=== PATIENT | male | born 1935 | race Caucasian/White ===

== ENCOUNTER 2023-06-25 11:55 | Emergency (ER) | payer OTHER, SELFPAY ==
[2023-06-25 12:03] VITALS: BP 103/66
--- NOTE | 2023-06-25 14:10 | ED.GENMED ---
History of Present Illness
<Aby Fernandez PA-C - Last Filed: 06/26/23 09:44>
General
Chief Complaint: Head Injury
Source: patient
Exam Limitations: none
Time Seen by Provider: 06/25/23 13:43
Nursing documentation reviewed up to this point in time: agreed with
Travel History
Have you had any contact with someone who has COVID-19?: No
Do you have any symptoms of coronavirus? Fever > 100 degrees, chills, cough, shortness of breath, sore throat, loss of taste or smell, muscle aches, or headache?: No
History of Present Illness
History of Present Illness:
Patient is an 88-year-old male with history hypertension, hyperlipidemia, CAD on Plavix presenting for evaluation in emergency department following mechanical fall earlier today. Patient states that he was walking in a parking lot at [facility] when he
tripped over a curb falling down striking the front of his head and chest on the pavement. He did not lose consciousness. Patient's was there to witness the fall and assisted him to get up. He currently endorses pain in his left chest. He
denies any shortness of breath or difficulty breathing. He denies any headache, neck pain, back pain, confusion, visual changes, vomiting.
He denies sustaining any other injuries in fall.
Past History
<Aby Fernandez PA-C - Last Filed: 06/26/23 09:44>
Past History
ED Past Medical History: CAD, GERD, HTN, Hypercholesterolemia, IDDM, [place] and Other (GI bleeding, Prostate CA, cardiomyopathy, hiatal hernia, colon cancer, prostate cancer, arthritis, lumbar disc disease)
ED Past Surgical History: Bowel resection, Cardiac (Stents X7) and Other (L arm surgery)
Social History
Tobacco: Former smoker
Alcohol: None
Drug: None
Personal:
Living: with family
Employment: Retired
Family History
Family History: Other (Noncontributory)
Phy Exam
<Aby Fernandez PA-C - Last Filed: 06/26/23 09:44>
Physical Exam
Physical Exam:
General: In no apparent distress, nontoxic appearing
Vitals: Vital signs stable, patient afebrile
HEENT: Hematoma noted to frontal scalp right at left eyebrow with very minor abrasion; pupils equal round and reactive to light bilaterally, extraocular muscles intact, no tenderness surrounding orbit or nasal bridge, protecting airway, uvula midline
Neck: appears supple, normal range of motion without any cervical spine or midline spinal tenderness; trachea midline
CV: Regular rate and rhythm, heart sounds normal, no evidence of cyanosis; mild tenderness to palpation of left anterior chest wall without any obvious bruising, crepitus, deformity
Resp: No evidence of respiratory distress, lungs clear bilaterally
Abd: Soft, nontender, non-distended
Extremities: Full range of motion all upper and lower extremities without any bony tenderness or obvious deformity
Neuro: alert and oriented x 3; speech normal; strength 5 out of 5 in upper and lower extremities, sensation fully intact, normal finger-nose, cranial nerves II through XII intact bilaterally
Psych: Normal affect
Skin: Hematoma and mild abrasion to left frontal scalp as noted above
Course
<Aby Fernandez PA-C - Last Filed: 06/26/23 09:44>
Orders/Labs/Results
Orders:
Orders
06/25/23 12:[address] [CT Head W/o Iv Contrast] Urgent
Comment:
Reason For Exam: fall hit head on plavix
06/25/23 12:06
Chest [CR Chest - 2 Views ] Urgent
Comment:
Reason For Exam: fall hit chest on concrete + plavix
06/25/23 14:02
Acetaminophen [Tylenol] 650 mg PO NOW STA
Vital Signs
Initial and Last Documented VS:
Initial Vital Signs
Temp Pulse Resp BP Pulse Ox
98.5 F 74 18 103/66 98
06/25/23 12:03 06/25/23 12:03 06/25/23 12:03 06/25/23 12:03 06/25/23 12:03
Last Documented Vital Signs
Temp Pulse Resp BP Pulse Ox
98.5 F 74 18 103/66 98
06/25/23 12:03 06/25/23 12:03 06/25/23 12:03 06/25/23 12:03 06/25/23 12:03
<Mekhi López DO - Last Filed: 06/25/23 14:37>
Orders/Labs/Results
Orders:
Orders
06/25/23 12:[address] [CT Head W/o Iv Contrast] Urgent
Comment:
Reason For Exam: fall hit head on plavix
06/25/23 12:06
Chest [CR Chest - 2 Views ] Urgent
Comment:
Reason For Exam: fall hit chest on concrete + plavix
06/25/23 14:02
Acetaminophen [Tylenol] 650 mg PO NOW STA
Vital Signs
Initial and Last Documented VS:
Initial Vital Signs
Temp Pulse Resp BP Pulse Ox
98.5 F 74 18 103/66 98
06/25/23 12:03 06/25/23 12:03 06/25/23 12:03 06/25/23 12:03 06/25/23 12:03
Last Documented Vital Signs
Temp Pulse Resp BP Pulse Ox
98.5 F 74 18 103/66 98
06/25/23 12:03 06/25/23 12:03 06/25/23 12:03 06/25/23 12:03 06/25/23 12:03
<Aby Fernandez PA-C - Last Filed: 06/26/23 09:44>
MDM/Problems Addressed
Differential Diagnosis Includes:
Abrasion, contusion, concussion, hematoma, doubt intraparenchymal hemorrhage or fracture; rib fracture, rib contusion, pulmonary contusion, muscular strain, doubt pneumothorax
MDM/Problems Addressed:
Patient is a 88 year old male presenting for evaluation following fall earlier today with associated head strike. No LOC. On plavix. Complaining of mild left sided chest pain. Vitals are stable. Physical exam as documented above. Patient is well
appearing, in no apparent distress. No neck tenderness or spine tenderness. No focal neurologic findings on exam. Hematoma noted to left frontal scalp at eyebrow. There is mild chest tenderness to palpation on left side without any obvious deformity
or crepitus. Heart regular rate and rhythm. Lungs clear bilaterally. Head CT and chest xray obtained in triage. No acute abnormalities. No evidence of pneumothorax. Ice for hematoma, tylenol for pain.
Discussed findings with patient and possibility and missing small rib fracture. Stable for discharge with very close return precautions, pneumonia precautions, incentive spirometer. Tylenol for pain. Patient comfortable this plan. All questions
answered. He will follow-up with his primary care doctor later this week
Chronic conditions affecting care:
CAD on Plavix
Acute Exacerbation and/or Progression of Chronic Illness:
N/A
<Aby Fernandez PA-C - Last Filed: 06/26/23 09:44>
*Radiology
Radiology exam reviewed: preliminary read by ED provider and radiology read reviewed
*Pulse Oximetry
Patient hypoxic: no
*EKG
Interpreted by ED Provider?: NA
*Office Clerk Routine Interpretation
Rate: Office Clerk Routine- N/A
*Critical Care Note
Total Time (30-74mins, 75-104mins- exclusive of procedures): Not Applicable
ED Attending Note
<Aby Fernandez PA-C - Last Filed: 06/26/23 09:44>
-
Portions of this chart may have been created with voice recognition software.� Occasional wrong word or��sound alike� substitutions may have occurred due to the inherent limitations of voice recognition software.
<Mekhi López, DO - Last Filed: 06/25/23 14:37>
ED Attending Note
Patient seen and examined by attending physician: Yes
I performed the substantive portion of visit, reviewed & personally made and approve the management plan that is documented in note by myself or KIN.: Yes
ED Attending Note:
88-year-old male who presents after he tripped over a parking block at [employer]. Landed on his chest. Did hit his head. States he may have landed on his hands underneath his chest. Reports a little left chest wall pain when he coughs. States head
feels fine. No loss of consciousness. No shortness of breath. No nausea or vomiting. Exam: Left frontal forehead hematoma with small abrasion. Very mild sternal and left parasternal chest wall tenderness. No crepitus. Loop recorder noted
under the skin. Assessment and plan: Pain control, ice, rest and if at the spirometry 10 times an hour while awake. Return warnings were provided and patient agrees
Discharge Plan
Departure
Patient Disposition: Home (Routine Discharge)
Date of Disposition: 06/25/23
Time of Disposition: 14:38
Patient with high blood pressure during this ER visit?: No
Condition: Good
Covid-19: Not Applicable
Discharge Problem:
Contusion of head, Contusion of left chest wall, Fall
Instructions: Rib Fracture or Bruised Rib ED, Minor Head Injury, Adult ED
Prescriptions:
No Action
glipizide 5 MG tablet
5 mg PO BID
clopidogrel 75 MG tablet
75 mg PO DAILY Qty: 30 3RF
amlodipine 5 MG tablet
5 mg PO DAILY Qty: 30 3RF
carvedilol 12.5 MG tablet
25 mg PO BID
pantoprazole [Protonix] 20 MG tablet,delayed release (DR/EC)
20 mg PO DAILY
vitamin B complex 1 TAB tablet
1 tab PO DAILY
aspirin 81 MG tablet,delayed release (DR/EC)
81 mg PO DAILY
insulin aspart U-100 [Novolog U-100 Insulin aspart] 1,000 UNITS/10 ML solution
7 units SC BID
atorvastatin 80 mg Tablet
80 mg PO HS
paroxetine HCl 10 mg Tablet
10 mg PO DAILY
oxybutynin chloride 5 mg Tablet Extended Release 24hr
5 mg PO DAILY
insulin asp prt-insulin aspart 100 unit/mL (70-30) Cartridge
1 sliding scale dose SC DIRECTED
Referrals:
Cesar Arana DO [Family Provider] - Follow up in 5-7 days
Activity Restrictions/Additional Instructions:
- Return to the emergency department with any chest pain, shortness of breath, high fevers, intractable pain, severe headache, altered mental status, intractable nausea/vomiting, worsening current symptoms, or any other concerns
-As discussed�you should use the incentive spirometer 10 times per hour when awake
-You can take Tylenol as needed for discomfort
-You should follow-up with your primary care provider within the next 5 to 7 days to ensure symptoms are improving
Interventions
Interventions:
*Risk Screen - Suicide Last Done: 06/25/23 12:03
*General Assessment Last Done: 06/25/23 12:03
*Neglect/Abuse Screening Last Done: 06/25/23 12:03
*ED COVID-19 Vaccine History Last Done: 06/25/23 12:03
*Nursing Disposition Last Done: 06/25/23 14:56
ED- Neurological Assessment Last Done: 06/25/23 14:16
ED-Skin Assessment Last Done: 06/25/23 14:16
Discharge Date and Time
Discharge Date/Time: 06/25/23 14:56
Print Language: [place]
[2023-06-25] MEDS: TYLENOL 650 MG PO (14:12)
== END 2023-06-25 14:56 | disposition home or self-care (01) ==
LOC: EMR 11:55
PROVIDERS: EMERGENCY PHYSICIAN Emergency Medicine; FAMILY PHYSICIAN Family Medicine
DX: S00.83XA Contusion of other part of head, initial encounter (principal); S20.212A Contusion of left front wall of thorax, initial encounter; W18.09XA Striking against other object with subsequent fall, initial encounter; I25.10 Atherosclerotic heart disease of native coronary artery without angina pectoris; I10 Essential (primary) hypertension; Z87.891 Personal history of nicotine dependence; Z79.02 Long term (current) use of antithrombotics/antiplatelets
CPT/HCPCS: 99284; 70450; 71046

== ENCOUNTER 2023-08-11 19:43 | Inpatient (IN) | payer OTHER, SELFPAY ==
[2023-08-11 17:59] VITALS: BMI 25.4
[2023-08-11 18:00] VITALS: BP 156/71
--- NOTE | 2023-08-11 18:13 | ED.GENMED ---
History of Present Illness
General
Chief Complaint: Male Genito-Urinary Symptoms
Source: patient and spouse
Exam Limitations: none
Time Seen by Provider: 08/11/23 18:05
Travel History
Have you had any contact with someone who has COVID-19?: No
Do you have any symptoms of coronavirus? Fever > 100 degrees, chills, cough, shortness of breath, sore throat, loss of taste or smell, muscle aches, or headache?: No
History of Present Illness
History of Present Illness:
88-year-old male complaining of some low back pain which has been an ongoing issue some urinary frequency overnight. Feels like he had to go multiple times overnight. Some lower abdominal pressure. No fever or chills. No flank pain. No nausea
or vomiting.
Past History
Past History
ED Past Medical History: CAD, GERD, HTN, Hypercholesterolemia, IDDM, [place] and Other (GI bleeding, Prostate CA, cardiomyopathy, hiatal hernia, colon cancer, prostate cancer, arthritis, lumbar disc disease)
ED Past Surgical History: Bowel resection, Cardiac (Stents X7) and Other (L arm surgery)
Social History
Tobacco: Former smoker
Alcohol: None
Drug: None
Personal:
Living: with family
Employment: Retired
Family History
Family History: Other (Noncontributory)
Review of Systems
Review of Systems
All Other Systems: Not applicable
Constitutional: Reports fatigue; Denies fever or chills
Respiratory: Reports no symptoms
Cardiac: Reports no symptoms
Phy Exam
Physical Exam
Physical Exam:
GENERAL: Alert and oriented in no apparent distress
EYE: Orbits normal.
NECK: Supple
CARDIAC: Regular rate and rhythm without any obvious murmurs.
LUNGS: Clear breath sounds,normal
ABDOMEN: Soft, mild suprapubic fullness. No true tenderness. No rebound or guarding no mass or hernia. No CVA tenderness.
NEUROLOGICAL: Alert and oriented , grossly non-focal. Good lower extremity strength. Some subjective bilateral lower extremity paresthesias however this is chronic. Gait normal.
SKIN: Warm and dry, no rash or lesion, no discoloration, skin intact.
MUSCULOSKELETAL: No edema,no deformity.Good color. No spinal tenderness. No erythema of the lower back.
PSYCH: Normal and appropriate interaction.
Course
Orders/Labs/Results
Orders:
Orders
08/11/23 18:12
Adams Placement- Treatment ONCE
Reason for insertion: Acute Retention
IV Insert/Care/Rem.- Treatment PRN
08/11/23 18:31
Basic Metabolic Panel Urgent
Complete Blood Count/With Diff Urgent
Urinalysis Reflex To Culture Urgent
Date Specimen was Collected: 08/11/23
Time Specimen was Collected: 18:28
Urine Microscopic Reflex Cult Urgent
Urine Culture Urgent
NELI Source: U
Specimen Description:
Date Specimen was Collected: 08/11/23
Time Specimen was Collected: 18:28
08/11/23 19:06
Lidocaine 2% [Lidocaine Uro-Jet 2%] 1 syringe .ROUTE .[facility]
08/11/23 19:09
Lidocaine 2% [Lidocaine Uro-Jet 2%] 1 syringe TOPICAL NOW STA
08/11/23 19:15
Cefepime HCl [Maxipime] 2,000 mg IV NOW STA
08/11/23 19:17
CT Abd/pel Without Iv Or Oral Urgent
Comment:
Reason For Exam: Back pain/UTI
08/11/23 19:20
Blood Culture Q30M
NELI Source: Blood/Venous
Specimen Description:
0.9% Sodium Chloride 500 ml [Nss] 500 ml IV BOLUS
Ketorolac [Toradol] 15 mg IV NOW STA
08/11/23 19:33
Admit/Transfer Patient As Directed
Co-Sign Provider:
Level of Care: Inpatient admission
Assign to:: Medical/Surgical
Physician / Group: ok
Diagnosis: uti
Reason for Hospitalization: uti
Expected length of stay greater than two midnights?: Yes
ELOS- Estimated Length of Stay in days: 2
I certify the patient meets the requirements for IP care: Yes
Code Status As Directed
Resuscitation Status: Full Code
08/11/23 19:45
Blood Culture Q30M
NELI Source: Blood/Venous
Specimen Description:
Abnormal Lab Results
08/11/23
18:31
RBC 4.06 L 10^6/uL
(4.70-6.10)
Hgb 10.6 L g/dL
(13.0-18.0)
Hct 31.6 L %
(39.0-52.0)
MCV 77.8 L fL
(80.0-94.0)
MCH 26.1 L pg
(27.0-31.0)
Absolute Monos (auto) 1.0 H 10^3/uL
(0.1-0.6)
Lymphocytes % 15.0 L %
(20.5-51.1)
Monocytes % 11.9 H %
(1.7-9.3)
Sodium 133 L mmol/L
(135-145)
BUN 27 H mg/dl
(9-20)
Glucose 257 H mg/dl
(70-99)
Ur Occult Blood Reflex 2+ A
(Negative)
Leukocyte Esterase Rfl 2+ A
(Negative)
Urine RBC 3-6 A /HPF
(0-2)
Urine WBC (Reflex) >100 A /HPF
(0-5)
Urine Bacteria (Reflex) Many A
(Negative)
Urine Glucose 3+ A
(Negative)
08/11/23 18:31
08/11/23 18:31
Vital Signs
Initial and Last Documented VS:
Initial Vital Signs
Temp Pulse Resp BP Pulse Ox
99.6 F 71 20 156/71 99
08/11/23 18:00 08/11/23 18:00 08/11/23 18:00 08/11/23 18:00 08/11/23 18:00
Last Documented Vital Signs
Temp Pulse Resp BP Pulse Ox
99.6 F 71 20 156/71 99
08/11/23 18:00 08/11/23 18:00 08/11/23 18:00 08/11/23 18:00 08/11/23 18:00
MDM/Problems Addressed
Differential Diagnosis Includes:
Patient describing urinary frequency. Bladder scan greater than the thousand. Likely stress incontinence with urinary retention. To consider infectious component also. Doubt kidney stone. Patient does get injections in his back but has no acute
neurologic lower extremity issues. History of prostatitis and radiation prostatitis
*Radiology
Radiology exam reviewed: radiology read reviewed (Bilateral hydronephrosis without obstruction. Renal mass.)
*Pulse Oximetry
Patient hypoxic: no
*Critical Care Note
Total Time (30-74mins, 75-104mins- exclusive of procedures): Not Applicable
Data Reviewed
Review of Other/Old Records Reveals: Labs and Testing
Update Note
Update Note:
1600 cc urinary retention. Positive UTI. Patient somewhat uncomfortable at the urethral site. Will try local lidocaine and Toradol. Warrants inpatient management. Also will get a CT scan for completeness although doubt obstructing kidney stone
ED Attending Note
-
Portions of this chart may have been created with voice recognition software.� Occasional wrong word or��sound alike� substitutions may have occurred due to the inherent limitations of voice recognition software.
Discharge Plan
Departure
Patient Disposition: Admit
Date of Disposition: 08/11/23
Time of Disposition: 19:21
Presentation/result/management discussed w/ accepting MD/DO: Hospitalist
Discharge Problem:
Urinary retention, UTI
Interventions
Interventions:
*Risk Screen - Suicide Last Done: 08/11/23 18:00
*General Assessment Last Done: 08/11/23 18:00
*Neglect/Abuse Screening Last Done: 08/11/23 18:00
*ED COVID-19 Vaccine History Last Done: 08/11/23 19:53
ED-Male Genitourinary Assessment Last Done: 08/11/23 18:41
[2023-08-11 18:50] LABS: % Basophils 0.5 % (0-2); % Eosinophils 1.5 % (0-6); % Immature Granulocytes 0.3 % (0-0.5); % Monocytes 11.9 % (1.7-9.3); % Neutrophils 70.8 % (42.2-75.2); Absolute Eosinophils 0.1 10^3/uL (0-0.7); Absolute Lymphocytes 1.3 10^3/uL (1.2-3.4); Absolute Neutrophils 6.1 10^3/uL (1.4-6.5); Hematocrit 31.6 % (39.0-52.0); Hemoglobin 10.6 g/dL (13.0-18.0); Mean Corp Hgb Conc. 33.5 g/dL (33.0-37.0); Mean Corpuscular Hgb 26.1 pg (27.0-31.0); Mean Corpuscular Volume 77.8 fL (80.0-94.0); Mean Platelet Volume 9.3 fL (7.4-10.4); Nucleated Red Blood Cells % 0 % (-); Platelet Count 298 10^3/uL (130-400); Red Blood Cell Count 4.06 10^6/uL (4.70-6.10); Red Cell Dist. Width 14.2 % (11.5-14.5); White Blood Cell Count 8.6 10^3/uL (4.8-10.8)
[2023-08-11 18:58] LABS: Urine Albumin Trace (Neg - Trace); Urine Bilirubin Negative (Negative); Urine Character Very Cloudy (Clear); Urine Color Yellow; Urine Glucose 3+ (Negative); Urine Ketone Negative (Negative); Urine Leukocyte 2+ (Negative); Urine Nitrite Negative (Negative); Urine Occult Blood 2+ (Negative); Urine Urobilinogen Negative (Neg - 1+)
[2023-08-11 19:04] LABS: Blood Urea Nitrogen 27 mg/dl (9-20); Calcium 8.9 mg/dl (8.4-10.2); Carbon Dioxide 22 mmol/L (22-30); Chloride 101 mmol/L (98-107); Glucose 257 mg/dl (70-99); Potassium 4.2 mmol/L (3.5-5.1); Sodium 133 mmol/L (135-145); eGFR > 60.00
[2023-08-11] MEDS: LIDOCAINE URO-JET 2% 1 SYRINGE TOPICAL (19:09)
[2023-08-11] MEDS: NSS 500 IV (19:25)
--- NOTE | 2023-08-11 19:25 | PHANOTE ---
Med Rec Note- spouse and patient do not know patient meds, used [facility] and pharmacy. spouse will bring in home meds list and/or bottles tomorrow 08/12/23
[2023-08-11] MEDS: MAXIPIME 2000 MG IV (19:26)
[2023-08-11] MEDS: TORADOL 15 MG IV (19:26)
[2023-08-11 19:37] LABS: Urine Squamous Cell 0-2 /LPF (Few); Urine White Cell >100 /HPF (0-5)
[2023-08-11 19:38] LABS: Urine Bacteria Many (Negative)
--- NOTE | 2023-08-11 19:39 | HPS.HSE ---
Family Physician
-
Family Physician: Cesar Arana DO
Chief Complaint
-
urinary symptoms
History of Present Illness
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
burning since yesterday. [place] like he had to urinate multiple times overnight. He has some lower abdominal pressure. He denies fevers or chills. He denies flank pain. He denies nausea or vomiting.
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
He denies smoking or alcohol use.
Medical History
Past Medical History
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
Past Surgical History: Reports Other (Bowel resection, Cardiac (Stents X7) and Other (L arm surgery))
Social History
Tobacco: Non-smoker
Alcohol: None
Drug: None
Family History
Family History: Not pertinent
Allergies / Home Medications
Allergies reflects when Allergies were last updated in [facility].
Home Medications with original date entered in [facility]
Allergy/Medication List:
Allergies
Allergy/AdvReac Type Severity Reaction Status Date / Time
No Known Allergies Allergy Verified 08/11/23 18:00
Home Medications
amlodipine 5 mg tablet 5 mg PO DAILY ##30 07/17/18
clopidogrel 75 mg tablet 75 mg PO DAILY ##30 07/17/18
aspirin 81 mg tablet,delayed release 81 mg PO DAILY 08/06/18
carvedilol 12.5 mg tablet 6.25 mg PO BID 08/06/18
pantoprazole 20 mg tablet,delayed release (Protonix) 20 mg PO DAILY 08/06/18
vitamin B complex 1 tab PO DAILY 08/06/18
atorvastatin 80 mg tablet 80 mg PO HS 09/06/22
cholestyramine (with sugar) 4 gram oral powder 1 ea PO BID 08/11/23
glipizide 10 mg tablet 10 mg PO BID 08/11/23
insulin aspar prt-insulin aspart 100 unit/mL (70-30) subcutaneous soln (Novolog Mix 70-30 U-100 Insuln) 20 unit SC BID 08/11/23
paroxetine HCl 40 mg tablet (Paxil) 40 mg PO DAILY 08/11/23
tamsulosin 0.4 mg capsule (Flomax) 0.4 mg PO DAILY 08/11/23
Review of Systems
-
History Source: Patient
A 12 point ROS was completed and negative except as noted: Yes
Constitutional: Reports No Symptoms
EENT: Reports No Symptoms
Respiratory: Reports No Symptoms
Cardiac: Reports No Symptoms
Abdomen/GI: Reports No Symptoms
: Reports See HPI
Musculoskeletal: Reports No Symptoms
Skin: Reports No Symptoms
Neurological: Reports No Symptoms
Endocrine: Reports No Symptoms
Hematologic/Lymphatic: Reports No Symptoms
Psych: Reports No Symptoms
Physical Exam
Vital Signs
Vital Signs
Temp Pulse Resp BP Pulse Ox
99.6 F 71 20 156/71 99
08/11/23 18:00 08/11/23 18:00 08/11/23 18:00 08/11/23 18:00 08/11/23 18:00
Physical Exam
General: Well Developed, Well Nourished and No Apparent Distress
HEENT: NormoCephalic, Moist mucous membranes and Atraumatic
Respiratory: Clear
Cardiac: S1/S2 and Regular Rhythm; No Murmur or Rub
GI: Soft, Non Distended, Normal Bowel Sounds and Tender; No Organomegaly
Rectal: Deferred by Provider
Musculoskeletal: No Clubbing, No Cyanosis and No Edema
Skin: No Rash
Neuro: Nonfocal/grossly intact
Laboratory Results
-
08/11/23 18:31
08/11/23 18:31
Data Reviewed
-
Lab Data: Labs Reviewed by me
Old Records: Reviewed
Impression/Plan
-
IMPRESSION:
PLAN:
# Urinary tract infection
# Urinary retention
-Patient found to be retaining 1500 cc, Adams catheter placed, hematuria developed sometime after Adams catheter insertion
-Urinalysis suggestive of infection, full counts pending
-Urine culture, blood cultures
-Ceftriaxone
-CT abdomen pelvis to rule out obstructive uropathy
-Continue aspirin, hold Plavix given hematuria
# History of prostate cancer status post radiation
-Continue tamsulosin
Coronary artery disease with stents
-Continue aspirin
-Hold Plavix given hematuria
History of SVT
-continue Coreg
Essential hypertension
-Continue amlodipine
Hyperlipidemia
-continue statin
Type 2 diabetes
-Hold glipizide
-Continue NovoLog 70�30, 20 units twice daily
-Insulin sliding scale
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
-Continue cholestyramine
GERD
-Continue Protonix
History of TIA
Spinal stenosis
Anxiety/depression
-Continue paroxetine
Full code
DVT prophylaxis�SCDs
Regular diet
--- NOTE | 2023-08-11 19:41 | EDRN ---
Pt states feeling better after lidocaine applied. Pt states stretcher is also causing discomfort. Pt repositioned and states 'I feel better but I hate these beds'. Pt states she will call with confirmation of med list when she gets home.
[2023-08-11 19:48] VITALS: BP 158/75
[2023-08-11 20:00] VITALS: BP 158/69
[2023-08-11 20:28] VITALS: BP 160/73; BMI 24.8
[2023-08-11 20:32] LABS: Glucose - Point of Care 206 mg/dl (70-99)
[2023-08-11] MEDS: LIPITOR PO ×2 (21:09→21:11)
[2023-08-11] MEDS: COREG PO ×2 (21:09→21:11)
[2023-08-11] MEDS: ROCEPHIN 1000 MG IV ×2 (21:13→21:18)
[2023-08-11] MEDS: STERILE WATER FOR INJECTION 10 ML IV (21:13)
[2023-08-11 23:29] VITALS: BP 133/70
[2023-08-12 03:00] VITALS: BP 135/60
[2023-08-12 07:00] VITALS: BP 145/67
[2023-08-12 07:36] LABS: % Basophils 0.5 % (0-2); % Eosinophils 2.2 % (0-6); % Immature Granulocytes 0.5 % (0-0.5); % Lymphocytes 13.6 % (20.5-51.1); % Neutrophils 72.2 % (42.2-75.2); Absolute Eosinophils 0.2 10^3/uL (0-0.7); Absolute Monocytes 0.8 10^3/uL (0.1-0.6); Absolute Neutrophils 5.5 10^3/uL (1.4-6.5); Hematocrit 30.7 % (39.0-52.0); Mean Corp Hgb Conc. 32.6 g/dL (33.0-37.0); Mean Corpuscular Volume 79.7 fL (80.0-94.0); Mean Platelet Volume 9.7 fL (7.4-10.4); Nucleated Red Blood Cells % 0 % (-); Platelet Count 288 10^3/uL (130-400); Red Blood Cell Count 3.85 10^6/uL (4.70-6.10); Red Cell Dist. Width 14.5 % (11.5-14.5); White Blood Cell Count 7.6 10^3/uL (4.8-10.8)
[2023-08-12 07:45] LABS: ALT (SGPT) 16 U/L (0-50); AST (SGOT) 17 U/L (17-59); Albumin 3.1 g/dl (3.5-5.0); Alkaline Phosphatase 88 U/L (38-126); Blood Urea Nitrogen 18 mg/dl (9-20); Calcium 8.5 mg/dl (8.4-10.2); Carbon Dioxide 26 mmol/L (22-30); Chloride 105 mmol/L (98-107); Estimated Creatinine Clearance 67 ml/min; Glucose 214 mg/dl (70-99); Potassium 4.8 mmol/L (3.5-5.1); Sodium 137 mmol/L (135-145); Total Bilirubin 0.7 mg/dl (0.2-1.3); Total Protein 5.7 g/dl (6.3-8.2); eGFR > 60.00
[2023-08-12] MEDS: QUESTRAN 4 GRAM PO ×2 (08:15→21:16)
[2023-08-12 08:17] LABS: Glucose - Point of Care 233 mg/dl (70-99)
[2023-08-12] MEDS: PAXIL 40 MG PO (08:17)
[2023-08-12] MEDS: FLOMAX 0.400000000000000022 MG PO (08:17)
[2023-08-12] MEDS: COREG 6.25 MG PO ×2 (08:17→20:45)
[2023-08-12] MEDS: ASPIR LOW (ENTERIC COATED) 81 MG PO (08:17)
[2023-08-12] MEDS: B COMPLEX w/VITAMIN C 1 CAPLET PO (08:17)
[2023-08-12] MEDS: PROTONIX 20 MG PO (08:17)
[2023-08-12] MEDS: NORVASC 5 MG PO (08:18)
[2023-08-12] MEDS: NOVOLOG MIX 70/30 FLEXPEN 20 UNITS SC ×2 (08:19→20:46)
[2023-08-12] MEDS: NOVOLOG FLEXPEN-LOW RESISTANCE 2 UNITS SC (08:29)
[2023-08-12 09:00] LABS: Glycohemoglobin (HgbA1c) 10.7 % (4.0-5.6)
[2023-08-12 12:26] LABS: Glucose - Point of Care 274 mg/dl (70-99)
[2023-08-12] MEDS: NOVOLOG FLEXPEN-LOW RESISTANCE 3 UNITS SC (12:27)
--- NOTE | 2023-08-12 12:49 | VNURNOTE ---
Patient is current with [facility] since 08/03 w/SN/PT/OT, will monitor progress and plan at discharge.
--- NOTE | 2023-08-12 13:35 | W.PN.HOSP.TC ---
Today's Communication/Plan
-
Urology consult
Assessment / Plan
Assessment / Plan
# Urinary tract infection
# Urinary retention
-Patient found to be retaining 1500 cc, Adams catheter placed, hematuria developed sometime after Adams catheter insertion
-Urinalysis suggestive of infection, full counts pending
-Urine culture, blood cultures
-Ceftriaxone
-CT abdomen pelvis to rule out obstructive uropathy: Adams catheter is seen within a predominantly empty urinary bladder with likely thickened wall and some small volume heterogeneous density within, markedly limited on this study without
intravenous contrast. Findings could represent proteinaceous material such as infection, hemorrhage and/or malignancy. This may be related to mild left and minimal right hydroureteronephrosis, without findings to confirm obstructive calculus
bilaterally.
1.3 cm homogeneous slightly hyperdense left renal lesion either a hyperdense cyst or solid mass cannot be differentiated on the basis of this study.
-Continue aspirin, hold Plavix given hematuria
# History of prostate cancer status post radiation
-Continue tamsulosin. Discussed with Dr. Bello, will consult
Coronary artery disease with stents
-Continue aspirin
-Hold Plavix given hematuria
History of SVT
-continue Coreg
Essential hypertension
-Continue amlodipine
Hyperlipidemia
-continue statin
Type 2 diabetes
-Hold glipizide. Poorly controlled, a1c 10.7%
-Continue NovoLog 70�30, 20 units twice daily
-Insulin sliding scale
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
-Continue cholestyramine
GERD
-Continue Protonix
History of TIA
Spinal stenosis
Anxiety/depression
-Continue paroxetine
Full code
DVT prophylaxis�SCDs
Regular diet
Anticipated Discharge: > 48 hours
Subjective/Interval History
-
Date of Service: August 12, 2023
Generally feels better, asking when can go home
Objective Data
-
Labs:
Laboratory Results
08/12/23
06:31
WBC 7.6
Hgb 10.0 L
Hct 30.7 L
Plt Count 288
Sodium 137
Potassium 4.8
Chloride 105
Carbon Dioxide 26
BUN 18
Creatinine 0.8
Glucose 214 H
Calcium 8.5
Total Bilirubin 0.7
AST 17
ALT 16
Alkaline Phosphatase 88
Vital Signs:
Vital Signs
Temp Pulse Resp BP Pulse Ox
98.4 F 73 16 145/67 96
08/12/23 07:00 08/12/23 08:18 08/12/23 07:00 08/12/23 08:18 08/12/23 08:27
I&O
08/11/23 08/12/23 08/13/23
06:59 06:59 06:59
Intake Total 750 / 750
Output Total 1850 / 1850
Balance -1100 / -1100
Review of Systems
-
History Source: Patient and Family ( at bedside)
Constitutional: Reports No Symptoms; Denies Fever
Respiratory: Reports No Symptoms; Denies Cough, Hemoptysis or Trouble Breathing
Cardiac: Reports No Symptoms; Denies Chest Pain
Abdomen/GI: Reports No Symptoms and Abdominal Pain (better)
Genitourinary: Reports Frequency (on admission); Denies Dysuria (denied)
Musculoskeletal: Reports No Symptoms
Neuro: Reports No Symptoms
Physical Exam
-
General: Well Developed, Well Nourished and No Apparent Distress
HEENT: Normocephalic, Atraumatic and Moist Mucous Membranes
Respiratory: Clear to Auscultation; Negative Wheezes, Rales or Rhonchi
Cardiac: Regular Rhythm and S1/S2
GI: Soft, Nontender and Nondistended
Musculoskeletal: No Clubbing, No Cyanosis and No Edema
Neuro: Awake, Alert and Oriented
--- NOTE | 2023-08-12 13:50 | CM ---
Alert awake oriented patient who lives with his Alexia who lives in a 2 story home with 2 step to enter and lives on first floor.He is independent in driving and in all activities of daily living.He was offered VN he requested to resume [facility].
[facility] liaison TT request.Uses cane .
[facility] hx / No SNF history
Pharmacy [facility]
PCP DR Cesar Arana
PLAN Home resume [facility]
[2023-08-12 15:00] VITALS: BP 135/60
--- NOTE | 2023-08-12 15:22 | VNURNOTE ---
[facility] resumption of care completed in [facility] after review of chart and discussion with patient. Patient confirmed having [facility] contact number.
--- NOTE | 2023-08-12 16:07 | PTCARENOTE ---
Pt AAO x3, [place] [facility]; ROMERO well, OOB with assist x1/cane; cecelia well. VSS. On room air- pulse ox 94%. Abd soft, rounded, cecelia PO well. Adams P/I mod amts sl cloudy/sedimented yellow urine; no hematuria noted. resting in bed at present, no c/o. Will
continue to monitor.
[2023-08-12 17:00] LABS: Glucose - Point of Care 318 mg/dl (70-99)
[2023-08-12] MEDS: NOVOLOG FLEXPEN-LOW RESISTANCE 4 UNITS SC (17:13)
--- NOTE | 2023-08-12 18:21 | CONS.URO ---
Consultation
-
Performing Provider: Peffer
Reason for Consultation: Urinary retention
Medical History
History of Present Illness
88[address] Marx with a hx of prostate cancer treated with radiation in 2012
PSA undetectable for years but most recently has risen slightly to 0.[address] Marx's last note his PSA has started to rise slightly.
He has chronic moderate urinary retention of around 300cc PVR as of last visit 10/2022
Along with this is some chronic incontinence
He does take tamsulosin daily
No prior UTI issues known
Some complex renal cysts s/p MRI showing no concern for malignancy
Starting 2 days ago he had worsening dysuria, frequency, and nocturia
He was admitted for septic UTI and aldridge was placed for 1500cc urine
CT showed mild b/l hydroureter and L hydronephrosis
Urology consulted for urinary retention
Past Medical History
Past Medical History: Other (CAD with stents, SVT, hypertension, hyperlipidemia type 2 diabetes, GI bleeding secondary to radiation, prostate cancer status post radiation, TIA, spinal stenosis, GERD)
Past Surgical History: Other (Bowel resection, Cardiac (Stents X7) and Other (L arm surgery))
Social History
Tobacco: Non-smoker
Alcohol: None
Drug: None
Family History
Family History: Reviewed & Not Pertinent
Allergies/Home Medications
Allergies
Allergy/AdvReac Type Severity Reaction Status Date / Time
No Known Allergies Allergy Verified 08/11/23 18:00
Home Medications
�Medication �Instructions �Recorded �Confirmed �Type
amlodipine 5 mg tablet 5 mg PO DAILY ##30 07/17/18 08/11/23 Rx
clopidogrel 75 mg tablet 75 mg PO DAILY ##30 07/17/18 08/11/23 Rx
aspirin 81 mg tablet,delayed 81 mg PO DAILY 08/06/18 08/11/23 History
release
carvedilol 12.5 mg tablet 6.25 mg PO BID 08/06/18 08/11/23 History
pantoprazole 20 mg tablet,delayed 20 mg PO DAILY 08/06/18 08/11/23 History
release (Protonix)
vitamin B complex 1 tab PO DAILY 08/06/18 08/11/23 History
atorvastatin 80 mg tablet 80 mg PO HS 09/06/22 08/11/23 History
cholestyramine (with sugar) 4 gram 1 ea PO BID 08/11/23 08/11/23 History
oral powder
glipizide 10 mg tablet 10 mg PO BID 08/11/23 08/11/23 History
insulin aspar prt-insulin aspart 20 unit SC BID 08/11/23 08/11/23 History
100 unit/mL (70-30) subcutaneous
soln (Novolog Mix 70-30 U-100
Insuln)
paroxetine HCl 40 mg tablet (Paxil) 40 mg PO DAILY 08/11/23 08/11/23 History
tamsulosin 0.4 mg capsule (Flomax) 0.4 mg PO DAILY 08/11/23 08/11/23 History
Physical Exam
Vital Signs
Vital Signs
Temp Pulse Resp BP Pulse Ox
99 F 73 20 135/60 94
08/12/23 15:00 08/12/23 15:00 08/12/23 15:00 08/12/23 15:00 08/12/23 16:07
Lab / Testing Results
Laboratory Results
08/12/23 06:31
08/12/23 06:31
Physical Exam
General: Well Developed, Well Nourished and No Apparent Distress
Respiratory: Clear
GI: Soft and Non Tender
Genito-urinary: No Costovertebral Tend, Clear Urine and Aldridge Catheter
Neuro: AO x 3 and No Motor Deficits
Psych: Calm and Intact Judgement
Assessment / Plan
-
88M with prostate cancer s/p radiation and ADT in 2012, some early evidence
Chronic urinary retention and incontinence with baseline 300cc PVR
Admitted with large volume retention 1500cc and septic UTI
Mild hydronephrosis likely due to retention
- Given chronic urinary retention at baseline even on tamsulosin, would recommend discharge with aldridge catheter in place to complete antibiotic course
- Outpatient follow up for possible trial of void vs alternate penitentiary drainage options like continued aldridge or CIC
- Outpatient repeat imaging to eval resolution of hydronephrosis
- Continue broad spectrum abx pending cultures, recommend 14 day total PO abx course for complicated UTI
- Can resume Plavix on 08/17 if hematuria remains resolved
Data Reviewed
-
CT Scan: Image personally visualized and interpreted
Lab Data: Labs Reviewed
Old Records: Reviewed
[2023-08-12 20:30] VITALS: BP 128/65
[2023-08-12 20:32] LABS: Glucose - Point of Care 300 mg/dl (70-99)
[2023-08-12] MEDS: STERILE WATER FOR INJECTION 10 ML IV (20:45)
[2023-08-12] MEDS: ROCEPHIN 1000 MG IV (20:45)
[2023-08-12] MEDS: METAMUCIL, KONSYL 1 PACKET PO (20:45)
[2023-08-12] MEDS: LIPITOR 80 MG PO (20:46)
[2023-08-12] MEDS: LIDOCAINE 4% PATCH 1 PATCH TOPICAL (21:15)
[2023-08-12] MEDS: MELATONIN 5 MG PO (21:15)
[2023-08-12] MEDS: TYLENOL 650 MG PO (21:15)
[2023-08-12 23:58] VITALS: BP 129/61
[2023-08-13 07:04] LABS: Glucose - Point of Care 125 mg/dl (70-99)
[2023-08-13] MEDS: B COMPLEX w/VITAMIN C 1 CAPLET PO (07:40)
[2023-08-13] MEDS: PAXIL 40 MG PO (07:40)
[2023-08-13] MEDS: NOVOLOG FLEXPEN-LOW RESISTANCE SC ×2 (07:40→12:37)
[2023-08-13] MEDS: PROTONIX 20 MG PO (07:40)
[2023-08-13] MEDS: METAMUCIL, KONSYL 1 PACKET PO (07:41)
[2023-08-13] MEDS: FLOMAX 0.400000000000000022 MG PO (07:41)
[2023-08-13] MEDS: QUESTRAN 4 GRAM PO (07:41)
[2023-08-13] MEDS: NORVASC 5 MG PO (07:41)
[2023-08-13] MEDS: COREG 6.25 MG PO (07:42)
[2023-08-13] MEDS: ASPIR LOW (ENTERIC COATED) 81 MG PO (07:42)
[2023-08-13] MEDS: FLUSH (NSS) 1 FLUSH IV (07:43)
[2023-08-13] MEDS: NOVOLOG MIX 70/30 FLEXPEN 20 UNITS SC (07:44)
[2023-08-13 07:55] VITALS: BP 139/67
--- NOTE | 2023-08-13 10:32 | W.PN.HOSP.TC ---
Today's Communication/Plan
-
dc now
Assessment / Plan
Assessment / Plan
# Urinary tract infection
# Urinary retention
-Patient found to be retaining 1500 cc, Aldridge catheter placed, hematuria developed sometime after Aldridge catheter insertion
-Urinalysis suggestive of infection, full counts pending
-Urine culture neg, blood cultures NGTD
-Ceftriaxone to transition to Ceftin
-CT abdomen pelvis to rule out obstructive uropathy: Aldridge catheter is seen within a predominantly empty urinary bladder with likely thickened wall and some small volume heterogeneous density within, markedly limited on this study without
intravenous contrast. Findings could represent proteinaceous material such as infection, hemorrhage and/or malignancy. This may be related to mild left and minimal right hydroureteronephrosis, without findings to confirm obstructive calculus
bilaterally.
1.3 cm homogeneous slightly hyperdense left renal lesion either a hyperdense cyst or solid mass cannot be differentiated on the basis of this study.
-Continue aspirin, hold Plavix given hematuria
# History of prostate cancer status post radiation
-Continue tamsulosin. Discussed with Dr. Bello, appreciate consult
Coronary artery disease with stents
-Continue aspirin
-Hold Plavix given hematuria, resume on 08/17
History of SVT
-continue Coreg
Essential hypertension
-Continue amlodipine
Hyperlipidemia
-continue statin
Type 2 diabetes
-resume preadmit diabetic medication. Discussed with , she is aware of poorly controlled DM. Will need f/u with PCP to better optimize diabetic management
-Continue NovoLog 70�30, 20 units twice daily
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
-Continue cholestyramine
GERD
-Continue Protonix
History of TIA
Spinal stenosis
Anxiety/depression
-Continue paroxetine
Full code
DVT prophylaxis�SCDs
Regular diet
Pt feels very strongly that he wishes to go home today, will dc
see dictated note
reviewed with CASSIA Roca, and patient
More than 30 minutes spent in discharge including
Final examination of the patient
Summarizing hospital stay
Instructions for continuing care to all relevant caregivers
Preparation of discharge records, prescriptions, and referral forms
Total time spent (in minutes): 45
Anticipated Discharge: Today
Subjective/Interval History
-
Date of Service: August 13, 2023
Feels better and would like to go home
Objective Data
-
Vital Signs:
Vital Signs
Temp Pulse Resp BP Pulse Ox
97.9 F 64 16 139/67 97
08/13/23 07:55 08/13/23 07:55 08/13/23 07:55 08/13/23 07:55 08/13/23 07:55
I&O
08/12/23 08/13/23 08/14/23
06:59 06:59 06:59
Intake Total 750 / 750 2220 / 2220
Output Total 1850 / 1850 4525 / 4525
Balance -1100 / -1100 -2305 / -2305
Review of Systems
-
History Source: Patient and Family (discussed with )
Constitutional: Denies No Symptoms or Fever
EENT: Reports No Symptoms Reported
Respiratory: Reports No Symptoms; Denies Trouble Breathing
Cardiac: Reports No Symptoms; Denies Chest Pain
Genitourinary: Reports Other (aldridge in place)
Physical Exam
-
General: Well Developed, Well Nourished and No Apparent Distress
HEENT: Normocephalic, Atraumatic and Moist Mucous Membranes
Respiratory: Clear to Auscultation; Negative Wheezes, Rales or Rhonchi
Cardiac: Regular Rhythm and S1/S2
GI: Soft, Nontender and Nondistended
Genito-urinary: Aldridge
Musculoskeletal: No Clubbing, No Cyanosis and No Edema
Neuro: Awake, Alert and Oriented
--- NOTE | 2023-08-13 11:10 | CM ---
MD entered order for discharge.
Spoke with pt he said he was ready for discharge.
Alexia will drive him home.
Madis[facility] liaison aware of dc.
PLAN Home with [facility] resumption
[2023-08-13 11:30] VITALS: BP 126/63
--- NOTE | 2023-08-13 12:39 | W.DS.TRANS ---
DC Summary - Grocery Clerk Selling
-
Discharge Instructions:
Discharge Diagnosis/Procedures Bladder Outlet Obstruction with UTI
Diet Diabetic, Carb Controlled
Activity No strenuous activity
Driving Restrictions Not until seen by your Dr
Bathing Restrictions None
Blood Work CBC, BMP in 1-2 weeks
Instructions:
Stand-Alone Forms:
Changes to Home Medications: Yes
Discharge Medications:
DC Medications w/original date entered in [facility]
amlodipine 5 mg tablet 5 mg PO DAILY ##30 07/17/18
clopidogrel 75 mg tablet 75 mg PO DAILY ##30 07/17/18
aspirin 81 mg tablet,delayed release 81 mg PO DAILY 08/06/18
carvedilol 12.5 mg tablet 6.25 mg PO BID 08/06/18
pantoprazole 20 mg tablet,delayed release (Protonix) 20 mg PO DAILY 08/06/18
vitamin B complex 1 tab PO DAILY 08/06/18
atorvastatin 80 mg tablet 80 mg PO HS 09/06/22
cholestyramine (with sugar) 4 gram oral powder 1 ea PO BID 08/11/23
glipizide 10 mg tablet 10 mg PO BID 08/11/23
insulin aspar prt-insulin aspart 100 unit/mL (70-30) subcutaneous soln (Novolog Mix 70-30 U-100 Insuln) 20 unit SC BID 08/11/23
paroxetine HCl 40 mg tablet (Paxil) 40 mg PO DAILY 08/11/23
tamsulosin 0.4 mg capsule (Flomax) 0.4 mg PO DAILY 08/11/23
cefuroxime axetil 500 mg tablet 500 mg PO Q12H 10 days #20 tabs 08/13/23
Home Medication Changes
Ceftin added for 10 days
Pending Results: Yes
Additional Pending Results:
finalization of blood cultures (NGTD)
== END 2023-08-13 12:53 | disposition home health service (06) | DRG 690 ==
LOC: 4 EAST ACU 19:43
PROVIDERS: ADMITTING PHYSICIAN Hospitalist; ATTENDING PHYSICIAN Internal Medicine; CONSULT PHYSICIAN Urology; EMERGENCY PHYSICIAN Emergency Medicine; FAMILY PHYSICIAN Family Medicine
DX: N39.0 Urinary tract infection, site not specified (principal); I10 Essential (primary) hypertension; K62.7 Radiation proctitis; Y84.2 Radiological procedure and radiotherapy as the cause of abnormal reaction of the patient, or of later complication, without mention of misadventure at the time of the procedure; K52.9 Noninfective gastroenteritis and colitis, unspecified; K21.9 Gastro-esophageal reflux disease without esophagitis; M48.00 Spinal stenosis, site unspecified; F32.A Depression, unspecified; F41.9 Anxiety disorder, unspecified; I25.10 Atherosclerotic heart disease of native coronary artery without angina pectoris; Z95.5 Presence of coronary angioplasty implant and graft; E78.00 Pure hypercholesterolemia, unspecified; E11.65 Type 2 diabetes mellitus with hyperglycemia
CPT/HCPCS: 51702; 51798; 74176; 80048; 80053; 81003; 81015; 82962; 83036; 85025; 87040; 87086; 96374; 96375; 99285

== ENCOUNTER → 2023-12-16 09:57 | Outpatient (REF) | payer OTHER, SELFPAY | LOC: HWRAD 09:57 | PROVIDERS: ATTENDING PHYSICIAN Family Medicine | DX: M54.2 Cervicalgia (principal) | CPT/HCPCS: 72052 ==

== ENCOUNTER → 2024-01-05 08:22 | Outpatient (REF) | payer OTHER, SELFPAY | LOC: RAD 08:22 | PROVIDERS: ATTENDING PHYSICIAN Surgery Vascular Surgery; FAMILY PHYSICIAN Family Medicine | DX: I73.9 Peripheral vascular disease, unspecified (principal) | CPT/HCPCS: 93922; 93925 ==

== ENCOUNTER → 2024-01-20 06:48 | Outpatient (REF) | payer OTHER, SELFPAY | LOC: RAD 06:48 | PROVIDERS: ATTENDING PHYSICIAN Specialist | DX: R33.9 Retention of urine, unspecified (principal) | CPT/HCPCS: 76775 ==

== ENCOUNTER → 2024-03-04 07:40 | Outpatient (REF) | payer OTHER, SELFPAY | LOC: WOUND 07:40 | PROVIDERS: ATTENDING PHYSICIAN Surgery | DX: E11.621 Type 2 diabetes mellitus with foot ulcer (principal); L97.422 Non-pressure chronic ulcer of left heel and midfoot with fat layer exposed; I73.9 Peripheral vascular disease, unspecified; E11.65 Type 2 diabetes mellitus with hyperglycemia; Z79.01 Long term (current) use of anticoagulants; Z79.4 Long term (current) use of insulin; Z95.5 Presence of coronary angioplasty implant and graft | CPT/HCPCS: 11042; 99214 ==

== ENCOUNTER → 2024-03-04 08:56 | Outpatient (REF) | payer OTHER, SELFPAY | LOC: RAD 08:56 | PROVIDERS: ATTENDING PHYSICIAN Surgery; FAMILY PHYSICIAN Family Medicine | DX: E11.621 Type 2 diabetes mellitus with foot ulcer (principal) | CPT/HCPCS: 73630 ==

== ENCOUNTER → 2024-04-02 10:07 | Outpatient (REF) | payer OTHER, SELFPAY | LOC: WOUND 10:07 | PROVIDERS: ATTENDING PHYSICIAN Surgery; FAMILY PHYSICIAN Family Medicine | DX: E11.621 Type 2 diabetes mellitus with foot ulcer (principal); L97.422 Non-pressure chronic ulcer of left heel and midfoot with fat layer exposed; I73.9 Peripheral vascular disease, unspecified; E11.65 Type 2 diabetes mellitus with hyperglycemia; Z79.01 Long term (current) use of anticoagulants; Z79.4 Long term (current) use of insulin; Z95.5 Presence of coronary angioplasty implant and graft | CPT/HCPCS: 11042 ==

== ENCOUNTER → 2024-04-16 10:02 | Outpatient (REF) | payer OTHER, SELFPAY | LOC: WOUND 10:02 | PROVIDERS: ATTENDING PHYSICIAN Surgery; FAMILY PHYSICIAN Family Medicine | DX: E11.621 Type 2 diabetes mellitus with foot ulcer (principal); L97.422 Non-pressure chronic ulcer of left heel and midfoot with fat layer exposed; I73.9 Peripheral vascular disease, unspecified; E11.65 Type 2 diabetes mellitus with hyperglycemia; Z79.01 Long term (current) use of anticoagulants; Z79.4 Long term (current) use of insulin; Z95.5 Presence of coronary angioplasty implant and graft | CPT/HCPCS: 11042 ==

== ENCOUNTER → 2024-04-23 09:11 | Outpatient (REF) | payer OTHER, SELFPAY | LOC: WOUND 09:11 | PROVIDERS: ATTENDING PHYSICIAN Surgery; FAMILY PHYSICIAN Family Medicine | DX: E11.621 Type 2 diabetes mellitus with foot ulcer (principal); L97.422 Non-pressure chronic ulcer of left heel and midfoot with fat layer exposed; I73.9 Peripheral vascular disease, unspecified; E11.65 Type 2 diabetes mellitus with hyperglycemia; Z79.01 Long term (current) use of anticoagulants; Z79.4 Long term (current) use of insulin; Z95.5 Presence of coronary angioplasty implant and graft | CPT/HCPCS: 11042 ==

== ENCOUNTER → 2024-04-30 08:58 | Outpatient (REF) | payer OTHER, SELFPAY | LOC: WOUND 08:58 | PROVIDERS: ATTENDING PHYSICIAN Surgery; FAMILY PHYSICIAN Family Medicine | DX: E11.621 Type 2 diabetes mellitus with foot ulcer (principal); L97.422 Non-pressure chronic ulcer of left heel and midfoot with fat layer exposed; E11.51 Type 2 diabetes mellitus with diabetic peripheral angiopathy without gangrene | CPT/HCPCS: 11042 ==

== ENCOUNTER → 2024-05-21 08:51 | Outpatient (REF) | payer OTHER, SELFPAY | LOC: WOUND 08:51 | PROVIDERS: ATTENDING PHYSICIAN Surgery | DX: E11.621 Type 2 diabetes mellitus with foot ulcer (principal); L97.422 Non-pressure chronic ulcer of left heel and midfoot with fat layer exposed; I73.9 Peripheral vascular disease, unspecified; E11.65 Type 2 diabetes mellitus with hyperglycemia; Z79.01 Long term (current) use of anticoagulants; Z79.4 Long term (current) use of insulin; Z95.9 Presence of cardiac and vascular implant and graft, unspecified | CPT/HCPCS: 99213 ==

== ENCOUNTER 2024-05-31 15:10 | Inpatient (IN) | payer OTHER, SELFPAY ==
[2024-05-31 10:49] VITALS: BP 145/76
--- NOTE | 2024-05-31 11:45 | ED.GENMED ---
History of Present Illness
General
Chief Complaint: Skin Problem
Source: patient
Exam Limitations: none
Time Seen by Provider: 05/31/24 11:10
Nursing documentation reviewed up to this point in time: agreed with
History of Present Illness
History of Present Illness:
89 y/o M with h/o IDDM, cardiomyopathy, CAD, ex smoker, vasculopath, diabetic neuropathy
here with known L toe/foot infection/ulceration
has been worse for the past 3 weeks
seeing wound care
sent to vascular and podiatry; appaerntly vascular is going to do a angiogram and maybe stent vs graft, but the patient is very unclear about this
however wool presser sent him over today concerned for osteo it sounds like. pt is really unclear
he has not had any systemic sypmtoms like fever, chills, nausea, vomiting
he has pain in the foot/wound
the ulceration is mostly dry and not draining
mild worsening surroudnign redness and swellign
denies nubmness/tinglign/weakness
Past History
Past History
ED Past Medical History: CAD, GERD, HTN, Hypercholesterolemia, IDDM, [place] and Other (GI bleeding, Prostate CA, cardiomyopathy, hiatal hernia, colon cancer, prostate cancer, arthritis, lumbar disc disease)
ED Past Surgical History: Bowel resection, Cardiac (Stents X7) and Other (L arm surgery)
Social History
Tobacco: Former smoker
Alcohol: None
Drug: None
Personal:
Living: with family
Employment: Retired
Family History
Family History: Other (Noncontributory)
Review of Systems
Review of Systems
Allergies reviewed?: Yes
All Other Systems: Not applicable
Phy Exam
Physical Exam
Physical Exam:
GENERAL: Alert , in no apparent distress, comfortable at rest
HEAD: NCAT
CV: 2+ DP PULSES B/L
NEUROLOGICAL: Alert and oriented, no focal neuro deficits, , 5/5 strength, sensation intact, ambulation slight limp right leg
SKIN: Warm and dry, ulceration approx 0.5 cm round to dorsum L lateral foot over 5th MTP joint
surrounding mild eyrhtmea and STS of the foot there, with tenderness
MUSCULOSKELETAL:fpoot swelling, redness, wound; mild tenderness
no drainage
PSYCH: Normal and appropriate interaction.
Course
Orders/Labs/Results
Orders:
Orders
05/31/24 11:41
CR Foot - Left Min 3 Views Urgent
Comment:
Reason For Exam: left 5th metatarsal wound
05/31/24 12:05
CRP [C-Reactive Protein] Urgent
Complete Blood Count/With Diff Urgent
Comprehensive Metabolic Panel Urgent
ESR [Erythrocyte Sed Rate] Urgent
Lactic Acid Urgent
Blood Culture Q30M
NELI Source: Blood/Venous
Specimen Description:
Blood Culture Q30M
NELI Source: Blood/Venous
Specimen Description:
Wound Culture [Wound/Abscess/Other Culture] Urgent
NELI Source: Foot
Specimen Description: Left
Date Specimen was Collected: 05/31/24
Time Specimen was Collected: 11:47
05/31/24 14:00
Ampicillin/Sulbactam 3 G [Unasyn] 3 gm 0.9% Sodium Chloride 100 ml [Nss] 100 ml IV NOW
Vancomycin [Vancocin] 1,500 mg 0.9% Sodium Chloride 500 ml [Nss] 500 ml IV NOW
Abnormal Lab Results
05/31/24
12:05
RBC 4.11 L 10^6/uL
(4.70-6.10)
Hgb 10.6 L g/dL
(13.0-18.0)
Hct 32.2 L %
(39.0-52.0)
MCV 78.3 L fL
(80.0-94.0)
MCH 25.8 L pg
(27.0-31.0)
MCHC 32.9 L g/dL
(33.0-37.0)
RDW 15.4 H %
(11.5-14.5)
Abs Immat Gran (auto) 0.1 H 10^3/uL
(0-0.05)
Absolute Monos (auto) 0.7 H 10^3/uL
(0.1-0.6)
Immature Gran % 0.8 H %
(0-0.5)
Lymphocytes % 20.1 L %
(20.5-51.1)
ESR 48 H mm/hour
(0-20)
Sodium 130 L mmol/L
(135-145)
BUN 26 H mg/dl
(9-20)
Glucose 250 H mg/dl
(70-99)
Total Bilirubin 1.6 H mg/dl
(0.2-1.3)
C-Reactive Protein 15.20 H mg/L
(0.0-10.00)
05/31/24 12:05
05/31/24 12:05
Vital Signs
Initial and Last Documented VS:
Initial Vital Signs
Pulse Resp Pulse Ox
77 18 98
05/31/24 10:48 05/31/24 10:48 05/31/24 10:48
Last Documented Vital Signs
Temp Pulse Resp BP Pulse Ox
36.8 C 77 18 145/76 98
05/31/24 10:49 05/31/24 10:48 05/31/24 10:48 05/31/24 10:49 05/31/24 10:48
MDM/Problems Addressed
Differential Diagnosis Includes:
osteo
MDM/Problems Addressed:
drew swann 89 y/o M
IDDM, htn, hld, vasculopath here with ongoign L lateral foot ulceration distal 5th metatarsal; poor compliance sent by podiatry today for concern for osteo on xr; wound is painful ulceration with some mild cellulitis; pt apparently has vascular
disease and has seen clare aldridge recently; he has good dp pulse; but podiatry won't consider surgery until his vascular issues are addressed; esr and crp are up; wound cultured; vanc/unasyn
admit
i did speak with wool presser who confirmed that pt was sent here by her(dr. oconnor) after he has not been following up since other than to go to the wound center ;now with findings of osteo on xray
wanted MRI to confirm and vascular consult
*Critical Care Note
Total Time (30-74mins, 75-104mins- exclusive of procedures): Not Applicable
ED Attending Note
-
Portions of this chart may have been created with voice recognition software.� Occasional wrong word or��sound alike� substitutions may have occurred due to the inherent limitations of voice recognition software.
Discharge Plan
Departure
Patient Disposition: Admit
Date of Disposition: 05/31/24
Time of Disposition: 13:12
Admit to: Med/Surg
Presentation/result/management discussed w/ accepting MD/DO: Hospitalist
Condition: Fair
Covid-19: Negative COVID-19
Discharge Problem:
Acute hyperglycemia, Osteomyelitis of foot
Prescriptions:
No Action
amlodipine 5 MG tablet
5 mg PO DAILY Qty: 30 3RF
pantoprazole [Protonix] 20 MG tablet,delayed release (DR/EC)
20 mg PO DAILY
aspirin 81 MG tablet,delayed release (DR/EC)
81 mg PO DAILY
atorvastatin 80 mg Tablet
80 mg PO HS
glipizide 10 mg Tablet
10 mg PO BID
tamsulosin [Flomax] 0.4 mg Capsule
0.4 mg PO DAILY
paroxetine HCl [Paxil] 40 mg Tablet
40 mg PO DAILY
insulin asp prt-insulin aspart [Novolog Mix 70-30 U-100 Insuln] 100 unit/mL (70-30) Solution
20 unit SC BID
carvedilol [Coreg] 6.25 mg Tablet
6.25 mg PO BID
Theragen Tablet
1 tab PO DAILY
clopidogrel [Plavix] 75 mg Tablet
75 mg PO DAILY
acetaminophen [Tylenol Extra Strength] 500 mg Tablet
500 mg PO BID
ferrous sulfate 325 mg (65 mg iron) Tablet
325 mg PO DAILY
cholestyramine (with sugar) 4 gram Powder In Packet
4 g PO BID
omega 4-gna-ddm-fish oil [Fish Oil] 1,200 (144-216) mg Capsule
1 cap PO DAILY
Referrals:
Cesar Arana DO [Family Provider] -
Interventions
Interventions:
*Risk Screen - Suicide Last Done: 05/31/24 11:59
*General Assessment Last Done: 05/31/24 11:59
*Neglect/Abuse Screening Last Done: 05/31/24 11:59
*ED- Fall Risk Assessment Last Done: 05/31/24 11:59
*ED COVID-19 Vaccine History Last Done: 05/31/24 11:59
ED-Skin Assessment Last Done: 05/31/24 11:59
Discharge Date and Time
Print Language: MALTESE
[2024-05-31 11:59] VITALS: BMI 26.2
[2024-05-31 12:33] LABS: % Basophils 0.6 % (0-2); % Eosinophils 3.1 % (0-6); % Immature Granulocytes 0.8 % (0-0.5); % Lymphocytes 20.1 % (20.5-51.1); % Neutrophils 67.4 % (42.2-75.2); Absolute Basophils 0.1 10^3/uL (0-0.2); Absolute Eosinophils 0.3 10^3/uL (0-0.7); Absolute Immature Granulocytes 0.1 10^3/uL (0-0.05); Absolute Lymphocytes 1.8 10^3/uL (1.2-3.4); Absolute Monocytes 0.7 10^3/uL (0.1-0.6); Absolute Neutrophils 5.9 10^3/uL (1.4-6.5); Hematocrit 32.2 % (39.0-52.0); Hemoglobin 10.6 g/dL (13.0-18.0); Mean Corp Hgb Conc. 32.9 g/dL (33.0-37.0); Mean Corpuscular Hgb 25.8 pg (27.0-31.0); Mean Corpuscular Volume 78.3 fL (80.0-94.0); Mean Platelet Volume 9.9 fL (7.4-10.4); Nucleated Red Blood Cells % 0 % (-); Platelet Count 221 10^3/uL (130-400); Red Blood Cell Count 4.11 10^6/uL (4.70-6.10); Red Cell Dist. Width 15.4 % (11.5-14.5); White Blood Cell Count 8.8 10^3/uL (4.8-10.8)
[2024-05-31 12:48] LABS: ALT (SGPT) 21 U/L (0-50); AST (SGOT) 20 U/L (17-59); Albumin 3.8 g/dl (3.5-5.0); Alkaline Phosphatase 117 U/L (38-126); Blood Urea Nitrogen 26 mg/dl (9-20); Carbon Dioxide 22 mmol/L (22-30); Chloride 99 mmol/L (98-107); Estimated Creatinine Clearance 48 ml/min; Glucose 250 mg/dl (70-99); Potassium 4.5 mmol/L (3.5-5.1); Sodium 130 mmol/L (135-145); Total Bilirubin 1.6 mg/dl (0.2-1.3); Total Protein 6.3 g/dl (6.3-8.2); eGFR > 60.00
[2024-05-31 13:33] LABS: Erythrocyte Sed Rate 48 mm/hour (0-20)
--- NOTE | 2024-05-31 14:00 | HPS.HSE ---
Family Physician
-
Family Physician: Cesar Arana, DO
Chief Complaint
-
left foot wound
History of Present Illness
89 y/o M with h/o IDDM, cardiomyopathy, CAD, ex smoker, vasculopathy, diabetic neuropathy here with known L toe/foot infection/ulceration for past 2.5 months. he last saw podiatry on 2 months ago and then today. he was following up with wound care.
he had an x ray done as outpatient which was concerning for Osteomyelitis. podiatry wants him to follow up with vascular for revascularization. he has not seen vascular for past 3 months. patient is poor historian and non compliance with follow up
as outpatient. denied fever, chills,chest pain,sob. denied MCKEON, dizzy or syncope.denied abdominal pain, n,v,d. patient has chronic Adams due to urinary retention secondary to radiation from prostate cancer. patient complaining worsening left LE and
plantar pain for progressively getting worse for past few weeks.
x ray pending. patient received vanco and Unasyn as inpatient. admitting for further management. wound and blood culture sent from ER.
Medical History
Past Medical History
Past Medical History: Reports Other
Additional Past Medical History:
BPH
Hyperlipidemia
Type 2 diabetes
Lumbar radiculopathy
Type 2 diabetes with hyperglycemia
Spinal stenosis
Prostate cancer
Coronary artery disease
[place]
Proctitis
Iron deficiency anemia
Hypertension
GERD
TIA
Cardiomyopathy
Peripheral artery disease
GI bleed
SVT
TIA
Past Surgical History: Reports Other
Additional Past Surgical History:
Malignant melanoma removed
Colon cancer resection
Circumcision
Lumbar laminectomy
Cardiac angioplasty and stent
Social History
Tobacco: Former Smoker
Alcohol: None
Personal:
Living: With Family
Family History
Family History: Not pertinent
Allergies / Home Medications
Allergies reflects when Allergies were last updated in [facility].
Home Medications with original date entered in [facility]
Allergy/Medication List:
Allergies
Allergy/AdvReac Type Severity Reaction Status Date / Time
No Known Allergies Allergy Verified 05/31/24 10:49
Home Medications
amlodipine 5 mg tablet 5 mg PO DAILY ##30 07/17/18
aspirin 81 mg tablet,delayed release 81 mg PO DAILY 08/06/18
pantoprazole 20 mg tablet,delayed release (Protonix) 20 mg PO DAILY 08/06/18
atorvastatin 80 mg tablet 80 mg PO HS 09/06/22
glipizide 10 mg tablet 10 mg PO BID 08/11/23
insulin aspar prt-insulin aspart 100 unit/mL (70-30) subcutaneous soln (Novolog Mix 70-30 U-100 Insuln) 20 unit SC BID 08/11/23
paroxetine HCl 40 mg tablet (Paxil) 40 mg PO DAILY 08/11/23
tamsulosin 0.4 mg capsule (Flomax) 0.4 mg PO DAILY 08/11/23
acetaminophen 500 mg tablet (Tylenol Extra Strength) 500 mg PO BID 05/31/24
carvedilol 6.25 mg tablet (Coreg) 6.25 mg PO BID 05/31/24
cholestyramine (with sugar) 4 gram powder for susp in a packet 4 g PO BID 05/31/24
clopidogrel 75 mg tablet (Plavix) 75 mg PO DAILY 05/31/24
ferrous sulfate 325 mg (65 mg iron) tablet 325 mg PO DAILY 05/31/24
omega 4-xin-rbv-fish oil 1,200 mg (144 mg-216 mg) capsule (Fish Oil) 1 cap PO DAILY 05/31/24
therapeutic multivitamin 1 tab PO DAILY 05/31/24
Review of Systems
-
Constitutional: Reports No Symptoms
EENT: Reports No Symptoms
Respiratory: Reports No Symptoms
Cardiac: Reports No Symptoms
Abdomen/GI: Reports No Symptoms
: Reports No Symptoms
Musculoskeletal: Reports No Symptoms
Skin: Reports Other (left foot toe/metastrasal wound)
Neurological: Reports No Symptoms
Endocrine: Reports No Symptoms
Hematologic/Lymphatic: Reports No Symptoms
Psych: Reports No Symptoms
Physical Exam
Vital Signs
Vital Signs
Temp Pulse Resp BP Pulse Ox
98.2 F 77 18 145/76 98
05/31/24 10:49 05/31/24 10:48 05/31/24 10:48 05/31/24 10:49 05/31/24 10:48
Physical Exam
General: Well Developed, Well Nourished and No Apparent Distress
HEENT: NormoCephalic, Moist mucous membranes and Atraumatic
Respiratory: Clear
Cardiac: S1/S2 and Regular Rhythm; No Murmur or Rub
GI: Soft, Non Tender, Non Distended and Normal Bowel Sounds; No Organomegaly
Rectal: Deferred by Provider
Musculoskeletal: No Clubbing, No Cyanosis and No Edema
Skin: Rash and Other (ulceration approx 0.5 cm round to dorsum L lateral foot over 5th MTP joint surrounding mild eyrhtmea )
Neuro: AO x 3 and Nonfocal/grossly intact
Psych: Calm
Laboratory Results
-
05/31/24 12:05
05/31/24 12:05
Laboratory Results
Lactic Acid 1.0 mmol/L (0.7-2.0) 05/31/24 12:05
Total Bilirubin 1.6 mg/dl (0.2-1.3) H 05/31/24 12:05
AST 20 U/L (17-59) 05/31/24 12:05
ALT 21 U/L (0-50) 05/31/24 12:05
Alkaline Phosphatase 117 U/L (38-126) 05/31/24 12:05
Data Reviewed
-
Lab Data: Labs Reviewed by me
Impression/Plan
-
# 2 lateral foot ulceration distal fifth metatarsal concern for osteo
#hxt of PAD
-ESR and CRP elevated
-Blood and wound culture sent from ER
-X-ray foot pending
-Ampicillin and Vancomycin in ER
-hold further abx until instructed by ID
Tylenol as needed for fever
-Podiatry and vascular consulted
-ID consulted
# Anemia of chronic disease
-Hemoglobin stable at 10.6
-No active bleeding
-Continue to monitor
-Ferrous sulfate continued
-Aspart 10 units with meal
# Pseudo hyponatremia
-Sodium 130, corrected sodium 134
# GERD
-PPI continued
# Anxiety
-Paxil continued
# History of prostate cancer
#history of BPH
-Flomax continued
# Essential hypertension
-Norvasc continued with hold parameters
#History of coronary artery disease
# Cardiac stent
-Aspirin, Plavix continued
#hxt of TIA
#hyperlipidemia
-Statin continued
# Essential hypertension
-Coreg continued with hold parameters
# Type 2 diabetes with hyperglycemia
-Sliding scale
-Aspart 10 units with meals
-glipzide continued
-CHO diet
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
-Continue cholestyramine
# DVT prophylaxis
- SCDs
# CODE STATUS
Full code-
[2024-05-31 14:36] VITALS: BP 121/60
[2024-05-31] MEDS: UNASYN IV (15:02)
--- NOTE | 2024-05-31 15:47 | W.PN.UPDATE ---
Update Note
Progress Note Update
Patient seen and examined and discussed with [employer] SERV[employer] CONSULTANT Shane, and I agree with her note.
Gen-AAOx3, NAD
HEENT-NC, AT, anicteric, clear oral mm
Neck-supple
CV-reg, no M, +S1/S2
Lungs-clear B/L
Abd-soft, NT, ND
Ext-no edema
Musculoskeletal-no cyanosis, clubbing
Skin-warm and dry, left lateral fifth metatarsal ulcer without drainage, mild surrounding erythema and tenderness
Neuro-grossly non-focal
Psych-calm, cooperative
Acute osteomyelitis -left fifth metatarsal head, x-ray noted osteomyelitis. Admit to MedSurg. Consult ID, podiatry, vascular surgery. Hold further antibiotics.
Hemodynamically stable. No signs or symptoms of sepsis.
CRP 15.2, ESR 48.
Hyponatremia -corrected sodium 132. Glucose 250.
DM 2 with hyperglycemia -glucose 250. Check hemoglobin A1c. Hold glipizide, hold 70/30 insulin mix. Use low-dose Lantus, aspart with meals. Low resistance aspart scale.
Essential hypertension -stable.
Hyperlipidemia -atorvastatin.
PAD -known to Dr. Clay. Patient states he is scheduled for left lower extremity revascularization. Will consult vascular surgery.
BPH
Hx of prostate cancer
Chronic urinary retention -with chronic Adams catheter.
CAD -stable.
Chronic radiation proctitis -with chronic diarrhea. Continue cholestyramine.
Chronic microcytic anemia -suspect hemoglobin at baseline.
Full code
--- NOTE | 2024-05-31 15:51 | W.PN.UPDATE ---
Update Note
Progress Note Update
Vascular consultation below- Office note
Plan:
-Admit to Hospitalist
-IV antibiotics
-Had planned for outpt LLE Arteriogram, we plan to do this on this admission, will follow up with pt with OR timing.
[2024-05-31] MEDS: VANCOCIN 530 MG IV (16:18)
--- NOTE | 2024-05-31 16:21 | CON.SURG ---
Surgical Consultation
-
Chief Complaint
-
left foot wound
History of Present Illness
89 y/o M with h/o IDDM, cardiomyopathy, CAD, ex smoker, vasculopathy, diabetic neuropathy here with known L toe/foot infection/ulceration for past 2.5 months. he last saw podiatry on 2 months ago and then today. he was following up with wound care.
he had an x ray done as outpatient which was concerning for Osteomyelitis. podiatry wants him to follow up with vascular for revascularization. he has not seen vascular for past 3 months. patient is poor historian and non compliance with follow up
as outpatient. denied fever, chills,chest pain,sob. denied MCKEON, dizzy or syncope.denied abdominal pain, n,v,d. patient has chronic Adams due to urinary retention secondary to radiation from prostate cancer. patient complaining worsening left LE and
plantar pain for progressively getting worse for past few weeks. Radiographs in ED concerning for osteomyelitis. Is unsure of his HbA1c.
Medical History
Past Medical History
Past Medical History: Reports Other
Additional Past Medical History:
BPH
Hyperlipidemia
Type 2 diabetes
Lumbar radiculopathy
Type 2 diabetes with hyperglycemia
Spinal stenosis
Prostate cancer
Coronary artery disease
[place]
Proctitis
Iron deficiency anemia
Hypertension
GERD
TIA
Cardiomyopathy
Peripheral artery disease
GI bleed
SVT
TIA
Past Surgical History: Reports Other
Additional Past Surgical History:
Malignant melanoma removed
Colon cancer resection
Circumcision
Lumbar laminectomy
Cardiac angioplasty and stent
Social History
Tobacco: Former Smoker
Alcohol: None
Personal:
Living: With Family
Family History
Family History: Not pertinent
Allergies / Home Medications
Allergies reflects when Allergies were last updated in [facility].
Home Medications with original date entered in [facility]
Allergy/Medication List:
Allergies
Allergy/AdvReac Type Severity Reaction Status Date / Time
No Known Allergies Allergy Verified 05/31/24 10:49
Home Medications
amlodipine 5 mg tablet 5 mg PO DAILY ##30 07/17/18
aspirin 81 mg tablet,delayed release 81 mg PO DAILY 08/06/18
pantoprazole 20 mg tablet,delayed release (Protonix) 20 mg PO DAILY 08/06/18
atorvastatin 80 mg tablet 80 mg PO HS 09/06/22
glipizide 10 mg tablet 10 mg PO BID 08/11/23
insulin aspar prt-insulin aspart 100 unit/mL (70-30) subcutaneous soln (Novolog Mix 70-30 U-100 Insuln) 20 unit SC BID 08/11/23
paroxetine HCl 40 mg tablet (Paxil) 40 mg PO DAILY 08/11/23
tamsulosin 0.4 mg capsule (Flomax) 0.4 mg PO DAILY 08/11/23
acetaminophen 500 mg tablet (Tylenol Extra Strength) 500 mg PO BID 05/31/24
carvedilol 6.25 mg tablet (Coreg) 6.25 mg PO BID 05/31/24
cholestyramine (with sugar) 4 gram powder for susp in a packet 4 g PO BID 05/31/24
clopidogrel 75 mg tablet (Plavix) 75 mg PO DAILY 05/31/24
ferrous sulfate 325 mg (65 mg iron) tablet 325 mg PO DAILY 05/31/24
omega 3-xpz-qyl-fish oil 1,200 mg (144 mg-216 mg) capsule (Fish Oil) 1 cap PO DAILY 05/31/24
therapeutic multivitamin 1 tab PO DAILY 05/31/24
Review of Systems
-
Constitutional: Reports No Symptoms
EENT: Reports No Symptoms
Respiratory: Reports No Symptoms
Cardiac: Reports No Symptoms
Abdomen/GI: Reports No Symptoms
: Reports No Symptoms
Musculoskeletal: Reports No Symptoms
Skin: Reports Other (left foot toe/metastrasal wound)
Neurological: Reports No Symptoms
Endocrine: Reports No Symptoms
Hematologic/Lymphatic: Reports No Symptoms
Psych: Reports No Symptoms
Physical Exam
Vital Signs
Vital Signs
Temp Pulse Resp BP Pulse Ox
98.2 F 77 18 145/76 98
05/31/24 10:49 05/31/24 10:48 05/31/24 10:48 05/31/24 10:49 05/31/24 10:48
Physical Exam
General: Well Developed, Well Nourished and No Apparent Distress
HEENT: NormoCephalic, Moist mucous membranes and Atraumatic
Respiratory: Clear
Cardiac: S1/S2 and Regular Rhythm; No Murmur or Rub
GI: Soft, Non Tender, Non Distended and Normal Bowel Sounds; No Organomegaly
Rectal: Deferred by Provider
Musculoskeletal: No Clubbing, No Cyanosis and No Edema
Skin: Rash and Other (ulceration approx 0.5 cm round to dorsum L lateral foot over 5th MTP joint surrounding mild eyrhtmea )
Neuro: AO x 3 and Nonfocal/grossly intact
Psych: Calm
LLE Physical Exam
-DP/PT pulses nonpalpable. Capillary refill sluggish > 3 seconds
-Left lateral 5th MT head wound with scant purulent drainage with +deep probing
-Surrounding erythema, but no crepitus or fluctuance
-Light touch and distal sensation diminished
Laboratory Results
-
05/31/24 12:05
05/31/24 12:05
Laboratory Results
Lactic Acid 1.0 mmol/L (0.7-2.0) 05/31/24 12:05
Total Bilirubin 1.6 mg/dl (0.2-1.3) H 05/31/24 12:05
AST 20 U/L (17-59) 05/31/24 12:05
ALT 21 U/L (0-50) 05/31/24 12:05
Alkaline Phosphatase 117 U/L (38-126) 05/31/24 12:05
Data Reviewed
-
Lab Data: Labs Reviewed by me
Impression/Plan
89 y/o M with h/o IDDM, cardiomyopathy, CAD, ex smoker, vasculopathy, diabetic neuropathy here with known L toe/foot infection/ulceration. Podiatry has been concerning with concern for osteomyelitis of the 5th metatarsal head
-Recommend daily application of betadine and gauze pad to left lateral foot
-Please obtain L foot MRI
-Recommend non-invasive vascular testing, DINA/PVR. Appreciate vascular surgery recommendations
-Heel WBAT to LLE
-Continue antibiotics per ID recommendations
-Please obtain updated HbA1c
-Will continue to follow
[2024-05-31 16:50] VITALS: BP 139/69; BMI 24.9
[2024-05-31 17:03] LABS: Glucose - Point of Care 137 mg/dl (70-99)
--- NOTE | 2024-05-31 17:15 | PTCARENOTE ---
Pt received from day shift RN at 1715. Pt pleasant, AOX3, VSS, and absent of pain at this time. Pt receptive to room and call fang. Pt bed in lowest position and call fang with reach. Pt educated on importance of call fang usage, pt relays
understanding and cooperation. Will continue with current plan of care.
[2024-05-31] MEDS: NOVOLOG FLEXPEN-LOW RESISTANCE SC (17:49)
[2024-05-31] MEDS: NOVOLOG FLEXPEN 5 UNITS SC (17:50)
[2024-05-31] MEDS: QUESTRAN 4 GRAM PO (19:48)
[2024-05-31] MEDS: COREG 6.25 MG PO (19:49)
[2024-05-31 21:32] LABS: Glucose - Point of Care 205 mg/dl (70-99)
[2024-05-31] MEDS: LANTUS 0.1 UNITS SC (21:55)
[2024-05-31] MEDS: LIPITOR 80 MG PO (21:55)
[2024-05-31 23:00] VITALS: BP 163/83
[2024-06-01] MEDS: TYLENOL 650 MG PO (00:48)
[2024-06-01 07:34] LABS: Hematocrit 34.2 % (39.0-52.0); Hemoglobin 10.9 g/dL (13.0-18.0); Mean Corp Hgb Conc. 31.9 g/dL (33.0-37.0); Mean Corpuscular Hgb 25.1 pg (27.0-31.0); Mean Corpuscular Volume 78.8 fL (80.0-94.0); Mean Platelet Volume 9.8 fL (7.4-10.4); Platelet Count 205 10^3/uL (130-400); Red Blood Cell Count 4.34 10^6/uL (4.70-6.10); Red Cell Dist. Width 15.6 % (11.5-14.5); White Blood Cell Count 6.1 10^3/uL (4.8-10.8)
[2024-06-01 07:52] LABS: Glucose - Point of Care 177 mg/dl (70-99)
[2024-06-01 07:55] VITALS: BP 138/70
[2024-06-01 07:59] LABS: Blood Urea Nitrogen 21 mg/dl (9-20); Calcium 9.2 mg/dl (8.4-10.2); Carbon Dioxide 27 mmol/L (22-30); Chloride 103 mmol/L (98-107); Estimated Creatinine Clearance 44 ml/min; Glucose 166 mg/dl (70-99); Potassium 4.8 mmol/L (3.5-5.1); Sodium 137 mmol/L (135-145); eGFR 58.17
--- NOTE | 2024-06-01 08:31 | W.PN.UPDATE ---
Update Note
Progress Note Update
Will place patient on OR schedule for this , 06/03/2024 for left lower extremity angiogram with Dr. Jorge Clay.
[2024-06-01] MEDS: NORVASC 5 MG PO (09:00)
[2024-06-01] MEDS: FLOMAX 0.4 MG PO (09:00)
[2024-06-01] MEDS: PROTONIX 20 MG PO (09:00)
[2024-06-01] MEDS: PLAVIX 75 MG PO (09:00)
[2024-06-01] MEDS: FEOSOL 325 MG PO (09:00)
[2024-06-01] MEDS: ASPIR LOW (ENTERIC COATED) 81 MG PO (09:00)
[2024-06-01] MEDS: PAXIL 40 MG PO (09:00)
[2024-06-01] MEDS: QUESTRAN 4 GRAM PO ×2 (09:00→21:39)
[2024-06-01] MEDS: COREG 6.25 MG PO ×2 (09:01→20:34)
[2024-06-01 09:03] LABS: Glycohemoglobin (HgbA1c) 10.2 % (4.0-5.6)
[2024-06-01] MEDS: NOVOLOG FLEXPEN-LOW RESISTANCE 1 UNITS SC (09:08)
[2024-06-01] MEDS: NOVOLOG FLEXPEN 5 UNITS SC ×2 (09:09→12:54)
--- NOTE | 2024-06-01 09:27 | VNURNOTE ---
Chart reviewed. Patient is current with [facility] nursing. Will continue to follow hospital course and DC plans.
[2024-06-01 11:10] LABS: Glucose - Point of Care 319 mg/dl (70-99)
--- NOTE | 2024-06-01 11:52 | WOUNDNOTE ---
L LATERAL FOOT/1ST MET HEAD
--- NOTE | 2024-06-01 11:55 | WOUNDNOTE ---
CHRISTINE RN note: Patient admitted with acute hyperglycemia, osteomyelitis of L foot.
See H&P for complete history. Sent to ER from Podiatry office.
PMH:Per Chart 89 y/o M with h/o IDDM, cardiomyopathy, CAD, ex smoker, vasculopathy, diabetic neuropathy here with known L toe/foot infection/ulceration for past 2.5 months. he last saw podiatry on 2 months ago and then today. he was following up
with wound care. he had an x ray done as outpatient which was concerning for Osteomyelitis.
Wound Location and type/assessment: Patient admitted with: L lateral foot diabetic wound with suspected osteomyelitis. Small opening on L lateral foot/1st met head, scant drainage, no odor, depth 0.5cm. Reviewed Dr. Dolan's note, recommended
Betadine and dry dressing. Scheduled for angiogram this per vascular note.
R heel with dry cracked fissure, at bedside states she puts Vaseline on heels every night with socks. L heel is blanchable red. Patient turned self in bed, sacrum is intact.
Appetite: Good.
Pressure redistribution devices in place: On Accumax, pillow placed under calves to offload heels.
Plan:Betadine and dry dressing applied, order placed in computer per [employer]'s recommendation. Heel foams applied to protect. Will follow along peripherally and assist as needed. Updated, nurse and care plan.
Note to case management of equipment requested for discharge: TBD
Recommend follow up with [employer].
[2024-06-01 12:24] VITALS: BP 131/42; PULSE 77; O2SAT 98
[2024-06-01] MEDS: NOVOLOG FLEXPEN-LOW RESISTANCE 4 UNITS SC (12:54)
--- NOTE | 2024-06-01 13:16 | W.PN.HOSP.TC ---
Today's Communication/Plan
-
Adjust insulin
MRI of foot
Assessment / Plan
Assessment / Plan
Gen-AAOx3, NAD
HEENT-NC, AT, anicteric, clear oral mm
Neck-supple
CV-reg, no M, +S1/S2
Lungs-clear B/L
Abd-soft, NT, ND
Ext-no edema
Musculoskeletal-no cyanosis, clubbing,
Skin-warm and dry
Neuro-grossly non-focal
Psych-calm, cooperative
Acute osteomyelitis -left fifth metatarsal head, x-ray noted osteomyelitis. Await MRI of foot. He actually went down for testing yesterday but could not tolerate due to pain. Would premedicate prior to MRI. Hold antibiotics for now, ID consulted.
Hemodynamically stable. No signs or symptoms of sepsis.
CRP 15.2, ESR 48.
Hyponatremia -resolved.
DM 2 with hyperglycemia -glucose 166 this morning. Hemoglobin A1c 10.2%. Hold glipizide, hold 70/30 insulin mix. Use low-dose Lantus, aspart with meals. Low resistance aspart scale. We discussed the importance of better glycemic control moving
forward, close outpatient follow-up with PCP.
Currently on Lantus 10 units at bedtime, NovoLog 5 units AC, NovoLog sliding scale.
Increase Lantus to 12 units at bedtime, increase NovoLog to 7 units AC.
Essential hypertension -stable.
Hyperlipidemia -atorvastatin.
PAD -known to Dr. Clay. Vascular surgery recommends lower extremity arteriogram on .
BPH
Hx of prostate cancer
Chronic urinary retention -with chronic Adams catheter.
CAD -stable.
Chronic radiation proctitis -with chronic diarrhea. Continue cholestyramine.
Chronic microcytic anemia -suspect hemoglobin at baseline.
Full code
Family updated at the bedside.
Anticipated Discharge: > 48 hours
Subjective/Interval History
-
Date of Service: June 01, 2024
Patient seen and examined. Complaining of mild left foot pain.
Objective Data
-
Labs:
Laboratory Results
06/01/24
06:26
WBC 6.1
Hgb 10.9 L
Hct 34.2 L
Plt Count 205
Sodium 137
Potassium 4.8
Chloride 103
Carbon Dioxide 27
BUN 21 H
Creatinine 1.2
Glucose 166 H
Calcium 9.2
Vital Signs:
Vital Signs
Temp Pulse Resp BP Pulse Ox
98 F 69 20 138/70 93
06/01/24 07:55 06/01/24 09:00 06/01/24 07:55 06/01/24 09:00 06/01/24 07:55
I&O
05/31/24 06/01/24 06/02/24
06:59 06:59 06:59
Intake Total 480 / 480
Output Total 2350 / 2350
Balance -1870 / -1870
Review of Systems
-
History Source: Patient
All other systems: Reviewed and negative
--- NOTE | 2024-06-01 15:23 | CM ---
Initial assessment completed. Patient is a 89 y/o M with h/o IDDM, cardiomyopathy, CAD, ex smoker, vasculopathy, diabetic neuropathy here with known L toe/foot infection/ulceration for past 2.5 months. Per chart, Vascular surgery recommends lower
extremity arteriogram on .
Patient resides w/ spouse, daughter and 2 grandchildren in [place]- 2 small steps to enter the home. Patient and spouse have a 1st flr set up.
Patient is independent w/ RW, independent w/ ADLs. Patient has shower chair in the home, per spouse, their grandson will install a grab bar.
Patient has no SNF hx, engaged in OP therapy at in the past, patient is current w/ [facility].
Address, point of contact and insurance verified
PCP: Cesar Arana
Pharmacy: [facility]
Therapy assessed patient is currently recommending HH at d/c. [facility] to resume care once patient is stable for d/c
[facility] resume of care referral placed in [facility]
Plan: Anticipate home; [facility]
[2024-06-01 15:33] VITALS: BP 127/64
--- NOTE | 2024-06-01 15:38 | CON.ID ---
Addendum entered and electronically signed by Stella Andersen MD 06/02/24 16:57:
Correction: note should be timed 06/02/24 15:05
Billing should be for 06/02
Physical Exam
Constitutional: No Acute Distress and Chronically Ill
Cardiovascular: Regular Rate and S1/S2; Negative Murmur or Rub
Pulmonary: Clear and Symmetric; Negative Wheezes, Rales or Rhonchi
Gastrointestinal: Soft, Non Tender, Non Distended and Normal Bowel Sounds
Skin: Warm and Dry; mild erthema of the lateral 5th left MTP joint
Original Note:
Consultation
-
Date/Time Consultation Requested: 05/31/24 15:29
Date/Time Consultation Performed: 06/01/24 15:38
Requesting Provider: Shane HARTMAN
Performing Provider: Dr Andersen
Reason for Consultation: osteomyelitis of the L 5th met head
Chief Complaint / Past History
Chief Complaint
left foot wound
History of Present Illness
Mr Amador is an 89 year old male with history of DM2 with neuropathy/vasculopathy, ex smoker, struggles with medication compliance who presented here yesterday for a left toe wound that has been present about 2.5 months, he has been following
with podiatry and wound care. A xray done outpatient the day before arrival was concerning for possible osteomyelitis. Patient has noted increased left lower extremity pain for several weeks. He has been encouraged to see vascular surgery by
podiatry but has not yet seen them. On arrival here dened fevers, chills, chest pain, shortness of breath, nausea, vomiting, diarrhea.
Since arrival here he has been afebrile, bp overall stable, wbc count initially 6.1, hgb 10.9, plt 205, no L shift, cr 1.2, a1c 10.2, crp 15, esr 48, peripheral venous US: no DVT, an DINA is done but has not yet been read, 05/31 foot xray: Findings
concerning for osteomyelitis of the head of the fifth metatarsal bone
Past History
Additional Past Medical History:
BPH
Hyperlipidemia
Type 2 diabetes
Lumbar radiculopathy
Type 2 diabetes with hyperglycemia
Spinal stenosis
Prostate cancer
Coronary artery disease
[place]
Proctitis
Iron deficiency anemia
Hypertension
GERD
TIA
Cardiomyopathy
Peripheral artery disease
GI bleed
SVT
TIA
Additional Past Surgical History:
Malignant melanoma removed
Colon cancer resection
Circumcision
Lumbar laminectomy
Cardiac angioplasty and stent
Allergy History:
No Known Allergies Allergy (Verified 05/31/24 10:49)
Medications Reviewed: Yes
Social History
Tobacco: Former Smoker
Alcohol: None
Personal:
Family History
Family History: Not Pertinent
Review of Systems
Review of Systems
General: Negative Fever or Chills
All systems: All other systems were reviewed and were negative
Vital Signs
Temp Pulse Resp BP Pulse Ox
98.2 F 75 18 127/64 96
06/01/24 15:33 06/01/24 15:33 06/01/24 15:33 06/01/24 15:33 06/01/24 15:33
Physical Exam
Physical Exam
Constitutional: No Acute Distress and Chronically Ill
Cardiovascular: Regular Rate and S1/S2; Negative Murmur or Rub
Pulmonary: Clear and Symmetric; Negative Wheezes, Rales or Rhonchi
Gastrointestinal: Soft, Non Tender, Non Distended and Normal Bowel Sounds
Skin: Warm and Dry; Negative Rash or Jaundice
Lab / Diagnostic Study Results
06/01/24 06:26
06/01/24 06:26
Abs Immat Gran (auto) 0.1 10^3/uL (0-0.05) H 05/31/24 12:05
Absolute Neuts (auto) 5.9 10^3/uL (1.4-6.5) 05/31/24 12:05
Absolute Lymphs (auto) 1.8 10^3/uL (1.2-3.4) 05/31/24 12:05
Absolute Monos (auto) 0.7 10^3/uL (0.1-0.6) H 05/31/24 12:05
Absolute Basos (auto) 0.1 10^3/uL (0-0.2) 05/31/24 12:05
Immature Gran % 0.8 % (0-0.5) H 05/31/24 12:05
Neutrophils % 67.4 % (42.2-75.2) 05/31/24 12:05
Lymphocytes % 20.1 % (20.5-51.1) L 05/31/24 12:05
Monocytes % 8.0 % (1.7-9.3) 05/31/24 12:05
Eosinophils % 3.1 % (0-6) 05/31/24 12:05
Basophils % 0.6 % (0-2) 05/31/24 12:05
ESR 48 mm/hour (0-20) H 05/31/24 12:05
Lactic Acid 1.0 mmol/L (0.7-2.0) 05/31/24 12:05
C-Reactive Protein 15.20 mg/L (0.0-10.00) H 05/31/24 12:05
Microbiology Results
Micro:
05/31/24 12:05 Blood Culture - Preliminary
Blood/Venous No Growth in 24 hours- Final report to follow
05/31/24 12:05 Blood Culture - Preliminary
Blood/Venous No Growth in 24 hours- Final report to follow
05/31/24 12:05 Wound Culture - Preliminary
Foot - Left Gram Stain - Preliminary
06/01/24 03:36 MRSA Screen - Pending
Nose
Assessment / Plan
Diabetic Foot Infection - L foot
DM2 - uncontrolled
Neuropathy and PAD
Chronic radiation proctitis -with chronic diarrhea
Noncompliance - possible dementia
- wound culture - gram stain rare GPCs
- blood cultures x2 are in progress
- MRSA screen pending
- DINA pending
- MRI pending
- recommend tightening blood glucose control outpatient
- appreciate vascular surgery - for the OR 06/03
- restart vancomycin pending MRSA screen
- start unasyn
[2024-06-01] MEDS: MORPHINE SULFATE 2 MG IV (15:52)
[2024-06-01 15:57] LABS: Glucose - Point of Care 288 mg/dl (70-99)
--- NOTE | 2024-06-01 16:02 | PHA.VAN.IN ---
Assessment
- Assessment
Renal Function: Appears elevated from baseline (SCR 1.2 vs ~0.23 Jul 2023)
Concomitant Antimicrobials: ampicillin/sulbactam
Plan
- Plan
Initial / Loading Dose: Vanc 1500mg - 05/31 16:18
Maintenance Regimen: dosing by level - re-dose with 1000mg x1 now
Monitoring: random 06/02 0600
Pharmacokinetics Vancomycin I
- -
Patient Age: 89
Patient Sex: Male
Vancomycin Day #: 1
Indication: Bone And Joint
Requesting Provider: Dr. Andersen
Pertinent Antimicrobial Allergies:
NKDA
Height / Weight:
Height 5 ft 10 in
Actual Weight 78.789 kg
Pertinent Past Medical History: DM 2, PAD
- Vital Signs / Lab Results
Temp Pulse Resp BP Pulse Ox
98.2 F 75 18 127/64 96
06/01/24 15:33 06/01/24 15:33 06/01/24 15:33 06/01/24 15:33 06/01/24 15:33
Lab Results - Hematology
05/31/24 06/01/24
12:05 06:26
WBC 8.8 6.1
Lab Results - Chemistry
05/31/24 06/01/24
12:05 06:26
BUN 26 H 21 H
Creatinine 1.1 1.2
Estimated Creat Clear 48 44
Albumin 3.8
05/31/24
12:05
Lactic Acid 1.0
Microbiology Results
05/31/24 12:05 Blood Culture - Preliminary
Blood/Venous No Growth in 24 hours- Final report to follow
05/31/24 12:05 Blood Culture - Preliminary
Blood/Venous No Growth in 24 hours- Final report to follow
05/31/24 12:05 Wound Culture - Preliminary
Foot - Left Gram Stain - Preliminary
--- NOTE | 2024-06-01 16:54 | W.PN.UPDATE ---
Update Note
Progress Note Update
Chart reviewed
Went to see patient however he is in MRI during rounds
Plan:
Diabetic Foot Infection - L foot
DM2 - uncontrolled
Neuropathy and PAD
Chronic radiation proctitis -with chronic diarrhea
Noncompliance - possible dementia
- wound culture - gram stain rare GPCs
- blood cultures x2 are in progress
- MRSA screen pending
- DINA pending
- MRI pending
- recommend tightening blood glucose control outpatient
- appreciate vascular surgery - for the OR 06/03
- restart vancomycin pending MRSA screen
- start unasyn
[2024-06-01] MEDS: VANCOCIN 200 IV (17:15)
[2024-06-01] MEDS: UNASYN IV ×2 (18:25→23:19)
[2024-06-01] MEDS: NOVOLOG FLEXPEN-LOW RESISTANCE 3 UNITS SC (18:28)
[2024-06-01] MEDS: NOVOLOG FLEXPEN 7 UNITS SC (18:29)
[2024-06-01 20:17] VITALS: BP 131/70
[2024-06-01] MEDS: LIPITOR 80 MG PO (20:34)
[2024-06-01] MEDS: QUESTRAN PO (20:40)
[2024-06-01 21:33] LABS: Glucose - Point of Care 301 mg/dl (70-99)
[2024-06-01] MEDS: LANTUS 0.12 UNITS SC (21:38)
[2024-06-01 23:13] VITALS: BP 104/57
--- NOTE | 2024-06-02 06:05 | DOWNTIME ---
There was a [employer] Downtime on 06/02/2024 from 0100 to 06/03/2023 at 0420 . Downtime documentation of patient's care, including medication administrations, has been reconciled in the electronic record per guidelines. Refer to the
patient's paper chart under the miscellaneous tab to see printed paper medication records and downtime forms.
[2024-06-02] MEDS: UNASYN IV ×4 (06:34→23:18)
[2024-06-02 07:10] LABS: Glucose - Point of Care 237 mg/dl (70-99)
[2024-06-02 07:33] VITALS: BP 133/63
[2024-06-02 08:03] LABS: Hematocrit 33.7 % (39.0-52.0); Hemoglobin 10.7 g/dL (13.0-18.0); Mean Corp Hgb Conc. 31.8 g/dL (33.0-37.0); Mean Corpuscular Hgb 25.3 pg (27.0-31.0); Mean Corpuscular Volume 79.7 fL (80.0-94.0); Mean Platelet Volume 10.2 fL (7.4-10.4); Platelet Count 208 10^3/uL (130-400); Red Blood Cell Count 4.23 10^6/uL (4.70-6.10); Red Cell Dist. Width 15.6 % (11.5-14.5); White Blood Cell Count 7.6 10^3/uL (4.8-10.8)
[2024-06-02] MEDS: FLOMAX 0.4 MG PO (08:11)
[2024-06-02] MEDS: PLAVIX 75 MG PO (08:11)
[2024-06-02] MEDS: PAXIL 40 MG PO (08:11)
[2024-06-02] MEDS: FEOSOL 325 MG PO (08:11)
[2024-06-02] MEDS: ASPIR LOW (ENTERIC COATED) 81 MG PO (08:11)
[2024-06-02] MEDS: PROTONIX 20 MG PO (08:11)
[2024-06-02] MEDS: NORVASC 5 MG PO (08:11)
[2024-06-02] MEDS: COREG 6.25 MG PO ×2 (08:12→20:12)
[2024-06-02 08:19] LABS: Vancomycin Random 11.1 ug/ml
[2024-06-02] MEDS: NOVOLOG FLEXPEN 7 UNITS SC (08:22)
[2024-06-02] MEDS: NOVOLOG FLEXPEN-LOW RESISTANCE 2 UNITS SC (08:22)
[2024-06-02 08:39] LABS: Blood Urea Nitrogen 23 mg/dl (9-20); Calcium 8.9 mg/dl (8.4-10.2); Carbon Dioxide 28 mmol/L (22-30); Chloride 101 mmol/L (98-107); Estimated Creatinine Clearance 41 ml/min; Glucose 237 mg/dl (70-99); Potassium 5.1 mmol/L (3.5-5.1); Sodium 134 mmol/L (135-145); eGFR 52.84
--- NOTE | 2024-06-02 09:21 | PHA.VAN.FU ---
Vancomycin Assessment / Plan
- Assessment
Renal Function: SCR Increasing (slight increasing trend in SCR)
WBC's are: WNL
In the past 24 hrs, patient has been: Afebrile
Concomitant Antimicrobials: ampicillin/sulbactam
- Assessment - Therapeutic Drug Monitoring
Random Level: 11.1 - drawn ~13H after previous dose of 1000mg
- Dosing Plan
Dosing by Level: Re-dose today (Vanc 1000mg)
- Monitoring Plan
Random Level: 06/03 06
- Follow Up
Pharmacy will continue to follow.
Vancomycin Follow UP
- -
Patient Age: 89
Patient Sex: Male
Vancomycin Day #: 2
Indication: Bone And Joint
Requesting Provider: Dr. Andersen
Pertinent Antimicrobial Allergies:
NKDA
Height / Weight:
Height 5 ft 10 in
Actual Weight 78.789 kg
Pertinent Past Medical History: DM 2, PAD
- Vital Signs / Lab Results
Temp Pulse Resp BP Pulse Ox
98 F 75 20 133/63 95
06/02/24 07:33 06/02/24 08:11 06/02/24 07:33 06/02/24 08:11 06/02/24 07:33
Lab Results - Hematology
05/31/24 06/01/24 06/02/24
12:05 06:26 06:20
WBC 8.8 6.1 7.6
Lab Results - Chemistry
05/31/24 06/01/24 06/02/24
12:05 06:26 06:20
BUN 26 H 21 H 23 H
Creatinine 1.1 1.2 1.3
Estimated Creat Clear 48 44 41
Albumin 3.8
05/31/24
12:05
Lactic Acid 1.0
Microbiology Results
06/01/24 03:36 MRSA Screen - Final
Nose No Methicillin Resistant Staphylococcus aureus isolated.
05/31/24 12:05 Blood Culture - Preliminary
Blood/Venous No Growth in 24 hours- Final report to follow
05/31/24 12:05 Blood Culture - Preliminary
Blood/Venous No Growth in 24 hours- Final report to follow
05/31/24 12:05 Wound Culture - Preliminary
Foot - Left Gram Stain - Preliminary
Therapeutic Drug Monitoring
Random Vancomycin 11.1 ug/ml 06/02/24 06:20
--- NOTE | 2024-06-02 10:00 | W.PN.SURGUPD ---
Surgical Update
Surgical Update
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
-MRI confirms osteomyelitis of 5th metatarsal head/neck and base of 5th proximal phalanx
-Vascular surgery with plans for intervention 06/03
-Patient will require at least partial 5th ray amputation, but level of amputation will be based on vascular findings
-Surgical intervention to follow, possible 06/07 (?)
-Continue local wound care and antibiotics
[2024-06-02 11:06] LABS: Glucose - Point of Care 313 mg/dl (70-99)
[2024-06-02] MEDS: VANCOCIN 200 IV (11:48)
[2024-06-02] MEDS: QUESTRAN 4 GRAM PO ×2 (11:49→21:18)
[2024-06-02] MEDS: NOVOLOG FLEXPEN-LOW RESISTANCE 4 UNITS SC (12:12)
[2024-06-02] MEDS: NOVOLOG FLEXPEN 10 UNITS SC ×2 (12:13→18:14)
--- NOTE | 2024-06-02 12:32 | W.PN.HOSP.TC ---
Today's Communication/Plan
-
Adjust insulin
N.p.o. after midnight
Assessment / Plan
Assessment / Plan
Gen-AAOx3, NAD
HEENT-NC, AT, anicteric, clear oral mm
Neck-supple
CV-reg, no M, +S1/S2
Lungs-clear B/L
Abd-soft, NT, ND
Ext-no edema
Musculoskeletal-no cyanosis, clubbing, left foot dressing
Skin-warm and dry
Neuro-grossly non-focal
Psych-calm, cooperative
Acute osteomyelitis -left fifth metatarsal head, x-ray noted osteomyelitis. Foot MRI confirms osteomyelitis involving the head and neck of the fifth metatarsal as well as early/mild osteomyelitis involving the base of the fifth proximal phalanx.
Trace effusion with mild medial capsular thickening of the fifth metatarsal phalangeal joint, suggesting infection/septic joint. No soft tissue abscess.
Now on vancomycin, Unasyn as per ID.
Hemodynamically stable. No signs or symptoms of sepsis.
CRP 15.2, ESR 48.
Hyponatremia -134. Component of pseudohyponatremia from hyperglycemia.
DM 2 with hyperglycemia -glucose 237 this morning. Hemoglobin A1c 10.2%. Hold glipizide, hold 70/30 insulin mix. We discussed the importance of better glycemic control moving forward, close outpatient follow-up with PCP.
Increase Lantus to 15 units at bedtime, increase NovoLog to 10 units AC.
Essential hypertension -stable.
Hyperlipidemia -atorvastatin.
PAD -known to Dr. Clay. Vascular surgery recommends lower extremity arteriogram on .
DINA completed, 0.91 right lower extremity, 0.71 left lower extremity.
BPH
Hx of prostate cancer
Chronic urinary retention -with chronic Adams catheter.
CAD -stable.
Chronic radiation proctitis -with chronic diarrhea. Continue cholestyramine.
Chronic microcytic anemia -suspect hemoglobin at baseline.
Full code
Family updated at the bedside.
Anticipated Discharge: > 48 hours
Subjective/Interval History
-
Date of Service: June 02, 2024
Patient seen and examined. Complaining of mild left foot pain.
Objective Data
-
Labs:
Laboratory Results
06/02/24
06:20
WBC 7.6
Hgb 10.7 L
Hct 33.7 L
Plt Count 208
Sodium 134 L
Potassium 5.1
Chloride 101
Carbon Dioxide 28
BUN 23 H
Creatinine 1.3
Glucose 237 H
Calcium 8.9
Vital Signs:
Vital Signs
Temp Pulse Resp BP Pulse Ox
98 F 75 20 133/63 95
06/02/24 07:33 06/02/24 08:11 06/02/24 07:33 06/02/24 08:11 06/02/24 07:33
I&O
06/01/24 06/02/24 06/03/24
06:59 06:59 06:59
Intake Total 480 / 480 1080 / 1080
Output Total 2350 / 2350 3650 / 3650
Balance -1870 / -1870 -2570 / -2570
Review of Systems
-
History Source: Patient
All other systems: Reviewed and negative
[2024-06-02] MEDS: TYLENOL 650 MG PO ×2 (13:50→20:15)
[2024-06-02 14:56] VITALS: BP 118/64
[2024-06-02 15:10] LABS: Glucose - Point of Care 286 mg/dl (70-99)
[2024-06-02] MEDS: NOVOLOG FLEXPEN-LOW RESISTANCE 3 UNITS SC (18:13)
[2024-06-02] MEDS: LIPITOR 80 MG PO (20:12)
[2024-06-02 21:05] LABS: Glucose - Point of Care 259 mg/dl (70-99)
[2024-06-02] MEDS: LANTUS 0.15 UNITS SC (21:18)
[2024-06-02 23:00] VITALS: BP 119/57
[2024-06-03] VITALS (26 sets, daily range): BP systolic 118–151; BP diastolic 60–85
[2024-06-03] MEDS: UNASYN IV ×3 (05:42→18:30)
[2024-06-03 07:35] LABS: Glucose - Point of Care 235 mg/dl (70-99)
[2024-06-03] MEDS: NOVOLOG FLEXPEN SC ×2 (07:39→14:42)
[2024-06-03] MEDS: NOVOLOG FLEXPEN-LOW RESISTANCE 2 UNITS SC ×2 (07:41→13:00)
[2024-06-03 07:43] LABS: Hematocrit 31.9 % (39.0-52.0); Hemoglobin 10.3 g/dL (13.0-18.0); Mean Corp Hgb Conc. 32.3 g/dL (33.0-37.0); Mean Corpuscular Hgb 25.5 pg (27.0-31.0); Platelet Count 201 10^3/uL (130-400); Red Blood Cell Count 4.04 10^6/uL (4.70-6.10); Red Cell Dist. Width 15.3 % (11.5-14.5); White Blood Cell Count 6.7 10^3/uL (4.8-10.8)
[2024-06-03] MEDS: COREG PO (08:00)
[2024-06-03] MEDS: FEOSOL PO (08:00)
--- NOTE | 2024-06-03 08:02 | W.SUR.PREOP ---
Pre-Operative Surgical Note
-
I have examined this patient prior to the performance of the scheduled procedure.
The patient's condition is unchanged from the time of the current History and
Physical and the patient is able to undergo the scheduled procedure.
I have discussed with the patient the procedure of left lower extremity arteriogram, possible angioplasty/stent. Discussed indications for the procedure. Discussed procedural anticipated outcomes/scenarios (including the scenarios of successful
endovascular revascularization, the scenario of needing staged surgical revascularization, the scenario of not unreconstructable small vessel disease). I have reviewed all pertinent imaging including his noninvasive test of the lower extremity
arteries. Discussed risks including but not limited to bleeding, arterial injury/worsened or acute limb ischemia, renal failure. He understands all wishes to proceed.
[2024-06-03 08:16] LABS: Blood Urea Nitrogen 27 mg/dl (9-20); Calcium 8.7 mg/dl (8.4-10.2); Carbon Dioxide 23 mmol/L (22-30); Chloride 102 mmol/L (98-107); Estimated Creatinine Clearance 44 ml/min; Glucose 241 mg/dl (70-99); Potassium 4.3 mmol/L (3.5-5.1); Sodium 135 mmol/L (135-145); Vancomycin Random 10.5 ug/ml; eGFR 58.17
--- NOTE | 2024-06-03 09:16 | W.SUR.POST ---
Surgical Immediate Post Op
Note
Pre Op Diagnosis: PAD, nonhealing wound
Post Op Diagnosis: PAD, nonhealing wound
Procedure Performed: Aortogram, left lower extremity angiogram with MILITARY TECHNICIAN and stent x2 to SFA, ultrasound guidance for right femoral artery puncture
Primary Surgeon: Jorge Clay MD
Secondary Surgeons: N/A
Anesthesia: MAC
Estimated Blood Loss: 2 mL
Fluids: See anesthesia flowsheet
Drains/Shunts: N/A
Specimens/Cultures: N/A
Doppler/Duplex/Angio (Y/N): Yes
Complications: None
Operative Findings: Successful endovascular invention to SFA stenosis
--- NOTE | 2024-06-03 09:27 | OR.RPT ---
Operative Report
Operative Report
PROCEDURE DATE: 06/03/2024
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
Postoperative diagnosis: Same
Procedure:
1. Duplex assisted right common femoral artery cannulation.
2. Aortogram and pelvic angiogram.
3. Left lower extremity arteriogram with third order vessel catheterization of left popliteal artery via right common femoral artery puncture.
4. Balloon angioplasty and stent placement left superficial femoral artery with overlapping Cook Zilver PTX drug eluting stents 6 mm x 14 cm stents (x 2).
5. Right femoral angiogram.
6. Supervision and interpretation.
Surgeon: Obed
Senior Interior Designer: None
Complications: None
Anesthesia: Local, sedation
Fluoroscopy:
12.9 min
71 mGy
17.45 Gy.cm2
Indications for procedure:
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 Risk/benefits/alternatives of angiography were fully discussed. Patient understood all wished to proceed.
Description of procedure:
Patient was identified, brought to the operating room. Placed on the table in the supine position. After the adequate administration of anesthesia, the patient was prepped and draped in the standard surgical fashion. A standard preoperative
timeout was undertaken and everybody was in agreement with the plan.
The right common femoral artery was accessed with a micropuncture kit under direct duplex ultrasound guidance. A 5 Mongolian sheath was then advanced over a 0.035 inch wire, and a stacy's hook catheter was advanced into the abdominal aorta.
Aortogram and pelvic angiogram was obtained. Findings as follows:
Infrarenal aorta: Patent with no significant stenosis, significant calcified eccentric plaque.
Right common iliac artery: Patent with no significant stenosis, significant calcified eccentric plaque.
Right external iliac artery:Patent with moderate to severe distal external iliac artery stenosis.
Left common iliac artery:Patent with no significant stenosis, significant calcified eccentric plaque.
Left external iliac artery:Patent with no significant stenosis, significant calcified eccentric plaque.
Using a floppy angled hydrophilic wire, the left common femoral artery was cannulated and the catheter was advanced. Left lower extremity arteriogram was obtained. Findings as follows:
Common femoral artery: Patent with no significant stenosis
Profunda femoris artery: Patent with no significant stenosis
Superficial femoral artery: Patent with luminal irregularities proximally. Then severe stenoses followed by complete occlusion. Reconstituted distal superficial femoral artery via profunda collaterals.
Popliteal artery: Patent with luminal irregularities, but no significant stenosis.
Anterior tibial artery: Patent with diffuse focal occlusions and diffuse severe stenosis. Anterior tibial distally gave rise to the dorsalis pedis artery which crossed the ankle to the foot. Somewhat small and diseased artery.
Tibial peroneal trunk: Patent with no significant stenosis.
Peroneal artery: Patent with no significant stenosis, some luminal irregularities distally. Dominant runoff vessel to the foot. Collateralization at the ankle with typical Y-collaterals. Reconstitutes the dorsalis pedis and posterior tibial
artery on the foot.
Posterior tibial artery: Reconstituted distally at the ankle into the foot. Occluded proximally.
At this point I selectively cannulated the left superficial femoral artery, and exchanged for a Storq wire and then an up and over 6 Mongolian sheath. Patient was given 6 as needed's of intravenous heparin. Next under roadmap assisted guidance I used
a flopping of hydrophilic wire and a CXI catheter to traverse the occluded SFA via subintimal technique. The CXI was advanced beyond the area of occlusion over the wire. Angiogram confirmed I was in the true lumen. I then exchanged back for a
Storq wire. Angioplasty of the occluded SFA and stenotic SFA was performed with 4 mm angioplasty balloon to predilate. Next I used overlapping Cook Zilver PTX drug-eluting bare-metal SFA stents (6 mm x 14 cm stents x 2). These were post
angioplastied with a 5 mm balloon. Completion angiogram now demonstrated excellent result with no residual stenosis in the SFA and brisk flow into the runoff. At this point I considered trying to revascularize the anterior tibial artery, but I
felt that this may not add that much given distal disease in the dorsalis pedis and distal anterior tibial artery that would be rate limiting anyway. Therefore at this point I withdrew my sheath to the right external iliac artery. Right femoral
angiogram demonstrated good puncture in the right common femoral artery. Therefore the sheath was exchanged for a short 6 Mongolian sheath. Wires and catheters were all removed. The patient was given protamine reverse the heparin. The sheath will
be withdrawn in the recovery room. The patient tolerated procedure well. Upon completion he had a palpable left popliteal pulse.
[2024-06-03 09:41] LABS: Glucose - Point of Care 214 mg/dl (70-99)
[2024-06-03] MEDS: NOVOLOG vial 2 UNITS SC (09:59)
--- NOTE | 2024-06-03 12:05 | W.PN.UPDATE ---
Addendum entered and electronically signed by ALYSIA Harrington 06/03/24 12:15:
Additionally will restart clock as new time of hemostasis starting at 12, thus patient will be flat for the next 2 hours and then max of 30 degrees for 4, earliest patient is eligible for out of bed at 6 PM this evening; this is also pending results
of ultrasound. Site checks have now been renewed as well, orders changed and this was relayed to nursing.
Original Note:
Update Note
Progress Note Update
Notified by prior to [place] text from bedside nurse that patient had evidence of bleeding at right groin puncture site, immediately responded to the bedside. Patient is awake alert and oriented x 3, denies dizziness, headache, and lightheadedness.
Right groin puncture site with evidence of mild hematoma lateral to puncture site towards hip, additional pressure held to puncture and area of hematoma for roughly 10 minutes. Hemostasis achieved and hematoma soft. Abdomen soft, nontender,
nondistended. He denies back or abdomen pain. Reviewed physical exam and findings with Dr. Jorge Clay who agrees with plan of continued monitoring and stat right groin ultrasound to evaluate for pseudoaneurysm and H&H.
[2024-06-03 12:11] LABS: Glucose - Point of Care 209 mg/dl (70-99)
--- NOTE | 2024-06-03 12:30 | PTCARENOTE ---
11:45 Pt post angiogram, when checked right groin noted heavy oozing of blood at right groin site. Applied pressure, notified Silvana SOTELO. Silvana here at bedside and continue to apply pressure. Dressing change, no further bleeding noted. 12:15
Bedside right groin Ultrasound done as ordered, continue to monitor pt closely.
--- NOTE | 2024-06-03 12:52 | W.PN.ID1 ---
Date of Service
Date of Service: June 03, 2024
Today's Communication
- stopped vancomycin
- c/w unasyn
Assessment / Plan
Diabetic Foot Infection - L foot
osteomyelitis of 5th metatarsal head/neck and base of 5th proximal phalanx
DM2 - uncontrolled
Neuropathy and PAD
Chronic radiation proctitis -with chronic diarrhea
Noncompliance - possible dementia
- underwent balloon angioplasty and stent placement L SFA today
- wound culture - MSSA and VGS
- blood cultures x2 are in progress NGTD
- recommend tightening blood glucose control outpatient
- appreciate vascular surgery
- appreciate podiatry
- stopped vancomycin
- c/w unasyn
Chief Complaint
-: Other (diabetic foot infection)
Subjective / Review of Systems
remains afebrile
bp stable
underwent balloon angioplasty and stent placement L SFA today
has developed a hematoma at the right groin puncture site, vascular sx PA held pressure
getting stat right groin US
Vital Signs / Physical Exam
Vital Signs
Vital Signs
Temp Pulse Resp BP Pulse Ox
97.8 F 65 20 137/70 95
06/03/24 12:15 06/03/24 12:15 06/03/24 12:15 06/03/24 12:15 06/03/24 12:15
Physical Exam
Constitutional: No Acute Distress and Chronically Ill
Cardiovascular: Regular Rate and S1/S2; Negative Murmur or Rub
Pulmonary: Clear and Symmetric; Negative Wheezes, Rales or Rhonchi
Gastrointestinal: Soft, Non Tender, Non Distended and Normal Bowel Sounds
Skin: Warm and Dry; Negative Rash or Jaundice
Wound: Other (groin soft, dressing clean)
Objective Data
Lab Data
Lab Results
06/03/24 06:24
ESR 48 mm/hour (0-20) H 05/31/24 12:05
Estimated Creat Clear 44 ml/min 06/03/24 06:24
Lactic Acid 1.0 mmol/L (0.7-2.0) 05/31/24 12:05
Total Bilirubin 1.6 mg/dl (0.2-1.3) H 05/31/24 12:05
AST 20 U/L (17-59) 05/31/24 12:05
ALT 21 U/L (0-50) 05/31/24 12:05
Alkaline Phosphatase 117 U/L (38-126) 05/31/24 12:05
C-Reactive Protein 15.20 mg/L (0.0-10.00) H 05/31/24 12:05
Most recent labs reviewed.
Micro Results:
05/31/24 12:05 Blood Culture - Preliminary
Blood/Venous No Growth in 72 hours- Final report to follow
05/31/24 12:05 Blood Culture - Preliminary
Blood/Venous No Growth in 72 hours- Final report to follow
05/31/24 12:05 Wound Culture - Final
Foot - Left S aureus-Methicillin Sensitive
Viridans Streptococcus Group
Gram Stain - Final
06/01/24 03:36 MRSA Screen - Final
Nose No Methicillin Resistant Staphylococcus aureus isolated.
[2024-06-03] MEDS: NOVOLOG FLEXPEN 15 UNITS SC ×2 (13:00→18:29)
[2024-06-03 13:06] LABS: Hemoglobin 10.7 g/dL (13.0-18.0)
--- NOTE | 2024-06-03 13:08 | W.PN.HOSP.TC ---
Today's Communication/Plan
-
Adjust insulin
Assessment / Plan
Assessment / Plan
Gen-AAOx3, NAD
HEENT-NC, AT, anicteric, clear oral mm
Neck-supple
CV-reg, no M, +S1/S2
Lungs-clear B/L
Abd-soft, NT, ND
Ext-no edema
Musculoskeletal-no cyanosis, clubbing, left foot dressing
Skin-warm and dry
Neuro-grossly non-focal
Psych-calm, cooperative
Acute osteomyelitis -left fifth metatarsal head, x-ray noted osteomyelitis. Foot MRI confirms osteomyelitis involving the head and neck of the fifth metatarsal as well as early/mild osteomyelitis involving the base of the fifth proximal phalanx.
Trace effusion with mild medial capsular thickening of the fifth metatarsal phalangeal joint, suggesting infection/septic joint. No soft tissue abscess.
Unasyn IV as per ID.
Hemodynamically stable. No signs or symptoms of sepsis. Blood cultures negative. Wound culture shows MSSA, Viridans strep group.
CRP 15.2, ESR 48.
Podiatry planning on fifth ray amputation, timing to be determined.
PAD -known to Dr. Clay. DINA completed, 0.91 right lower extremity, 0.71 left lower extremity.
Underwent aortogram and pelvic angiogram 06/03 with balloon angioplasty and stent placement to left superficial femoral artery with overlapping drug-eluting stents.
Mild right groin hematoma after procedure noted by vascular team, ultrasound completed, report pending.
Hyponatremia - improved.
DM 2 with hyperglycemia -glucose 241 this morning. Hemoglobin A1c 10.2%. Hold glipizide, hold 70/30 insulin mix. We discussed the importance of better glycemic control moving forward, close outpatient follow-up with PCP.
Increase Lantus to 18 units at bedtime, increase NovoLog to 15 units AC.
Essential hypertension -stable.
Hyperlipidemia -atorvastatin.
BPH
Hx of prostate cancer
Chronic urinary retention -with chronic Adams catheter.
CAD -stable.
Chronic radiation proctitis -with chronic diarrhea. Continue cholestyramine.
Chronic microcytic anemia -suspect hemoglobin at baseline.
Full code
Family updated at the bedside.
Anticipated Discharge: > 48 hours
Subjective/Interval History
-
Date of Service: June 03, 2024
Patient seen and examined. No complaints.
Objective Data
-
Labs:
Laboratory Results
06/03/24 06/03/24
06:24 12:27
WBC 6.7
Hgb 10.3 L 10.7 L
Hct 31.9 L 34.0 L
Plt Count 201
Sodium 135
Potassium 4.3
Chloride 102
Carbon Dioxide 23
BUN 27 H
Creatinine 1.2
Glucose 241 H
Calcium 8.7
Vital Signs:
Vital Signs
Temp Pulse Resp BP Pulse Ox
97.8 F 65 20 137/70 95
06/03/24 12:15 06/03/24 12:15 06/03/24 12:15 06/03/24 12:15 06/03/24 12:15
I&O
06/02/24 06/03/24 06/04/24
06:59 06:59 06:59
Intake Total 1080 / 1080 960 / 960 100 / 100
Output Total 3650 / 3650 4225 / 4225 200 / 200
Balance -2570 / -2570 -3265 / -3265 -100 / -100
Review of Systems
-
History Source: Patient
All other systems: Reviewed and negative
[2024-06-03] MEDS: NSS 1000 IV (13:50)
[2024-06-03] MEDS: PROTONIX 20 MG PO (14:11)
[2024-06-03] MEDS: PLAVIX 75 MG PO (14:11)
[2024-06-03] MEDS: FLOMAX 0.4 MG PO (14:12)
[2024-06-03] MEDS: ASPIR LOW (ENTERIC COATED) 81 MG PO (14:12)
[2024-06-03] MEDS: PAXIL 40 MG PO (14:12)
[2024-06-03] MEDS: NORVASC 5 MG PO (14:13)
--- NOTE | 2024-06-03 14:26 | CM ---
Chart reviewed. Care ongoing at this time.
Patient is current w/ [facility]
Plan: Home; [facility] w/ [facility] when stable
[2024-06-03] MEDS: QUESTRAN 4 GRAM PO ×2 (15:51→22:26)
--- NOTE | 2024-06-03 16:51 | W.PN.UPDATE ---
Update Note
Progress Note Update
Reevaluated patient and noted continued hemostasis at right groin, no evidence of hematoma, all surrounding compartments soft. Patient states he feels well with no dizziness, lightheadedness, or pain at right groin puncture site. Reviewed right
groin ultrasound negative for pseudoaneurysm or hematoma. Patient was seen at bedside with Dr. Jorge Clay.
[2024-06-03 17:35] LABS: Glucose - Point of Care 298 mg/dl (70-99)
[2024-06-03] MEDS: NOVOLOG FLEXPEN-LOW RESISTANCE 3 UNITS SC (18:27)
[2024-06-03] MEDS: LIPITOR 80 MG PO (19:55)
[2024-06-03] MEDS: COREG 6.25 MG PO (19:55)
[2024-06-03 21:35] LABS: Glucose - Point of Care 403 mg/dl (70-99)
[2024-06-03 21:58] LABS: Glucose 327 mg/dl (70-99)
[2024-06-03] MEDS: LANTUS 0.18 UNITS SC (22:25)
[2024-06-03] MEDS: NOVOLOG FLEXPEN 4 UNITS SC (22:26)
[2024-06-03] MEDS: TYLENOL 650 MG PO (22:32)
[2024-06-04] MEDS: UNASYN IV ×5 (00:30→23:44)
[2024-06-04 00:34] LABS: Glucose - Point of Care 248 mg/dl (70-99)
[2024-06-04 03:44] VITALS: BP 140/57
[2024-06-04] MEDS: TYLENOL 650 MG PO (05:43)
[2024-06-04 07:00] VITALS: BP 147/65
[2024-06-04 07:20] LABS: Glucose - Point of Care 298 mg/dl (70-99)
[2024-06-04 07:38] LABS: Hematocrit 29.5 % (39.0-52.0); Hemoglobin 9.7 g/dL (13.0-18.0); Mean Corp Hgb Conc. 32.9 g/dL (33.0-37.0); Mean Corpuscular Hgb 25.5 pg (27.0-31.0); Mean Corpuscular Volume 77.6 fL (80.0-94.0); Mean Platelet Volume 10.2 fL (7.4-10.4); Platelet Count 229 10^3/uL (130-400); Red Cell Dist. Width 15.1 % (11.5-14.5); White Blood Cell Count 11.4 10^3/uL (4.8-10.8)
[2024-06-04] MEDS: NOVOLOG FLEXPEN-LOW RESISTANCE 3 UNITS SC (07:50)
[2024-06-04] MEDS: NOVOLOG FLEXPEN 15 UNITS SC (07:52)
[2024-06-04] MEDS: FLOMAX 0.4 MG PO (07:59)
[2024-06-04] MEDS: PLAVIX 75 MG PO (07:59)
[2024-06-04] MEDS: PAXIL 40 MG PO (07:59)
[2024-06-04] MEDS: ASPIR LOW (ENTERIC COATED) 81 MG PO (07:59)
[2024-06-04] MEDS: NORVASC 5 MG PO (08:00)
[2024-06-04] MEDS: FEOSOL 325 MG PO (08:00)
[2024-06-04] MEDS: COREG 6.25 MG PO ×2 (08:00→21:28)
[2024-06-04 08:29] LABS: Blood Urea Nitrogen 30 mg/dl (9-20); Calcium 8.8 mg/dl (8.4-10.2); Carbon Dioxide 23 mmol/L (22-30); Chloride 99 mmol/L (98-107); Estimated Creatinine Clearance 44 ml/min; Glucose 278 mg/dl (70-99); Potassium 4.8 mmol/L (3.5-5.1); Sodium 133 mmol/L (135-145); eGFR 58.17
[2024-06-04] MEDS: PROTONIX 20 MG PO (08:52)
--- NOTE | 2024-06-04 09:23 | W.PN.HOSP.TC ---
Addendum entered and electronically signed by Torin Martins DO 06/04/24 13:22:
Podiatry plans on partial fifth ray amputation of left foot on Friday.
Continue antibiotics per ID.
Original Note:
Today's Communication/Plan
-
Increase insulin dose
Assessment / Plan
Assessment / Plan
Gen-AAOx3, NAD
HEENT-NC, AT, anicteric, clear oral mm
Neck-supple
CV-reg, no M, +S1/S2
Lungs-clear B/L
Abd-soft, NT, ND
Ext-no edema
Musculoskeletal-no cyanosis, clubbing, left foot dressing
Skin-warm and dry
Neuro-grossly non-focal
Psych-calm, cooperative
Acute osteomyelitis -left fifth metatarsal head, x-ray noted osteomyelitis. Foot MRI confirms osteomyelitis involving the head and neck of the fifth metatarsal as well as early/mild osteomyelitis involving the base of the fifth proximal phalanx.
Trace effusion with mild medial capsular thickening of the fifth metatarsal phalangeal joint, suggesting infection/septic joint. No soft tissue abscess.
Unasyn IV as per ID.
Hemodynamically stable. No signs or symptoms of sepsis. Blood cultures negative. Wound culture shows MSSA, Viridans strep group.
CRP 15.2, ESR 48.
Podiatry planning on fifth ray amputation, timing to be determined.
PAD -known to Dr. Clay. DINA completed, 0.91 right lower extremity, 0.71 left lower extremity.
Underwent aortogram and pelvic angiogram 06/03 with balloon angioplasty and stent placement to left superficial femoral artery with overlapping drug-eluting stents.
Mild right groin hematoma after procedure noted by vascular team, ultrasound unremarkable.
Hyponatremia - improved.
DM 2 with hyperglycemia -glucose 278 this morning. Hemoglobin A1c 10.2%. Hold glipizide, hold 70/30 insulin mix. We discussed the importance of better glycemic control moving forward, close outpatient follow-up with PCP.
Increase Lantus to 24 units at bedtime, increase NovoLog to 20 units AC. One-time dose of NPH insulin 10 units now. Discussed with nursing.
Diabetic education prior to discharge.
Essential hypertension -stable.
Hyperlipidemia -atorvastatin.
BPH
Hx of prostate cancer
Chronic urinary retention -with chronic Adams catheter.
CAD -stable.
Chronic radiation proctitis -with chronic diarrhea. Continue cholestyramine.
Chronic microcytic anemia -suspect hemoglobin at baseline.
Full code
Anticipated Discharge: > 48 hours
Subjective/Interval History
-
Date of Service: June 04, 2024
Patient seen and examined. No new complaints.
Objective Data
-
Labs:
Laboratory Results
06/03/24 06/04/24
21:40 06:56
WBC 11.4 H
Hgb 9.7 L
Hct 29.5 L
Plt Count 229
Sodium 133 L
Potassium 4.8
Chloride 99
Carbon Dioxide 23
BUN 30 H
Creatinine 1.2
Glucose 327 H 278 H
Calcium 8.8
Vital Signs:
Vital Signs
Temp Pulse Resp BP Pulse Ox
97.7 F 68 18 147/65 94
06/04/24 07:00 06/04/24 07:00 06/04/24 07:00 06/04/24 07:00 06/04/24 07:00
I&O
06/03/24 06/04/24 06/05/24
06:59 06:59 06:59
Intake Total 960 / 960 2360 / 2360
Output Total 4225 / 4225 2511 / 2511
Balance -3265 / -3265 -151 / -151
Review of Systems
-
History Source: Patient
All other systems: Reviewed and negative
[2024-06-04] MEDS: NOVOLIN N vial 0.1 UNITS SC (09:35)
--- NOTE | 2024-06-04 09:36 | W.PN.VS ---
Today's Communication / Plan
-
See below.
Assessment/Plan
-
Assessment: 89-year-old male POD #1 left lower extremity angiogram with METAL CUTTER and stent x2 to SFA, ultrasound guidance for right femoral artery puncture
Plan:
Continue DAPT therapy of aspirin 81 mg p.o. daily and Plavix 75 mg p.o. daily
Continue statin
Follow-up arterial ultrasound and office appointment placed in discharge instructions
We will sign off please call with questions or concerns
Subjective Data
-
Date of Service: June 04, 2024
Patient seen examined bedside, offers no complaints. Reports no pain at right groin. Tolerating p.o. diet. Denies nausea, vomiting, fever, and chills.
Objective Data
-
Vital Signs
Temp Pulse Resp BP Pulse Ox
97.7 F 68 18 147/65 94
06/04/24 07:00 06/04/24 07:00 06/04/24 07:00 06/04/24 07:00 06/04/24 07:00
Intake and Output
06/03/24 06/04/24 06/05/24
06:59 06:59 06:59
Intake Total 960 / 960 2360 / 2360
Output Total 4225 / 4225 2511 / 2511
Balance -3265 / -3265 -151 / -151
Intake:
Oral fluids 960 / 960 1560 / 1560
IV fluids (Total) 600 / 600
normosol 100 / 100
IV piggybacks 200 / 200
Output:
Urine, Adams 4225 / 4225 2500 / 2500
Suprapubic output
Lab Results
06/04/24 06:56
06/04/24 06:56
Calcium 8.8 mg/dl (8.4-10.2) 06/04/24 06:56
Total Bilirubin 1.6 mg/dl (0.2-1.3) H 05/31/24 12:05
AST 20 U/L (17-59) 05/31/24 12:05
ALT 21 U/L (0-50) 05/31/24 12:05
Alkaline Phosphatase 117 U/L (38-126) 05/31/24 12:05
Total Protein 6.3 g/dl (6.3-8.2) 05/31/24 12:05
Albumin 3.8 g/dl (3.5-5.0) 05/31/24 12:05
Physical Exam
-
No apparent distress, resting bed comfortably
No tachycardia
No dyspnea on room air
ABD flat, nontender, nondistended
Right groin dressing CDI, flat, no evidence of hematoma, all surrounding compartments soft
[2024-06-04 11:31] LABS: Glucose - Point of Care 322 mg/dl (70-99)
[2024-06-04] MEDS: NOVOLOG FLEXPEN-LOW RESISTANCE 4 UNITS SC (12:20)
[2024-06-04] MEDS: NOVOLOG FLEXPEN 20 UNITS SC ×2 (12:21→17:15)
[2024-06-04] MEDS: QUESTRAN 4 GRAM PO ×3 (12:37→21:35)
--- NOTE | 2024-06-04 14:35 | W.PN.ID1 ---
Date of Service
Date of Service: June 04, 2024
Today's Communication
- appreciate Podiatry - note plans for partial fifth ray amputation of left foot on Friday
- c/w unasyn
Assessment / Plan
Diabetic Foot Infection - L foot
osteomyelitis of 5th metatarsal head/neck and base of 5th proximal phalanx
DM2 - uncontrolled
Neuropathy and PAD
Chronic radiation proctitis -with chronic diarrhea
Noncompliance - possible dementia
- underwent balloon angioplasty and stent placement L SFA 06/03; post operative leukocytosis is expected
- wound culture - MSSA and VGS
- blood cultures x2 are in progress NGTD
- recommend tightening blood glucose control outpatient
- appreciate vascular surgery
- appreciate Podiatry - note plans for partial fifth ray amputation of left foot on Friday
- c/w unasyn
Chief Complaint
-: Other (diabetic foot infection)
Subjective / Review of Systems
afebrile
bp stable
had bleeding/oozing from the R groin site yesterday
Vital Signs / Physical Exam
Vital Signs
Vital Signs
Temp Pulse Resp BP Pulse Ox
97.7 F 68 18 147/65 94
06/04/24 07:00 06/04/24 07:00 06/04/24 07:00 06/04/24 07:00 06/04/24 07:00
Physical Exam
Constitutional: No Acute Distress
Cardiovascular: Regular Rate and S1/S2; Negative Murmur or Rub
Pulmonary: Clear and Symmetric; Negative Wheezes or Rales
Gastrointestinal: Soft, Non Tender, Non Distended and Normal Bowel Sounds
Skin: Warm and Dry; Negative Rash or Jaundice
Wound: Other (minimal blood lateral to the right groin dressing, no firmness)
Objective Data
Lab Data
Lab Results
06/04/24 06:56
06/04/24 06:56
ESR 48 mm/hour (0-20) H 05/31/24 12:05
Estimated Creat Clear 44 ml/min 06/04/24 06:56
Lactic Acid 1.0 mmol/L (0.7-2.0) 05/31/24 12:05
Total Bilirubin 1.6 mg/dl (0.2-1.3) H 05/31/24 12:05
AST 20 U/L (17-59) 05/31/24 12:05
ALT 21 U/L (0-50) 05/31/24 12:05
Alkaline Phosphatase 117 U/L (38-126) 05/31/24 12:05
C-Reactive Protein 15.20 mg/L (0.0-10.00) H 05/31/24 12:05
Most recent labs reviewed.
Micro Results:
05/31/24 12:05 Blood Culture - Preliminary
Blood/Venous No Growth in 4 days- Final report to follow
05/31/24 12:05 Blood Culture - Preliminary
Blood/Venous No Growth in 4 days- Final report to follow
05/31/24 12:05 Wound Culture - Final
Foot - Left S aureus-Methicillin Sensitive
Viridans Streptococcus Group
Gram Stain - Final
06/01/24 03:36 MRSA Screen - Final
Nose No Methicillin Resistant Staphylococcus aureus isolated.
[2024-06-04 15:00] VITALS: BP 130/64
[2024-06-04 16:26] LABS: Glucose - Point of Care 249 mg/dl (70-99)
[2024-06-04] MEDS: NOVOLOG FLEXPEN-LOW RESISTANCE 2 UNITS SC (17:15)
--- NOTE | 2024-06-04 17:31 | W.PN.SURGUPD ---
Surgical Update
Surgical Update
89-year-old male right left 5th MT and toe osteomyelitis, now POD #1 left lower extremity angiogram with TECHNICAL ENGINEER and stent x2 to SFA
-Patient seen and evaluated at bedside. Continue daily local wound care
-MRI showing osteomyelitis of 5th metatarsal head and base of 5th toe
-Continue abx per ID recs
-Plan for left partial 5th ray amputation 06/07
-Please keep patient NPO after midnight and order DOS labs: CBC, BMP, coags
[2024-06-04] MEDS: LIPITOR 80 MG PO (21:28)
[2024-06-04 21:30] VITALS: BP 158/76
[2024-06-04] MEDS: LANTUS 0.24 UNITS SC (21:38)
[2024-06-04 21:47] LABS: Glucose - Point of Care 264 mg/dl (70-99)
[2024-06-04] MEDS: FLUSH (NSS) 2 FLUSH IV (23:45)
[2024-06-04 23:51] VITALS: BP 162/83
[2024-06-05] MEDS: UNASYN IV ×4 (05:35→23:44)
[2024-06-05] MEDS: FLUSH (NSS) 2 FLUSH IV ×2 (05:36→23:42)
[2024-06-05 07:00] VITALS: BP 141/76
[2024-06-05 07:36] LABS: Glucose - Point of Care 189 mg/dl (70-99)
[2024-06-05] MEDS: NOVOLOG FLEXPEN 20 UNITS SC ×2 (08:58→12:09)
[2024-06-05] MEDS: NOVOLOG FLEXPEN-LOW RESISTANCE 1 UNITS SC ×2 (08:58→12:08)
[2024-06-05] MEDS: ASPIR LOW (ENTERIC COATED) 81 MG PO (09:07)
[2024-06-05] MEDS: FLOMAX 0.4 MG PO (09:07)
[2024-06-05] MEDS: PAXIL 40 MG PO (09:07)
[2024-06-05] MEDS: FEOSOL 325 MG PO (09:08)
[2024-06-05] MEDS: COREG 6.25 MG PO (09:08)
[2024-06-05] MEDS: NORVASC 5 MG PO (09:08)
[2024-06-05] MEDS: PLAVIX 75 MG PO (09:09)
[2024-06-05] MEDS: PROTONIX 20 MG PO (09:17)
[2024-06-05] MEDS: QUESTRAN 4 GRAM PO ×3 (11:17→22:43)
[2024-06-05 12:03] LABS: Glucose - Point of Care 190 mg/dl (70-99)
[2024-06-05] MEDS: FLUSH (NSS) 1 FLUSH IV (12:13)
--- NOTE | 2024-06-05 12:26 | W.PN.HOSP.TC ---
Today's Communication/Plan
-
Adjust insulin
Assessment / Plan
Assessment / Plan
Gen-AAOx3, NAD
HEENT-NC, AT, anicteric, clear oral mm
Neck-supple
CV-reg, no M, +S1/S2
Lungs-clear B/L
Abd-soft, NT, ND
Ext-no edema
Musculoskeletal-no cyanosis, clubbing, left foot dressing
Skin-warm and dry
Neuro-grossly non-focal
Psych-calm, cooperative
Acute osteomyelitis -left fifth metatarsal head, x-ray noted osteomyelitis. Foot MRI confirms osteomyelitis involving the head and neck of the fifth metatarsal as well as early/mild osteomyelitis involving the base of the fifth proximal phalanx.
Trace effusion with mild medial capsular thickening of the fifth metatarsal phalangeal joint, suggesting infection/septic joint. No soft tissue abscess.
Unasyn IV as per ID.
Hemodynamically stable. No signs or symptoms of sepsis. Blood cultures negative. Wound culture shows MSSA, Viridans strep group.
CRP 15.2, ESR 48.
Podiatry planning on fifth ray amputation on Wednesday 06/07.
PAD -known to Dr. Clay. DINA completed, 0.91 right lower extremity, 0.71 left lower extremity.
Underwent aortogram and pelvic angiogram 06/03 with balloon angioplasty and stent placement to left superficial femoral artery with overlapping drug-eluting stents.
Mild right groin hematoma after procedure noted by vascular team, ultrasound unremarkable.
Hyponatremia -monitor for now.
DM 2 with hyperglycemia -glucose 189 this morning. Hemoglobin A1c 10.2%. Hold glipizide, hold 70/30 insulin mix. We discussed the importance of better glycemic control moving forward, close outpatient follow-up with PCP.
Continue Lantus to 24 units at bedtime, increase NovoLog to 22 units AC.
Diabetic education prior to discharge.
Essential hypertension -stable.
Hyperlipidemia -atorvastatin.
BPH
Hx of prostate cancer
Chronic urinary retention -with chronic Adams catheter.
CAD -stable.
Chronic radiation proctitis -with chronic diarrhea. Continue cholestyramine.
Chronic microcytic anemia -suspect hemoglobin at baseline.
Full code
Anticipated Discharge: > 48 hours
Subjective/Interval History
-
Date of Service: June 05, 2024
Patient seen and examined. No complaints.
Objective Data
-
Vital Signs:
Vital Signs
Temp Pulse Resp BP Pulse Ox
97.5 F 66 20 141/76 96
06/05/24 07:00 06/05/24 07:00 06/05/24 07:00 06/05/24 07:00 06/05/24 07:00
I&O
06/04/24 06/05/24 06/06/24
06:59 06:59 06:59
Intake Total 2360 / 2360 1460 / 1460 120 / 120
Output Total 2511 / 2511 4750 / 4750
Balance -151 / -151 -3290 / -3290 120 / 120
Review of Systems
-
History Source: Patient
All other systems: Reviewed and negative
[2024-06-05 15:00] VITALS: BP 128/69
[2024-06-05 16:46] LABS: Glucose - Point of Care 93 mg/dl (70-99)
[2024-06-05] MEDS: NOVOLOG FLEXPEN-LOW RESISTANCE SC (16:47)
[2024-06-05] MEDS: NOVOLOG FLEXPEN 22 UNITS SC (16:48)
[2024-06-05 20:15] VITALS: BP 107/68
[2024-06-05] MEDS: COREG PO (20:33)
[2024-06-05] MEDS: LIPITOR 80 MG PO (20:34)
[2024-06-05 21:26] LABS: Glucose - Point of Care 75 mg/dl (70-99)
[2024-06-05 23:06] VITALS: BP 129/57
[2024-06-05 23:32] LABS: Glucose - Point of Care 180 mg/dl (70-99)
[2024-06-05] MEDS: LANTUS 0.24 UNITS SC (23:41)
[2024-06-06] MEDS: UNASYN IV ×3 (05:25→18:28)
[2024-06-06] MEDS: FLUSH (NSS) 2 FLUSH IV (05:25)
[2024-06-06 07:15] VITALS: BP 139/68
[2024-06-06 08:01] LABS: Glucose - Point of Care 160 mg/dl (70-99)
[2024-06-06] MEDS: NOVOLOG FLEXPEN 22 UNITS SC (08:26)
[2024-06-06] MEDS: NOVOLOG FLEXPEN-LOW RESISTANCE 1 UNITS SC (08:26)
[2024-06-06 08:36] VITALS: BP 139/68
[2024-06-06] MEDS: TYLENOL 650 MG PO ×2 (08:37→18:40)
[2024-06-06] MEDS: PROTONIX 20 MG PO (08:37)
[2024-06-06] MEDS: PAXIL 40 MG PO (08:38)
[2024-06-06] MEDS: ASPIR LOW (ENTERIC COATED) 81 MG PO (08:38)
[2024-06-06] MEDS: FLOMAX 0.4 MG PO (08:38)
[2024-06-06] MEDS: FEOSOL 325 MG PO (08:39)
[2024-06-06] MEDS: NORVASC 5 MG PO (08:39)
[2024-06-06] MEDS: COREG 6.25 MG PO ×2 (08:39→20:29)
[2024-06-06] MEDS: PLAVIX 75 MG PO (08:39)
--- NOTE | 2024-06-06 09:54 | W.PN.HOSP.TC ---
Today's Communication/Plan
-
N.p.o. after midnight
Decrease NovoLog dose
Assessment / Plan
Assessment / Plan
Gen-AAOx3, NAD
HEENT-NC, AT, anicteric, clear oral mm
Neck-supple
CV-reg, no M, +S1/S2
Lungs-clear B/L
Abd-soft, NT, ND
Ext-no edema
Musculoskeletal-no cyanosis, clubbing, left foot dressing
Skin-warm and dry
Neuro-grossly non-focal
Psych-calm, cooperative
Acute osteomyelitis -left fifth metatarsal head, x-ray noted osteomyelitis. Foot MRI confirms osteomyelitis involving the head and neck of the fifth metatarsal as well as early/mild osteomyelitis involving the base of the fifth proximal phalanx.
Trace effusion with mild medial capsular thickening of the fifth metatarsal phalangeal joint, suggesting infection/septic joint. No soft tissue abscess.
Unasyn IV as per ID.
Hemodynamically stable. No signs or symptoms of sepsis. Blood cultures negative. Wound culture shows MSSA, Viridans strep group.
CRP 15.2, ESR 48.
Podiatry planning on fifth ray amputation on Wednesday 06/07.
PAD -known to Dr. Clay. DINA completed, 0.91 right lower extremity, 0.71 left lower extremity.
Underwent aortogram and pelvic angiogram 06/03 with balloon angioplasty and stent placement to left superficial femoral artery with overlapping drug-eluting stents.
Mild right groin hematoma after procedure noted by vascular team, ultrasound unremarkable.
Hyponatremia -monitor for now.
DM 2 with hyperglycemia -glucose 160 this morning. Hemoglobin A1c 10.2%. Hold glipizide, hold 70/30 insulin mix. We discussed the importance of better glycemic control moving forward, close outpatient follow-up with PCP.
Glucose down to 75 last night. Patient states he is trying to eat less sugar.
Continue Lantus to 24 units at bedtime, decrease NovoLog to 20 units AC.
Diabetic education prior to discharge.
Essential hypertension -stable.
Hyperlipidemia -atorvastatin.
BPH
Hx of prostate cancer
Chronic urinary retention -with chronic Adams catheter.
CAD -stable.
Chronic radiation proctitis -with chronic diarrhea. Continue cholestyramine.
Chronic microcytic anemia -suspect hemoglobin at baseline.
Full code
Anticipated Discharge: > 48 hours
Subjective/Interval History
-
Date of Service: June 06, 2024
Patient seen and examined. Complaining of burning pain in left fourth toe.
Objective Data
-
Vital Signs:
Vital Signs
Temp Pulse Resp BP Pulse Ox
98.0 F 77 16 139/68 92
06/06/24 07:15 06/06/24 07:15 06/06/24 07:15 06/06/24 07:15 06/06/24 07:15
I&O
06/05/24 06/06/24 06/07/24
06:59 06:59 06:59
Intake Total 1460 / 1460 2220 / 2220
Output Total 4750 / 4750 4225 / 4225
Balance -3290 / -3290 -2004 /
Review of Systems
-
History Source: Patient
All other systems: Reviewed and negative
[2024-06-06] MEDS: QUESTRAN 4 GRAM PO ×3 (10:32→22:42)
[2024-06-06 11:25] LABS: Glucose - Point of Care 147 mg/dl (70-99)
--- NOTE | 2024-06-06 11:53 | W.PN.ID1 ---
Date of Service
Date of Service: June 06, 2024
Today's Communication
Continue antibiotics.
Assessment / Plan
Diabetic Foot Infection - L foot
osteomyelitis of 5th metatarsal head/neck and base of 5th proximal phalanx
DM2 - uncontrolled
Neuropathy and PAD
Chronic radiation proctitis -with chronic diarrhea
Noncompliance - possible dementia
- underwent balloon angioplasty and stent placement L SFA 06/03; post operative leukocytosis is expected
- wound culture - MSSA and VGS
- blood cultures x2 are in progress NGTD
- appreciate vascular surgery
- appreciate Podiatry - note plans for partial fifth ray amputation of left foot on Friday
- c/w unasyn
Chief Complaint
-: Other (diabetic foot infection)
Subjective / Review of Systems
Review of Systems: No Fever and No Chills
Vital Signs / Physical Exam
Vital Signs
Vital Signs
Temp Pulse Resp BP Pulse Ox
98.0 F 77 16 139/68 92
06/06/24 07:15 06/06/24 07:15 06/06/24 07:15 06/06/24 07:15 06/06/24 07:15
Physical Exam
Constitutional: No Acute Distress
Pulmonary: Clear, Symmetric and Non Labored; Negative Wheezes or Rales
Gastrointestinal: Soft, Non Tender, Non Distended and Normal Bowel Sounds
Skin: Warm and Dry; Negative Rash or Jaundice
Wound: Other (Right lateral foot dressed. Mild serous strikethrough)
Neurological: Awake and Alert
Psychological: Calm
Objective Data
Lab Data
Lab Results
06/04/24 06:56
06/04/24 06:56
ESR 48 mm/hour (0-20) H 05/31/24 12:05
Estimated Creat Clear 44 ml/min 06/04/24 06:56
Lactic Acid 1.0 mmol/L (0.7-2.0) 05/31/24 12:05
Total Bilirubin 1.6 mg/dl (0.2-1.3) H 05/31/24 12:05
AST 20 U/L (17-59) 05/31/24 12:05
ALT 21 U/L (0-50) 05/31/24 12:05
Alkaline Phosphatase 117 U/L (38-126) 05/31/24 12:05
C-Reactive Protein 15.20 mg/L (0.0-10.00) H 05/31/24 12:05
Most recent labs reviewed.
Micro Results:
05/31/24 12:05 Blood Culture - Final
Blood/Venous No Growth - Final Report
05/31/24 12:05 Blood Culture - Final
Blood/Venous No Growth - Final Report
05/31/24 12:05 Wound Culture - Final
Foot - Left S aureus-Methicillin Sensitive
Viridans Streptococcus Group
Gram Stain - Final
06/01/24 03:36 MRSA Screen - Final
Nose No Methicillin Resistant Staphylococcus aureus isolated.
[2024-06-06] MEDS: NOVOLOG FLEXPEN-LOW RESISTANCE SC ×2 (13:21→18:03)
[2024-06-06] MEDS: NOVOLOG FLEXPEN 20 UNITS SC ×2 (13:22→18:26)
[2024-06-06 15:15] VITALS: BP 116/56
[2024-06-06 17:15] LABS: Glucose - Point of Care 92 mg/dl (70-99)
--- NOTE | 2024-06-06 19:54 | W.PN.SURGUPD ---
Surgical Update
Surgical Update
89-year-old male right left 5th MT and toe osteomyelitis, now POD #1 left lower extremity angiogram with DISPATCHER CHIEF COAL SLURRY and stent x2 to SFA
-Plan for left partial 5th ray amputation 06/07
-Please keep patient NPO after midnight and order DOS labs: CBC, BMP, coags
[2024-06-06 20:26] VITALS: BP 128/65
[2024-06-06] MEDS: LIPITOR 80 MG PO (20:28)
[2024-06-06 20:46] LABS: Glucose - Point of Care 60 mg/dl (70-99)
[2024-06-06 21:23] LABS: Glucose - Point of Care 83 mg/dl (70-99)
[2024-06-06] MEDS: LANTUS SC (21:59)
--- NOTE | 2024-06-06 21:59 | PTCARENOTE ---
Pt's blood sugar result was 60, asymptomatic. 4 oz orange juice provided, sugar rechecked 15 minutes later was 83. IRON MELTER Rosendo notified of blood sugar results, will hold evening dose of Lantus 24 units. Will continue with current plan of care.
[2024-06-06 23:16] VITALS: BP 127/64
[2024-06-07 00:09] LABS: Glucose - Point of Care 86 mg/dl (70-99)
[2024-06-07] MEDS: UNASYN IV ×4 (00:32→20:26)
[2024-06-07 02:38] LABS: Glucose - Point of Care 131 mg/dl (70-99)
[2024-06-07 06:17] LABS: Glucose - Point of Care 144 mg/dl (70-99)
[2024-06-07] MEDS: NOVOLOG FLEXPEN-LOW RESISTANCE SC (06:19)
[2024-06-07] MEDS: NOVOLOG FLEXPEN SC ×2 (06:20→11:56)
[2024-06-07 07:49] VITALS: BP 150/81
[2024-06-07] MEDS: ASPIR LOW (ENTERIC COATED) 81 MG PO (07:55)
[2024-06-07] MEDS: PLAVIX 75 MG PO (07:55)
[2024-06-07] MEDS: FEOSOL 325 MG PO (07:55)
[2024-06-07] MEDS: PROTONIX 20 MG PO (07:55)
[2024-06-07] MEDS: PAXIL 40 MG PO (07:55)
[2024-06-07] MEDS: FLOMAX 0.4 MG PO (07:55)
[2024-06-07] MEDS: COREG 6.25 MG PO ×2 (07:55→20:27)
[2024-06-07] MEDS: NORVASC 5 MG PO (07:55)
[2024-06-07] MEDS: QUESTRAN PO (10:22)
[2024-06-07 11:37] LABS: Glucose - Point of Care 188 mg/dl (70-99)
[2024-06-07] MEDS: NOVOLOG FLEXPEN-LOW RESISTANCE 1 UNITS SC ×2 (11:57→16:21)
[2024-06-07 14:00] VITALS: BP 117/62; BP 150/81
--- NOTE | 2024-06-07 14:01 | CM ---
Chart reviewed. For partial fifth ray amputation of left foot today
Patient is current w/ [facility]
Plan: Home; [facility] w/ [facility]
--- NOTE | 2024-06-07 14:02 | W.PN.HOSP.TC ---
Today's Communication/Plan
-
amputation as per podiatry
abx
Assessment / Plan
Assessment / Plan
Gen-AAOx3, NAD
HEENT-NC, AT, anicteric, clear oral mm
Neck-supple
CV-reg, no M, +S1/S2
Lungs-clear B/L
Abd-soft, NT, ND
Ext-no edema
Musculoskeletal-no cyanosis, clubbing, left foot dressing
Skin-warm and dry
Neuro-grossly non-focal
Psych-calm, cooperative
Acute osteomyelitis
-left fifth metatarsal head, x-ray noted osteomyelitis.
-Foot MRI confirms osteomyelitis involving the head and neck of the fifth metatarsal as well as early/mild osteomyelitis involving the base of the fifth proximal phalanx. Trace effusion with mild medial capsular thickening of the fifth metatarsal
phalangeal joint, suggesting infection/septic joint. No soft tissue abscess.
- wound culture - MSSA and VGS
- blood cultures x2 are in progress NGTD
-Unasyn IV as per ID.
-Hemodynamically stable. No signs or symptoms of sepsis. Blood cultures negative. Wound culture shows MSSA, Viridans strep group.
-Podiatry planning on fifth ray amputation on Wednesday 06/07.
#PAD -known to Dr. Clay. DINA completed, 0.91 right lower extremity, 0.71 left lower extremity.
-Underwent aortogram and pelvic angiogram 06/03 with balloon angioplasty and stent placement to left superficial femoral artery with overlapping drug-eluting stents.
-Mild right groin hematoma after procedure noted by vascular team, ultrasound unremarkable.
Hyponatremia -monitor for now.
DM 2 with hyperglycemia -glucose 160 this morning. Hemoglobin A1c 10.2%. Hold glipizide, hold 70/30 insulin mix. We discussed the importance of better glycemic control moving forward, close outpatient follow-up with PCP.
Glucose down to 75 last night. Patient states he is trying to eat less sugar.
Continue Lantus to 24 units at bedtime, decrease NovoLog to 20 units AC.
Diabetic education prior to discharge.
Essential hypertension -stable.
Hyperlipidemia -atorvastatin.
BPH
Hx of prostate cancer
Chronic urinary retention -with chronic Adams catheter.
CAD -stable.
Chronic radiation proctitis -with chronic diarrhea. Continue cholestyramine.
Chronic microcytic anemia -suspect hemoglobin at baseline.
Full code
Anticipated Discharge: 24 - 48 hours
Subjective/Interval History
-
Date of Service: June 07, 2024
no acute events
Objective Data
-
Vital Signs:
Vital Signs
Temp Pulse Resp BP Pulse Ox
98.5 F 73 20 150/81 97
06/07/24 07:49 06/07/24 07:49 06/07/24 07:49 06/07/24 07:49 06/07/24 08:00
I&O
06/06/24 06/07/24 06/08/24
06:59 06:59 06:59
Intake Total 2220 / 2220 1200 / 1200
Output Total 4225 / 4225 4400 / 4400
Balance -2004 / -2005 -3200 / -3200
Review of Systems
-
History Source: Patient
All other systems: Not reviewed unless documented
Physical Exam
-
General: Well Developed, Well Nourished and No Apparent Distress
HEENT: Normocephalic, Atraumatic and Moist Mucous Membranes
Respiratory: Clear to Auscultation; Negative Wheezes, Rales or Rhonchi
Cardiac: Regular Rhythm and S1/S2
GI: Soft, Nontender and Nondistended
Genito-urinary: Adams
Musculoskeletal: No Clubbing, No Cyanosis and No Edema
Neuro: Awake, Alert and Oriented
Data Reviewed
-
Diagnostic Radiology: Report Reviewed by me
Ultrasound: Report Reviewed by me
MRI: Report Reviewed by me
Labs: Labs Reviewed by me
[2024-06-07 14:07] LABS: Glucose - Point of Care 143 mg/dl (70-99)
[2024-06-07 14:15] VITALS: BP 125/71
[2024-06-07 14:30] VITALS: BP 134/64
--- NOTE | 2024-06-07 14:39 | W.PN.SURGUPD ---
Surgical Update
Surgical Update
89 yo M s/p L partial 5th ray amputation
-F/u 1x culture 1x pathology
-Continue antibiotics for 7 days per ID recs
-WBAT to left heel in surgical shoe
-Dressings can remain intact, follow up at [facility] in 1-2 weeks after discharge
[2024-06-07] MEDS: MIRALAX 17 GRAMS PO (15:25)
[2024-06-07] MEDS: QUESTRAN 4 GRAM PO ×2 (15:25→22:55)
[2024-06-07 15:42] LABS: Glucose - Point of Care 157 mg/dl (70-99)
[2024-06-07] MEDS: NOVOLOG FLEXPEN 20 UNITS SC (16:21)
--- NOTE | 2024-06-07 16:41 | W.PN.ID1 ---
Date of Service
Date of Service: June 07, 2024
Today's Communication
c/w unasyn. If surgical cure, can transition to Augmentin 875mg po bid x 7 days.
Assessment / Plan
Diabetic Foot Infection - L foot
osteomyelitis of 5th metatarsal head/neck and base of 5th proximal phalanx
DM2 - uncontrolled
Neuropathy and PAD
Chronic radiation proctitis -with chronic diarrhea
Noncompliance - possible dementia
- underwent balloon angioplasty and stent placement L SFA 06/03; post operative leukocytosis is expected
- wound culture - MSSA and VGS
- blood cultures x2 are in progress NGTD
- appreciate Podiatry. 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
- OR cx pending
- Bone path pending
- c/w unasyn. If surgical cure, can transition to Augmentin 875mg po bid x 7 days.
Chief Complaint
-: Other (diabetic foot infection)
Subjective / Review of Systems
No pain.
Vital Signs / Physical Exam
Vital Signs
Vital Signs
Temp Pulse Resp BP Pulse Ox
98.5 F 58 13 134/64 98
06/07/24 14:45 06/07/24 14:45 06/07/24 14:45 06/07/24 14:30 06/07/24 14:45
Physical Exam
Constitutional: No Acute Distress and Comfortable
Pulmonary: Clear
Gastrointestinal: Soft, Non Tender and Non Distended
Wound: Other (left foot post-op dressing dry)
Neurological: AO x 3
Objective Data
Lab Data
Lab Results
06/04/24 06:56
06/04/24 06:56
ESR 48 mm/hour (0-20) H 05/31/24 12:05
Estimated Creat Clear 44 ml/min 06/04/24 06:56
Lactic Acid 1.0 mmol/L (0.7-2.0) 05/31/24 12:05
Total Bilirubin 1.6 mg/dl (0.2-1.3) H 05/31/24 12:05
AST 20 U/L (17-59) 05/31/24 12:05
ALT 21 U/L (0-50) 05/31/24 12:05
Alkaline Phosphatase 117 U/L (38-126) 05/31/24 12:05
C-Reactive Protein 15.20 mg/L (0.0-10.00) H 05/31/24 12:05
Most recent labs reviewed.
Micro Results:
06/07/24 13:30 Wound Culture - Pending
Foot - Left Gram Stain - Preliminary
06/07/24 13:30 Anaerobic Culture - Pending
Foot - Left
05/31/24 12:05 Blood Culture - Final
Blood/Venous No Growth - Final Report
05/31/24 12:05 Blood Culture - Final
Blood/Venous No Growth - Final Report
05/31/24 12:05 Wound Culture - Final
Foot - Left S aureus-Methicillin Sensitive
Viridans Streptococcus Group
Gram Stain - Final
06/01/24 03:36 MRSA Screen - Final
Nose No Methicillin Resistant Staphylococcus aureus isolated.
[2024-06-07] MEDS: LIPITOR 80 MG PO (20:27)
[2024-06-07] MEDS: TYLENOL 650 MG PO (20:28)
[2024-06-07 20:46] VITALS: BP 120/64
[2024-06-07] MEDS: ULTRAM 25 MG PO (21:10)
[2024-06-07 21:41] LABS: Glucose - Point of Care 197 mg/dl (70-99)
[2024-06-07] MEDS: LANTUS 0.24 UNITS SC (22:55)
[2024-06-07 23:47] VITALS: BP 123/64
[2024-06-08] VITALS (7 sets, daily range): BP systolic 99–138; BP diastolic 62–95; PULSE 73–79; O2SAT 96
[2024-06-08] MEDS: UNASYN IV ×4 (03:21→20:34)
[2024-06-08] MEDS: TYLENOL 650 MG PO (03:24)
[2024-06-08 07:16] LABS: Hematocrit 31.3 % (39.0-52.0); Hemoglobin 9.9 g/dL (13.0-18.0); Mean Corp Hgb Conc. 31.6 g/dL (33.0-37.0); Mean Corpuscular Hgb 25.3 pg (27.0-31.0); Mean Corpuscular Volume 79.8 fL (80.0-94.0); Mean Platelet Volume 10.2 fL (7.4-10.4); Platelet Count 199 10^3/uL (130-400); Red Blood Cell Count 3.92 10^6/uL (4.70-6.10); Red Cell Dist. Width 15.6 % (11.5-14.5); White Blood Cell Count 9.4 10^3/uL (4.8-10.8)
[2024-06-08 07:34] LABS: Glucose - Point of Care 170 mg/dl (70-99)
[2024-06-08 07:51] LABS: ALT (SGPT) 19 U/L (0-50); AST (SGOT) 20 U/L (17-59); Albumin 3.4 g/dl (3.5-5.0); Alkaline Phosphatase 97 U/L (38-126); Blood Urea Nitrogen 23 mg/dl (9-20); Calcium 8.6 mg/dl (8.4-10.2); Carbon Dioxide 29 mmol/L (22-30); Chloride 103 mmol/L (98-107); Estimated Creatinine Clearance 41 ml/min; Glucose 111 mg/dl (70-99); Potassium 4.4 mmol/L (3.5-5.1); Sodium 138 mmol/L (135-145); Total Bilirubin 1.4 mg/dl (0.2-1.3); Total Protein 5.9 g/dl (6.3-8.2); eGFR 52.84
[2024-06-08] MEDS: NOVOLOG FLEXPEN 20 UNITS SC ×3 (08:04→16:57)
[2024-06-08] MEDS: NOVOLOG FLEXPEN-LOW RESISTANCE 1 UNITS SC (08:05)
[2024-06-08] MEDS: FEOSOL 325 MG PO (08:06)
[2024-06-08] MEDS: PAXIL 40 MG PO (08:06)
[2024-06-08] MEDS: COREG 6.25 MG PO ×2 (08:06→20:34)
[2024-06-08] MEDS: FLOMAX 0.4 MG PO (08:06)
[2024-06-08] MEDS: NORVASC 5 MG PO (08:07)
[2024-06-08] MEDS: PLAVIX 75 MG PO (08:08)
[2024-06-08] MEDS: MIRALAX 17 GRAMS PO (08:08)
[2024-06-08] MEDS: PROTONIX 20 MG PO (08:08)
[2024-06-08] MEDS: ASPIR LOW (ENTERIC COATED) 81 MG PO (08:08)
[2024-06-08] MEDS: DILAUDID 0.25 MG IV (08:14)
[2024-06-08] MEDS: QUESTRAN 4 GRAM PO ×2 (09:57→16:56)
[2024-06-08 11:12] LABS: Glucose - Point of Care 248 mg/dl (70-99)
[2024-06-08] MEDS: NOVOLOG FLEXPEN-LOW RESISTANCE 2 UNITS SC ×2 (11:19→16:57)
--- NOTE | 2024-06-08 13:00 | W.PN.HOSP.TC ---
Today's Communication/Plan
-
abx
f/u path
pt
Assessment / Plan
Assessment / Plan
Gen-AAOx3, NAD
HEENT-NC, AT, anicteric, clear oral mm
Neck-supple
CV-reg, no M, +S1/S2
Lungs-clear B/L
Abd-soft, NT, ND
Ext-no edema
Musculoskeletal-no cyanosis, clubbing, left foot dressing - (left foot post-op dressing dry)
Skin-warm and dry
Neuro-grossly non-focal
Psych-calm, cooperative
Acute osteomyelitis
-left fifth metatarsal head, x-ray noted osteomyelitis.
-Foot MRI confirms osteomyelitis involving the head and neck of the fifth metatarsal as well as early/mild osteomyelitis involving the base of the fifth proximal phalanx. Trace effusion with mild medial capsular thickening of the fifth metatarsal
phalangeal joint, suggesting infection/septic joint. No soft tissue abscess.
- wound culture - MSSA and VGS
- blood cultures x2 are in progress NGTD
-Hemodynamically stable. No signs or symptoms of sepsis. Blood cultures negative. Wound culture shows MSSA, Viridans strep group.
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
- OR cx pending
- Bone path pending
- c/w unasyn. If surgical cure, can transition to Augmentin 875mg po bid x 7 days.
#PAD -known to Dr. Clay. DINA completed, 0.91 right lower extremity, 0.71 left lower extremity.
-Underwent aortogram and pelvic angiogram 06/03 with balloon angioplasty and stent placement to left superficial femoral artery with overlapping drug-eluting stents.
-Mild right groin hematoma after procedure noted by vascular team, ultrasound unremarkable.
Hyponatremia -monitor for now.
DM 2 with hyperglycemia -Hemoglobin A1c 10.2%. Hold glipizide, hold 70/30 insulin mix. We discussed the importance of better glycemic control moving forward, close outpatient follow-up with PCP.
Glucose down to 75 last night. Patient states he is trying to eat less sugar.
Continue Lantus to 24 units at bedtime, decrease NovoLog to 20 units AC.
Diabetic education prior to discharge.
Essential hypertension -stable.
Hyperlipidemia -atorvastatin.
BPH
Hx of prostate cancer
Chronic urinary retention -with chronic Adams catheter.
CAD -stable.
Chronic radiation proctitis -with chronic diarrhea. Continue cholestyramine.
Chronic microcytic anemia -suspect hemoglobin at baseline.
Full code
Anticipated Discharge: > 48 hours
Subjective/Interval History
-
Date of Service: June 08, 2024
no acute events
Objective Data
-
Labs:
Laboratory Results
06/08/24
06:31
WBC 9.4
Hgb 9.9 L
Hct 31.3 L
Plt Count 199
Sodium 138
Potassium 4.4
Chloride 103
Carbon Dioxide 29
BUN 23 H
Creatinine 1.3
Glucose 111 H
Calcium 8.6
Total Bilirubin 1.4 H
AST 20
ALT 19
Alkaline Phosphatase 97
Vital Signs:
Vital Signs
Temp Pulse Resp BP Pulse Ox
98.2 F 71 18 135/95 97
06/08/24 11:29 06/08/24 11:29 06/08/24 11:29 06/08/24 11:29 06/08/24 11:29
I&O
06/07/24 06/08/24 06/09/24
06:59 06:59 06:59
Intake Total 1200 / 1200 630 / 630 720 / 720
Output Total 4400 / 4400 1400 / 1400 650 / 650
Balance -3200 / -3200 -770 / -770 70 / 70
Review of Systems
-
History Source: Patient
All other systems: Not reviewed unless documented
Data Reviewed
-
Diagnostic Radiology: Report Reviewed by me
Ultrasound: Report Reviewed by me
MRI: Report Reviewed by me
Labs: Labs Reviewed by me
[2024-06-08] MEDS: ULTRAM 25 MG PO ×2 (14:33→20:33)
[2024-06-08 16:16] LABS: Glucose - Point of Care 250 mg/dl (70-99)
--- NOTE | 2024-06-08 16:27 | W.PN.ID1 ---
Date of Service
Date of Service: June 08, 2024
Today's Communication
- c/w unasyn for now
- If surgical cure, can transition to po abx x 7 days from post-op
Assessment / Plan
Diabetic Foot Infection - L foot
osteomyelitis of 5th metatarsal head/neck and base of 5th proximal phalanx
DM2 - uncontrolled
Neuropathy and PAD
Chronic radiation proctitis -with chronic diarrhea
Noncompliance - possible dementia
- underwent balloon angioplasty and stent placement L SFA 06/03; post operative leukocytosis is expected
- wound culture - MSSA and VGS
- blood cultures x2 are in progress NGTD
- appreciate Podiatry. 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
- OR cx in progress
- Bone path pending
- c/w unasyn for now
If surgical cure, can transition to po abx x 7 days from post-op
Chief Complaint
-: Other (diabetic foot infection)
Subjective / Review of Systems
No complaints.
Vital Signs / Physical Exam
Vital Signs
Vital Signs
Temp Pulse Resp BP Pulse Ox
98 F 76 18 122/63 97
06/08/24 15:11 06/08/24 15:11 06/08/24 15:11 06/08/24 15:11 06/08/24 15:11
Physical Exam
Constitutional: No Acute Distress and Comfortable
Pulmonary: Clear
Gastrointestinal: Soft, Non Tender and Non Distended
Genito-Urinary: Negative CVA Tenderness
Wound: Other (left foot dressing dry)
Neurological: AO x 3
Objective Data
Lab Data
Lab Results
06/08/24 06:31
06/08/24 06:31
ESR 48 mm/hour (0-20) H 05/31/24 12:05
Estimated Creat Clear 41 ml/min 06/08/24 06:31
Lactic Acid 1.0 mmol/L (0.7-2.0) 05/31/24 12:05
Total Bilirubin 1.4 mg/dl (0.2-1.3) H 06/08/24 06:31
AST 20 U/L (17-59) 06/08/24 06:31
ALT 19 U/L (0-50) 06/08/24 06:31
Alkaline Phosphatase 97 U/L (38-126) 06/08/24 06:31
C-Reactive Protein 15.20 mg/L (0.0-10.00) H 05/31/24 12:05
Most recent labs reviewed.
Micro Results:
06/07/24 13:30 Anaerobic Culture - Preliminary
Foot - Left Culture pending. Anaerobic cultures are examined after 3
days incubation. Additional information to follow.
06/07/24 13:30 Wound Culture - Preliminary
Foot - Left Gram Stain - Preliminary
05/31/24 12:05 Blood Culture - Final
Blood/Venous No Growth - Final Report
05/31/24 12:05 Blood Culture - Final
Blood/Venous No Growth - Final Report
05/31/24 12:05 Wound Culture - Final
Foot - Left S aureus-Methicillin Sensitive
Viridans Streptococcus Group
Gram Stain - Final
06/01/24 03:36 MRSA Screen - Final
Nose No Methicillin Resistant Staphylococcus aureus isolated.
[2024-06-08 16:56] LABS: Glucose - Point of Care 221 mg/dl (70-99)
[2024-06-08] MEDS: LIPITOR 80 MG PO (20:34)
[2024-06-08 21:29] LABS: Glucose - Point of Care 145 mg/dl (70-99)
[2024-06-08] MEDS: LANTUS 0.24 UNITS SC (22:17)
[2024-06-08] MEDS: QUESTRAN PO (23:53)
[2024-06-09] MEDS: UNASYN IV ×4 (03:18→20:22)
[2024-06-09 07:06] LABS: Glucose - Point of Care 89 mg/dl (70-99)
[2024-06-09 07:40] VITALS: BP 133/62
[2024-06-09 08:42] LABS: Hemoglobin 9.7 g/dL (13.0-18.0); Mean Corp Hgb Conc. 32.3 g/dL (33.0-37.0); Mean Corpuscular Hgb 25.7 pg (27.0-31.0); Mean Corpuscular Volume 79.4 fL (80.0-94.0); Mean Platelet Volume 10.8 fL (7.4-10.4); Platelet Count 204 10^3/uL (130-400); Red Blood Cell Count 3.78 10^6/uL (4.70-6.10); Red Cell Dist. Width 15.6 % (11.5-14.5)
[2024-06-09] MEDS: NOVOLOG FLEXPEN-LOW RESISTANCE SC (09:03)
[2024-06-09] MEDS: MIRALAX 17 GRAMS PO (09:04)
[2024-06-09] MEDS: PAXIL 40 MG PO (09:05)
[2024-06-09] MEDS: COREG 6.25 MG PO ×2 (09:06→20:22)
[2024-06-09] MEDS: NORVASC 5 MG PO (09:06)
[2024-06-09] MEDS: PLAVIX 75 MG PO (09:06)
[2024-06-09] MEDS: PROTONIX 20 MG PO (09:06)
[2024-06-09] MEDS: ASPIR LOW (ENTERIC COATED) 81 MG PO (09:07)
[2024-06-09] MEDS: FEOSOL 325 MG PO (09:07)
[2024-06-09] MEDS: FLOMAX 0.4 MG PO (09:07)
[2024-06-09 09:13] LABS: ALT (SGPT) 18 U/L (0-50); AST (SGOT) 20 U/L (17-59); Albumin 3.5 g/dl (3.5-5.0); Alkaline Phosphatase 99 U/L (38-126); Blood Urea Nitrogen 25 mg/dl (9-20); Calcium 8.4 mg/dl (8.4-10.2); Carbon Dioxide 25 mmol/L (22-30); Chloride 105 mmol/L (98-107); Estimated Creatinine Clearance 41 ml/min; Glucose 80 mg/dl (70-99); Potassium 4.2 mmol/L (3.5-5.1); Sodium 138 mmol/L (135-145); Total Bilirubin 1.1 mg/dl (0.2-1.3); eGFR 52.84
[2024-06-09] MEDS: NOVOLOG FLEXPEN 20 UNITS SC ×3 (09:25→16:39)
[2024-06-09 11:04] LABS: Glucose - Point of Care 239 mg/dl (70-99)
[2024-06-09 11:51] VITALS: BP 113/53; PULSE 68; O2SAT 97
[2024-06-09] MEDS: QUESTRAN 4 GRAM PO ×3 (11:51→20:58)
[2024-06-09] MEDS: NOVOLOG FLEXPEN-LOW RESISTANCE 2 UNITS SC ×2 (11:53→16:40)
--- NOTE | 2024-06-09 13:24 | W.PN.HOSP.TC ---
Today's Communication/Plan
-
abx
f/u path
pt
Assessment / Plan
Assessment / Plan
Gen-AAOx3, NAD
HEENT-NC, AT, anicteric, clear oral mm
Neck-supple
CV-reg, no M, +S1/S2
Lungs-clear B/L
Abd-soft, NT, ND
Ext-no edema
Musculoskeletal-no cyanosis, clubbing, left foot dressing - (left foot post-op dressing dry)
Skin-warm and dry
Neuro-grossly non-focal
Psych-calm, cooperative
Acute osteomyelitis
-left fifth metatarsal head, x-ray noted osteomyelitis.
-Foot MRI confirms osteomyelitis involving the head and neck of the fifth metatarsal as well as early/mild osteomyelitis involving the base of the fifth proximal phalanx. Trace effusion with mild medial capsular thickening of the fifth metatarsal
phalangeal joint, suggesting infection/septic joint. No soft tissue abscess.
- wound culture - MSSA and VGS
- blood cultures x2 are in progress NGTD
-Hemodynamically stable. No signs or symptoms of sepsis. Blood cultures negative. Wound culture shows MSSA, Viridans strep group.
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
- OR cx pending
- Bone path pending
- c/w unasyn. If surgical cure, can transition to Augmentin 875mg po bid x 7 days.
#PAD -known to Dr. Clay. DINA completed, 0.91 right lower extremity, 0.71 left lower extremity.
-Underwent aortogram and pelvic angiogram 06/03 with balloon angioplasty and stent placement to left superficial femoral artery with overlapping drug-eluting stents.
-Mild right groin hematoma after procedure noted by vascular team, ultrasound unremarkable.
Hyponatremia -monitor for now.
DM 2 with hyperglycemia -Hemoglobin A1c 10.2%. Hold glipizide, hold 70/30 insulin mix. We discussed the importance of better glycemic control moving forward, close outpatient follow-up with PCP.
Glucose down to 75 last night. Patient states he is trying to eat less sugar.
Continue Lantus to 24 units at bedtime, decrease NovoLog to 20 units AC.
Diabetic education prior to discharge.
Essential hypertension -stable.
Hyperlipidemia -atorvastatin.
BPH
Hx of prostate cancer
Chronic urinary retention -with chronic Adams catheter.
CAD -stable.
Chronic radiation proctitis -with chronic diarrhea. Continue cholestyramine.
Chronic microcytic anemia -suspect hemoglobin at baseline.
Full code
Anticipated Discharge: 24 - 48 hours
Subjective/Interval History
-
Date of Service: June 09, 2024
no acute events
Objective Data
-
Labs:
Laboratory Results
06/09/24
07:01
WBC 9.0
Hgb 9.7 L
Hct 30.0 L
Plt Count 204
Sodium 138
Potassium 4.2
Chloride 105
Carbon Dioxide 25
BUN 25 H
Creatinine 1.3
Glucose 80
Calcium 8.4
Total Bilirubin 1.1
AST 20
ALT 18
Alkaline Phosphatase 99
Vital Signs:
Vital Signs
Temp Pulse Resp BP Pulse Ox
97.7 F 71 20 133/62 96
06/09/24 07:40 06/09/24 09:06 06/09/24 07:40 06/09/24 09:06 06/09/24 07:40
I&O
06/08/24 06/09/24 06/10/24
06:59 06:59 06:59
Intake Total 630 / 630 2400 / 2400
Output Total 1400 / 1400 3350 / 3350
Balance -770 / -770 -950 / -950
Review of Systems
-
History Source: Patient
All other systems: Not reviewed unless documented
Data Reviewed
-
Diagnostic Radiology: Report Reviewed by me
Ultrasound: Report Reviewed by me
MRI: Report Reviewed by me
Labs: Labs Reviewed by me
--- NOTE | 2024-06-09 14:53 | W.PN.ID1 ---
Date of Service
Date of Service: June 09, 2024
Today's Communication
- OR cx - S aureus - tiger text sent to podiatry to clarify if culture taken from the margin
- Bone path pending
- c/w unasyn for now
Assessment / Plan
Diabetic Foot Infection - L foot
osteomyelitis of 5th metatarsal head/neck and base of 5th proximal phalanx
DM2 - uncontrolled
Neuropathy and PAD
Chronic radiation proctitis -with chronic diarrhea
Noncompliance - possible dementia
- 05/31 wound culture - MSSA and VGS, 06/07 wound culture mssa
- appreciate Podiatry. 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
- OR cx - S aureus - tiger text sent to podiatry to clarify if culture taken from the margin
- Bone path pending
- c/w unasyn for now
If surgical cure, can transition to po abx x 7 days from post-op
Chief Complaint
-: Other (diabetic foot infection)
Subjective / Review of Systems
afebrile
bp stable
anxious for discharge
Vital Signs / Physical Exam
Vital Signs
Vital Signs
Temp Pulse Resp BP Pulse Ox
97.7 F 71 20 133/62 96
06/09/24 07:40 06/09/24 09:06 06/09/24 07:40 06/09/24 09:06 06/09/24 07:40
Physical Exam
Constitutional: No Acute Distress
Cardiovascular: Regular Rate and S1/S2; Negative Murmur or Rub
Pulmonary: Clear and Symmetric; Negative Wheezes or Rales
Gastrointestinal: Soft, Non Tender, Non Distended and Normal Bowel Sounds
Skin: Warm and Dry; Negative Rash or Jaundice
Objective Data
Lab Data
Lab Results
06/09/24 07:01
06/09/24 07:01
ESR 48 mm/hour (0-20) H 05/31/24 12:05
Estimated Creat Clear 41 ml/min 06/09/24 07:01
Lactic Acid 1.0 mmol/L (0.7-2.0) 05/31/24 12:05
Total Bilirubin 1.1 mg/dl (0.2-1.3) 06/09/24 07:01
AST 20 U/L (17-59) 06/09/24 07:01
ALT 18 U/L (0-50) 06/09/24 07:01
Alkaline Phosphatase 99 U/L (38-126) 06/09/24 07:01
C-Reactive Protein 15.20 mg/L (0.0-10.00) H 05/31/24 12:05
Most recent labs reviewed.
Micro Results:
06/07/24 13:30 Wound Culture - Preliminary
Foot - Left Staphylococcus aureus
Gram Stain - Preliminary
06/07/24 13:30 Anaerobic Culture - Preliminary
Foot - Left Culture pending. Anaerobic cultures are examined after 3
days incubation. Additional information to follow.
05/31/24 12:05 Blood Culture - Final
Blood/Venous No Growth - Final Report
05/31/24 12:05 Blood Culture - Final
Blood/Venous No Growth - Final Report
05/31/24 12:05 Wound Culture - Final
Foot - Left S aureus-Methicillin Sensitive
Viridans Streptococcus Group
Gram Stain - Final
06/01/24 03:36 MRSA Screen - Final
Nose No Methicillin Resistant Staphylococcus aureus isolated.
--- NOTE | 2024-06-09 14:58 | CM ---
Chart reviewed. Care ongoing at this time.
Cont w/ unasyn
Plan: Home, [facility] w/ [facility]
[2024-06-09 15:08] VITALS: BP 132/62
[2024-06-09 16:03] LABS: Glucose - Point of Care 236 mg/dl (70-99)
[2024-06-09] MEDS: LIPITOR 80 MG PO (20:22)
--- NOTE | 2024-06-09 20:45 | W.PN.SURGUPD ---
Surgical Update
Surgical Update
89 yo M s/p L partial 5th ray amputation
-Patient seen and evaluated at bedside. Dressings changed and wound inspected. No signs of ongoing infection, incision well coapted
-Heel WBAT to LLE in surgical shoe
-Continue abx per ID recs
-OK for DC from surgical perspective
-Follow up at [facility] with myself in 2 weeks
[2024-06-09 21:27] LABS: Glucose - Point of Care 289 mg/dl (70-99)
[2024-06-09] MEDS: LANTUS 0.24 UNITS SC (21:31)
[2024-06-09 23:54] VITALS: BP 135/62
[2024-06-10] MEDS: UNASYN IV ×3 (02:18→14:28)
[2024-06-10 07:00] VITALS: BP 126/56
[2024-06-10 07:18] LABS: Glucose - Point of Care 138 mg/dl (70-99)
[2024-06-10] MEDS: COREG 6.25 MG PO (07:50)
[2024-06-10] MEDS: PAXIL 40 MG PO (07:50)
[2024-06-10] MEDS: NOVOLOG FLEXPEN 20 UNITS SC ×2 (07:52→11:41)
[2024-06-10] MEDS: NOVOLOG FLEXPEN-LOW RESISTANCE SC ×2 (07:52→11:39)
[2024-06-10] MEDS: PROTONIX 20 MG PO (07:52)
[2024-06-10] MEDS: MIRALAX 17 GRAMS PO (07:53)
[2024-06-10] MEDS: ASPIR LOW (ENTERIC COATED) 81 MG PO (07:53)
[2024-06-10] MEDS: NORVASC 5 MG PO (07:53)
[2024-06-10] MEDS: FLOMAX 0.4 MG PO (07:53)
[2024-06-10] MEDS: FEOSOL 325 MG PO (07:54)
[2024-06-10] MEDS: PLAVIX 75 MG PO (07:54)
[2024-06-10 07:58] LABS: Hematocrit 30.2 % (39.0-52.0); Hemoglobin 9.6 g/dL (13.0-18.0); Mean Corp Hgb Conc. 31.8 g/dL (33.0-37.0); Mean Corpuscular Hgb 25.5 pg (27.0-31.0); Mean Corpuscular Volume 80.1 fL (80.0-94.0); Mean Platelet Volume 10.4 fL (7.4-10.4); Platelet Count 204 10^3/uL (130-400); Red Blood Cell Count 3.77 10^6/uL (4.70-6.10); Red Cell Dist. Width 15.7 % (11.5-14.5)
[2024-06-10 08:37] LABS: ALT (SGPT) 16 U/L (0-50); AST (SGOT) 18 U/L (17-59); Albumin 3.2 g/dl (3.5-5.0); Alkaline Phosphatase 93 U/L (38-126); Blood Urea Nitrogen 21 mg/dl (9-20); Calcium 8.5 mg/dl (8.4-10.2); Carbon Dioxide 27 mmol/L (22-30); Chloride 104 mmol/L (98-107); Estimated Creatinine Clearance 44 ml/min; Glucose 142 mg/dl (70-99); Potassium 4.3 mmol/L (3.5-5.1); Sodium 138 mmol/L (135-145); Total Bilirubin 1.2 mg/dl (0.2-1.3); Total Protein 5.8 g/dl (6.3-8.2); eGFR 58.17
[2024-06-10] MEDS: QUESTRAN 4 GRAM PO (10:40)
[2024-06-10 11:36] LABS: Glucose - Point of Care 128 mg/dl (70-99)
[2024-06-10] MEDS: TYLENOL 650 MG PO (11:40)
--- NOTE | 2024-06-10 13:13 | W.PN.HOSP.TC ---
Addendum entered and electronically signed by Simone Martinez MD 06/13/24 14:47:
etiology of the left foot osteomyelitis/left foot diabetic infection:
Multifactorial, PAD and uncontrolled diabetes
Addendum entered and electronically signed by Simone Martinez MD 06/10/24 17:10:
[id number]
dc on lantus 20, not 24
Original Note:
Today's Communication/Plan
-
augmentin x 7 days post op
f/u vascular, podiatry outpt, PCP outpt
Assessment / Plan
Assessment / Plan
Gen-AAOx3, NAD
HEENT-NC, AT, anicteric, clear oral mm
Neck-supple
CV-reg, no M, +S1/S2
Lungs-clear B/L
Abd-soft, NT, ND
Ext-no edema
Musculoskeletal-no cyanosis, clubbing, left foot dressing - (left foot post-op dressing dry)
Skin-warm and dry
Neuro-grossly non-focal
Psych-calm, cooperative
Acute osteomyelitis
-left fifth metatarsal head, x-ray noted osteomyelitis.
-Foot MRI confirms osteomyelitis involving the head and neck of the fifth metatarsal as well as early/mild osteomyelitis involving the base of the fifth proximal phalanx. Trace effusion with mild medial capsular thickening of the fifth metatarsal
phalangeal joint, suggesting infection/septic joint. No soft tissue abscess.
- wound culture - MSSA and VGS
- blood cultures x2 are in progress NGTD
-Hemodynamically stable. No signs or symptoms of sepsis. Blood cultures negative. Wound culture shows MSSA, Viridans strep group.
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
-MSSA on wound culture - sens to augmentin
- Bone path clean
- c/w unasyn. Has surgical cutre - can transition to Augmentin 875mg po bid x 7 days.
#PAD -known to Dr. Clay. DINA completed, 0.91 right lower extremity, 0.71 left lower extremity.
-Underwent aortogram and pelvic angiogram 06/03 with balloon angioplasty and stent placement to left superficial femoral artery with overlapping drug-eluting stents.
-Mild right groin hematoma after procedure noted by vascular team, ultrasound unremarkable.
-f/u outpt
Hyponatremia -resolved
DM 2 with hyperglycemia -Hemoglobin A1c 10.2%. Hold glipizide, hold 70/30 insulin mix. We discussed the importance of better glycemic control moving forward, close outpatient follow-up with PCP.
Glucose down to 75 last night. Patient states he is trying to eat less sugar.
Continue Lantus to 24 units at bedtime, decrease NovoLog to 20 units AC.
Diabetic education prior to discharge.
Essential hypertension -stable.
Hyperlipidemia -atorvastatin.
BPH
Hx of prostate cancer
Chronic urinary retention -with chronic Adams catheter.
CAD -stable.
Chronic radiation proctitis -with chronic diarrhea. Continue cholestyramine.
Chronic microcytic anemia -suspect hemoglobin at baseline.
Full code
More than 30 minutes spent in discharge including
Final examination of the patient
Summarizing hospital stay
Instructions for continuing care to all relevant caregivers
Preparation of discharge records, prescriptions, and referral forms
Total time spent (37 in minutes):
Anticipated Discharge: Today
Subjective/Interval History
-
Date of Service: June 10, 2024
No acute events
Objective Data
-
Labs:
Laboratory Results
06/10/24
06:31
WBC 9.0
Hgb 9.6 L
Hct 30.2 L
Plt Count 204
Sodium 138
Potassium 4.3
Chloride 104
Carbon Dioxide 27
BUN 21 H
Creatinine 1.2
Glucose 142 H
Calcium 8.5
Total Bilirubin 1.2
AST 18
ALT 16
Alkaline Phosphatase 93
Vital Signs:
Vital Signs
Temp Pulse Resp BP Pulse Ox
98.9 F 75 18 126/56 98
06/10/24 07:00 06/10/24 07:00 06/10/24 07:00 06/10/24 07:00 06/10/24 07:50
I&O
06/09/24 06/10/24 06/11/24
06:59 06:59 06:59
Intake Total 2400 / 2400 1180 / 1180
Output Total 3350 / 3350 4450 / 4450
Balance -950 / -950 -3270 / -3270
Review of Systems
-
History Source: Patient
All other systems: Not reviewed unless documented
Data Reviewed
-
Diagnostic Radiology: Report Reviewed by me
Ultrasound: Report Reviewed by me
MRI: Report Reviewed by me
Labs: Labs Reviewed by me
--- NOTE | 2024-06-10 13:27 | W.DS.TRANS ---
DC Summary - Manager Private
-
Discharge Instructions:
Discharge Diagnosis/Procedures Diabetic Foot Infection - L foot
osteomyelitis of 5th metatarsal head/neck and
base of 5th proximal phalanx
DM2 - uncontrolled
Diet As tolerated,Low Cholesterol,Low Fat,Diabetic,
Carb Controlled
Activity No strenuous activity
Driving Restrictions No driving for 48 hours
Bathing Restrictions OK to Shower
Blood Work cbc and bmp in 3-5 days with PCP
Hgba1c in 3 months- close glucose control
Others Tests Your follow-up arterial ultrasound is scheduled
on 07/05/24 at 9 AM here at [facility]
Instructions:
Stand-Alone Forms: DC Instr - Vascular OR
Changes to Home Medications: Yes
Discharge Medications:
DC Medications w/original date entered in [facility]
amlodipine 5 mg tablet 5 mg PO DAILY ##30 07/17/18
aspirin 81 mg tablet,delayed release 81 mg PO DAILY Blood Clot Prevention/Tx 08/06/18
pantoprazole 20 mg tablet,delayed release (Protonix) 20 mg PO DAILY Gastrointestinal Issue 08/06/18
atorvastatin 80 mg tablet 80 mg PO HS High Cholesterol 09/06/22
paroxetine HCl 40 mg tablet (Paxil) 40 mg PO DAILY Depression 08/11/23
tamsulosin 0.4 mg capsule (Flomax) 0.4 mg PO DAILY Urinary Issue 08/11/23
acetaminophen 500 mg tablet (Tylenol Extra Strength) 500 mg PO BID Pain 05/31/24
carvedilol 6.25 mg tablet (Coreg) 6.25 mg PO BID Heart Failure 05/31/24
cholestyramine (with sugar) 4 gram powder for susp in a packet 4 g PO TID High Cholesterol 05/31/24
clopidogrel 75 mg tablet (Plavix) 75 mg PO DAILY Blood Clot Prevention/Tx 05/31/24
ferrous sulfate 325 mg (65 mg iron) tablet 325 mg PO DAILY Supplement 05/31/24
omega 3-wuw-qne-fish oil 1,200 mg (144 mg-216 mg) capsule (Fish Oil) 1 cap PO DAILY Supplement 05/31/24
therapeutic multivitamin 1 tab PO DAILY Supplement 05/31/24
amoxicillin 875 mg-potassium clavulanate 125 mg tablet 1 tab PO Q12H 5 days #10 tabs 06/10/24
insulin aspart U-100 100 unit/mL (3 mL) subcutaneous pen 20 unit (0.2 mL) SC AC #15 mL 06/10/24
insulin glargine 100 unit/mL (3 mL) subcutaneous pen (Lantus Solostar U-100 Insulin) 20 unit (0.2 mL) SC QPM #15 mL 06/10/24
Home Medication Changes
amoxicillin 875 mg-potassium clavulanate 125 mg tablet 1 tab PO Q12H 5 days #10 tabs 06/10/24
insulin aspart U-100 100 unit/mL (3 mL) subcutaneous pen 20 unit (0.2 mL) SC AC #15 mL 06/10/24
insulin glargine 100 unit/mL (3 mL) subcutaneous pen (Lantus Solostar U-100 Insulin) 20 unit (0.2 mL) SC QPM #15 mL 06/10/24
Pending Results: No
--- NOTE | 2024-06-10 14:17 | CM ---
Addendum entered by Radha Spencer 06/10/24 14:52:
Patient declined RW per PT. Patient will d/c w/ script
Original Note:
Patient stable for d/c today. Current w/ [facility]. Patient being recommended for skilled rehab, patient not agreeable and prefers to go home.
Therapy rec RW if d/c home, PT to provide. TT hospitalist for script
Per patient, son will transport home
IMM verbally reviewed, patient given copy, copy placed on chart
Plan: Home w/ [facility] and RW
[2024-06-10] MEDS: FLUAD (65 yr+) 2024-2025 FORMULA 0.5 ML IM (14:28)
--- NOTE | 2024-06-10 14:34 | PN.CDI ---
CDI
- -
CDI:
Physician Documentation Request
Admit Date: 05/31/24 15:10
Dear Doctor Michelle,
Please review the following and provide your response in the progress notes.
Clinical Indicators:
PN, 06/10
#Acute osteomyelitis
#...-left fifth metatarsal head, x-ray noted osteomyelitis.
#...-Foot MRI confirms osteomyelitis involving the head and
#...neck of the fifth metatarsal as well as early/mild osteomyelitis
#...involving the base of the fifth proximal phalanx.
#...Wound culture shows MSSA, Viridans strep group.
#...-fifth ray amputation on Wednesday 06/07.
#...-MSSA on wound culture - sens to augmentin
#...- Bone path clean
#...- c/w unasyn. Has surgical cutre -
#...can transition to Augmentin 875mg po bid x 7 days.
#PAD -known to Dr. Clay. DINA completed, 0.91 right lower extremity, 0.71 left lower extremity.
#...-Underwent aortogram and pelvic angiogram 06/03 with balloon angioplasty and
#...stent placement to left superficial femoral artery with overlapping drug-eluting stents.
Discharge Summary, 06/10
#Diabetic Foot Infection - L foot osteomyelitis of 5th metatarsal head/neck
#...and base of 5th proximal phalanx
#...DM2 - uncontrolled
Based on the above and your clinical assessment, please clarify the etiology of the left foot osteomyelitis/left foot diabetic infection:
Multifactorial, PAD and uncontrolled diabetes
Diabetic foot infection only
Other(please specify)
Use of terms such as suspected, likely, concern for, or probable (associated with a specific diagnosis that is being evaluated, monitored, or treated as if it exists) are acceptable and can be coded in the inpatient setting, when documented at the
time of discharge.
Thank you,
Eliane Chang RN BSN CCDS
CDI Specialist
Please contact via tiger text
Please use your independent medical judgment in providing your response.
[2024-06-10 15:00] VITALS: BP 140/58
== END 2024-06-10 15:21 | disposition home health service (06) | DRG 240 ==
LOC: 4 WEST ACU 15:10
PROVIDERS: Hospitalist; Nurse Practitioner; Physician Assistant; Registered Nurse; Student in an Organized Health Care Education/Training Program; Surgery Vascular Surgery; ADMITTING PHYSICIAN Internal Medicine; ATTENDING PHYSICIAN Internal Medicine; CONSULT PHYSICIAN Student in an Organized Health Care Education/Training Program; EMERGENCY PHYSICIAN Student in an Organized Health Care Education/Training Program; FAMILY PHYSICIAN Family Medicine; OTHER PHYSICIAN Student in an Organized Health Care Education/Training Program
PROC: 047L35Z Dilation of Left Femoral Artery with Two Drug-eluting Intraluminal Devices, Percutaneous Approach (ICD-10-PCS; 2024-06-03)
PROC: B41D1ZZ Fluoroscopy of Aorta and Bilateral Lower Extremity Arteries using Low Osmolar Contrast (ICD-10-PCS; 2024-06-03)
PROC: B41C1ZZ Fluoroscopy of Pelvic Arteries using Low Osmolar Contrast (ICD-10-PCS; 2024-06-03)
PROC: 0Y6N0ZF Detachment at Left Foot, Partial 5th Ray, Open Approach (ICD-10-PCS; 2024-06-07)
DX: E11.51 Type 2 diabetes mellitus with diabetic peripheral angiopathy without gangrene (principal); E87.1 Hypo-osmolality and hyponatremia; M86.172 Other acute osteomyelitis, left ankle and foot; L76.32 Postprocedural hematoma of skin and subcutaneous tissue following other procedure; I70.222 Atherosclerosis of native arteries of extremities with rest pain, left leg; Z79.4 Long term (current) use of insulin; L08.9 Local infection of the skin and subcutaneous tissue, unspecified; E11.40 Type 2 diabetes mellitus with diabetic neuropathy, unspecified; E11.621 Type 2 diabetes mellitus with foot ulcer; E11.69 Type 2 diabetes mellitus with other specified complication; Y83.8 Other surgical procedures as the cause of abnormal reaction of the patient, or of later complication, without mention of misadventure at the time of the procedure; L97.529 Non-pressure chronic ulcer of other part of left foot with unspecified severity; Z11.52 Encounter for screening for COVID-19; L97.509 Non-pressure chronic ulcer of other part of unspecified foot with unspecified severity; D63.8 Anemia in other chronic diseases classified elsewhere; K21.9 Gastro-esophageal reflux disease without esophagitis; F41.9 Anxiety disorder, unspecified; I10 Essential (primary) hypertension; E11.65 Type 2 diabetes mellitus with hyperglycemia; K62.7 Radiation proctitis; K52.9 Noninfective gastroenteritis and colitis, unspecified; E11.628 Type 2 diabetes mellitus with other skin complications; I70.8 Atherosclerosis of other arteries; E78.00 Pure hypercholesterolemia, unspecified; I25.10 Atherosclerotic heart disease of native coronary artery without angina pectoris; Z87.891 Personal history of nicotine dependence; Z91.199 Patient's noncompliance with other medical treatment and regimen due to unspecified reason; Z85.46 Personal history of malignant neoplasm of prostate; Z85.820 Personal history of malignant melanoma of skin
CPT/HCPCS: 88304; 88311; 37226; 73630; 73720; 75625; 75716; 80048; 80053; 80202; 82947; 82962; 83036; 83605; 85014; 85018; 85025; 85027; 85652; 86140; 87040; 87070; 87075; 87077; 87147; 87186; 87205; 93922; 93926; 93971; 97163; 97167; 97530; 97535; 99285; A9575; C1725; C1769; C1874; C1876; C1894

== ENCOUNTER 2024-06-19 01:41 | Emergency (ER) | payer OTHER, SELFPAY ==
[2024-06-19 01:46] VITALS: BP 100/60
--- NOTE | 2024-06-19 02:16 | ED.GENMED ---
History of Present Illness
General
Chief Complaint: Catheter/Tube Problem
Source: patient
Exam Limitations: none
Time Seen by Provider: 06/19/24 02:05
History of Present Illness
History of Present Illness:
See MDM
Past History
Past History
ED Past Medical History: CAD, GERD, HTN, Hypercholesterolemia, IDDM, PR and Other (GI bleeding, Prostate CA, cardiomyopathy, hiatal hernia, colon cancer, prostate cancer, arthritis, lumbar disc disease)
ED Past Surgical History: Bowel resection, Cardiac (Stents X7) and Other (L arm surgery)
Social History
Tobacco: Former smoker
Alcohol: None
Drug: None
Personal:
Living: with family
Employment: Retired
Family History
Family History: Other (Noncontributory)
Phy Exam
Physical Exam
Physical Exam:
See MDM
Course
Vital Signs
Initial and Last Documented VS:
Initial Vital Signs
Temp Pulse Resp BP Pulse Ox
98.0 F 84 20 100/60 98
06/19/24 01:46 06/19/24 01:46 06/19/24 01:46 06/19/24 01:46 06/19/24 01:46
Last Documented Vital Signs
Temp Pulse Resp BP Pulse Ox
98.0 F 84 20 100/60 98
06/19/24 01:46 06/19/24 01:46 06/19/24 01:46 06/19/24 01:46 06/19/24 01:46
MDM/Problems Addressed
Differential Diagnosis Includes:
HPI and MDM Narrative:
89-year-old male presenting with clogged Adams catheter. He has an indwelling catheter. It was recently changed within a week or so. He has been having trouble urinating since 7 PM and complaining of bladder pain and abdominal pain. As soon as
patient back to the treatment room, the nurse flushed his Adams and all symptoms resolved. Patient and family were taught how to flush his Adams. Urine that was returned is clear and without foul smell
Physical exam
General: Well appearing and non-toxic
HEENT: protecting airway
Neck: appears supple
CV: No evidence of cyanosis
Resp: No accessory muscle use
Abd: Mildly distended
Extremities: No deformities
Neuro: alert
Psych: Normal affect
Skin: Intact
Problems Addressed including Acute and Chronic Conditions affecting care:
1. Clogged Adams catheter
Acuity: acute
Prognosis: stable
Details: After flush, his abdominal distention resolved and all symptoms have improved. Patient educated on flushing the Adams
Differential Diagnosis (but not limited to): Clogged Adams catheter, hematuria, clot
Testing considered: Urinalysis
Drug therapy (if applicable): OTC meds, please see d/c instruction regarding Rx drugs
Amount and/or Complexity of Data Reviewed
Clinical info obtained from: Patient
External data reviewed: N/A
Labs I independently reviewed (but not limited to): N/A
Radiology: N/A
Pulse Ox: not hypoxic
EKG independently reviewed: N/A
Gift Manager: N/A
Critical Care: N/A
Risk of Complication:
Social Determinants of health: Good social support
Discussed with other providers: N/A
Escalation of Care includes Admit/Obs: After being observed in the Emergency Department, pt stable for discharge.
Occasional wrong word or 'sound a like' substitutions may have occurred due to the inherent limitations of voice recognition software. Read the chart carefully and recognize, using context, where substitutions have occurred.
*Critical Care Note
Total Time (30-74mins, 75-104mins- exclusive of procedures): Not Applicable
ED Attending Note
-
Portions of this chart may have been created with voice recognition software.� Occasional wrong word or��sound alike� substitutions may have occurred due to the inherent limitations of voice recognition software.
Discharge Plan
Departure
Patient Disposition: Home (Routine Discharge)
Date of Disposition: 06/19/24
Time of Disposition: 02:16
Patient with high blood pressure during this ER visit?: No
Discharge Problem:
Obstructed Adams catheter
Instructions: How to Care for Your Adams Catheter, Male
Prescriptions:
No Action
amlodipine 5 MG tablet
5 mg PO DAILY Qty: 30 3RF
pantoprazole [Protonix] 20 MG tablet,delayed release (DR/EC)
20 mg PO DAILY
aspirin 81 MG tablet,delayed release (DR/EC)
81 mg PO DAILY
atorvastatin 80 mg Tablet
80 mg PO HS
tamsulosin [Flomax] 0.4 mg Capsule
0.4 mg PO DAILY
paroxetine HCl [Paxil] 40 mg Tablet
40 mg PO DAILY
carvedilol [Coreg] 6.25 mg Tablet
6.25 mg PO BID
therapeutic multivitamin Tablet
1 tab PO DAILY
clopidogrel [Plavix] 75 mg Tablet
75 mg PO DAILY
acetaminophen [Tylenol Extra Strength] 500 mg Tablet
500 mg PO BID
ferrous sulfate 325 mg (65 mg iron) Tablet
325 mg PO DAILY
cholestyramine (with sugar) 4 gram Powder In Packet
4 g PO TID
Patient Comments:
pt mention this med was increase to TID
omega 4-zep-guh-fish oil [Fish Oil] 1,200 (144-216) mg Capsule
1 cap PO DAILY
insulin aspart U-100 100 unit/mL (3 mL) Insulin Pen
20 unit SC AC Qty: 15 0RF
insulin glargine [Lantus Solostar U-100 Insulin] 100 unit/mL (3 mL) insulin pen
20 unit SC QPM Qty: 15 0RF
amoxicillin-pot clavulanate 875-125 mg tablet
1 tab PO Q12H 5 Days Qty: 10 0RF
Activity Restrictions/Additional Instructions:
Please return for any worsening symptoms.
You may return at any time if you have further concerns.
Please follow up with your doctor at the first available appointment, preferably this week.
Thank you for choosing [facility].
Interventions
Interventions:
*Risk Screen - Suicide Last Done: 06/19/24 01:46
*General Assessment Last Done: 06/19/24 01:46
*Neglect/Abuse Screening Last Done: 06/19/24 01:46
*ED- Fall Risk Assessment Last Done: 06/19/24 01:46
*ED COVID-19 Vaccine History Last Done: 06/19/24 01:46
Discharge Date and Time
Print Language: HUNGARIAN
[2024-06-19 02:22] VITALS: BMI 27.0
== END 2024-06-19 02:32 | disposition home or self-care (01) ==
LOC: EMR 01:41
PROVIDERS: EMERGENCY PHYSICIAN Student in an Organized Health Care Education/Training Program
DX: T83.091A Other mechanical complication of indwelling urethral catheter, initial encounter (principal); Y92.9 Unspecified place or not applicable; I25.10 Atherosclerotic heart disease of native coronary artery without angina pectoris; K21.9 Gastro-esophageal reflux disease without esophagitis; I10 Essential (primary) hypertension; E78.00 Pure hypercholesterolemia, unspecified; E11.9 Type 2 diabetes mellitus without complications; I25.2 Old myocardial infarction; I42.9 Cardiomyopathy, unspecified; Z85.038 Personal history of other malignant neoplasm of large intestine; Z85.46 Personal history of malignant neoplasm of prostate; Z87.891 Personal history of nicotine dependence; Z95.5 Presence of coronary angioplasty implant and graft
CPT/HCPCS: 99282

== ENCOUNTER 2024-07-15 12:43 | Inpatient (IN) | payer OTHER, SELFPAY ==
[2024-07-14] VITALS (9 sets, daily range): BP systolic 103–154; BP diastolic 50–99; BMI 27.5; BMI 26.5
--- NOTE | 2024-07-14 13:33 | PHANOTE ---
med rec note- patient note answer medication related question, spouse and daughter do not know, daughter has an older list with her but as per ecw Eliquis on her list was stopped. at this time family shouting at each other for answer just told them
I can call patient primary
--- NOTE | 2024-07-14 13:33 | ED.GENMED ---
History of Present Illness
General
Chief Complaint: Musculo-Skeletal Complaint
Source: patient, records and physician
Time Seen by Provider: 07/14/24 12:44
History of Present Illness
History of Present Illness:
89-year-old male past medical history of CAD status postacute MD, cardiomyopathy, hypertension, hyperlipidemia, insulin-dependent diabetes, GERD, chronic kidney disease, previous colon cancer and prostate cancer presenting to the ER from home for
further evaluation at the request of visiting nurse and Ortho/podiatry due to continued and worsening left foot infection. Patient was seen by orthopedic surgery last week and had cultures done which reportedly grew a large quantity of
gram-negative bacilli, concern for Pseudomonas infection patient had been started on Augmentin which she has taken for the last few days, orthopedics wanted to switch this to Cipro however patient's pharmacy did not have the medication available
until later today so patient has been unable to take this. He did have a fever with Tmax of 100.1 at home, did take Tylenol and is afebrile here. He notes that at rest he is not having much pain but he is unable to apply any pressure to his foot
due to severe pain while attempting to ambulate.
Past History
Past History
ED Past Medical History: CAD, Cancer, GERD, HTN, Hypercholesterolemia, IDDM, MD, Renal failure and Other (GI bleeding, Prostate CA, cardiomyopathy, hiatal hernia, colon cancer, prostate cancer, arthritis, lumbar disc disease)
ED Past Surgical History: Bowel resection, Cardiac (Stents X7), Orthopedic and Other (L arm surgery)
Social History
Tobacco: Former smoker
Alcohol: None
Drug: None
Personal:
Living: with family
Employment: Retired
Family History
Family History: Other (Noncontributory)
Review of Systems
Review of Systems
All Other Systems: ROS reviewed and negative except as documented in HPI and ROS
Phy Exam
Physical Exam
Physical Exam:
GENERAL: Alert , in no apparent distress
EYE: clear conjunctiva
NECK: Supple
ENT: o/p clr, mmm.
CARDIAC: Regular rate and rhythm .
LUNGS: Clear breath sounds bilaterally, no acute respiratory distress, no wheezes/rales/rhonchi
NEUROLOGICAL: Alert and oriented
SKIN: Warm and dry, skin intact.
MUSCULOSKELETAL: LLE: there is moderate erythema and edema to plantar surface of left foot, previous surgical site of 5th metatarsal amputation is dry and without any purulence however there is some erythema surrounding. Erythema also extends into
the anterior portion of the ankle.
PSYCH: Normal and appropriate interaction.
Scores
Heart Failure Risk
Heart Failure Risk Score: Not Applicable
Heart Score for Chest Pain Patients
STEMI patient?: Not applicable
Withdrawal Assessment of Alcohol
Withdrawal Assessment Completed?: Not applicable
Course
Orders/Labs/Results
Orders:
Orders
07/14/24 13:06
Piperacillin/Tazo 4.5 Gram [Zosyn] 4.5 gram in 100 ml IV NOW
07/14/24 13:15
CR Foot - Left Min 3 Views Urgent
Comment:
Reason For Exam: erythema/edema, infection
07/14/24 13:26
Basic Metabolic Panel Urgent
CRP [C-Reactive Protein] Urgent
Complete Blood Count/With Diff Urgent
ESR [Erythrocyte Sed Rate] Urgent
Lactic Acid Q4H
Comment: CANCEL 2nd LACTIC ACID IF 1st LACTIC ACID IS LESS THAN 2
Blood Culture Q30M
NELI Source: Blood/Venous
Specimen Description:
07/14/24 13:28
Blood Culture Q30M
NELI Source: Blood/Venous
Specimen Description:
07/14/24 17:00
Lactic Acid Q4H
Comment: CANCEL 2nd LACTIC ACID IF 1st LACTIC ACID IS LESS THAN 2
Abnormal Lab Results
07/14/24
13:26
WBC 14.3 H 10^3/uL
(4.8-10.8)
RBC 4.10 L 10^6/uL
(4.70-6.10)
Hgb 10.2 L g/dL
(13.0-18.0)
Hct 31.4 L %
(39.0-52.0)
MCV 76.6 L fL
(80.0-94.0)
MCH 24.9 L pg
(27.0-31.0)
MCHC 32.5 L g/dL
(33.0-37.0)
RDW 15.6 H %
(11.5-14.5)
Abs Immat Gran (auto) 0.1 H 10^3/uL
(0-0.05)
Absolute Neuts (auto) 11.5 H 10^3/uL
(1.4-6.5)
Absolute Monos (auto) 1.3 H 10^3/uL
(0.1-0.6)
Immature Gran % 0.7 H %
(0-0.5)
Neutrophils % 80.0 H %
(42.2-75.2)
Lymphocytes % 9.4 L %
(20.5-51.1)
Sodium 131 L mmol/L
(135-145)
Carbon Dioxide 21 L mmol/L
(22-30)
BUN 23 H mg/dl
(9-20)
Glucose 322 H mg/dl
(70-99)
C-Reactive Protein > 270.00 H mg/L
(0.0-10.00)
07/14/24 13:26
07/14/24 13:26
Vital Signs
Initial and Last Documented VS:
Initial Vital Signs
Temp Pulse Resp BP Pulse Ox
98.5 F 88 16 126/50 98
07/14/24 12:27 07/14/24 12:27 07/14/24 12:27 07/14/24 12:27 07/14/24 12:27
Last Documented Vital Signs
Temp Pulse Resp BP Pulse Ox
98.5 F 81 22 107/68 95
07/14/24 12:27 07/14/24 14:15 07/14/24 14:15 07/14/24 14:00 07/14/24 13:30
MDM/Problems Addressed
Differential Diagnosis Includes:
Cellulitis, osteomyelitis, necrotizing fasciitis
MDM/Problems Addressed:
89-year-old male presenting to the ER for evaluation at the request of orthopedist and podiatry for further evaluation and IV antibiotics for left foot infection. Patient had 1/5 metatarsal amputation done in May, had been doing well with
antibiotics, today woke up with fever and inability to ambulate which is abnormal for. Exam here does reveal significant erythema, edema and tenderness. Per report prior to patient's arrival there was significant gram negative bacilli on patient's
culture with concern for Pseudomonas infection. Will cover with Zosyn. Plan to admit to hospitalist team for continued treatment.
Chronic conditions affecting care: DM and Other (Vascular disease)
*Radiology
Radiology exam reviewed: radiology read reviewed
*Pulse Oximetry
Patient hypoxic: no
*Critical Care Note
Total Time (30-74mins, 75-104mins- exclusive of procedures): Not Applicable
Data Reviewed
Review of Other/Old Records Reveals: Labs, Records and Radiology Studies
Patient Management
Discussion with other providers: Hospitalist
Escalation/DeEscalation of care consider admission/obs:
Hospitalist team accepts for continued evaluation and treatment. Podiatry to see in consult
ED Attending Note
-
Portions of this chart may have been created with voice recognition software.� Occasional wrong word or��sound alike� substitutions may have occurred due to the inherent limitations of voice recognition software.
Discharge Plan
Departure
Patient Disposition: Admit
Date of Disposition: 07/14/24
Time of Disposition: 13:42
Presentation/result/management discussed w/ accepting MD/DO: Hospitalist
Discharge Problem:
Cellulitis of foot, left
Prescriptions:
No Action
amlodipine 5 MG tablet
5 mg PO DAILY Qty: 30 3RF
pantoprazole [Protonix] 20 MG tablet,delayed release (DR/EC)
20 mg PO DAILY
aspirin 81 MG tablet,delayed release (DR/EC)
81 mg PO DAILY
atorvastatin 80 mg Tablet
80 mg PO HS
tamsulosin [Flomax] 0.4 mg Capsule
0.4 mg PO DAILY
paroxetine HCl [Paxil] 40 mg Tablet
40 mg PO DAILY
carvedilol [Coreg] 6.25 mg Tablet
6.25 mg PO BID
therapeutic multivitamin Tablet
1 tab PO DAILY
clopidogrel [Plavix] 75 mg Tablet
75 mg PO DAILY
acetaminophen [Tylenol Extra Strength] 500 mg Tablet
500 mg PO TIDPRN PRN (Reason: mild pain)
ferrous sulfate 325 mg (65 mg iron) Tablet
325 mg PO DAILY
cholestyramine (with sugar) 4 gram Powder In Packet
4 g PO TID
Patient Comments:
pt mention this med was increase to TID
omega 6-rza-jpf-fish oil [Fish Oil] 1,200 (144-216) mg Capsule
1 cap PO DAILY
insulin aspart U-100 100 unit/mL (3 mL) Insulin Pen
20 unit SC AC Qty: 15 0RF
insulin glargine [Lantus Solostar U-100 Insulin] 100 unit/mL (3 mL) insulin pen
20 unit SC QPM Qty: 15 0RF
glipizide 10 mg Tablet
10 mg PO BID
Patient Comments:
re started due to higher blood sugar levels
Interventions
Interventions:
*Risk Screen - Suicide Last Done: 07/14/24 12:54
*General Assessment Last Done: 07/14/24 12:54
*Neglect/Abuse Screening Last Done: 07/14/24 12:54
*ED- Fall Risk Assessment Last Done: 07/14/24 12:54
*ED COVID-19 Vaccine History Last Done: 07/14/24 12:54
ED-Musculoskeletal Assessment Last Done: 07/14/24 12:54
Discharge Date and Time
Print Language: ICELANDIC
[2024-07-14] MEDS: ZOSYN 100 IV (13:34)
[2024-07-14 13:40] LABS: % Basophils 0.3 % (0-2); % Eosinophils 0.4 % (0-6); % Immature Granulocytes 0.7 % (0-0.5); % Lymphocytes 9.4 % (20.5-51.1); % Monocytes 9.2 % (1.7-9.3); Absolute Basophils 0.1 10^3/uL (0-0.2); Absolute Eosinophils 0.1 10^3/uL (0-0.7); Absolute Immature Granulocytes 0.1 10^3/uL (0-0.05); Absolute Lymphocytes 1.3 10^3/uL (1.2-3.4); Absolute Monocytes 1.3 10^3/uL (0.1-0.6); Absolute Neutrophils 11.5 10^3/uL (1.4-6.5); Hematocrit 31.4 % (39.0-52.0); Hemoglobin 10.2 g/dL (13.0-18.0); Mean Corp Hgb Conc. 32.5 g/dL (33.0-37.0); Mean Corpuscular Hgb 24.9 pg (27.0-31.0); Mean Corpuscular Volume 76.6 fL (80.0-94.0); Mean Platelet Volume 9.5 fL (7.4-10.4); Nucleated Red Blood Cells % 0 % (-); Platelet Count 272 10^3/uL (130-400); Red Cell Dist. Width 15.6 % (11.5-14.5); White Blood Cell Count 14.3 10^3/uL (4.8-10.8)
--- NOTE | 2024-07-14 13:45 | HPS.HSE ---
Family Physician
-
Family Physician: Cesar Arana, DO
Chief Complaint
-
left foot infection
History of Present Illness
Patient is a 89-year-old male with past medical history significant for BPH, hyperlipidemia, type 2 diabetes, prostate cancer, coronary artery disease, AK, iron deficiency anemia, hypertension, GERD, TIA, cardiomyopathy and peripheral artery disease
who presented to [facility] ED for evaluation of worsening left foot infection. Visiting nurse today saw patient who recommended he come to ED for evaluation as he was found to be febrile at 100.1 and was unable to bear any weight on left foot for 3 days
related to pain. Patient was seen by orthopedic surgery last week and had cultures done which reportedly grew a large quantity of gram-negative bacilli, concern for Pseudomonas infection patient had been started on Augmentin which she has taken for
the last few days, orthopedics wanted to switch this to Cipro however patient's pharmacy did not have the medication available until later today so patient has been unable to take this. Patient did take Tylenol at home prior to ED arrival and is
afebrile here. He notes that at rest pain is a 6/7 out of 10 and he is unable to apply any pressure to his foot due to severe pain while attempting to ambulate. He does report 1 episode of emesis this morning.
Medical History
Past Medical History
Past Medical History: Reports Other
Additional Past Medical History:
BPH
Hyperlipidemia
Type 2 diabetes
Lumbar radiculopathy
Spinal stenosis
Prostate cancer
Coronary artery disease
AK
Proctitis
Iron deficiency anemia
Hypertension
GERD
TIA
Cardiomyopathy
Peripheral artery disease
GI bleed
SVT
Past Surgical History: Reports Other
Additional Past Surgical History:
Malignant melanoma removed
Colon cancer resection
Circumcision
Lumbar laminectomy
Cardiac angioplasty and stent
Social History
Tobacco: Former Smoker
Alcohol: None
Personal:
Living: With Family
Family History
Family History: Not pertinent
Allergies / Home Medications
Allergies reflects when Allergies were last updated in [employer].
Home Medications with original date entered in [employer]
Allergy/Medication List:
Allergies
Allergy/AdvReac Type Severity Reaction Status Date / Time
No Known Allergies Allergy Verified 05/31/24 10:49
Home Medications
amlodipine 5 mg tablet 5 mg PO DAILY ##30 07/17/18
aspirin 81 mg tablet,delayed release 81 mg PO DAILY 08/06/18
pantoprazole 20 mg tablet,delayed release (Protonix) 20 mg PO DAILY 08/06/18
atorvastatin 80 mg tablet 80 mg PO HS 09/06/22
glipizide 10 mg tablet 10 mg PO BID 08/11/23
insulin aspar prt-insulin aspart 100 unit/mL (70-30) subcutaneous soln (Novolog Mix 70-30 U-100 Insuln) 20 unit SC BID 08/11/23
paroxetine HCl 40 mg tablet (Paxil) 40 mg PO DAILY 08/11/23
tamsulosin 0.4 mg capsule (Flomax) 0.4 mg PO DAILY 08/11/23
acetaminophen 500 mg tablet (Tylenol Extra Strength) 500 mg PO BID 05/31/24
carvedilol 6.25 mg tablet (Coreg) 6.25 mg PO BID 05/31/24
cholestyramine (with sugar) 4 gram powder for susp in a packet 4 g PO BID 05/31/24
clopidogrel 75 mg tablet (Plavix) 75 mg PO DAILY 05/31/24
ferrous sulfate 325 mg (65 mg iron) tablet 325 mg PO DAILY 05/31/24
omega 9-wru-idy-fish oil 1,200 mg (144 mg-216 mg) capsule (Fish Oil) 1 cap PO DAILY 05/31/24
therapeutic multivitamin 1 tab PO DAILY 05/31/24
Review of Systems
-
History Source: Patient
Constitutional: Reports Fever
EENT: Reports No Symptoms
Respiratory: Reports No Symptoms
Cardiac: Reports No Symptoms
Abdomen/GI: Reports Vomiting
: Reports No Symptoms
Musculoskeletal: Reports Other (Left lateral foot infection, pain )
Skin: Reports No Symptoms
Neurological: Reports No Symptoms
Endocrine: Reports No Symptoms
Hematologic/Lymphatic: Reports No Symptoms
Psych: Reports No Symptoms
Physical Exam
Vital Signs
Vital Signs
Temp Pulse Resp BP Pulse Ox
98.5 F 82 24 103/71 95
07/14/24 12:27 07/14/24 13:30 07/14/24 13:30 07/14/24 13:00 07/14/24 13:30
Physical Exam
General: Well Developed, Well Nourished, No Apparent Distress and Conversant
HEENT: NormoCephalic, Moist mucous membranes, Atraumatic, [place] Conjunctivae, Nose Appears Normal and Ears Appear Normal
Respiratory: Clear
Cardiac: S1/S2 and Regular Rhythm
Breast: Deferred by me
GI: Soft, Non Tender, Non Distended and Normal Bowel Sounds
Rectal: Deferred by Provider
Genito-urinary: Deferred by me
Musculoskeletal: No Clubbing, No Cyanosis and No Edema
Skin: Warm, IV/Catheter Site and Other (left lateral foot wound (previous surgical site, 5th metatarsal amputation), well approximated, moderate amount of edema, no drainage )
Neuro: Nonfocal/grossly intact
Psych: Calm and Intact Judgment/Insight
Laboratory Results
-
07/14/24 13:26
Data Reviewed
-
Diagnostic Radiology: Report Reviewed by me (Left foot: Postoperative changes of partial fifth ray amputation. There is no definite findings of osteomyelitis. There is small foci of subcutaneous gas within the distal lateral aspect of the foot
which is likely secondary to soft tissue infection.)
Lab Data: Labs Reviewed by me (WBC 14.3, hgb 10.2, hct 31.4, Na+ 131, corrected Na+ 135)
Impression/Plan
-
IMPRESSION/PLAN:
#left foot cellulitis
#recent Hx osteo
#Hx PAD
WBC 14.3
Blood Cx: pending
significant gram negative bacilli on patient's culture from out patient culture of wound done last Friday
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 There is no definite findings of osteomyelitis.
There is small foci of subcutaneous gas within the distal lateral aspect of the foot which is likely secondary to soft tissue infection.
- Admit to med/surg
- Consult Podiatry
- IV Cefepime
- supportive care
#hyponatremia
likely secondary to Hyperglycemia
Corrected Na+ 135
- monitor BMP
#Hyperlipidemia
- continue aspirin and atorvastatin
#Type 2 diabetes
- AccuCheck AC & HS
- SSI
- continue Lantus
- continue Insulin Aspart
#Iron deficiency anemia
hgb 10.2, hct 31.4 (stable)
- continue ferrous sulfate
#Hypertension
- continue amlodipine, Coreg
#Hx TIA
- continue clopidogrel
#GERD
- continue pantoprazole
#depression/anxiety
- continue paroxetine
#BPH
#Hx Prostate cancer
#Proctitis
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
- continue tamsulosin
#Coronary artery disease
#AK
s/p stent placement
Code status: Full code
DVT prophylaxis: Lovenox sq
[2024-07-14 13:52] LABS: Blood Urea Nitrogen 23 mg/dl (9-20); Calcium 8.5 mg/dl (8.4-10.2); Carbon Dioxide 21 mmol/L (22-30); Chloride 98 mmol/L (98-107); Estimated Creatinine Clearance 41 ml/min; Glucose 322 mg/dl (70-99); Potassium 4.4 mmol/L (3.5-5.1); Sodium 131 mmol/L (135-145); eGFR 58.17
[2024-07-14 14:05] LABS: C-Reactive Protein > 270.00 mg/L (0.0-10.00)
[2024-07-14 14:26] LABS: Lactic Acid 1.6 mmol/L (0.7-2.0)
[2024-07-14 14:34] LABS: Erythrocyte Sed Rate 72 mm/hour (0-20)
--- NOTE | 2024-07-14 14:47 | W.PN.UPDATE ---
Update Note
Progress Note Update
This is an addendum to H&P written by SAWMILL MOULDER OPERATOR Ivis Greco
I saw and examined the patient.
The SAWMILL MOULDER OPERATOR's note was reviewed and I agree with the note.
Comment:
Mr. Ruddy Amador is a 89 yo man with hx CAD, chronic urinary retention with aldridge catheter, BPH, hx prostate CA, HLD, DM 2, PAD, recent admission for acute osteomyelitis s/p 5th ray amputation 06/07/24 presents to the ER at request of VN and
Podiatry given concern for worsening left foot infection. Patient was seen by Podiatry last week for surrounding incision cellulitis s/p culture and prescribed Augmentin. After culture returned with Pseudomonas, he was prescribed Ciprofloxacin.
There was a delay in picking up this medication (pharmacy didn't have it until later today). He had a temp of 100.1 when seen by VN earlier today and therefore sent to the ER.
Triage VS: T 98.5, P 88, RR 16, BP 126/50, SpO2 98%
On exam patient is awake, alert, oriented, lungs clear; left foot with incision with packing and surrounding swelling and erythema
LABS: WBC 14.3, Hg 10.2, PLT 272, Na 131, K+ 4.4, CO2 21, BUN 23, Cr 1.2, Glucose 322, CRP > 270, Lactate 1.6
X-Ray:
IMPRESSION:
Postoperative changes of partial fifth ray amputation. There is no definite findings of osteomyelitis.
There is small foci of subcutaneous gas within the distal lateral aspect of the foot which is likely secondary to soft tissue infection.
Left foot cellulitis surrounding recent surgical site with cultures showing Pseudomonas
Recent admission for acute osteomyelitis s/p 5th ray amputation 06/07/24
-admit to observation
-will order IV Cefepime (confirming sensitivities with Dr. Vaca)
-transition to Cipro on discharge
-requesting outside records for microbiology report
-Podiatry consult
PAD - SPORT PSYCHOLOGIST asa/Plavix
CAD - SPORT PSYCHOLOGIST asa/plavix
Chronc urinary retention with aldridge catheter
BPH - SPORT PSYCHOLOGIST Flomax
Essential HTN - SPORT PSYCHOLOGIST Amlodipine, Coreg
IDDM - continue home regimen
-ISS
HLD - SPORT PSYCHOLOGIST Statin
Remainder of plan per SAWMILL MOULDER OPERATOR note
[2024-07-14] MEDS: NSS 250 IV (15:47)
[2024-07-14 16:01] LABS: Glucose - Point of Care 427 mg/dl (70-99)
[2024-07-14 16:26] LABS: Glucose 386 mg/dl (70-99)
[2024-07-14] MEDS: NOVOLOG vial 6 UNITS SC (16:35)
[2024-07-14 18:31] LABS: Glucose - Point of Care 347 mg/dl (70-99)
--- NOTE | 2024-07-14 18:34 | EDRN ---
Patient taken to room 427-1 on stretcher by entry level installation technician.
[2024-07-14] MEDS: LOVENOX 40 MG SC (18:40)
[2024-07-14] MEDS: QUESTRAN 4 GRAM PO (18:40)
[2024-07-14] MEDS: NOVOLOG FLEXPEN-LOW RESISTANCE 4 UNITS SC (18:42)
[2024-07-14] MEDS: NOVOLOG FLEXPEN 20 UNITS SC (18:47)
[2024-07-14] MEDS: ULTRAM 50 MG PO (20:05)
[2024-07-14] MEDS: MAXIPIME 2000 MG IV (20:07)
[2024-07-14] MEDS: STERILE WATER FOR INJECTION 10 ML IV (20:07)
[2024-07-14] MEDS: COREG 6.25 MG PO (20:07)
[2024-07-14 22:02] LABS: Glucose - Point of Care 251 mg/dl (70-99)
[2024-07-14] MEDS: LANTUS 0.2 UNITS SC (22:39)
[2024-07-14] MEDS: GLUCOTROL 10 MG PO (22:39)
[2024-07-14] MEDS: LIPITOR 80 MG PO (22:39)
[2024-07-14] MEDS: TYLENOL 650 MG PO (22:44)
[2024-07-15] MEDS: QUESTRAN 4 GRAM PO ×4 (00:39→22:11)
[2024-07-15 06:00] VITALS: BMI 26.5
[2024-07-15 07:25] VITALS: BP 129/61
[2024-07-15 07:53] LABS: Glucose - Point of Care 164 mg/dl (70-99)
[2024-07-15 08:05] LABS: Hematocrit 30.6 % (39.0-52.0); Hemoglobin 9.7 g/dL (13.0-18.0); Mean Corp Hgb Conc. 31.7 g/dL (33.0-37.0); Mean Corpuscular Hgb 24.7 pg (27.0-31.0); Mean Corpuscular Volume 77.9 fL (80.0-94.0); Mean Platelet Volume 9.5 fL (7.4-10.4); Platelet Count 250 10^3/uL (130-400); Red Blood Cell Count 3.93 10^6/uL (4.70-6.10); Red Cell Dist. Width 15.8 % (11.5-14.5); White Blood Cell Count 14.9 10^3/uL (4.8-10.8)
--- NOTE | 2024-07-15 08:28 | VNURNOTE ---
Chart reviewed. Patient is current with [facility] nursing, PT, OT. Will continue to follow hospital course and DC plans.
[2024-07-15] MEDS: THERAGRAN 1 TABLET PO (08:35)
[2024-07-15] MEDS: NORVASC 5 MG PO (08:35)
[2024-07-15] MEDS: PROTONIX 20 MG PO (08:35)
[2024-07-15] MEDS: FEOSOL 325 MG PO (08:35)
[2024-07-15] MEDS: PLAVIX 75 MG PO (08:36)
[2024-07-15] MEDS: PAXIL 40 MG PO (08:36)
[2024-07-15] MEDS: GLUCOTROL 10 MG PO ×2 (08:36→20:02)
[2024-07-15] MEDS: ASPIR LOW (ENTERIC COATED) 81 MG PO (08:36)
[2024-07-15] MEDS: COREG 6.25 MG PO ×2 (08:36→20:02)
[2024-07-15] MEDS: FLOMAX 0.4 MG PO (08:36)
[2024-07-15] MEDS: NOVOLOG FLEXPEN 20 UNITS SC ×2 (08:37→17:24)
[2024-07-15] MEDS: NOVOLOG FLEXPEN-LOW RESISTANCE 1 UNITS SC ×2 (08:37→12:00)
[2024-07-15] MEDS: MAXIPIME 2000 MG IV (08:39)
[2024-07-15] MEDS: STERILE WATER FOR INJECTION 10 ML IV (08:39)
[2024-07-15] MEDS: ULTRAM 50 MG PO ×2 (08:44→15:37)
[2024-07-15 08:50] LABS: Blood Urea Nitrogen 21 mg/dl (9-20); Calcium 8.7 mg/dl (8.4-10.2); Carbon Dioxide 23 mmol/L (22-30); Chloride 102 mmol/L (98-107); Estimated Creatinine Clearance 43 ml/min; Glucose 161 mg/dl (70-99); Potassium 4.5 mmol/L (3.5-5.1); Sodium 133 mmol/L (135-145); eGFR 58.17
[2024-07-15 08:54] LABS: Glycohemoglobin (HgbA1c) 9.7 % (4.0-5.6)
--- NOTE | 2024-07-15 11:04 | CM ---
CM reviewed chart, patient seen bedside with , initial assessment completed by as patient is [facility]. Patient and reside in a two story home, first floor set up, one step to enter. Patients daughter and two grandchildren live in the home.
Patient is current with [facility] for nursing, PT, and OT. Patient denies SNF, has a walker and wheelchair at home, reports patient has been using WC. Patient confirms PCP Cesar Arana, pharmacy [facility], confirms prescription
coverage. Podiatry consulted, patient on IV antibiotics. ROBLES verbally reviewed with patient/, provided with copy, placed in chart. CM will continue to follow for all discharge planning needs.
Plan; home with , DANDY, when stable.
[2024-07-15 11:30] LABS: Glucose - Point of Care 161 mg/dl (70-99)
--- NOTE | 2024-07-15 11:35 | CON.SURG ---
Surgical Consultation
-
Chief Complaint
-
left foot infection
Date of consultation:07/15/2024
History of Present Illness
Patient is a 89-year-old male with past medical history significant for BPH, hyperlipidemia, type 2 diabetes, prostate cancer, coronary artery disease, [place], iron deficiency anemia, hypertension, GERD, TIA, cardiomyopathy and peripheral artery disease
who presented to [facility] ED for evaluation of worsening left foot infection. Visiting nurse today saw patient who recommended he come to ED for evaluation as he was found to be febrile at 100.1 and was unable to bear any weight on left foot for 3 days
related to pain. Patient was seen by orthopedic surgery last week and had cultures done which reportedly grew a large quantity of gram-negative bacilli, concern for Pseudomonas infection patient had been started on Augmentin which she has taken for
the last few days, orthopedics wanted to switch this to Cipro however patient's pharmacy did not have the medication available until later today so patient has been unable to take this. Patient did take Tylenol at home prior to ED arrival and is
afebrile here. He notes that at rest pain is a 6/7 out of 10 and he is unable to apply any pressure to his foot due to severe pain while attempting to ambulate. He does report 1 episode of emesis this morning.
Medical History
Past Medical History
Past Medical History: Reports Other
Additional Past Medical History:
BPH
Hyperlipidemia
Type 2 diabetes
Lumbar radiculopathy
Spinal stenosis
Prostate cancer
Coronary artery disease
[place]
Proctitis
Iron deficiency anemia
Hypertension
GERD
TIA
Cardiomyopathy
Peripheral artery disease
GI bleed
SVT
Past Surgical History: Reports Other
Additional Past Surgical History:
Malignant melanoma removed
Colon cancer resection
Circumcision
Lumbar laminectomy
Cardiac angioplasty and stent
Social History
Tobacco: Former Smoker
Alcohol: None
Personal:
Living: With Family
Family History
Family History: Not pertinent
Allergies / Home Medications
Allergies reflects when Allergies were last updated in [facility].
Home Medications with original date entered in [facility]
Allergy/Medication List:
Allergies
Allergy/AdvReac Type Severity Reaction Status Date / Time
No Known Allergies Allergy Verified 05/31/24 10:49
Home Medications
amlodipine 5 mg tablet 5 mg PO DAILY ##30 07/17/18
aspirin 81 mg tablet,delayed release 81 mg PO DAILY 08/06/18
pantoprazole 20 mg tablet,delayed release (Protonix) 20 mg PO DAILY 08/06/18
atorvastatin 80 mg tablet 80 mg PO HS 09/06/22
glipizide 10 mg tablet 10 mg PO BID 08/11/23
insulin aspar prt-insulin aspart 100 unit/mL (70-30) subcutaneous soln (Novolog Mix 70-30 U-100 Insuln) 20 unit SC BID 08/11/23
paroxetine HCl 40 mg tablet (Paxil) 40 mg PO DAILY 08/11/23
tamsulosin 0.4 mg capsule (Flomax) 0.4 mg PO DAILY 08/11/23
acetaminophen 500 mg tablet (Tylenol Extra Strength) 500 mg PO BID 05/31/24
carvedilol 6.25 mg tablet (Coreg) 6.25 mg PO BID 05/31/24
cholestyramine (with sugar) 4 gram powder for susp in a packet 4 g PO BID 05/31/24
clopidogrel 75 mg tablet (Plavix) 75 mg PO DAILY 05/31/24
ferrous sulfate 325 mg (65 mg iron) tablet 325 mg PO DAILY 05/31/24
omega 2-utm-xlb-fish oil 1,200 mg (144 mg-216 mg) capsule (Fish Oil) 1 cap PO DAILY 05/31/24
therapeutic multivitamin 1 tab PO DAILY 05/31/24
Review of Systems
-
History Source: Patient
Constitutional: Reports Fever
EENT: Reports No Symptoms
Respiratory: Reports No Symptoms
Cardiac: Reports No Symptoms
Abdomen/GI: Reports Vomiting
: Reports No Symptoms
Musculoskeletal: Reports Other (Left lateral foot infection, pain )
Skin: Reports No Symptoms
Neurological: Reports No Symptoms
Endocrine: Reports No Symptoms
Hematologic/Lymphatic: Reports No Symptoms
Psych: Reports No Symptoms
Physical Exam
Vital Signs
Vital Signs
Temp Pulse Resp BP Pulse Ox
98.5 F 82 24 103/71 95
07/14/24 12:27 07/14/24 13:30 07/14/24 13:30 07/14/24 13:00 07/14/24 13:30
Physical Exam
General: Well Developed, Well Nourished, No Apparent Distress and Conversant
HEENT: NormoCephalic, Moist mucous membranes, Atraumatic, [place] Conjunctivae, Nose Appears Normal and Ears Appear Normal
Respiratory: Clear
Cardiac: S1/S2 and Regular Rhythm
Breast: Deferred by me
GI: Soft, Non Tender, Non Distended and Normal Bowel Sounds
Rectal: Deferred by Provider
Genito-urinary: Deferred by me
Musculoskeletal: No Clubbing, No Cyanosis and No Edema
Skin: Warm, IV/Catheter Site and Other (left lateral foot wound (previous surgical site, 5th metatarsal amputation), well approximated, moderate amount of edema, no drainage )
Neuro: Nonfocal/grossly intact
Psych: Calm and Intact Judgment/Insight
Left lower extremity exam
-DP/PT pulses nonpalpable
-Left partial 5th ray amputation site with distal wound dehiscence
-Proximal extending erythema to plantar midfoot with no purulence, crepitus, or fluctuance
Laboratory Results
-
07/14/24 13:26
Data Reviewed
-
Diagnostic Radiology: Report Reviewed by me (Left foot: Postoperative changes of partial fifth ray amputation. There is no definite findings of osteomyelitis. There is small foci of subcutaneous gas within the distal lateral aspect of the foot
which is likely secondary to soft tissue infection.)
Lab Data: Labs Reviewed by me (WBC 14.3, hgb 10.2, hct 31.4, Na+ 131, corrected Na+ 135)
Impression/Plan
-
89 yo M who is s/p LLE revascularization and subsequent revascularization
-Patient seen and evaluated at bedside
-Given physical exam and plantar pain, concern for worsening infection
-Will obtain STAT CT scan of LLE
-Will keep patient NPO in case I&D or debridement is warranted
-Cultures from office growing: Entercoccus and Group B strep, recommend and appreciate ID input
-Recommend vascular surgery input
[2024-07-15] MEDS: NOVOLOG FLEXPEN SC (11:59)
--- NOTE | 2024-07-15 12:34 | W.PN.HOSP.TC ---
Today's Communication/Plan
-
continue Cefepime
consult Podiatry, ID and Vasc Surg
CT scan of left foot/leg
follow glu on reduced insulin dosing in pt currently NPO
Assessment / Plan
Assessment / Plan
#left foot cellulitis
#recent Hx osteo
#Hx PAD
WBC 14.3-->14.9
Blood Cx: pending
significant gram negative bacilli on patient's culture from out patient culture of wound done last Friday
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 There is no definite findings of osteomyelitis.
There is small foci of subcutaneous gas within the distal lateral aspect of the foot which is likely secondary to soft tissue infection.
- Admit to med/surg
- Consult Podiatry, inf disease and vasc surg
- IV Cefepime
- supportive care
Podiatry contacted me with request to order CT scan, without contrast
#hyponatremia
131-->133
likely secondary to Hyperglycemia
Corrected Na+ 135
- monitor BMP
#Hyperlipidemia
- continue aspirin and atorvastatin
#Type 2 diabetes
- AccuCheck AC & HS
- SSI
- continue Lantus, dose adjusted
- continue Insulin Aspart
#Iron deficiency anemia
hgb 10.2, hct 31.4 (stable)
- continue ferrous sulfate
#Hypertension
- continue amlodipine, Coreg
#Hx TIA
- continue clopidogrel
#GERD
- continue pantoprazole
#depression/anxiety
- continue paroxetine
#BPH
#Hx Prostate cancer
#Proctitis
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
- continue tamsulosin
#Coronary artery disease
#UT
s/p stent placement
Physician advisor recommends upgrade to full admit, order placed
Code status: Full code
DVT prophylaxis: Lovenox sq
Anticipated Discharge: > 48 hours
Subjective/Interval History
-
Date of Service: July 15, 2024
Awake, alert
Objective Data
-
Labs:
Laboratory Results
07/15/24
07:25
WBC 14.9 H
Hgb 9.7 L
Hct 30.6 L
Plt Count 250
Sodium 133 L
Potassium 4.5
Chloride 102
Carbon Dioxide 23
BUN 21 H
Creatinine 1.2
Glucose 161 H
Calcium 8.7
Vital Signs:
Vital Signs
Temp Pulse Resp BP Pulse Ox
99.3 F 85 16 129/61 96
07/15/24 07:25 07/15/24 07:25 07/15/24 07:25 07/15/24 07:25 07/15/24 07:25
I&O
07/14/24 07/15/24 07/16/24
06:59 06:59 06:59
Intake Total 120 / 120
Output Total 1800 / 1800
Balance -1680 / -1680
Review of Systems
-
History Source: Patient and Family ( at bedside)
Constitutional: Denies Fever
Respiratory: Reports No Symptoms
Cardiac: Reports No Symptoms
Abdomen/GI: Reports No Symptoms
Musculoskeletal: Reports Other (left foot surgically wrapped)
Physical Exam
-
General: Well Developed, Well Nourished and No Apparent Distress
HEENT: Normocephalic, Atraumatic and Moist Mucous Membranes
Respiratory: Clear to Auscultation; Negative Wheezes, Rales or Rhonchi
Cardiac: Regular Rhythm and S1/S2
GI: Soft, Nontender and Nondistended
Musculoskeletal: No Clubbing, No Cyanosis, No Edema and Other (left foot surgically wrapped)
Neuro: Awake, Alert and Oriented
--- NOTE | 2024-07-15 14:35 | CON.ID ---
Consultation
-
Date/Time Consultation Requested: 07/15/24 11:15
Date/Time Consultation Performed: 07/15/24 14:38
Requesting Provider: Dr Potts
Performing Provider: Dr Andersen
Reason for Consultation: DM foot
Chief Complaint / Past History
Chief Complaint
left foot infection
History of Present Illness
Mr Amador is an 89 year old male with history of DM2 with neuropathy/vasculopathy, CAD/PAD, ex smoker, struggles with medication compliance who first presented here 05/31 for a left toe wound that has been present about 2.5 months, he has been
following with podiatry and wound care. A xray done outpatient the day before arrival was concerning for possible osteomyelitis. Patient has noted increased left lower extremity pain for several weeks. He was admitted and course was notable for
probable osteomyelitis of 5th metatarsal head/neck and base of 5th proximal phalanx. Distal wound culture with MSSA and VGS. Blood cultures were finalized negative. 06/03 he underwent balloon angioplasty and stent placement L SFA. 06/07 underwent
left partial 5th ray amputation and felt to have clean margins after the procedure, the proximal bone margin did not show osteomyelitis, tissue culture of the infected tissue grew MSSA. He was prescribed 7 days of augmentin post operatively,
compliance with medication has been a concern. He was following up with podiatry there was concern for possible surgical site infection with erythema, tenderness and inability to bear weight. I was not notified. Of note an outpatient culture grew
GNR; he was initially on augmentin, orthopedics planned to switch to ciprofloxacin which was not in stock and delayed. Patient progressed to a single episode of emesis and presented here.
Since arrival here he has been afebrile, bp stable, wbc count 14.3, hgb 10.2, plt 272, L shift is noted, a1c 9.7, na 133, cr 1.2, lactic acid 1.6, crp >270, CT lower extremity - Postoperative changes with probable cellulitis in the lateral forefoot
soft tissues... No discrete abscess. No convincing CT evidence for residual/recurrent or new sites of osteomyelitis in the foot. Blood cultures x2 no growth to date, orthopedics has commented that outpatient culture grew Enterococcus and GBS,
patient is NPO, vascular surgery will also give input.
Past History
Additional Past Medical History:
BPH
Hyperlipidemia
Type 2 diabetes
Lumbar radiculopathy
Spinal stenosis
Prostate cancer
Coronary artery disease
[place]
Chronic radiation proctitis -with chronic diarrhea
Iron deficiency anemia
Hypertension
GERD
TIA
Cardiomyopathy
Peripheral artery disease
GI bleed
SVT
Additional Past Surgical History:
Malignant melanoma removed
Colon cancer resection
Circumcision
Lumbar laminectomy
Cardiac angioplasty and stent
Allergy History:
nitroglycerin Allergy (Verified 07/14/24 12:27)
Unknown
Medications Reviewed: Yes
Social History
Tobacco: Former Smoker
Alcohol: None
Personal:
Family History
Family History: Not Pertinent
Review of Systems
Review of Systems
General: Fever and Chills
All systems: All other systems were reviewed and were negative
Vital Signs
Temp Pulse Resp BP Pulse Ox
99.3 F 85 16 129/61 96
07/15/24 07:25 07/15/24 07:25 07/15/24 07:25 07/15/24 07:25 07/15/24 07:25
Physical Exam
Physical Exam
Constitutional: No Acute Distress
Cardiovascular: Regular Rate and S1/S2; Negative Murmur or Rub
Pulmonary: Clear and Symmetric; Negative Wheezes, Rales or Rhonchi
Gastrointestinal: Soft, Non Tender, Non Distended and Normal Bowel Sounds
Skin: Warm and Dry; Negative Rash or Jaundice
Wound: Other (surgical site swollen, tender, mildly erythematous)
Lab / Diagnostic Study Results
07/15/24 07:25
07/15/24 07:25
Abs Immat Gran (auto) 0.1 10^3/uL (0-0.05) H 07/14/24 13:26
Absolute Neuts (auto) 11.5 10^3/uL (1.4-6.5) H 07/14/24 13:26
Absolute Lymphs (auto) 1.3 10^3/uL (1.2-3.4) 07/14/24 13:26
Absolute Monos (auto) 1.3 10^3/uL (0.1-0.6) H 07/14/24 13:26
Absolute Basos (auto) 0.1 10^3/uL (0-0.2) 07/14/24 13:26
Immature Gran % 0.7 % (0-0.5) H 07/14/24 13:26
Neutrophils % 80.0 % (42.2-75.2) H 07/14/24 13:26
Lymphocytes % 9.4 % (20.5-51.1) L 07/14/24 13:26
Monocytes % 9.2 % (1.7-9.3) 07/14/24 13:26
Eosinophils % 0.4 % (0-6) 07/14/24 13:26
Basophils % 0.3 % (0-2) 07/14/24 13:26
ESR 72 mm/hour (0-20) H 07/14/24 13:26
Lactic Acid Cancelled 07/14/24 17:00
C-Reactive Protein > 270.00 mg/L (0.0-10.00) H 07/14/24 13:26
Microbiology Results
Micro:
07/14/24 13:26 Blood Culture - Preliminary
Blood/Venous No Growth in 24 hours- Final report to follow
07/14/24 13:28 Blood Culture - Preliminary
Blood/Venous No Growth in 24 hours- Final report to follow
Assessment / Plan
Surgical Site Infection
Diabetic Foot Infection
DM2 - with poor control
H/o smoking
Medication compliance has been a concern in the past, does have good social support
- outpatient wound culture with enterococcus and GBS by report - my office is checking for formal reports with lab [facility] and [facility]
- blood cultures x2 in progress
- 'No convincing CT evidence for residual/recurrent or new sites of osteomyelitis in the foot'
- start unasyn for now based on reported cultures
- will add vancomycin pending acquiring the sensitivities
- records request
- recommend tight outpatient glucose control
--- NOTE | 2024-07-15 15:14 | CON.VAS ---
Addendum entered and electronically signed by Jorge Clay MD 07/16/24 07:57:
Seen and examined with SENIOR IT SECURITY ANALYST. Agree with findings as noted below. 89-year-old male well-known to me. Status post left lower extremity arteriogram/angioplasty and stenting of SFA occlusion 06/03/2024. Has single-vessel peroneal artery runoff.
Relatively poor inframalleolar flow. Admission as noted below secondary to dehiscence left fifth toe amputation site. Remainder of findings as noted below. He is nontoxic-appearing. His right groin prior puncture site is flat. Left lower
extremity I think he has a palpable popliteal pulse but slightly difficult to assess. I difficulty palpating distal pulses (as would be expected with the peroneal single-vessel runoff). Foot is warm. Currently the fifth metatarsal amputation site
is dry. Plan/as discussed and noted below. Would recommend noninvasive arterial imaging studies. Confirm patent stents. If indeed patent and persistent nonhealing then I would consider attempt at retrograde pedal access (vs attempted distal
bypass) and if not feasible then potentially TADV/Limflow as an adjunct of alternative to maximize wound healing potential vs primary debridement to waste cotton cleaner/healthier edges. If stents are stenosed or occluded, then would consider repeat angiography
for quaker of patency.
Original Note:
Consultation
Consultation Request
Date/Time Consultation Performed: 07/15/24 1500
Requesting Provider: Hospitalist
Performing Provider: Silvana Porras, DEVAN-C for Jorge Clay MD
Reason for Consultation: Left foot dehisced fifth digit amputation site
Medical History
-
Chief Complaint: Left foot dehisced fifth digit amputation site
History of Present Illness:
This is a 89-year-old male significant past medical history for BPH, hyperlipidemia, diabetes, prostate cancer, colon cancer, CAD, [place], hypertension, GERD, TIA, cardiomyopathy, peripheral arterial disease, GI bleed, and SVT who presents to us on
hospital on 07/15/2024 with reports of worsening pain and new dehiscence from left foot fifth digit amputation site. Currently patient offers no complaints other than pain with palpation to wound site. Denies nausea, vomiting, fever, and chills.
Patient is known to our surgical service as he is status post left lower extremity angio with intervention with Dr. Jorge Clay on 06/03/2024. See picture below for wound.
Past Medical History
Past Medical History: CAD, GERD, HTN, NIDDM, [place] and Other (Melanoma, BPH, renal insufficiency, hypercholesterolemia, TIA, ischemic cardiomyopathy, colon cancer)
Past Surgical History: Other (Colon cancer resection, lumbar laminectomy, cardiac catheterization with PCI)
Social History
Tobacco: Former Smoker
Personal:
Living: With Family
Allergies / Home Medications
Allergy/AdvReac Type Severity Reaction Status Date / Time
nitroglycerin Allergy Unknown Verified 07/14/24 12:27
�Medication �Instructions �Recorded �Confirmed �Type
amlodipine 5 mg tablet 5 mg PO DAILY ##30 07/17/18 07/14/24 Rx
aspirin 81 mg tablet,delayed 81 mg PO DAILY Blood Clot 08/06/18 07/14/24 History
release Prevention/Tx
pantoprazole 20 mg tablet,delayed 20 mg PO DAILY Gastrointestinal 08/06/18 07/14/24 History
release (Protonix) Issue
atorvastatin 80 mg tablet 80 mg PO HS High Cholesterol 09/06/22 07/14/24 History
paroxetine HCl 40 mg tablet (Paxil) 40 mg PO DAILY Depression 08/11/23 07/14/24 History
tamsulosin 0.4 mg capsule (Flomax) 0.4 mg PO DAILY Urinary Issue 08/11/23 07/14/24 History
acetaminophen 500 mg tablet 500 mg PO TIDPRN PRN mild pain 05/31/24 07/14/24 History
(Tylenol Extra Strength)
carvedilol 6.25 mg tablet (Coreg) 6.25 mg PO BID Heart Failure 05/31/24 07/14/24 History
cholestyramine (with sugar) 4 gram 4 g PO TID High Cholesterol 05/31/24 07/14/24 History
powder for susp in a packet
clopidogrel 75 mg tablet (Plavix) 75 mg PO DAILY Blood Clot 05/31/24 07/14/24 History
Prevention/Tx
ferrous sulfate 325 mg (65 mg 325 mg PO DAILY Supplement 05/31/24 07/14/24 History
iron) tablet
omega 7-qim-uzg-fish oil 1,200 mg 1 cap PO DAILY Supplement 05/31/24 07/14/24 History
(144 mg-216 mg) capsule (Fish Oil)
therapeutic multivitamin 1 tab PO DAILY Supplement 05/31/24 07/14/24 History
insulin aspart U-100 100 unit/mL 20 unit (0.2 mL) SC AC #15 mL 06/10/24 07/14/24 Rx
(3 mL) subcutaneous pen
insulin glargine 100 unit/mL (3 20 unit (0.2 mL) SC QPM #15 mL 06/10/24 07/14/24 Rx
mL) subcutaneous pen (Lantus
Solostar U-100 Insulin)
glipizide 10 mg tablet 10 mg PO BID Diabetes 07/14/24 07/14/24 History
Review of Systems
-
History Source: Patient
Constitutional: Reports No Symptoms
EENT: Reports No Symptoms
Respiratory: Reports No Symptoms
Cardiac: Reports No Symptoms
Vascular: Denies Leg Pain / Claudication
Abdomen/GI: Reports No Symptoms
: Reports No Symptoms
Musculoskeletal: Reports No Symptoms
Skin: Reports Other (Increased pain and dehiscence of left foot fifth digit amputation wound)
Neurological: Reports No Symptoms
Endocrine: Reports No Symptoms
Physical Exam
Vital Signs
Temp Pulse Resp BP Pulse Ox
99.3 F 85 16 129/61 96
07/15/24 07:25 07/15/24 07:25 07/15/24 07:25 07/15/24 07:25 07/15/24 07:25
Lab Results
07/15/24 07:25
07/15/24 07:25
Physical Exam
General: No Apparent Distress and Comfortable
HEENT: Normocephalic, Anicteric and Atraumatic
Respiratory: Non Labored Respirations
Cardiac: Negative JVD
GI: Soft, Non Tender and Non Distended
Musculoskeletal: Edema
Skin: Warm and Other (Left foot fifth digit amputation site dehisced, surrounding area with erythema, tender to touch, see photo in HPI)
Neuro: AO x 3
Pulses: Left Dorsalis Pedis: +2 and Left Posterior Tibial: +2
Assessment / Plan
-
Assessment: 89-year-old male with nonhealing and dehisced left foot fifth digit amputation site and history of peripheral arterial disease status post Left lower extremity arteriogram with third order vessel catheterization of left popliteal artery
via right common femoral artery puncture, and balloon angioplasty and stent placement left superficial femoral artery with overlapping [employer] PTX drug eluting stents 6 mm x 14 cm stents (x 2).
Plan:
Patient has palpable DP and PT pulse at left foot suggestive that endovascular intervention of stent to SFA is likely patent, for reassurance we will obtain arterial ultrasound with DINA/TBI.
Plan reviewed with on-call surgeon Dr. Jorge Clay.
[2024-07-15 15:31] VITALS: BP 133/60
[2024-07-15] MEDS: TYLENOL 650 MG PO (15:34)
[2024-07-15] MEDS: UNASYN IV ×2 (15:58→22:10)
--- NOTE | 2024-07-15 17:20 | PHA.VAN.IN ---
Assessment
- Assessment
Renal Function: Appears similar to baseline (06/10/24 BASELINE SCR: 1.2)
Concomitant Antimicrobials: UNASYN
- Previous Dosing Experience
Previous Regimen: DOSING BY RANDOM LEVEL
Date of Regimen: 06/01/24
Provided Trough of: UNKNOWN
Provided AUC of: UNKNOWN
Patient's SCR is: Similar to previous dosing experience (06/08/24 SCR: 1.2)
Patient's weight is: Elevated compared to previous dosing experience (06/08/24 WT = 78.8 KG)
AUC Dosing Plan
- Dosing Variables
Dosing Weight (kg): 81.4
Dosing CrCl (ml/min): 43
Vd coefficient (L/kg): 0.7
- Empiric Dosing
Initial / Loading Dose: 2GM
Maintenance Regimen: 1250MG IV Q24H
Estimated AUC (mcg*h/mL): 564
Estimated Peak (mcg*h/mL): 35.5
Estimated Trough (mcg/ml): 14.4
Estimated Half Life (H): 17.3
Pharmacokinetics Vancomycin I
- -
Patient Age: 89
Patient Sex: Male
Vancomycin Day #: 1
Indication: Skin And Soft Tissue (DIABETIC FOOT INFECTION)
Requesting Provider: CASA
Height / Weight:
Height 5 ft 9 in
Actual Weight 81.42 kg
Pertinent Past Medical History: DM-2;PAD
- Vital Signs / Lab Results
Temp Pulse Resp BP Pulse Ox
100.4 F H 88 14 133/60 98
07/15/24 15:31 07/15/24 15:31 07/15/24 15:31 07/15/24 15:31 07/15/24 15:31
Lab Results - Hematology
07/14/24 07/15/24
13:26 07:25
WBC 14.3 H 14.9 H
Lab Results - Chemistry
07/14/24 07/15/24
07:25
BUN 23 H 21 H
Creatinine 1.2 1.2
Estimated Creat Clear 41 43
07/14/24 07/14/24
13 17:00
Lactic Acid 1.6 Cancelled
Microbiology Results
07/14/24 13:26 Blood Culture - Preliminary
Blood/Venous No Growth in 24 hours- Final report to follow
07/14/24 13:28 Blood Culture - Preliminary
Blood/Venous No Growth in 24 hours- Final report to follow
[2024-07-15] MEDS: LOVENOX 40 MG SC (17:23)
[2024-07-15] MEDS: VANCOCIN 540 MG IV (17:23)
[2024-07-15 17:24] LABS: Glucose - Point of Care 127 mg/dl (70-99)
[2024-07-15] MEDS: NOVOLOG FLEXPEN-LOW RESISTANCE SC (17:24)
[2024-07-15] MEDS: LANTUS 0.2 UNITS SC (18:04)
[2024-07-15 20:00] LABS: Glucose - Point of Care 234 mg/dl (70-99)
[2024-07-15 20:02] VITALS: BP 118/58
[2024-07-15 21:38] LABS: Glucose - Point of Care 160 mg/dl (70-99)
[2024-07-15] MEDS: LIPITOR 80 MG PO (22:11)
[2024-07-15 23:23] VITALS: BP 138/66
[2024-07-16] MEDS: ULTRAM 50 MG PO ×3 (01:39→20:22)
[2024-07-16] MEDS: UNASYN IV (03:57)
[2024-07-16] MEDS: VANCOCIN 275 MG IV (05:01)
[2024-07-16 05:12] LABS: Glucose - Point of Care 71 mg/dl (70-99)
[2024-07-16 07:24] LABS: Glucose - Point of Care 183 mg/dl (70-99)
[2024-07-16 07:30] VITALS: BP 140/68
[2024-07-16 07:52] LABS: % Basophils 0.4 % (0-2); % Immature Granulocytes 0.5 % (0-0.5); % Lymphocytes 7.2 % (20.5-51.1); % Monocytes 7.5 % (1.7-9.3); % Neutrophils 83.4 % (42.2-75.2); Absolute Basophils 0.1 10^3/uL (0-0.2); Absolute Eosinophils 0.1 10^3/uL (0-0.7); Absolute Immature Granulocytes 0.1 10^3/uL (0-0.05); Absolute Neutrophils 11.2 10^3/uL (1.4-6.5); Hematocrit 26.9 % (39.0-52.0); Hemoglobin 8.8 g/dL (13.0-18.0); Mean Corp Hgb Conc. 32.7 g/dL (33.0-37.0); Mean Corpuscular Hgb 25.4 pg (27.0-31.0); Mean Corpuscular Volume 77.7 fL (80.0-94.0); Mean Platelet Volume 9.4 fL (7.4-10.4); Nucleated Red Blood Cells % 0 % (-); Platelet Count 243 10^3/uL (130-400); Red Blood Cell Count 3.46 10^6/uL (4.70-6.10); Red Cell Dist. Width 15.9 % (11.5-14.5); White Blood Cell Count 13.4 10^3/uL (4.8-10.8)
[2024-07-16] MEDS: GLUCOTROL 10 MG PO ×2 (08:37→20:10)
[2024-07-16] MEDS: FLOMAX 0.4 MG PO (08:37)
[2024-07-16] MEDS: NORVASC 5 MG PO (08:37)
[2024-07-16] MEDS: PROTONIX 20 MG PO (08:37)
[2024-07-16] MEDS: COREG 6.25 MG PO ×2 (08:37→20:10)
[2024-07-16] MEDS: PAXIL 40 MG PO (08:37)
[2024-07-16] MEDS: ASPIR LOW (ENTERIC COATED) 81 MG PO (08:37)
[2024-07-16] MEDS: FEOSOL 325 MG PO (08:37)
[2024-07-16] MEDS: PLAVIX 75 MG PO (08:37)
[2024-07-16] MEDS: THERAGRAN 1 TABLET PO (08:37)
[2024-07-16] MEDS: NOVOLOG FLEXPEN 20 UNITS SC ×2 (08:38→12:32)
[2024-07-16] MEDS: NOVOLOG FLEXPEN-LOW RESISTANCE 1 UNITS SC ×2 (08:38→12:33)
[2024-07-16 08:43] LABS: Blood Urea Nitrogen 18 mg/dl (9-20); Calcium 8.1 mg/dl (8.4-10.2); Carbon Dioxide 21 mmol/L (22-30); Chloride 103 mmol/L (98-107); Estimated Creatinine Clearance 46 ml/min; Glucose 163 mg/dl (70-99); Potassium 3.8 mmol/L (3.5-5.1); Sodium 133 mmol/L (135-145); eGFR > 60.00
--- NOTE | 2024-07-16 08:53 | W.PN.UPDATE ---
Update Note
Progress Note Update
Outpatient culture obtained from [facility]
--- NOTE | 2024-07-16 08:54 | W.PN.ID1 ---
Date of Service
Date of Service: July 16, 2024
Today's Communication
- start cefepime and oral metrondiazole
- stop vancomycin and unasyn
Assessment / Plan
Surgical Site Infection
Diabetic Foot Infection
DM2 - with poor control
H/o smoking
Medication compliance has been a concern in the past, does have good social support
- note vascular plans to assess stent patency and consider further procedures pending those data
- outpatient wound culture with Enterobacter cloacae and GBS
- blood cultures x2 in progress
- 'No convincing CT evidence for residual/recurrent or new sites of osteomyelitis in the foot'
- QTc 425
- start cefepime and oral metrondiazole
- stop vancomycin and unasyn
- recommend tight outpatient glucose control
Chief Complaint
-: Other (surgical site infection, diabetic foot infection)
Subjective / Review of Systems
tmax 100.4
bp stable
no complaints
Vital Signs / Physical Exam
Vital Signs
Vital Signs
Temp Pulse Resp BP Pulse Ox
97.6 F 79 22 140/68 98
07/16/24 07:30 07/16/24 07:30 07/16/24 07:30 07/16/24 07:30 07/16/24 07:30
Physical Exam
Constitutional: No Acute Distress
Cardiovascular: Regular Rate and S1/S2; Negative Murmur or Rub
Pulmonary: Clear and Symmetric; Negative Wheezes or Rales
Gastrointestinal: Soft, Non Tender, Non Distended and Normal Bowel Sounds
Skin: Warm and Dry; Negative Rash or Jaundice
Wound: Other (nearly resolved erythema over the surgical site, no swelling, no drainage)
Objective Data
Lab Data
Lab Results
07/16/24 07:33
07/16/24 07:33
ESR 72 mm/hour (0-20) H 07/14/24 13:26
Estimated Creat Clear 46 ml/min 07/16/24 07:33
Lactic Acid Cancelled 07/14/24 17:00
C-Reactive Protein > 270.00 mg/L (0.0-10.00) H 07/14/24 13:26
Most recent labs reviewed.
Micro Results:
07/14/24 13:26 Blood Culture - Preliminary
Blood/Venous No Growth in 24 hours- Final report to follow
07/14/24 13:28 Blood Culture - Preliminary
Blood/Venous No Growth in 24 hours- Final report to follow
[2024-07-16 09:35] LABS: Erythrocyte Sed Rate 94 mm/hour (0-20)
[2024-07-16] MEDS: QUESTRAN 4 GRAM PO ×3 (09:58→22:15)
[2024-07-16] MEDS: MAXIPIME 2000 MG IV ×2 (10:06→20:11)
[2024-07-16] MEDS: STERILE WATER FOR INJECTION 10 ML IV ×2 (10:07→20:10)
[2024-07-16 12:02] LABS: Glucose - Point of Care 199 mg/dl (70-99)
--- NOTE | 2024-07-16 13:30 | CM ---
CM reviewed chart, patient seen bedside with . Patient denies needs from CM at this time. Patient remains on IV antibiotics. Patient is followed by [facility]. CM will continue to follow for all discharge planning needs.
Plan; home with , [facility], watch or IV antibiotic needs
[2024-07-16 15:00] VITALS: BP 120/81
--- NOTE | 2024-07-16 16:24 | W.PN.HOSP.TC ---
Today's Communication/Plan
-
continue Unasyn
Assessment / Plan
Assessment / Plan
#left foot cellulitis
#recent Hx osteo
#Hx PAD
WBC 14.3-->14.9-->13.4
Blood Cx: NGTD
significant gram negative bacilli on patient's culture from out patient culture of wound done last Friday
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 There is no definite findings of osteomyelitis.
There is small foci of subcutaneous gas within the distal lateral aspect of the foot which is likely secondary to soft tissue infection.
- Admit to med/surg
- Consult Podiatry, inf disease and vasc surg
- IV Cefepime
- supportive care
CT scan: Postoperative changes with probable cellulitis in the lateral forefoot soft tissues as described. No discrete abscess. No convincing CT evidence for residual/recurrent or new sites of osteomyelitis in the foot.
#hyponatremia
131-->133-->133
likely secondary to Hyperglycemia
Corrected Na+ 135
- monitor BMP
#Hyperlipidemia
- continue aspirin and atorvastatin
#Type 2 diabetes
- AccuCheck AC & HS
- SSI
- continue Lantus, dose adjusted
- continue Insulin Aspart
glu 71-199
will adjust insulin
#Iron deficiency anemia
hgb 10.2, hct 31.4 (stable)
- continue ferrous sulfate
#Hypertension
- continue amlodipine, Coreg
#Hx TIA
- continue clopidogrel
#GERD
- continue pantoprazole
#depression/anxiety
- continue paroxetine
#BPH
#Hx Prostate cancer
#Proctitis
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
- continue tamsulosin
#Coronary artery disease
#[place]
s/p stent placement
Code status: Full code
DVT prophylaxis: Lovenox sq
Anticipated Discharge: > 48 hours
Subjective/Interval History
-
Date of Service: July 16, 2024
Awake, alert, appears better than yesterday
Objective Data
-
Labs:
Laboratory Results
07/16/24
07:33
WBC 13.4 H
Hgb 8.8 L
Hct 26.9 L
Plt Count 243
Sodium 133 L
Potassium 3.8
Chloride 103
Carbon Dioxide 21 L
BUN 18
Creatinine 1.1
Glucose 163 H
Calcium 8.1 L
Vital Signs:
Vital Signs
Temp Pulse Resp BP Pulse Ox
97.6 F 79 22 140/68 98
07/16/24 07:30 07/16/24 07:30 07/16/24 07:30 07/16/24 07:30 07/16/24 07:30
I&O
07/15/24 07/16/24 07/17/24
06:59 06:59 06:59
Intake Total 120 / 120 2230 / 2230
Output Total 1800 / 1800 1550 / 1550
Balance -1680 / -1680 680 / 680
Review of Systems
-
History Source: Patient and Family ( at bedside)
Constitutional: Denies Fever
Respiratory: Reports No Symptoms
Cardiac: Reports No Symptoms
Abdomen/GI: Reports No Symptoms
Musculoskeletal: Reports Other (left foot surgically wrapped)
Physical Exam
-
General: Well Developed, Well Nourished and No Apparent Distress
HEENT: Normocephalic, Atraumatic and Moist Mucous Membranes
Respiratory: Clear to Auscultation; Negative Wheezes, Rales or Rhonchi
Cardiac: Regular Rhythm and S1/S2
GI: Soft, Nontender and Nondistended
Musculoskeletal: No Clubbing, No Cyanosis, No Edema and Other (left foot surgically wrapped)
Neuro: Awake, Alert and Oriented
[2024-07-16 16:44] LABS: Glucose - Point of Care 77 mg/dl (70-99)
--- NOTE | 2024-07-16 16:48 | PTCARENOTE ---
Dr Potts aware of blood sugar of 77. Has order for 20units Asparte. ordered to only give 10units and give it after he eats.
[2024-07-16] MEDS: NOVOLOG FLEXPEN-LOW RESISTANCE SC (16:54)
[2024-07-16] MEDS: NOVOLOG FLEXPEN 10 UNITS SC (18:00)
[2024-07-16] MEDS: LOVENOX 40 MG SC (18:03)
[2024-07-16 18:04] LABS: Glucose - Point of Care 175 mg/dl (70-99)
[2024-07-16] MEDS: LANTUS 0.2 UNITS SC (18:06)
[2024-07-16 20:04] VITALS: BP 139/79
[2024-07-16] MEDS: FLAGYL 500 MG PO (20:10)
[2024-07-16 20:17] LABS: Glucose - Point of Care 155 mg/dl (70-99)
[2024-07-16 21:03] LABS: Glucose - Point of Care 162 mg/dl (70-99)
[2024-07-16] MEDS: LIPITOR 80 MG PO (22:15)
[2024-07-16 23:40] VITALS: BP 131/64
[2024-07-17] MEDS: ANESTHETIC LOZENGE 1 LOZENGE PO ×3 (01:52→13:51)
[2024-07-17] MEDS: TYLENOL 650 MG PO (01:52)
[2024-07-17 07:00] VITALS: BP 113/61
[2024-07-17 07:00] LABS: % Basophils 0.4 % (0-2); % Eosinophils 1.5 % (0-6); % Immature Granulocytes 0.7 % (0-0.5); % Lymphocytes 8.4 % (20.5-51.1); Absolute Basophils 0.1 10^3/uL (0-0.2); Absolute Eosinophils 0.2 10^3/uL (0-0.7); Absolute Immature Granulocytes 0.1 10^3/uL (0-0.05); Absolute Lymphocytes 1.3 10^3/uL (1.2-3.4); Absolute Monocytes 1.2 10^3/uL (0.1-0.6); Absolute Neutrophils 12.1 10^3/uL (1.4-6.5); Hematocrit 25.7 % (39.0-52.0); Hemoglobin 8.3 g/dL (13.0-18.0); Mean Corp Hgb Conc. 32.3 g/dL (33.0-37.0); Mean Corpuscular Volume 77.4 fL (80.0-94.0); Mean Platelet Volume 9.1 fL (7.4-10.4); Nucleated Red Blood Cells % 0 % (-); Platelet Count 252 10^3/uL (130-400); Red Blood Cell Count 3.32 10^6/uL (4.70-6.10); Red Cell Dist. Width 15.9 % (11.5-14.5)
[2024-07-17 07:25] LABS: Blood Urea Nitrogen 23 mg/dl (9-20); Calcium 8.2 mg/dl (8.4-10.2); Carbon Dioxide 22 mmol/L (22-30); Chloride 101 mmol/L (98-107); Estimated Creatinine Clearance 46 ml/min; Glucose 235 mg/dl (70-99); Potassium 4.1 mmol/L (3.5-5.1); Sodium 133 mmol/L (135-145); eGFR > 60.00
[2024-07-17 08:40] LABS: Erythrocyte Sed Rate 106 mm/hour (0-20)
[2024-07-17] MEDS: FEOSOL 325 MG PO (09:10)
[2024-07-17] MEDS: PLAVIX 75 MG PO (09:10)
[2024-07-17] MEDS: MAXIPIME 2000 MG IV ×2 (09:10→20:09)
[2024-07-17] MEDS: THERAGRAN 1 TABLET PO (09:10)
[2024-07-17] MEDS: NORVASC 5 MG PO (09:10)
[2024-07-17] MEDS: GLUCOTROL 10 MG PO ×2 (09:10→20:08)
[2024-07-17] MEDS: PROTONIX 20 MG PO (09:10)
[2024-07-17] MEDS: PAXIL 40 MG PO (09:10)
[2024-07-17] MEDS: FLOMAX 0.4 MG PO (09:10)
[2024-07-17] MEDS: FLAGYL 500 MG PO ×2 (09:10→20:18)
[2024-07-17] MEDS: STERILE WATER FOR INJECTION 10 ML IV ×2 (09:10→20:09)
[2024-07-17] MEDS: COREG 6.25 MG PO ×2 (09:10→20:08)
[2024-07-17] MEDS: ASPIR LOW (ENTERIC COATED) 81 MG PO (09:10)
[2024-07-17] MEDS: QUESTRAN 4 GRAM PO ×3 (09:10→21:59)
[2024-07-17 10:04] LABS: Glucose - Point of Care 227 mg/dl (70-99)
[2024-07-17 11:22] LABS: Glucose - Point of Care 236 mg/dl (70-99)
[2024-07-17] MEDS: NOVOLOG FLEXPEN 20 UNITS SC ×3 (11:22→18:10)
[2024-07-17] MEDS: NOVOLOG FLEXPEN-LOW RESISTANCE 2 UNITS SC (11:23)
[2024-07-17 14:09] LABS: Glucose - Point of Care 322 mg/dl (70-99)
[2024-07-17] MEDS: NOVOLOG FLEXPEN-LOW RESISTANCE 4 UNITS SC (14:11)
[2024-07-17 15:00] VITALS: BP 146/67
[2024-07-17 17:28] LABS: Glucose - Point of Care 162 mg/dl (70-99)
[2024-07-17] MEDS: NOVOLOG FLEXPEN-LOW RESISTANCE 1 UNITS SC (17:29)
--- NOTE | 2024-07-17 18:25 | W.PN.HOSP.TC ---
Today's Communication/Plan
-
adjust insulin
continue IV abx
Assessment / Plan
Assessment / Plan
#left foot cellulitis
#recent Hx osteo
#Hx PAD
WBC 14.3-->14.9-->13.4-->15.0
Blood Cx: NGTD
significant gram negative bacilli on patient's culture from out patient culture of wound done last Friday
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 There is no definite findings of osteomyelitis.
There is small foci of subcutaneous gas within the distal lateral aspect of the foot which is likely secondary to soft tissue infection.
- Admit to med/surg
- Consult Podiatry, inf disease and vasc surg
- IV Cefepime
- supportive care
CT scan: Postoperative changes with probable cellulitis in the lateral forefoot soft tissues as described. No discrete abscess. No convincing CT evidence for residual/recurrent or new sites of osteomyelitis in the foot.
#hyponatremia
131-->133-->133
likely secondary to Hyperglycemia
Corrected Na+ 135
- monitor BMP
#Hyperlipidemia
- continue aspirin and atorvastatin
#Type 2 diabetes
- AccuCheck AC & HS
- SSI
- continue Lantus, dose adjusted
- continue Insulin Aspart
glu 71-199
will adjust insulin
a1c 9.7%
#Iron deficiency anemia
hgb 10.2, hct 31.4 (stable)
- continue ferrous sulfate
#Hypertension
- continue amlodipine, Coreg
#Hx TIA
- continue clopidogrel
#GERD
- continue pantoprazole
#depression/anxiety
- continue paroxetine
#BPH
#Hx Prostate cancer
#Proctitis
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
- continue tamsulosin
#Coronary artery disease
#AK
s/p stent placement
Code status: Full code
DVT prophylaxis: Lovenox sq
Anticipated Discharge: > 48 hours
Subjective/Interval History
-
Date of Service: July 17, 2024
Pt appears brighter today
Objective Data
-
Labs:
Laboratory Results
07/17/24
06:42
WBC 15.0 H
Hgb 8.3 L
Hct 25.7 L
Plt Count 252
Sodium 133 L
Potassium 4.1
Chloride 101
Carbon Dioxide 22
BUN 23 H
Creatinine 1.1
Glucose 235 H
Calcium 8.2 L
Vital Signs:
Vital Signs
Temp Pulse Resp BP Pulse Ox
97.8 F 89 24 146/67 98
07/17/24 15:00 07/17/24 15:00 07/17/24 15:00 07/17/24 15:00 07/17/24 15:00
I&O
07/16/24 07/17/24 07/18/24
06:59 06:59 06:59
Intake Total 2230 / 2230 1921 / 192
Output Total 1550 / 1550 2450 / 2450
Balance 680 / 680 -529 / -529
Review of Systems
-
History Source: Patient and Family ( at bedside, dgt present with many questions)
Constitutional: Denies Fever
Respiratory: Reports No Symptoms
Cardiac: Reports No Symptoms
Abdomen/GI: Reports No Symptoms
Musculoskeletal: Reports Other (left foot surgically wrapped)
Physical Exam
-
General: Well Developed, Well Nourished and No Apparent Distress
HEENT: Normocephalic, Atraumatic and Moist Mucous Membranes
Respiratory: Clear to Auscultation; Negative Wheezes, Rales or Rhonchi
Cardiac: Regular Rhythm and S1/S2
GI: Soft, Nontender and Nondistended
Musculoskeletal: No Clubbing, No Cyanosis, No Edema and Other (left foot surgically wrapped)
Neuro: Awake, Alert and Oriented
[2024-07-17 18:58] LABS: Glucose - Point of Care 151 mg/dl (70-99)
[2024-07-17] MEDS: LOVENOX 40 MG SC (19:28)
[2024-07-17 21:49] LABS: Glucose - Point of Care 62 mg/dl (70-99)
[2024-07-17] MEDS: LIPITOR 80 MG PO (21:59)
[2024-07-17 22:26] LABS: Glucose - Point of Care 101 mg/dl (70-99)
[2024-07-17 23:02] LABS: Glucose - Point of Care 91 mg/dl (70-99)
[2024-07-17 23:15] VITALS: BP 151/68
[2024-07-17] MEDS: LANTUS SC (23:28)
--- NOTE | 2024-07-17 23:29 | PTCARENOTE ---
Pt blood sugar at HS was 62. Hypoglycemic protocol followed. Pt drank 4 oz of orange juice and blood sugar rechecked in 15 minuted to be 101. PT not eating of drinking anything throughout the night. Blood sugar rechecked at 2300 and came down to 91.
Lantus 20 units help for HS.
[2024-07-18 05:07] LABS: Glucose - Point of Care 73 mg/dl (70-99)
[2024-07-18 07:00] VITALS: BP 126/65
[2024-07-18 07:47] LABS: % Basophils 0.3 % (0-2); % Eosinophils 0.4 % (0-6); % Immature Granulocytes 0.9 % (0-0.5); % Lymphocytes 7.5 % (20.5-51.1); % Monocytes 7.1 % (1.7-9.3); % Neutrophils 83.8 % (42.2-75.2); Absolute Basophils 0.1 10^3/uL (0-0.2); Absolute Eosinophils 0.1 10^3/uL (0-0.7); Absolute Immature Granulocytes 0.2 10^3/uL (0-0.05); Absolute Lymphocytes 1.3 10^3/uL (1.2-3.4); Absolute Monocytes 1.2 10^3/uL (0.1-0.6); Absolute Neutrophils 14.6 10^3/uL (1.4-6.5); Hematocrit 28.2 % (39.0-52.0); Hemoglobin 9.1 g/dL (13.0-18.0); Mean Corp Hgb Conc. 32.3 g/dL (33.0-37.0); Mean Corpuscular Hgb 24.9 pg (27.0-31.0); Mean Corpuscular Volume 77.3 fL (80.0-94.0); Mean Platelet Volume 9.3 fL (7.4-10.4); Nucleated Red Blood Cells % 0 % (-); Platelet Count 290 10^3/uL (130-400); Red Blood Cell Count 3.65 10^6/uL (4.70-6.10); White Blood Cell Count 17.4 10^3/uL (4.8-10.8)
[2024-07-18 08:01] LABS: Blood Urea Nitrogen 22 mg/dl (9-20); Calcium 8.5 mg/dl (8.4-10.2); Carbon Dioxide 23 mmol/L (22-30); Chloride 102 mmol/L (98-107); Estimated Creatinine Clearance 46 ml/min; Glucose 57 mg/dl (70-99); Sodium 135 mmol/L (135-145); eGFR > 60.00
[2024-07-18 08:21] LABS: Glucose - Point of Care 64 mg/dl (70-99)
[2024-07-18] MEDS: NOVOLOG FLEXPEN-LOW RESISTANCE SC ×2 (08:33→18:20)
[2024-07-18] MEDS: ASPIR LOW (ENTERIC COATED) 81 MG PO (08:34)
[2024-07-18] MEDS: FLOMAX 0.4 MG PO (08:34)
[2024-07-18] MEDS: NORVASC 5 MG PO (08:34)
[2024-07-18] MEDS: COREG 6.25 MG PO ×2 (08:34→19:59)
[2024-07-18] MEDS: PROTONIX 20 MG PO (08:34)
[2024-07-18] MEDS: THERAGRAN 1 TABLET PO (08:34)
[2024-07-18] MEDS: PLAVIX 75 MG PO (08:34)
[2024-07-18] MEDS: FLAGYL 500 MG PO ×2 (08:34→20:03)
[2024-07-18] MEDS: FEOSOL 325 MG PO (08:34)
[2024-07-18] MEDS: PAXIL 40 MG PO (08:34)
[2024-07-18] MEDS: GLUCOTROL PO (08:35)
[2024-07-18 08:44] LABS: Glucose - Point of Care 98 mg/dl (70-99)
[2024-07-18] MEDS: MAXIPIME 2000 MG IV ×2 (09:26→20:04)
[2024-07-18] MEDS: ULTRAM 50 MG PO ×2 (09:26→20:09)
[2024-07-18] MEDS: NOVOLOG FLEXPEN SC ×2 (09:27→18:38)
[2024-07-18] MEDS: STERILE WATER FOR INJECTION 10 ML IV ×2 (09:27→20:04)
[2024-07-18] MEDS: QUESTRAN 4 GRAM PO ×2 (09:49→15:55)
[2024-07-18 11:07] LABS: Glucose - Point of Care 272 mg/dl (70-99)
--- NOTE | 2024-07-18 11:31 | PTCARENOTE ---
DR Potts aware of am blood sugar of 64. repeat ws 98 at 15 minutes. Glucotrol and 20 units of Asparte were held until he comes to see pt. Pt and updated on changes.
[2024-07-18] MEDS: NOVOLOG FLEXPEN-LOW RESISTANCE 3 UNITS SC (12:13)
[2024-07-18] MEDS: NOVOLOG FLEXPEN 20 UNITS SC (12:14)
[2024-07-18 13:43] LABS: Glucose - Point of Care 261 mg/dl (70-99)
[2024-07-18 15:00] VITALS: BP 106/62
--- NOTE | 2024-07-18 16:20 | W.PN.HOSP.TC ---
Today's Communication/Plan
-
adjust insulin
CBC in AM
Assessment / Plan
Assessment / Plan
#left foot cellulitis
#recent Hx osteo
#Hx PAD
WBC 14.3-->14.9-->13.4-->15.0-->17.[address] Woodruff
Blood Cx: NGTD
significant gram negative bacilli on patient's culture from out patient culture of wound done last Friday
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 There is no definite findings of osteomyelitis.
There is small foci of subcutaneous gas within the distal lateral aspect of the foot which is likely secondary to soft tissue infection.
- Admit to med/surg
- Consulted Podiatry, inf disease and vasc surg
- IV Cefepime and oral Flagyl
- supportive care Unclear why WBC has been rising, Will defer to ID whether further imaging of foot should be considered (?MRI) to look further for cryptic abscess
CT scan: Postoperative changes with probable cellulitis in the lateral forefoot soft tissues as described. No discrete abscess. No convincing CT evidence for residual/recurrent or new sites of osteomyelitis in the foot.
#hyponatremia
131-->133-->133
likely secondary to Hyperglycemia
Corrected Na+ 135
- monitor BMP
ASPVD
for vascular intervention scheduled for Friday 07/21
#Hyperlipidemia
- continue aspirin and atorvastatin
#Type 2 diabetes
- AccuCheck AC & HS
- SSI
- continue Lantus, dose adjusted
- continue Insulin Aspart
glu 73-272
will adjust insulin
a1c 9.7%
glu has been labile
#Iron deficiency anemia
hgb 10.2, hct 31.4 (stable)
- continue ferrous sulfate
#Hypertension
- continue amlodipine, Coreg
#Hx TIA
- continue clopidogrel
#GERD
- continue pantoprazole
#depression/anxiety
- continue paroxetine
#BPH
#Hx Prostate cancer
#Proctitis
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
- continue tamsulosin
#Coronary artery disease
#SD
s/p stent placement
Code status: Full code
DVT prophylaxis: Lovenox sq
Anticipated Discharge: > 48 hours
Subjective/Interval History
-
Date of Service: July 18, 2024
Overall looks better, voice is stronger
Objective Data
-
Labs:
Laboratory Results
07/18/24
06:48
WBC 17.4 H
Hgb 9.1 L
Hct 28.2 L
Plt Count 290
Sodium 135
Potassium 5.0
Chloride 102
Carbon Dioxide 23
BUN 22 H
Creatinine 1.1
Glucose 57 L
Calcium 8.5
Vital Signs:
Vital Signs
Temp Pulse Resp BP Pulse Ox
97.8 F 74 24 126/65 98
07/18/24 07:00 07/18/24 08:34 07/18/24 07:00 07/18/24 08:34 07/18/24 07:00
I&O
07/17/24 07/18/24 07/19/24
06:59 06:59 06:59
Intake Total 1920 / 1920 960 / 960
Output Total 2450 / 2450 2800 / 2800
Balance -529 / -529 -1840 / -1840
Review of Systems
-
History Source: Patient and Family ( at bedside, dgt present with many questions)
Constitutional: Denies Fever
Respiratory: Reports No Symptoms
Cardiac: Reports No Symptoms
Abdomen/GI: Reports No Symptoms
Musculoskeletal: Reports Other (left foot surgically wrapped)
Physical Exam
-
General: Well Developed, Well Nourished and No Apparent Distress
HEENT: Normocephalic, Atraumatic and Moist Mucous Membranes
Respiratory: Clear to Auscultation; Negative Wheezes, Rales or Rhonchi
Cardiac: Regular Rhythm and S1/S2
GI: Soft, Nontender and Nondistended
Musculoskeletal: No Clubbing, No Cyanosis, No Edema and Other (left foot surgically wrapped)
Neuro: Awake, Alert and Oriented
[2024-07-18 17:36] LABS: Glucose - Point of Care 165 mg/dl (70-99)
[2024-07-18 18:08] LABS: Glucose - Point of Care 146 mg/dl (70-99)
[2024-07-18] MEDS: NOVOLOG FLEXPEN 16 UNITS SC (18:20)
[2024-07-18] MEDS: LOVENOX 40 MG SC (18:21)
[2024-07-18] MEDS: GLUCOTROL 10 MG PO (19:59)
[2024-07-18 20:00] VITALS: BP 130/62
[2024-07-18 21:14] LABS: Glucose - Point of Care 124 mg/dl (70-99)
[2024-07-18] MEDS: LANTUS 0.2 UNITS SC (21:52)
[2024-07-18] MEDS: LIPITOR 80 MG PO (21:53)
[2024-07-18] MEDS: QUESTRAN PO ×2 (21:53→21:56)
[2024-07-19] VITALS (10 sets, daily range): BP systolic 18–135; BP diastolic 56–70
[2024-07-19] MEDS: ANESTHETIC LOZENGE 1 LOZENGE PO (05:49)
[2024-07-19 07:56] LABS: % Basophils 0.4 % (0-2); % Lymphocytes 8.9 % (20.5-51.1); % Monocytes 7.8 % (1.7-9.3); % Neutrophils 79.9 % (42.2-75.2); Absolute Basophils 0.1 10^3/uL (0-0.2); Absolute Eosinophils 0.3 10^3/uL (0-0.7); Absolute Immature Granulocytes 0.1 10^3/uL (0-0.05); Absolute Lymphocytes 1.3 10^3/uL (1.2-3.4); Absolute Monocytes 1.1 10^3/uL (0.1-0.6); Absolute Neutrophils 11.3 10^3/uL (1.4-6.5); Hematocrit 28.2 % (39.0-52.0); Hemoglobin 9.1 g/dL (13.0-18.0); Mean Corp Hgb Conc. 32.3 g/dL (33.0-37.0); Mean Corpuscular Hgb 24.8 pg (27.0-31.0); Mean Corpuscular Volume 76.8 fL (80.0-94.0); Mean Platelet Volume 9.2 fL (7.4-10.4); Nucleated Red Blood Cells % 0 % (-); Platelet Count 337 10^3/uL (130-400); Red Blood Cell Count 3.67 10^6/uL (4.70-6.10); White Blood Cell Count 14.2 10^3/uL (4.8-10.8)
[2024-07-19 07:59] LABS: Glucose - Point of Care 90 mg/dl (70-99)
[2024-07-19 08:19] LABS: Blood Urea Nitrogen 25 mg/dl (9-20); Calcium 8.3 mg/dl (8.4-10.2); Carbon Dioxide 24 mmol/L (22-30); Chloride 102 mmol/L (98-107); Estimated Creatinine Clearance 46 ml/min; Glucose 86 mg/dl (70-99); Potassium 4.6 mmol/L (3.5-5.1); Sodium 135 mmol/L (135-145); eGFR > 60.00
--- NOTE | 2024-07-19 08:34 | W.PN.SURGUPD ---
Surgical Update
Surgical Update
89 yo M who is s/p LLE revascularization and subsequent revascularization
-Patient seen and evaluated at bedside, dressings removed and wound inspected
-Some purulent drainage noted from surgical site with erythema extending to plantar foot and 4th toe
-Plan for OR for left foot debridement today
-Plans for repeat revascularization with Dr. Clay on 07/21
-Please keep NPO
-Continue antibiotics per ID recs
[2024-07-19] MEDS: NOVOLOG FLEXPEN SC ×3 (09:18→17:30)
[2024-07-19] MEDS: NOVOLOG FLEXPEN-LOW RESISTANCE SC ×3 (09:22→18:25)
[2024-07-19] MEDS: GLUCOTROL PO (09:23)
[2024-07-19] MEDS: FLOMAX PO (09:23)
[2024-07-19] MEDS: QUESTRAN PO ×2 (09:23→16:00)
[2024-07-19] MEDS: FEOSOL PO (09:23)
[2024-07-19] MEDS: THERAGRAN PO (09:24)
[2024-07-19] MEDS: PLAVIX 75 MG PO (09:28)
[2024-07-19] MEDS: FLAGYL 500 MG PO ×2 (09:28→21:45)
[2024-07-19] MEDS: ASPIR LOW (ENTERIC COATED) 81 MG PO (09:28)
[2024-07-19] MEDS: COREG 6.25 MG PO ×2 (09:29→21:45)
[2024-07-19] MEDS: NORVASC 5 MG PO (09:29)
[2024-07-19] MEDS: PROTONIX 20 MG PO (09:30)
[2024-07-19] MEDS: MAXIPIME 2000 MG IV ×2 (09:34→21:46)
[2024-07-19] MEDS: PAXIL PO (09:34)
[2024-07-19] MEDS: ULTRAM 50 MG PO ×2 (09:34→18:35)
[2024-07-19] MEDS: STERILE WATER FOR INJECTION 10 ML IV ×2 (09:35→21:46)
--- NOTE | 2024-07-19 10:35 | CM ---
CM reviewed chart, patient seen bedside with . Patient for OR today for left foot debridement, plan for repeat revascularization on 07/21. Patient current with [facility], will watch for further recommendations. CM will continue to follow for all
discharge planning needs.
Plan; home with and [facility] when stable
[2024-07-19 12:04] LABS: Glucose - Point of Care 107 mg/dl (70-99)
--- NOTE | 2024-07-19 16:02 | W.PN.HOSP.TC ---
Today's Communication/Plan
-
Assessment / Plan
Assessment / Plan
General: No Apparent Distress, Comfortable and Conversant
HEENT: NormoCephalic, Moist mucous membranes, Atraumatic
Respiratory: Clear and Non Labored Respirations
Cardiac: S1/S2 and Regular Rhythm; No Rub or Gallop
GI: Soft, Non Tender, Non Distended and Normal Bowel Sounds
Musculoskeletal: No Edema, left foot wound dressing clean dry intact
: NO Adams
Neuro: Awake, Alert, Nonfocal/grossly intact
Psych: Calm and Intact Judgment/Insight
#left foot cellulitis
#recent Hx osteo
#Hx PAD
- WBC 14.3-->14.9-->13.4-->15.0-->17.4 --> 14.2
- Blood Cx: NGTD, wound culture from left foot from 06/07/2024 growing MSSA
- IV Cefepime and oral Flagyl
- CT scan: Postoperative changes with probable cellulitis in the lateral forefoot soft tissues as described. No discrete abscess. No convincing CT evidence for residual/recurrent or new sites of osteomyelitis in the foot.
- Planning OR today for debridement
- Planned angiography on Friday 07/21
- Continue tight blood glucose control, currently with long and short acting insulin in addition to glipizide
#hyponatremia
131-->133-->133
- likely pseudohyponatremia secondary to Hyperglycemia
-Resolved
ASPVD
- for vascular intervention scheduled for Friday 07/21
#Hyperlipidemia
- continue aspirin and atorvastatin
#Type 2 diabetes
- AccuCheck AC & HS
- SSI
- continue Lantus, dose adjusted
- continue Insulin Aspart
-Continue glipizide
glu 73-272
will adjust insulin
a1c 9.7%
glu has been labile
#Iron deficiency anemia
- Hemoglobin stable, no evidence of active bleeding
- continue ferrous sulfate
#Hypertension
- continue amlodipine, Coreg
#Hx TIA
- continue clopidogrel
#GERD
- continue pantoprazole
#depression/anxiety
- continue paroxetine
#BPH
#Hx Prostate cancer
#Proctitis
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
- continue tamsulosin
#Coronary artery disease
#NM
s/p stent placement
- Continue low-dose aspirin and high intensity statin therapy
Code status: Full code
DVT prophylaxis: Lovenox sq
Anticipated Discharge: > 48 hours
Subjective/Interval History
-
Date of Service: July 19, 2024
Patient was seen and examined at bedside this morning. Has ongoing left foot pain. Awaiting OR today for washout.
Objective Data
-
Labs:
Laboratory Results
07/19/24
07:18
WBC 14.2 H
Hgb 9.1 L
Hct 28.2 L
Plt Count 337
Sodium 135
Potassium 4.6
Chloride 102
Carbon Dioxide 24
BUN 25 H
Creatinine 1.1
Glucose 86
Calcium 8.3 L
Vital Signs:
Vital Signs
Temp Pulse Resp BP Pulse Ox
98.8 F 76 20 118/63 96
07/19/24 07:00 07/19/24 07:00 07/19/24 07:00 07/19/24 07:00 07/19/24 07:00
I&O
07/18/24 07/19/24 07/20/24
06:59 06:59 06:59
Intake Total 960 / 960 480 / 480
Output Total 2800 / 2800 1500 / 1500 1550 / 1550
Balance -1840 / -1840 -1500 / -1500 -1070 / -1070
Review of Systems
-
History Source: Patient
All other systems: Reviewed and negative
Musculoskeletal: Reports Joint Pain (Left foot pain)
Physical Exam
-
General: No Apparent Distress
--- NOTE | 2024-07-19 16:42 | W.PN.SURGUPD ---
Surgical Update
Surgical Update
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
-Large abscess decompressed, 2x cultures obtained
-Appreciate ID recs
-Dressings to remain C/D/I
-Planning for vascular procedure 07/21
-Will likely need further surgical debridement vs amputation pending vascular findings
[2024-07-19 16:52] LABS: Glucose - Point of Care 98 mg/dl (70-99)
--- NOTE | 2024-07-19 17:15 | PTCARENOTE ---
1715 Pt return from PACU via bed. Pt drowsy, when verbalize to pt, pt did opened eyes and c/o some left foot discomfort. Noted MD orders.
VS stable, continue to monitor pt closely.
[2024-07-19 17:24] LABS: Glucose - Point of Care 91 mg/dl (70-99)
[2024-07-19] MEDS: LANTUS 0.2 UNITS SC (18:34)
[2024-07-19] MEDS: LOVENOX 40 MG SC (18:34)
[2024-07-19] MEDS: DILAUDID 0.25 MG IV (20:15)
[2024-07-19] MEDS: GLUCOTROL 10 MG PO (21:45)
[2024-07-19] MEDS: QUESTRAN 4 GRAM PO (21:45)
[2024-07-19] MEDS: LIPITOR 80 MG PO (21:45)
[2024-07-19] MEDS: TYLENOL 650 MG PO (23:51)
[2024-07-20 03:00] VITALS: BP 122/64
[2024-07-20 07:00] VITALS: BP 102/53
[2024-07-20 07:11] LABS: Glucose - Point of Care 216 mg/dl (70-99)
[2024-07-20] MEDS: NOVOLOG FLEXPEN-LOW RESISTANCE 2 UNITS SC ×2 (08:55→17:29)
[2024-07-20] MEDS: QUESTRAN 4 GRAM PO ×3 (08:55→21:34)
[2024-07-20] MEDS: NOVOLOG FLEXPEN 16 UNITS SC ×3 (08:56→17:29)
[2024-07-20] MEDS: MAXIPIME 2000 MG IV ×2 (08:56→21:33)
[2024-07-20] MEDS: STERILE WATER FOR INJECTION 10 ML IV ×2 (08:57→21:33)
[2024-07-20] MEDS: PAXIL 40 MG PO (08:57)
[2024-07-20] MEDS: NORVASC 5 MG PO (08:57)
[2024-07-20] MEDS: FLAGYL 500 MG PO ×2 (08:58→21:33)
[2024-07-20] MEDS: GLUCOTROL 10 MG PO ×2 (08:58→21:33)
[2024-07-20] MEDS: FLOMAX 0.4 MG PO (08:58)
[2024-07-20] MEDS: PLAVIX 75 MG PO (08:58)
[2024-07-20] MEDS: COREG 6.25 MG PO ×2 (08:58→21:32)
[2024-07-20] MEDS: PROTONIX 20 MG PO (08:58)
[2024-07-20] MEDS: FEOSOL 325 MG PO (08:58)
[2024-07-20] MEDS: ASPIR LOW (ENTERIC COATED) 81 MG PO (08:58)
[2024-07-20] MEDS: THERAGRAN 1 TABLET PO (08:58)
[2024-07-20 09:02] LABS: % Basophils 0.4 % (0-2); % Eosinophils 1.3 % (0-6); % Immature Granulocytes 1.2 % (0-0.5); % Lymphocytes 7.2 % (20.5-51.1); % Monocytes 8.5 % (1.7-9.3); % Neutrophils 81.4 % (42.2-75.2); Absolute Basophils 0.1 10^3/uL (0-0.2); Absolute Eosinophils 0.2 10^3/uL (0-0.7); Absolute Immature Granulocytes 0.2 10^3/uL (0-0.05); Absolute Lymphocytes 1.2 10^3/uL (1.2-3.4); Absolute Monocytes 1.4 10^3/uL (0.1-0.6); Absolute Neutrophils 13.1 10^3/uL (1.4-6.5); Hematocrit 27.8 % (39.0-52.0); Hemoglobin 8.9 g/dL (13.0-18.0); Mean Corpuscular Hgb 24.9 pg (27.0-31.0); Mean Corpuscular Volume 77.7 fL (80.0-94.0); Nucleated Red Blood Cells % 0 % (-); Platelet Count 359 10^3/uL (130-400); Red Blood Cell Count 3.58 10^6/uL (4.70-6.10); Red Cell Dist. Width 15.9 % (11.5-14.5); White Blood Cell Count 16.1 10^3/uL (4.8-10.8)
[2024-07-20 09:23] LABS: Blood Urea Nitrogen 25 mg/dl (9-20); Calcium 7.9 mg/dl (8.4-10.2); Carbon Dioxide 26 mmol/L (22-30); Chloride 99 mmol/L (98-107); Estimated Creatinine Clearance 46 ml/min; Glucose 193 mg/dl (70-99); Potassium 4.6 mmol/L (3.5-5.1); Sodium 132 mmol/L (135-145); eGFR > 60.00
[2024-07-20 11:31] LABS: Glucose - Point of Care 406 mg/dl (70-99)
[2024-07-20 11:33] LABS: Glucose - Point of Care 371 mg/dl (70-99)
[2024-07-20] MEDS: NOVOLOG FLEXPEN-LOW RESISTANCE 5 UNITS SC (12:05)
--- NOTE | 2024-07-20 13:08 | PN.CDI ---
CDI
- -
CDI:
Physician Documentation Request
Admit Date: 07/15/24 12:43
Dear Doctor Nola,
Patient admitted for foot infection.
07/14 Foot XRay: 'There is small foci of subcutaneous gas within the distal lateral aspect of the foot which is likely secondary to soft tissue infection.'
07/19 Operative Note: ' All nonviable tissue was removed, and significant abscess was cultured and flushed'
Based on the above, could you clarify in the progress notes, the appropriate diagnosis, if significant, that supports the above abnormalities and additional evaluation, monitoring and/or treatment rendered:
Gas gangrene
Gangrene
Subcutaneous gas only
Other
Use of terms such as suspected, likely, concern for, or probable (associated with a specific diagnosis that is being evaluated, monitored, or treated as if it exists) are acceptable and can be coded in the inpatient setting, when documented at the
time of discharge.
Thank you,
Ade Antunez RN, BSN
CDI Specialist
Available via [place] text
Please use your independent medical judgment in providing your response.
[2024-07-20 15:00] VITALS: BP 121/56
--- NOTE | 2024-07-20 15:08 | W.PN.HOSP.TC ---
Today's Communication/Plan
-
Assessment / Plan
Assessment / Plan
General: No Apparent Distress, Comfortable and Conversant
HEENT: NormoCephalic, Moist mucous membranes, Atraumatic
Respiratory: Clear and Non Labored Respirations
Cardiac: S1/S2 and Regular Rhythm; No Rub or Gallop
GI: Soft, Non Tender, Non Distended and Normal Bowel Sounds
Musculoskeletal: No Edema, left foot wound dressing clean dry intact
: NO Adams
Neuro: Awake, Alert, Nonfocal/grossly intact
Psych: Calm and Intact Judgment/Insight
#left foot cellulitis
#recent Hx osteo
#Hx PAD
-Status post OR yesterday 07/19 with podiatry for left foot I&D and left fourth toe amputation left open
- Persistent leukocytosis of 16,000 today
- Blood culture with no growth to date, wound culture from left foot growing strep agalactiae
- IV Cefepime and oral Flagyl, culture sensitivities pending
- Planned angiography tomorrow Friday 07/21
- Continue tight blood glucose control, currently with long and short acting insulin in addition to glipizide
- Further recommendations per podiatry and vascular surgery
#hyponatremia
131-->133-->133
- likely pseudohyponatremia secondary to recurrent hyperglycemia
ASPVD
- for vascular intervention scheduled for Friday 07/21
#Hyperlipidemia
- continue aspirin and atorvastatin
#Type 2 diabetes
- AccuCheck AC & HS
- SSI
- continue Lantus, dose adjusted
- continue Insulin Aspart
-Continue glipizide
glu 73-272
will adjust insulin
a1c 9.7%
glu has been labile diabetes nurse practitioner assistance
#Iron deficiency anemia
- Hemoglobin stable, no evidence of active bleeding
- continue ferrous sulfate
#Hypertension
- continue amlodipine, Coreg
#Hx TIA
- continue clopidogrel
#GERD
- continue pantoprazole
#depression/anxiety
- continue paroxetine
#BPH
#Hx Prostate cancer
#Proctitis
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
- continue tamsulosin
#Coronary artery disease
#ME
s/p stent placement
- Continue low-dose aspirin and high intensity statin therapy
Code status: Full code
DVT prophylaxis: Lovenox sq
Total time spent 55 minutes
Anticipated Discharge: > 48 hours
Subjective/Interval History
-
Date of Service: July 20, 2024
Patient was seen and examined at bedside this morning. Continues to have left foot pain which she states is improved this morning compared to last evening following surgery.
Objective Data
-
Labs:
Laboratory Results
07/20/24
08:15
WBC 16.1 H
Hgb 8.9 L
Hct 27.8 L
Plt Count 359
Sodium 132 L
Potassium 4.6
Chloride 99
Carbon Dioxide 26
BUN 25 H
Creatinine 1.1
Glucose 193 H
Calcium 7.9 L
Vital Signs:
Vital Signs
Temp Pulse Resp BP Pulse Ox
97.9 F 71 20 102/53 95
07/20/24 07:00 07/20/24 07:00 07/20/24 07:00 07/20/24 08:57 07/20/24 08:00
I&O
07/19/24 07/20/24 07/21/24
06:59 06:59 06:59
Intake Total 480 / 480
Output Total 1500 / 1500 3050 / 3050
Balance -1500 / -1500 -2570 / -2570
Review of Systems
-
History Source: Patient
All other systems: Reviewed and negative
Musculoskeletal: Reports Joint Pain (Left foot pain)
Physical Exam
-
General: No Apparent Distress
--- NOTE | 2024-07-20 16:09 | W.PN.SURGUPD ---
Surgical Update
Surgical Update
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
-Patient seen and evaluated at bedside
-Appreciate ongoing ID recs
-Dressings to remain C/D/I
-Planning for vascular procedure 07/21
-Had lengthy discussion about limb salvage attempt in setting of severe left foot infection. Patient will likely require TMA vs proximal amputation for infection control. Patient would like definitive surgical management which is reasonable.
-Will await vascular findings and further re-evaluate
[2024-07-20] MEDS: ULTRAM 50 MG PO (16:33)
[2024-07-20 16:52] LABS: Glucose - Point of Care 205 mg/dl (70-99)
--- NOTE | 2024-07-20 17:04 | W.PN.ID1 ---
Date of Service
Date of Service: July 20, 2024
Today's Communication
- continue cefepime and oral metrondiazole
- add levofloxacin pending sensi of the 07/19 GNR - however not certain that we are getting adequate levels in the tissue
- agree with further limb salvage efforts
Assessment / Plan
Surgical Site Infection
Diabetic Foot Infection
DM2 - with poor control
H/o smoking
Medication compliance has been a concern in the past, does have good social support
- 07/19 OR cultures also with GNR and GBS - despite what should be effective antibiotics, implies that adequate levels may not be reaching the tissues due to microvascular compromise will
- outpatient wound culture with Enterobacter cloacae and GBS
- blood cultures x2 in progress
- 'No convincing CT evidence for residual/recurrent or new sites of osteomyelitis in the foot'
- QTc 425
- continue cefepime and oral metrondiazole
- add levofloxacin pending sensi of the 07/19 GNR - however not certain that we are getting adequate levels in the tissue
- agree with further limb salvage efforts
- recommend tight outpatient glucose control
Chief Complaint
-: Other (surgical site infection, diabetic foot infection)
Subjective / Review of Systems
afebrile
bp stable
s/p Left partial 4th ray amputation yesterday
tolerating current therapies
Vital Signs / Physical Exam
Vital Signs
Vital Signs
Temp Pulse Resp BP Pulse Ox
99.4 F 80 18 121/56 98
07/20/24 15:00 07/20/24 15:00 07/20/24 15:07/20/24 15:00 07/20/24 15:00
Physical Exam
Constitutional: No Acute Distress
Cardiovascular: Regular Rate and S1/S2; Negative Murmur or Rub
Pulmonary: Clear and Symmetric; Negative Wheezes or Rales
Gastrointestinal: Soft, Non Tender, Non Distended and Normal Bowel Sounds
Skin: Warm and Dry; Negative Rash or Jaundice
Wound: Other (surgical dressing clean, dry and intact)
Objective Data
Lab Data
Lab Results
07/20/24 08:15
07/20/24 08:15
ESR 106 mm/hour (0-20) H 07/17/24 06:42
Estimated Creat Clear 46 ml/min 07/20/24 08:15
Lactic Acid Cancelled 07/14/24 17:00
C-Reactive Protein > 270.00 mg/L (0.0-10.00) H 07/14/24 13:26
Most recent labs reviewed.
Micro Results:
07/19/24 16:02 Wound Culture - Preliminary
Foot - Left Gram negative bacilli
Streptococcus agalactiae
Gram Stain - Preliminary
07/19/24 16:02 Anaerobic Culture - Preliminary
Foot - Left Culture pending. Anaerobic cultures are examined after 3
days incubation. Additional information to follow.
07/19/24 16:02 Wound Culture - Preliminary
Foot - Left Gram negative bacilli
Streptococcus agalactiae
Gram Stain - Preliminary
07/19/24 16:02 Anaerobic Culture - Preliminary
Foot - Left Culture pending. Anaerobic cultures are examined after 3
days incubation. Additional information to follow.
07/14/24 13:26 Blood Culture - Final
Blood/Venous No Growth - Final Report
07/14/24 13:28 Blood Culture - Final
Blood/Venous No Growth - Final Report
[2024-07-20] MEDS: LOVENOX 40 MG SC (17:30)
[2024-07-20] MEDS: LANTUS 0.2 UNITS SC (17:31)
[2024-07-20] MEDS: LEVAQUIN 750 MG PO (21:33)
[2024-07-20] MEDS: LIPITOR 80 MG PO (21:33)
[2024-07-20 22:22] LABS: Glucose - Point of Care 133 mg/dl (70-99)
[2024-07-20 23:13] VITALS: BP 115/60
[2024-07-21] VITALS (14 sets, daily range): BP systolic 106–151; BP diastolic 53–65
[2024-07-21] MEDS: ULTRAM 50 MG PO ×3 (01:27→23:16)
[2024-07-21 05:16] LABS: Glucose - Point of Care 60 mg/dl (70-99)
[2024-07-21] MEDS: DEXTROSE 50% SYRINGE 12.5 GRAMS IV (05:18)
--- NOTE | 2024-07-21 05:24 | PTCARENOTE ---
Addendum entered by Nallely Scott RN 07/21/24 06:08:
Blood sugar WNL. Last reading 109. Provider notified. No new orders placed.
Original Note:
patient with a blood sugar 60. Patient is NPO for a procedure today. Hypoglycemia protocol initiated. First dose IV dextrose administered. Recheck blood sugar in 15 minutes
[2024-07-21 05:40] LABS: Glucose - Point of Care 123 mg/dl (70-99)
[2024-07-21 05:58] LABS: Glucose - Point of Care 109 mg/dl (70-99)
--- NOTE | 2024-07-21 07:16 | PN.DE.MGMTRT ---
Insulin Management
- -
07/21/2024 Diabetes Management Consult
Patient admitted 07/14 with worsening L foot infection and pain. PMH HTN, HLD, diabetes, prostate CA, CAD, cardiomyopathy, PAD, [place] GERD, TIA, iron deficiency anemia. Prior to admission was taking glipizide 10 mg BID, novolog 20 units AC and lantus
20 units @ hs. A1C on admission 9.7%.
POD 2 s/p L 4th toe partial amputation and debridement. For procedure today. Currently NPO. Patient off the floor at the time of my visit.
Patient has had multiple episodes of hypoglycemia alternating with hyperglycemia. Will Stop glipizide and continue to adjust insulin regimen. Will reduce HS lantus to 18 units and continue 16 units novolog AC with low corrective insulin.
Discussed with nurse.
Will follow
Diabetes History
- -
Type of Diabetes: 2 requiring insulin
Pre-Admission Diabetes Regimen
07/20/24
08:15
Creatinine 1.1
Lab Results
Hemoglobin A1c 9.7 % (4.0-5.6) H 07/15/24 07:25
Insulin Pump Settings
IP Diabetes Regimen
07/20/24 07/20/24 07/20/24
08:15 11:30 11:31
Glucose 193 H
POC Glucose 406 H 371 H
07/20/24 07/20/24 07/21/24
16:50 22:20 05:14
Glucose
POC Glucose 205 H 133 H 60 L
07/21/24 07/21/24
05:39 05:56
Glucose
POC Glucose 123 H 109 H
Meal type: Lunch
Meal type: Breakfast
Amount consumed: 100%
Amount consumed: 100%
Patient Education
[2024-07-21] MEDS: NOVOLOG FLEXPEN SC ×3 (07:34→16:47)
[2024-07-21] MEDS: NORVASC 5 MG PO (07:43)
[2024-07-21] MEDS: PAXIL 40 MG PO (07:44)
[2024-07-21] MEDS: QUESTRAN 4 GRAM PO ×3 (07:44→20:33)
[2024-07-21] MEDS: PLAVIX 75 MG PO (07:44)
[2024-07-21] MEDS: FEOSOL 325 MG PO (07:44)
[2024-07-21] MEDS: PROTONIX 20 MG PO (07:44)
[2024-07-21] MEDS: FLOMAX 0.4 MG PO (07:44)
[2024-07-21] MEDS: THERAGRAN 1 TABLET PO (07:44)
[2024-07-21] MEDS: FLAGYL 500 MG PO (07:44)
[2024-07-21] MEDS: ASPIR LOW (ENTERIC COATED) 81 MG PO (07:44)
[2024-07-21] MEDS: COREG 6.25 MG PO ×2 (07:44→20:33)
[2024-07-21] MEDS: STERILE WATER FOR INJECTION 10 ML IV ×2 (07:45→17:59)
[2024-07-21] MEDS: MAXIPIME 2000 MG IV (07:46)
[2024-07-21 08:01] LABS: % Basophils 0.5 % (0-2); % Eosinophils 1.6 % (0-6); % Immature Granulocytes 1.7 % (0-0.5); % Lymphocytes 8.5 % (20.5-51.1); % Monocytes 6.9 % (1.7-9.3); % Neutrophils 80.8 % (42.2-75.2); Absolute Basophils 0.1 10^3/uL (0-0.2); Absolute Eosinophils 0.2 10^3/uL (0-0.7); Absolute Immature Granulocytes 0.2 10^3/uL (0-0.05); Absolute Lymphocytes 1.1 10^3/uL (1.2-3.4); Absolute Monocytes 0.9 10^3/uL (0.1-0.6); Absolute Neutrophils 10.7 10^3/uL (1.4-6.5); Hemoglobin 9.1 g/dL (13.0-18.0); Mean Corp Hgb Conc. 31.4 g/dL (33.0-37.0); Mean Corpuscular Hgb 24.7 pg (27.0-31.0); Mean Corpuscular Volume 78.6 fL (80.0-94.0); Mean Platelet Volume 8.8 fL (7.4-10.4); Nucleated Red Blood Cells % 0 % (-); Platelet Count 370 10^3/uL (130-400); Red Blood Cell Count 3.69 10^6/uL (4.70-6.10); Red Cell Dist. Width 16.1 % (11.5-14.5); White Blood Cell Count 13.2 10^3/uL (4.8-10.8)
[2024-07-21 08:11] LABS: INR 1.44
[2024-07-21 08:12] LABS: APTT 37.3 Sec (23.4-35.0)
[2024-07-21 08:40] LABS: Blood Urea Nitrogen 24 mg/dl (9-20); Calcium 8.1 mg/dl (8.4-10.2); Carbon Dioxide 30 mmol/L (22-30); Chloride 100 mmol/L (98-107); Estimated Creatinine Clearance 46 ml/min; Glucose 95 mg/dl (70-99); Potassium 4.7 mmol/L (3.5-5.1); Sodium 134 mmol/L (135-145); eGFR > 60.00
--- NOTE | 2024-07-21 10:42 | CM ---
Chart reviewed and patient is for possible OR today, spouse is at bedside.
Plan; Will follow with patient progress and plan is for patient to return to home with spouse when stable and [facility]
--- NOTE | 2024-07-21 10:43 | W.SUR.POST ---
Surgical Immediate Post Op
Note
Pre Op Diagnosis: PAD, nonhealing wound
Post Op Diagnosis: PAD, nonhealing wound
Procedure Performed: LLE angiogram with shockwave javelin IVL to Left AT, extensive angioplasty left AT long segment
Primary Surgeon: Jorge Clay MD
Secondary Surgeons: N/A
Anesthesia: MAC
Estimated Blood Loss: 2ml
Fluids: See anesthesia flow sheet
Drains/Shunts: N/A
Specimens/Cultures: N/A
Doppler/Duplex/Angio (Y/N): Y
Complications: None
Operative Findings: upon completion of endovascular intervention patient had palpable DP Pulse
--- NOTE | 2024-07-21 11:13 | OR.RPT ---
Operative Report
Operative Report
PROCEDURE DATE: 07/21/2024
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
Postoperative diagnosis: Same
Procedure:
1. Duplex assisted right common femoral artery cannulation.
2. Aortogram and pelvic angiogram.
3. Left lower extremity arteriogram with third order vessel catheterization of left anterior tibial artery via right common femoral artery puncture.
4. Shockwave Javelin intravascular lithotripsy left anterior tibial artery.
5. Extensive balloon angioplasty left anterior tibial artery with 2.5 mm angioplasty balloon and 2.0 mm angioplasty balloon.
6. Right femoral angiogram.
7. Supervision and interpretation.
Surgeon: Obed
Livestock Nutrition Territory Manager: None
Complications: None
Anesthesia: General, LMA
Fluoroscopy:
25.4 min
55 mGy
14.64 gy.cm2
Indications for procedure:
Chronic limb threatening ischemia. Prior I had stented open his occluded left SFA. Had a single-vessel peroneal runoff with good collateralization of the ankle. Had felt that this should be sufficient for wound healing. However he had
progression of wounds, poor healing after toe amputation as well. Therefore brought for attempted further tibial revascularization. Risk/benefits/alternatives were all fully discussed. I also discussed the potential of retrograde pedal access.
Patient understood all wished to proceed.
Description of procedure:
Patient was identified, brought to the operating room. Placed on the table in the supine position. After the adequate administration of anesthesia, the patient was prepped and draped in the standard surgical fashion. A standard preoperative
timeout was undertaken and everybody was in agreement with the plan.
The right common femoral artery was accessed with a micropuncture kit under direct duplex ultrasound guidance. A 5 Uzbek sheath was then advanced over a 0.035 inch wire, and a stacy's hook catheter was advanced into the abdominal aorta.
Aortogram and pelvic angiogram was obtained. Findings as follows:
Infrarenal aorta and bilateral common and external iliac arteries with extensive eccentric calcified plaque, but no significant stenosis.
Using a floppy angled hydrophilic wire, the left common femoral artery was cannulated and the catheter was advanced. Left lower extremity arteriogram was obtained. Findings as follows:
Common femoral artery: Patent with no significant stenosis.
Profunda femoris artery: Patent with no significant stenosis
Superficial femoral artery: Patent with mild luminal irregularity, possible mild stenosis in the proximal segment. Beyond here the stents were all patent widely with no evidence of in-stent restenosis.
Popliteal artery: Patent with no significant stenosis.
Anterior tibial artery: Patent proximally with heavy disease, then occluded. Reconstituted at the ankle via peroneal collaterals.
Tibial peroneal trunk: Patent with no significant stenosis.
Peroneal artery: Patent with no significant stenosis. Good collateralization at the ankle via a Y collateral reconstituting the dorsalis pedis through smaller collaterals, but reconstituting the very distal posterior tibial/plantar arteries via one
of the large Y collaterals.
Posterior tibial artery: Patent proximally and then occluded. As noted reconstituted distally at the level of the plantar/distal PT via peroneal collaterals.
At this point I selectively cannulated the distal SFA, and then exchanged over Storq wire for an up and over 5 Uzbek 70 cm sheath. Patient was given 7000 units of intravenous heparin. Under roadmap assisted guidance using a flopping of
hydrophilic wire and a CXI catheter I was able to selectively cannulate the anterior tibial artery. I could not advance my wire beyond the proximal third into the mid third. Therefore I then exchanged for a 0.014 inch steerable wire and a 2.6
Uzbek CXI catheter. I was able to steer my wire down to the distal third, but was unable to pass the catheter. I therefore then used a quick cross catheter which I was able to pass down to that level but was still unable to pass the wire. I
therefore exchanged for a weighted MORTGAGE ACCOUNTING CLERK wire. This I was able to push through and went down into the dorsalis pedis. There was great resistance to the wire and the catheter manipulations however. Suggesting significant stenosis throughout the
vessel. At this point I try to advance a 2.5 mm balloon but it would not advance past the proximal third. Therefore I then used a Shockwave Javelin intravascular lithotripsy catheter. This was used in the standard fashion starting in the proximal
third of the anterior tibial artery at low atmospheric pressure maintaining steady for pressure while activating the lithotripsy. I was able to pass through into the distal third but could not get it past there. Multiple attempts were made but
could not get it through. However since I gained headway with this, I now elected to try the balloon. I therefore exchanged for a [id number] balloon. In this I was able to advance to the level of the distal calf. I now was able to angioplasty
the anterior tibial artery distally with this. However I still was not able to advance all the way to the very distal anterior tibial artery. Once I deflated I was able to advance the catheter slightly and then reinflated it. I now withdrew the
catheter with overlapping inflations ballooning the remainder of the anterior tibial artery back to the origin. Now I exchanged this balloon catheter out for a fresh 2 mm angioplasty balloon catheter which I was able to advance now down to the
ankle. I then performed balloon angioplasty of the very distal anterior tibial artery with this. Again the prolonged inflations were undertaken for all tibial angioplasties. (2-minute inflations). Once I completed this I then withdrew this out
and then used a 2.5 mm x 200 balloon that I had initially opened for a long angioplasty with prolonged inflation of the anterior tibial again to iron everything out. A second overlapping inflation was done to complete the angioplasty of the vessel.
Completion angiogram now demonstrated an excellent result with pace of flow through the anterior tibial artery rifling the peroneal artery. Good flow continuously down to the dorsalis pedis. At this point I was very satisfied. I initially
debated trying to revascularize the posterior tibial artery. However due to the occlusive pattern in it, I could see filling through a collateral and I was fairly convinced that my wire would just pass through that collateral, and in addition
distally there was reconstitution of the plantars and I did not wish to injure that, and finally the Y collateral from the peroneal was rather robust (as opposed to the DP). And therefore I felt that it would not add much if I was able to establish
antegrade flow through the posterior tibial main artery. Therefore at this point the sheath was withdrawn over a 0.035 inch wire to the right external iliac artery. Right femoral angiogram demonstrated good puncture in the right common femoral
artery. At this point wires and catheters were withdrawn. Protamine was given reverse the heparin. The sheath was withdrawn and manual pressure was applied. The patient tolerated procedure well. Hemostasis was achieved. Palpable DP pulse upon
completion.
The patient tolerated procedure well.
[2024-07-21 11:40] LABS: Glucose - Point of Care 94 mg/dl (70-99)
[2024-07-21] MEDS: DILAUDID 0.5 MG IV (11:54)
[2024-07-21] MEDS: NSS 1000 IV (13:28)
[2024-07-21] MEDS: LOVENOX SC (15:48)
--- NOTE | 2024-07-21 16:24 | W.PN.HOSP.TC ---
Today's Communication/Plan
-
Assessment / Plan
Assessment / Plan
General: In pain, no acute distress
HEENT: NormoCephalic, Moist mucous membranes, Atraumatic
Respiratory: Clear and Non Labored Respirations
Cardiac: S1/S2 and Regular Rhythm; No Rub or Gallop
GI: Soft, Non Tender, Non Distended and Normal Bowel Sounds
Musculoskeletal: No Edema, left foot wound dressing clean dry intact, right groin vascular access site clean dry intact
: NO Adams
Neuro: Awake, Alert, Nonfocal/grossly intact
Psych: Anxious due to pain, cooperative
#left foot cellulitis
#recent Hx osteo
#Hx PAD
-Status post OR 07/19 with podiatry for left foot I&D and left fourth toe amputation left open
- Improving leukocytosis of 13,000 today
- Blood culture with no growth to date, wound culture from left foot growing strep agalactiae
- IV Cefepime and oral Flagyl, culture sensitivities pending
- Angiography today 07/21 for left lower extremity revascularization, tolerated procedure well
- Continue pain control as needed, patient has significant pain post procedure today
- Continue tight blood glucose control, currently with long and short acting insulin in addition to glipizide
- Further recommendations per podiatry and vascular surgery
#hyponatremia
- Mild, clinically insignificant, will monitor
ASPVD
- Status post left lower extremity revascularization today 07/21
#Hyperlipidemia
- continue aspirin and atorvastatin
#Type 2 diabetes
- AccuCheck AC & HS
- SSI
- continue Lantus, dose adjusted
- continue Insulin Aspart
-Continue glipizide
-a1c 9.7%
-Glucose has been labile, appreciate diabetes nurse practitioner assistance
#Iron deficiency anemia
- Hemoglobin stable, no evidence of active bleeding
- continue ferrous sulfate
#Hypertension
- continue amlodipine, Coreg
#Hx TIA
- continue clopidogrel
#GERD
- continue pantoprazole
#depression/anxiety
- continue paroxetine
#BPH
#Hx Prostate cancer
#Proctitis
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
- continue tamsulosin
#Coronary artery disease
#PA
s/p stent placement
- Continue low-dose aspirin and high intensity statin therapy
Code status: Full code
DVT prophylaxis: Lovenox sq
Total time spent 35 minutes
Anticipated Discharge: > 48 hours
Subjective/Interval History
-
Date of Service: July 21, 2024
Patient was seen and examined at bedside. He underwent angiography with revascularization this morning. Complaining of significant left lower extremity pain.
Objective Data
-
Labs:
Laboratory Results
07/21/24
07:21
WBC 13.2 H
Hgb 9.1 L
Hct 29.0 L
Plt Count 370
PT 18.0 H
INR 1.44
APTT 37.3 H
Sodium 134 L
Potassium 4.7
Chloride 100
Carbon Dioxide 30
BUN 24 H
Creatinine 1.1
Glucose 95
Calcium 8.1 L
Vital Signs:
Vital Signs
Temp Pulse Resp BP Pulse Ox
97.3 F 73 20 132/65 100
07/21/24 15:30 07/21/24 15:30 07/21/24 15:30 07/21/24 15:30 07/21/24 15:30
I&O
07/20/24 07/21/24 07/22/24
06:59 06:59 06:59
Intake Total 480 / 480 540 / 540 75 / 75
Output Total 3050 / 3050 2900 / 2900 475 / 475
Balance -2570 / -2570 -2360 / -2360 -400 / -400
Review of Systems
-
History Source: Patient
All other systems: Reviewed and negative
Musculoskeletal: Reports Muscle Pain (Left lower extremity pain and burning)
Physical Exam
-
General: Pain
--- NOTE | 2024-07-21 16:33 | W.PN.ID1 ---
Date of Service
Date of Service: July 21, 2024
Today's Communication
- 07/19 OR cultures also with E cloacae and GBS - despite what should have been effective antibiotics, implies that adequate levels may not be reaching the tissues due to microvascular compromise - now s/p lithotripsy and stenting
- metallic tast is limiting his food consumption - likely related to metronidazole
- start meropenem stop cefepime/metronidazole/levaquin - likely for a course of outpatient IV antibiotics
Assessment / Plan
Surgical Site Infection
Diabetic Foot Infection
DM2 - with poor control
H/o smoking
Medication compliance has been a concern in the past, does have good social support
- 07/19 OR cultures also with E cloacae and GBS - despite what should have been effective antibiotics, implies that adequate levels may not be reaching the tissues due to microvascular compromise - now s/p lithotripsy and stenting
- today underwent angiogram, lithotripsy and stenting
- outpatient wound culture also with Enterobacter cloacae and GBS
- blood cultures x2 in progress
- metallic tast is limiting his food consumption - likely related to metronidazole
- start meropenem stop cefepime/metronidazole/levaquin - likely for a course of outpatient IV antibiotics
- recommend tight outpatient glucose control
Chief Complaint
-: Other (surgical site infection, diabetic foot infection)
Subjective / Review of Systems
afebrile
bp stable
no events overnight
complains of metallic taste which is preventing him from eating
Vital Signs / Physical Exam
Vital Signs
Vital Signs
Temp Pulse Resp BP Pulse Ox
97.7 F 68 20 151/56 100
07/21/24 16:30 07/21/24 16:30 07/21/24 16:30 07/21/24 16:30 07/21/24 16:30
Physical Exam
Constitutional: No Acute Distress
Cardiovascular: Regular Rate and S1/S2; Negative Murmur or Rub
Pulmonary: Clear and Symmetric; Negative Wheezes or Rales
Gastrointestinal: Soft, Non Tender, Non Distended and Normal Bowel Sounds
Skin: Warm and Dry; Negative Rash or Jaundice
Wound: Other (surgical sites with clean, dry, intact dressings)
Objective Data
Lab Data
Lab Results
07/21/24 07:21
07/21/24 07:21
ESR 106 mm/hour (0-20) H 07/17/24 06:42
PT 18.0 Sec (11.4-14.6) H 07/21/24 07:21
INR 1.44 07/21/24 07:21
APTT 37.3 Sec (23.4-35.0) H 07/21/24 07:21
Estimated Creat Clear 46 ml/min 07/21/24 07:21
Lactic Acid Cancelled 07/14/24 17:00
C-Reactive Protein > 270.00 mg/L (0.0-10.00) H 07/14/24 13:26
Most recent labs reviewed.
Wound/abscess/other Cult Preliminary 07/21/24-830
Moderate Enterobacter cloacae
Moderate Group B Streptococcus agalactiae
Group B Streptococcus is susceptible to ampicillin,
penicillin, cefazolin, and vancomycin, but may be resistant
to clindamycin and/or erythromycin. If clindamycin or
erythromycin is being considered for treatment (i.e. patient
with penicillin allergy) please notify the Microbiology
Laboratory within 72 hours if antibiotic sensitivity testing
is needed.
Organism 1 Enterobacter cloacae
1. Enterobacter cloacae
M.I.C. RX
--------- ---
Amoxicillin/Potas. Clavulanate >16/8 R
Ampicillin >16 R
Ampicillin/Sulbactam >16/8 R
Aztreonam <=4 S
Cefazolin >16 R
Cefepime <=2 S
Ceftazidime <=1 S
Ceftriaxone 2 I
Ertapenem <=0.5 S
Ciprofloxacin <=0.25 S
Gentamicin <=2 S
Meropenem <=1 S
Piperacillin/Tazobactam <=8 S
Tetracycline <=4 S
Tobramycin <=2 S
Trimethoprim/Sulfamethoxazole <=2/38 S
Micro Results:
07/19/24 16:02 Wound Culture - Preliminary
Foot - Left Enterobacter cloacae
Streptococcus agalactiae
Gram Stain - Preliminary
07/19/24 16:02 Anaerobic Culture - Preliminary
Foot - Left Culture pending. Anaerobic cultures are examined after 3
days incubation. Additional information to follow.
07/19/24 16:02 Wound Culture - Preliminary
Foot - Left Enterobacter cloacae
Streptococcus agalactiae
Gram Stain - Preliminary
07/19/24 16:02 Anaerobic Culture - Preliminary
Foot - Left Culture pending. Anaerobic cultures are examined after 3
days incubation. Additional information to follow.
07/14/24 13:26 Blood Culture - Final
Blood/Venous No Growth - Final Report
07/14/24 13:28 Blood Culture - Final
Blood/Venous No Growth - Final Report
[2024-07-21 16:46] LABS: Glucose - Point of Care 72 mg/dl (70-99)
[2024-07-21] MEDS: DILAUDID 1 MG IV ×2 (16:46→22:06)
[2024-07-21] MEDS: NEURONTIN 200 MG PO ×2 (16:47→20:33)
[2024-07-21] MEDS: MERREM 500 MG IV (17:59)
[2024-07-21] MEDS: LIPITOR 80 MG PO (20:33)
[2024-07-21] MEDS: MELATONIN 3 MG PO (20:33)
[2024-07-21] MEDS: LANTUS 0.18 UNITS SC (20:39)
[2024-07-21 20:40] LABS: Glucose - Point of Care 168 mg/dl (70-99)
[2024-07-22] VITALS (8 sets, daily range): BP systolic 13–118; BP diastolic 46–62
[2024-07-22] MEDS: MERREM 500 MG IV ×3 (02:05→18:16)
[2024-07-22] MEDS: STERILE WATER FOR INJECTION 10 ML IV ×3 (02:05→18:16)
--- NOTE | 2024-07-22 05:31 | PTCARENOTE ---
Patient NPO for open TMA, per managed services sales consultant podiatry physician. Accuchecks q 6 hours.
[2024-07-22 05:51] LABS: Glucose - Point of Care 90 mg/dl (70-99)
[2024-07-22 07:29] LABS: Glucose - Point of Care 84 mg/dl (70-99)
[2024-07-22] MEDS: NOVOLOG FLEXPEN SC ×3 (07:34→17:17)
[2024-07-22] MEDS: DILAUDID 1 MG IV (07:34)
[2024-07-22 08:05] LABS: % Basophils 0.6 % (0-2); % Eosinophils 2.4 % (0-6); % Immature Granulocytes 1.8 % (0-0.5); % Lymphocytes 8.2 % (20.5-51.1); % Monocytes 8.3 % (1.7-9.3); % Neutrophils 78.7 % (42.2-75.2); Absolute Basophils 0.1 10^3/uL (0-0.2); Absolute Eosinophils 0.3 10^3/uL (0-0.7); Absolute Immature Granulocytes 0.2 10^3/uL (0-0.05); Absolute Neutrophils 9.8 10^3/uL (1.4-6.5); Hematocrit 27.1 % (39.0-52.0); Hemoglobin 8.5 g/dL (13.0-18.0); Mean Corp Hgb Conc. 31.4 g/dL (33.0-37.0); Mean Corpuscular Hgb 24.6 pg (27.0-31.0); Mean Corpuscular Volume 78.3 fL (80.0-94.0); Mean Platelet Volume 8.7 fL (7.4-10.4); Nucleated Red Blood Cells % 0 % (-); Platelet Count 369 10^3/uL (130-400); Red Blood Cell Count 3.46 10^6/uL (4.70-6.10); Red Cell Dist. Width 16.1 % (11.5-14.5); White Blood Cell Count 12.5 10^3/uL (4.8-10.8)
--- NOTE | 2024-07-22 08:09 | PN.DE.MGMTRT ---
Insulin Management
- -
07/22/2024 Diabetes Management Consult Follow up
Patient admitted 07/14 with worsening L foot infection and pain. PMH HTN, HLD, diabetes, prostate CA, CAD, cardiomyopathy, PAD, [place] GERD, TIA, iron deficiency anemia. Prior to admission was taking glipizide 10 mg BID, novolog 20 units AC and lantus
20 units @ hs. A1C on admission 9.7%.
POD 3 s/p L 4th toe partial amputation and debridement. POD 1 angio with revascularization. Currently NPO for OR today. Patient is very [place], at bedside very supportive.
Patient has had multiple episodes of hypoglycemia alternating with hyperglycemia. Glipizide STOPPED 07/21 (contraindicated in elderly).
Fasting glucose this AM 84, will further reduce HS lantus to 16 units, continue novolog 16 units AC when diet resumed, with low corrective insulin.
Discussed with nurse.
Will follow
Diabetes History
- -
Type of Diabetes: 2 requiring insulin
Pre-Admission Diabetes Regimen
07/21/24
07:21
Creatinine 1.1
Lab Results
Hemoglobin A1c 9.7 % (4.0-5.6) H 07/15/24 07:25
Insulin Pump Settings
IP Diabetes Regimen
07/21/24 07/21/24 07/21/24
07:21 11:38 16:45
Glucose 95
POC Glucose 94 72
07/21/24 07/22/24 07/22/24
20:39 05:49 07:27
Glucose
POC Glucose 168 H 90 84
Meal type: Breakfast
Patient Education
[2024-07-22 08:47] LABS: Blood Urea Nitrogen 19 mg/dl (9-20); Calcium 7.9 mg/dl (8.4-10.2); Carbon Dioxide 26 mmol/L (22-30); Chloride 102 mmol/L (98-107); Estimated Creatinine Clearance 46 ml/min; Glucose 77 mg/dl (70-99); Potassium 4.6 mmol/L (3.5-5.1); Sodium 134 mmol/L (135-145); eGFR > 60.00
[2024-07-22] MEDS: NOVOLOG FLEXPEN-LOW RESISTANCE SC ×3 (09:41→17:19)
[2024-07-22] MEDS: QUESTRAN PO ×2 (09:46→10:10)
[2024-07-22] MEDS: ASPIR LOW (ENTERIC COATED) 81 MG PO (09:50)
[2024-07-22] MEDS: COREG 6.25 MG PO ×2 (09:50→21:25)
[2024-07-22] MEDS: NEURONTIN 200 MG PO ×3 (09:51→21:24)
[2024-07-22] MEDS: THERAGRAN 1 TABLET PO (09:51)
[2024-07-22] MEDS: FEOSOL 325 MG PO (09:52)
[2024-07-22] MEDS: PROTONIX 20 MG PO (09:52)
[2024-07-22] MEDS: FLOMAX 0.4 MG PO (09:53)
[2024-07-22] MEDS: PAXIL 40 MG PO (09:59)
[2024-07-22] MEDS: PLAVIX 75 MG PO (09:59)
[2024-07-22] MEDS: NORVASC 5 MG PO (10:00)
--- NOTE | 2024-07-22 10:34 | W.PN.VS ---
Today's Communication / Plan
-
See below.
Assessment/Plan
-
POD 1
Duplex assisted right common femoral artery cannulation.
Aortogram and pelvic angiogram.
Left lower extremity arteriogram with third order vessel catheterization of left anterior tibial artery via right common femoral artery puncture.
Shockwave Javelin intravascular lithotripsy left anterior tibial artery.
Extensive balloon angioplasty left anterior tibial artery with 2.5 mm angioplasty balloon and 2.0 mm angioplasty balloon.
Right femoral angiogram.
Plan:
- Stable from vascular standpoint
- Follow-up added to discharge instructions
- We will sign off please call with questions or concerns
Subjective Data
-
Date of Service: July 22, 2024
Patient seen and examined at bedside, offers no complaints.
Objective Data
-
Vital Signs
Temp Pulse Resp BP Pulse Ox
97.3 F 77 18 118/62 93
07/22/24 07:30 07/22/24 07:30 07/22/24 07:30 07/22/24 07:30 07/22/24 07:30
Intake and Output
07/21/24 07/22/24 07/23/24
06:59 06:59 06:59
Intake Total 540 / 540 315 / 315
Output Total 2900 / 2900 1974
Balance -2360 / -2360 -1660 / -1660
Intake:
Oral fluids 540 / 540 240 / 240
IV fluids (Total) 75 / 75
normal saline 75 / 75
Output:
Urine, Adams 2600 / 2600 925 / 925
Urine, Voided 300 / 300 1050 / 1050
Lab Results
07/22/24 07:54
07/22/24 07:54
Calcium 7.9 mg/dl (8.4-10.2) L 07/22/24 07:54
Physical Exam
-
No apparent distress, resting bed comfortably
No tachycardia
No dyspnea on room air
ABD flat, nontender, nondistended
Right groin dressing CDI, flat, no evidence of hematoma, all surrounding compartments soft
[2024-07-22 11:37] LABS: Glucose - Point of Care 89 mg/dl (70-99)
--- NOTE | 2024-07-22 13:34 | W.PN.HOSP.TC ---
Today's Communication/Plan
-
Assessment / Plan
Assessment / Plan
General: No acute distress, left groin, appears upset and is wrestling with tentative plan for TMA
HEENT: NormoCephalic, Moist mucous membranes, Atraumatic
Respiratory: Clear and Non Labored Respirations
Cardiac: S1/S2 and Regular Rhythm; No Rub or Gallop
GI: Soft, Non Tender, Non Distended and Normal Bowel Sounds
Musculoskeletal: No Edema, left foot wound dressing clean dry intact, right groin vascular access site clean dry intact
: NO Adams
Neuro: Awake, Alert, Nonfocal/grossly intact
Psych: Anxious due to pain, cooperative
#left foot cellulitis
#recent Hx osteo
#Hx PAD
-Status post OR 07/19 with podiatry for left foot I&D and left fourth toe amputation left open
-Return to the OR 07/21 with vascular surgery for left AT intravascular lithotripsy and balloon angioplasty with perfusion
-Tentatively planning return to the OR with podiatry for possible TMA
- Improving leukocytosis
- Blood culture with no growth to date, wound culture from left foot growing strep agalactiae
- Antibiotics switched to meropenem per ID recommendations which will likely be continued as outpatient
- Continue pain control as needed
- Continue tight blood glucose control, currently with long and short acting insulin in addition to glipizide
- Further recommendations per podiatry and ID
#hyponatremia
- Mild, clinically insignificant, will monitor
ASPVD
- Status post left lower extremity revascularization today 07/21
#Hyperlipidemia
- continue aspirin and atorvastatin
#Type 2 diabetes
- AccuCheck AC & HS
- continue Lantus 16 units at night
- continue Insulin Aspart 16 units with meals, additional short acting sliding scale as needed
- a1c 9.7%
-Glucose has been labile, appreciate diabetes nurse practitioner assistance
#Iron deficiency anemia
- Hemoglobin stable, no evidence of active bleeding
- continue ferrous sulfate
#Hypertension
- continue amlodipine, Coreg
#Hx TIA
- continue clopidogrel
#GERD
- continue pantoprazole
#depression/anxiety
- continue paroxetine
#BPH
#Hx Prostate cancer
#Proctitis
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
- continue tamsulosin
#Coronary artery disease
#[place]
s/p stent placement
- Continue low-dose aspirin and high intensity statin therapy
Code status: Full code
DVT prophylaxis: Lovenox sq
Total time spent 45 minutes
Anticipated Discharge: > 48 hours
Subjective/Interval History
-
Date of Service: July 22, 2024
Patient was seen and examined at bedside this morning. Status post revascularization yesterday which he tolerated well. Tentatively planning OR today with podiatry for TMA.
Objective Data
-
Labs:
Laboratory Results
07/22/24 07/22/24 07/22/24
07:54 07:54 07:54
WBC 12.5 H Cancelled
Hgb 8.5 L Cancelled
Hct 27.1 L
Plt Count
Sodium
Potassium
Chloride
Carbon Dioxide
BUN
Creatinine
Glucose
Calcium
07/22/24 07/22/24
07:54 07:54
WBC
Hgb
Hct Cancelled
Plt Count 369 Cancelled
Sodium 134 L
Potassium 4.6
Chloride 102
Carbon Dioxide 26
BUN 19
Creatinine 1.1
Glucose 77
Calcium 7.9 L
Vital Signs:
Vital Signs
Temp Pulse Resp BP Pulse Ox
97.3 F 77 18 118/62 93
07/22/24 07:30 07/22/24 07:30 07/22/24 07:30 07/22/24 07:30 07/22/24 07:30
I&O
07/21/24 07/22/24 07/23/24
06:59 06:59 06:59
Intake Total 540 / 540 315 / 315
Output Total 2900 / 2900 1974 / 1974
Balance -2360 / -2360 -1660 / -1660
Review of Systems
-
History Source: Patient
All other systems: Reviewed and negative
Musculoskeletal: Reports Joint Pain (Left groin and foot pain)
Physical Exam
-
General: No Apparent Distress
--- NOTE | 2024-07-22 14:20 | W.PN.ID1 ---
Date of Service
Date of Service: July 22, 2024
Today's Communication
- TMA is tentatively scheduled for today; would be in support of the procedure if that is the final decision
- c/w meropenem - duration pending course
Assessment / Plan
Surgical Site Infection
Diabetic Foot Infection
DM2 - with poor control
H/o smoking
Medication compliance has been a concern in the past, does have good social support
- 07/19 OR cultures also with E cloacae and GBS - despite what should have been effective antibiotics, implies that adequate levels may not be reaching the tissues due to microvascular compromise - now s/p lithotripsy and stenting
- 07/21 underwent angiogram, lithotripsy and stenting
- outpatient wound culture also with Enterobacter cloacae and GBS
- blood cultures x2 in progress no growth to date
- TMA is tentatively scheduled for today; would be in support of the procedure if that is the final decision
- c/w meropenem - duration pending course
Chief Complaint
-: Other (surgical site infection, diabetic foot infection)
Subjective / Review of Systems
afebrile
bp stable
NPO for TMA - patient will discuss further with Dr Dolan
Vital Signs / Physical Exam
Vital Signs
Vital Signs
Temp Pulse Resp BP Pulse Ox
97.3 F 77 18 118/62 93
07/22/24 07:30 07/22/24 07:30 07/22/24 07:30 07/22/24 07:30 07/22/24 07:30
Physical Exam
Constitutional: No Acute Distress
Cardiovascular: Regular Rate and S1/S2; Negative Murmur or Rub
Pulmonary: Clear and Symmetric; Negative Wheezes or Rales
Gastrointestinal: Soft, Non Tender, Non Distended and Normal Bowel Sounds
Skin: Warm and Dry; Negative Rash or Jaundice
Objective Data
Lab Data
Lab Results
07/22/24 07:54
07/22/24 07:54
ESR 106 mm/hour (0-20) H 07/17/24 06:42
PT 18.0 Sec (11.4-14.6) H 07/21/24 07:21
INR 1.44 07/21/24 07:21
APTT 37.3 Sec (23.4-35.0) H 07/21/24 07:21
Estimated Creat Clear 46 ml/min 07/22/24 07:54
Lactic Acid Cancelled 07/14/24 17:00
C-Reactive Protein > 270.00 mg/L (0.0-10.00) H 07/14/24 13:26
Most recent labs reviewed.
Micro Results:
07/19/24 16:02 Anaerobic Culture - Preliminary
Foot - Left NO ANAEROBES ISOLATED
07/19/24 16:02 Anaerobic Culture - Preliminary
Foot - Left Culture pending. Anaerobic cultures are examined after 3
days incubation. Additional information to follow.
07/19/24 16:02 Wound Culture - Preliminary
Foot - Left Enterobacter cloacae
Streptococcus agalactiae
Gram Stain - Preliminary
07/19/24 16:02 Wound Culture - Preliminary
Foot - Left Enterobacter cloacae
Streptococcus agalactiae
Gram Stain - Preliminary
07/14/24 13:26 Blood Culture - Final
Blood/Venous No Growth - Final Report
07/14/24 13:28 Blood Culture - Final
Blood/Venous No Growth - Final Report
Care Review
Plan reviewed with: Physician (Dr Wolff and Dr Dolan - [facility])
--- NOTE | 2024-07-22 15:04 | CM ---
CM reviewed chart, reviewed with nurse. Patient seen bedside with , plan for OR for TMA. Patient will require new PT/OT orders post-op. Watch for home IV antibiotic needs. CM will continue to follow for all discharge planning needs.
Plan; OR for TMA, watch for VN/SNF needs when stable, watch for IV antibiotic needs.
[2024-07-22 16:42] LABS: Glucose - Point of Care 64 mg/dl (70-99)
[2024-07-22] MEDS: DEXTROSE 50% SYRINGE 12.5 GRAMS IV (16:44)
[2024-07-22 17:05] LABS: Glucose - Point of Care 115 mg/dl (70-99)
[2024-07-22 17:26] LABS: Glucose - Point of Care 109 mg/dl (70-99)
[2024-07-22] MEDS: LOVENOX 40 MG SC (18:16)
[2024-07-22] MEDS: QUESTRAN 4 GRAM PO ×2 (18:17→21:24)
--- NOTE | 2024-07-22 20:52 | W.PN.SURGUPD ---
Surgical Update
Surgical Update
89 yo M now s/p left open transmetatarsal amputation with extensive purulence throughout the plantar aspect of the foot, extending to the heel/ankle, with significant surrounding myonecrosis. Limb prognosis at this point is guarded, and salvage
would require several additional debridements, extended course of antibiotics, extended period of NWB, and local wound care. At this point, proximal amputation should be considered given the severity of the infection. Will continue discussing this
with patient/family as he is continued to be monitored clinically.
[2024-07-22 21:24] LABS: Glucose - Point of Care 86 mg/dl (70-99)
[2024-07-22] MEDS: LIPITOR 80 MG PO (21:24)
[2024-07-22] MEDS: LANTUS 0.16 UNITS SC (21:24)
[2024-07-23] MEDS: MERREM 500 MG IV ×3 (01:16→17:55)
[2024-07-23] MEDS: STERILE WATER FOR INJECTION 10 ML IV ×3 (01:16→17:55)
[2024-07-23 07:36] VITALS: BP 97/50
--- NOTE | 2024-07-23 08:28 | PN.DE.MGMTRT ---
Insulin Management
- -
07/23/2024: Diabetes Management Follow up
Patient admitted 07/14 with worsening L foot infection and pain. PMH HTN, HLD, diabetes, prostate CA, CAD, cardiomyopathy, PAD, [place] GERD, TIA, iron deficiency anemia. Prior to admission was taking glipizide 10 mg BID, NovoLog 20 units AC and Lantus
20 units @ hs. A1C on admission 9.7%.
Pt awake, alert, oriented, very [place], at bedside very supportive.
POD #4 s/p Left 4th toe partial amputation and debridement. POD # 2 s/p Angio with revascularization.
Patient has had multiple episodes of hypoglycemia alternating with hyperglycemia. Glipizide STOPPED 07/21 (contraindicated in elderly).
Fasting glucose this AM 179 V, 186 POC, both obtained after breakfast
Will make no changes to current regimen: Lantus 16 units @ HS and AC NovoLog 16 units with low corrective insulin.
Discussed with nurse. Will cont to follow
Diabetes History
- -
Type of Diabetes: 2 requiring insulin
Pre-Admission Diabetes Regimen
07/22/24
07:54
Creatinine 1.1
Lab Results
Hemoglobin A1c 9.7 % (4.0-5.6) H 07/15/24 07:25
Insulin Pump Settings
IP Diabetes Regimen
07/22/24 07/22/24 07/22/24
07:54 11:34 16:41
Glucose 77
POC Glucose 89 64 L
07/22/24 07/22/24 07/22/24
17:03 17:24 21:23
Glucose
POC Glucose 115 H 109 H 86
Meal type: Lunch
Patient Education
[2024-07-23 08:49] LABS: % Basophils 0.5 % (0-2); % Eosinophils 1.2 % (0-6); % Lymphocytes 9.5 % (20.5-51.1); % Monocytes 7.9 % (1.7-9.3); % Neutrophils 78.9 % (42.2-75.2); Absolute Basophils 0.1 10^3/uL (0-0.2); Absolute Eosinophils 0.1 10^3/uL (0-0.7); Absolute Immature Granulocytes 0.2 10^3/uL (0-0.05); Absolute Monocytes 0.9 10^3/uL (0.1-0.6); Absolute Neutrophils 8.7 10^3/uL (1.4-6.5); Hematocrit 24.5 % (39.0-52.0); Hemoglobin 7.8 g/dL (13.0-18.0); Mean Corp Hgb Conc. 31.8 g/dL (33.0-37.0); Mean Corpuscular Volume 78.5 fL (80.0-94.0); Mean Platelet Volume 8.9 fL (7.4-10.4); Nucleated Red Blood Cells % 0 % (-); Platelet Count 372 10^3/uL (130-400); Red Blood Cell Count 3.12 10^6/uL (4.70-6.10); Red Cell Dist. Width 16.3 % (11.5-14.5)
[2024-07-23 09:08] LABS: Glucose - Point of Care 186 mg/dl (70-99)
[2024-07-23 09:09] LABS: Blood Urea Nitrogen 16 mg/dl (9-20); Calcium 7.6 mg/dl (8.4-10.2); Carbon Dioxide 27 mmol/L (22-30); Chloride 99 mmol/L (98-107); Estimated Creatinine Clearance 46 ml/min; Glucose 179 mg/dl (70-99); Sodium 132 mmol/L (135-145); eGFR > 60.00
[2024-07-23] MEDS: PAXIL 40 MG PO (09:40)
[2024-07-23] MEDS: PROTONIX 20 MG PO (09:40)
[2024-07-23] MEDS: NEURONTIN 200 MG PO ×3 (09:40→21:43)
[2024-07-23] MEDS: FEOSOL 325 MG PO (09:41)
[2024-07-23] MEDS: PLAVIX 75 MG PO (09:41)
[2024-07-23] MEDS: THERAGRAN 1 TABLET PO (09:41)
[2024-07-23] MEDS: NORVASC 5 MG PO (09:42)
[2024-07-23] MEDS: FLOMAX 0.4 MG PO (09:42)
[2024-07-23] MEDS: ASPIR LOW (ENTERIC COATED) 81 MG PO (09:42)
[2024-07-23] MEDS: COREG 6.25 MG PO ×2 (09:43→21:43)
[2024-07-23] MEDS: QUESTRAN 4 GRAM PO ×3 (09:43→21:43)
[2024-07-23] MEDS: NOVOLOG FLEXPEN 16 UNITS SC ×3 (09:44→17:15)
[2024-07-23] MEDS: NOVOLOG FLEXPEN-LOW RESISTANCE 1 UNITS SC ×2 (09:44→13:06)
[2024-07-23 11:49] LABS: Glucose - Point of Care 192 mg/dl (70-99)
--- NOTE | 2024-07-23 12:30 | CM ---
CM reviewed chart, reviewed with Nurse. Patient seen bedside with daughter. Patient will require new PT/OT orders when able. Will follow for IV antibiotic needs upon discharge. CM will continue to follow for all discharge planning needs.
Plan; [facility] versus SNF likely, watch for IV antibiotic needs.
--- NOTE | 2024-07-23 14:49 | W.PN.ID1 ---
Date of Service
Date of Service: July 23, 2024
Today's Communication
- s/p TMA however with significant OR findings of purulence involving the calcaneus and significant myonecrosis
- recommend amputation of the foot; I am willing to prescribe a course of meropenem however I feel concerned that it would likely fail; discussed with patient.
Assessment / Plan
Surgical Site Infection
Diabetic Foot Infection
DM2 - with poor control
H/o smoking
Medication compliance has been a concern in the past, does have good social support
- s/p TMA however with significant OR findings of purulence involving the calcaneus and significant myonecrosis
- recommend amputation of the foot; I am willing to prescribe a course of meropenem however I feel concerned that it would likely fail; discussed with patient.
Chief Complaint
-: Other (surgical site infection, diabetic foot infection)
Subjective / Review of Systems
afebrile
bp stable
s/p TMA no further cultures, path is pending. Not that OR showed myonecorsis, purulence through the heel/ankle
Vital Signs / Physical Exam
Vital Signs
Vital Signs
Temp Pulse Resp BP Pulse Ox
98.6 F 78 17 97/50 95
07/23/24 07:36 07/23/24 07:36 07/23/24 07:36 07/23/24 07:36 07/23/24 07:36
Physical Exam
Constitutional: No Acute Distress
Cardiovascular: Regular Rate and S1/S2; Negative Murmur or Rub
Pulmonary: Clear and Symmetric; Negative Wheezes or Rales
Gastrointestinal: Soft, Non Tender, Non Distended and Normal Bowel Sounds
Skin: Warm and Dry; Negative Rash or Jaundice
Wound: Other (dressing clean, dry, intact)
Objective Data
Lab Data
Lab Results
07/23/24 08:33
07/23/24 08:33
ESR 106 mm/hour (0-20) H 07/17/24 06:42
PT 18.0 Sec (11.4-14.6) H 07/21/24 07:21
INR 1.44 07/21/24 07:21
APTT 37.3 Sec (23.4-35.0) H 07/21/24 07:21
Estimated Creat Clear 46 ml/min 07/23/24 08:33
Lactic Acid Cancelled 07/14/24 17:00
C-Reactive Protein > 270.00 mg/L (0.0-10.00) H 07/14/24 13:26
Most recent labs reviewed.
Micro Results:
07/19/24 16:02 Anaerobic Culture - Preliminary
Foot - Left Culture pending. Anaerobic cultures are examined after 3
days incubation. Additional information to follow.
07/19/24 16:02 Anaerobic Culture - Preliminary
Foot - Left NO ANAEROBES ISOLATED
07/19/24 16:02 Wound Culture - Preliminary
Foot - Left Enterobacter cloacae
Streptococcus agalactiae
Gram Stain - Preliminary
07/19/24 16:02 Wound Culture - Preliminary
Foot - Left Enterobacter cloacae
Streptococcus agalactiae
Gram Stain - Preliminary
07/14/24 13:26 Blood Culture - Final
Blood/Venous No Growth - Final Report
07/14/24 13:28 Blood Culture - Final
Blood/Venous No Growth - Final Report
Care Review
Plan reviewed with: Physician (Dr Clay, Dr Wolff, Dr Dolan - amputation)
--- NOTE | 2024-07-23 15:45 | W.PN.HOSP.TC ---
Today's Communication/Plan
-
Assessment / Plan
Assessment / Plan
General: No acute distress, relatively comfortable status post left TMA
HEENT: NormoCephalic, Moist mucous membranes, Atraumatic
Respiratory: Clear and Non Labored Respirations
Cardiac: S1/S2 and Regular Rhythm; No Rub or Gallop
GI: Soft, Non Tender, Non Distended and Normal Bowel Sounds
Musculoskeletal: No Edema, left TMA, left foot wound dressing with mild strikethrough
: NO Adams
Neuro: Awake, Alert, Nonfocal/grossly intact
Psych: Anxious due to pain, cooperative
#left foot cellulitis
#recent Hx osteo
#Hx PAD
-Status post OR 07/19 with podiatry for left foot I&D and left fourth toe amputation left open
-Return to the OR 07/21 with vascular surgery for left AT intravascular lithotripsy and balloon angioplasty with perfusion
- Now status post left TMA 07/22, wound left open with dressing in place
- Resolving leukocytosis
- Blood culture with no growth to date, wound culture from left foot growing strep agalactiae
- Antibiotics switched to meropenem per ID recommendations which will likely be continued as outpatient
- Continue pain control as needed
- Continue tight blood glucose control, currently with long and short acting insulin in addition to glipizide
- Further recommendations per podiatry and ID
#hyponatremia
- Mild, clinically insignificant, will monitor
ASPVD
- Status post left lower extremity revascularization 07/21
#Hyperlipidemia
- continue aspirin and atorvastatin
#Type 2 diabetes
- AccuCheck AC & HS
- continue Lantus 16 units at night
- continue Insulin Aspart 16 units with meals, additional short acting sliding scale as needed
- a1c 9.7%
- Glucose has been labile, appreciate diabetes nurse practitioner assistance
#Iron deficiency anemia
- Hemoglobin stable, no evidence of active bleeding
- continue ferrous sulfate
#Hypertension
- continue amlodipine, Coreg
#Hx TIA
- continue clopidogrel
#GERD
- continue pantoprazole
#depression/anxiety
- continue paroxetine
#BPH
#Hx Prostate cancer
#Proctitis
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
- continue tamsulosin
#Coronary artery disease
#[place]
s/p stent placement
- Continue DAPT and high intensity statin therapy
Code status: Full code
DVT prophylaxis: Lovenox sq
Total time spent 45 minutes
Anticipated Discharge: > 48 hours
Subjective/Interval History
-
Date of Service: July 23, 2024
Patient was seen and examined at bedside this morning. Status post left TMA yesterday left open. Pain is reasonably well-controlled at this point.
Objective Data
-
Labs:
Laboratory Results
07/23/24
08:33
WBC 11.0 H
Hgb 7.8 L
Hct 24.5 L
Plt Count 372
Sodium 132 L
Potassium 5.0
Chloride 99
Carbon Dioxide 27
BUN 16
Creatinine 1.1
Glucose 179 H
Calcium 7.6 L
Vital Signs:
Vital Signs
Temp Pulse Resp BP Pulse Ox
98.6 F 78 17 97/50 95
07/23/24 07:36 07/23/24 07:36 07/23/24 07:36 07/23/24 07:36 07/23/24 07:36
I&O
07/22/24 07/23/24 07/24/24
06:59 06:59 06:59
Intake Total 315 / 315
Output Total 1974 1050 / 1050
Balance -1660 / -1660 -1050 / -1050
Review of Systems
-
History Source: Patient
All other systems: Reviewed and negative
Musculoskeletal: Reports Joint Pain (Left foot pain)
Physical Exam
-
General: No Apparent Distress
[2024-07-23] MEDS: SENOKOT-S 1 TABLET PO (15:49)
[2024-07-23 16:16] VITALS: BP 121/59
[2024-07-23 17:15] LABS: Glucose - Point of Care 312 mg/dl (70-99)
[2024-07-23] MEDS: NOVOLOG FLEXPEN-LOW RESISTANCE 4 UNITS SC (17:16)
[2024-07-23] MEDS: LANTUS 0.16 UNITS SC (17:55)
[2024-07-23] MEDS: LOVENOX 40 MG SC (17:59)
--- NOTE | 2024-07-23 20:39 | W.PN.SURGUPD ---
Surgical Update
Surgical Update
89 yo M with severe left foot infection requiring repeat debridements. Unfortunately, left foot infection has continued to worsen and limb prognosis is guarded at best. We had an extensive discussion in regards to limb salvage vs proximal
amputation. Limb salvage would require serial debridements, extensive IV antibiotic course, long course of NWB, and local wound care. Ultimately, patient has opted for proximal amputation. Vascular surgery, ID, and primary teams are aware and will
continue to discuss with patient. Will continue to follow and assist as needed.
[2024-07-23 21:27] LABS: Glucose - Point of Care 268 mg/dl (70-99)
[2024-07-23] MEDS: ULTRAM 50 MG PO (21:43)
[2024-07-23] MEDS: LIPITOR 80 MG PO (21:43)
[2024-07-23 23:35] VITALS: BP 113/56
[2024-07-24] MEDS: STERILE WATER FOR INJECTION 10 ML IV ×3 (02:10→17:10)
[2024-07-24] MEDS: MERREM 500 MG IV ×3 (02:10→17:09)
[2024-07-24 07:00] VITALS: BP 125/91
[2024-07-24 07:22] LABS: Glucose - Point of Care 242 mg/dl (70-99)
[2024-07-24] MEDS: PROTONIX 20 MG PO (08:59)
[2024-07-24] MEDS: FLOMAX 0.4 MG PO (08:59)
[2024-07-24] MEDS: NORVASC 5 MG PO (08:59)
[2024-07-24] MEDS: NEURONTIN 200 MG PO ×3 (08:59→21:18)
[2024-07-24] MEDS: ASPIR LOW (ENTERIC COATED) 81 MG PO (09:00)
[2024-07-24] MEDS: PLAVIX 75 MG PO (09:00)
[2024-07-24] MEDS: PAXIL 40 MG PO (09:00)
[2024-07-24] MEDS: COREG 6.25 MG PO ×2 (09:00→20:03)
[2024-07-24] MEDS: FEOSOL 325 MG PO (09:01)
[2024-07-24] MEDS: QUESTRAN 4 GRAM PO ×3 (09:04→21:19)
[2024-07-24] MEDS: SENOKOT-S 1 TABLET PO ×2 (09:04→20:08)
[2024-07-24] MEDS: THERAGRAN 1 TABLET PO (09:05)
[2024-07-24] MEDS: NOVOLOG FLEXPEN 16 UNITS SC ×2 (09:05→12:36)
[2024-07-24] MEDS: NOVOLOG FLEXPEN-LOW RESISTANCE 2 UNITS SC (09:09)
[2024-07-24 09:41] LABS: % Basophils 0.6 % (0-2); % Eosinophils 1.9 % (0-6); % Immature Granulocytes 2.4 % (0-0.5); % Lymphocytes 11.2 % (20.5-51.1); % Monocytes 6.9 % (1.7-9.3); Absolute Basophils 0.1 10^3/uL (0-0.2); Absolute Eosinophils 0.2 10^3/uL (0-0.7); Absolute Immature Granulocytes 0.3 10^3/uL (0-0.05); Absolute Lymphocytes 1.2 10^3/uL (1.2-3.4); Absolute Monocytes 0.8 10^3/uL (0.1-0.6); Absolute Neutrophils 8.3 10^3/uL (1.4-6.5); Hematocrit 24.8 % (39.0-52.0); Hemoglobin 7.8 g/dL (13.0-18.0); Mean Corp Hgb Conc. 31.5 g/dL (33.0-37.0); Mean Corpuscular Hgb 24.5 pg (27.0-31.0); Mean Corpuscular Volume 77.7 fL (80.0-94.0); Mean Platelet Volume 8.9 fL (7.4-10.4); Nucleated Red Blood Cells % 0 % (-); Platelet Count 386 10^3/uL (130-400); Red Blood Cell Count 3.19 10^6/uL (4.70-6.10); Red Cell Dist. Width 16.1 % (11.5-14.5); White Blood Cell Count 10.8 10^3/uL (4.8-10.8)
[2024-07-24 09:57] LABS: Blood Urea Nitrogen 17 mg/dl (9-20); Calcium 7.8 mg/dl (8.4-10.2); Carbon Dioxide 28 mmol/L (22-30); Chloride 100 mmol/L (98-107); Estimated Creatinine Clearance 51 ml/min; Glucose 277 mg/dl (70-99); Potassium 4.9 mmol/L (3.5-5.1); Sodium 132 mmol/L (135-145); eGFR > 60.00
[2024-07-24 12:16] LABS: Glucose - Point of Care 354 mg/dl (70-99)
[2024-07-24] MEDS: NOVOLOG FLEXPEN-LOW RESISTANCE 5 UNITS SC (12:36)
--- NOTE | 2024-07-24 14:42 | W.PN.HOSP.TC ---
Today's Communication/Plan
-
Assessment / Plan
Assessment / Plan
General: No acute distress, relatively comfortable status post left TMA
HEENT: NormoCephalic, Moist mucous membranes, Atraumatic
Respiratory: Clear and Non Labored Respirations
Cardiac: S1/S2 and Regular Rhythm; No Rub or Gallop
GI: Soft, Non Tender, Non Distended and Normal Bowel Sounds
Musculoskeletal: No Edema, left TMA, left foot wound dressing with mild strikethrough
: NO Adams
Neuro: Awake, Alert, Nonfocal/grossly intact
Psych: Anxious due to pain, cooperative
#left foot cellulitis
#recent Hx osteo
#Hx PAD
- Status post OR 07/19 with podiatry for left foot I&D and left fourth toe amputation left open
- Return to the OR 07/21 with vascular surgery for left AT intravascular lithotripsy and balloon angioplasty with perfusion
- Now status post left TMA 07/22, wound left open with dressing in place
- Resolving leukocytosis
- Blood culture with no growth to date, wound culture from left foot growing strep agalactiae
- Antibiotics switched to meropenem per ID recommendations
- Planning more proximal amputation sometime this coming week, n.p.o. after midnight on Friday in case they are able to bring him to the OR that day
- Continue pain control as needed
- Continue tight blood glucose control, currently with long and short acting insulin in addition to glipizide
- Further recommendations per podiatry and vascular surgery
#Coronary artery disease
#[place]
s/p stent placement
- Continue DAPT and high intensity statin therapy
#Type 2 diabetes
- AccuCheck AC & HS
- continue Lantus 16 units at night
- continue Insulin Aspart 16 units with meals, additional short acting sliding scale as needed
- a1c 9.7%
- Glucose has been labile, appreciate diabetes nurse practitioner assistance
#hyponatremia
- Mild, clinically insignificant, will monitor
ASPVD
- Status post left lower extremity revascularization 07/21
#Hyperlipidemia
- continue aspirin and atorvastatin
#Iron deficiency anemia
- Hemoglobin stable, no evidence of active bleeding
- continue ferrous sulfate
#Hypertension
- continue amlodipine, Coreg
#Hx TIA
- continue clopidogrel
#GERD
- continue pantoprazole
#depression/anxiety
- continue paroxetine
#BPH
#Hx Prostate cancer
#Proctitis
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
- continue tamsulosin
Code status: Full code
DVT prophylaxis: Lovenox sq
Total time spent 45 minutes
Anticipated Discharge: 24 - 48 hours
Subjective/Interval History
-
Date of Service: July 24, 2024
Patient was seen and examined at bedside this morning. In relatively good spirits. Tentatively planning more proximal amputation this coming week.
Objective Data
-
Labs:
Laboratory Results
07/24/24
08:48
WBC 10.8
Hgb 7.8 L
Hct 24.8 L
Plt Count 386
Sodium 132 L
Potassium 4.9
Chloride 100
Carbon Dioxide 28
BUN 17
Creatinine 1.0
Glucose 277 H
Calcium 7.8 L
Vital Signs:
Vital Signs
Temp Pulse Resp BP Pulse Ox
98.1 F 71 18 125/91 96
07/24/24 07:00 07/24/24 07:00 07/24/24 07:00 07/24/24 07:00 07/24/24 07:00
I&O
07/23/24 07/24/24 07/25/24
06:59 06:59 06:59
Output Total 1050 / 1050 2400 / 2400
Balance -1050 / -1050 -2400 / -2400
Review of Systems
-
History Source: Patient
All other systems: Reviewed and negative
Physical Exam
-
General: No Apparent Distress
[2024-07-24 15:00] VITALS: BP 113/70
[2024-07-24 16:26] LABS: Glucose - Point of Care 435 mg/dl (70-99)
[2024-07-24] MEDS: LOVENOX 40 MG SC (17:09)
[2024-07-24 17:14] LABS: Glucose 175 mg/dl (70-99)
[2024-07-24] MEDS: NOVOLOG FLEXPEN 18 UNITS SC (17:35)
[2024-07-24] MEDS: NOVOLOG FLEXPEN-LOW RESISTANCE 1 UNITS SC (17:36)
[2024-07-24] MEDS: NOVOLOG FLEXPEN SC (17:37)
[2024-07-24 18:31] LABS: Glucose - Point of Care 195 mg/dl (70-99)
[2024-07-24] MEDS: LANTUS 0.18 UNITS SC (19:42)
[2024-07-24] MEDS: LIPITOR 80 MG PO (21:18)
[2024-07-24] MEDS: ULTRAM 50 MG PO (21:21)
[2024-07-24 22:09] LABS: Glucose - Point of Care 228 mg/dl (70-99)
[2024-07-24 23:04] VITALS: BP 124/55
[2024-07-25] MEDS: MERREM 500 MG IV ×3 (03:07→17:29)
[2024-07-25] MEDS: STERILE WATER FOR INJECTION 10 ML IV ×3 (03:07→17:30)
[2024-07-25 07:00] VITALS: BP 125/58
[2024-07-25 07:47] LABS: % Basophils 0.5 % (0-2); % Eosinophils 2.1 % (0-6); % Immature Granulocytes 2.5 % (0-0.5); % Lymphocytes 15.2 % (20.5-51.1); % Monocytes 7.8 % (1.7-9.3); % Neutrophils 71.9 % (42.2-75.2); Absolute Basophils 0.1 10^3/uL (0-0.2); Absolute Eosinophils 0.2 10^3/uL (0-0.7); Absolute Immature Granulocytes 0.3 10^3/uL (0-0.05); Absolute Lymphocytes 1.5 10^3/uL (1.2-3.4); Absolute Monocytes 0.8 10^3/uL (0.1-0.6); Absolute Neutrophils 7.2 10^3/uL (1.4-6.5); Hematocrit 26.7 % (39.0-52.0); Hemoglobin 8.3 g/dL (13.0-18.0); Mean Corp Hgb Conc. 31.1 g/dL (33.0-37.0); Mean Corpuscular Hgb 24.6 pg (27.0-31.0); Mean Platelet Volume 8.8 fL (7.4-10.4); Nucleated Red Blood Cells % 0 % (-); Platelet Count 400 10^3/uL (130-400); Red Blood Cell Count 3.38 10^6/uL (4.70-6.10); White Blood Cell Count 10.1 10^3/uL (4.8-10.8)
[2024-07-25 07:49] LABS: Glucose - Point of Care 237 mg/dl (70-99)
[2024-07-25 08:40] LABS: Blood Urea Nitrogen 21 mg/dl (9-20); Calcium 7.9 mg/dl (8.4-10.2); Carbon Dioxide 32 mmol/L (22-30); Chloride 99 mmol/L (98-107); Estimated Creatinine Clearance 51 ml/min; Glucose 208 mg/dl (70-99); Potassium 4.9 mmol/L (3.5-5.1); Sodium 134 mmol/L (135-145); eGFR > 60.00
[2024-07-25] MEDS: QUESTRAN 4 GRAM PO ×3 (08:57→20:09)
[2024-07-25] MEDS: PROTONIX 20 MG PO (08:57)
[2024-07-25] MEDS: THERAGRAN 1 TABLET PO (08:58)
[2024-07-25] MEDS: NEURONTIN 200 MG PO ×3 (08:58→20:09)
[2024-07-25] MEDS: PAXIL 40 MG PO (08:58)
[2024-07-25] MEDS: FLOMAX 0.4 MG PO (08:59)
[2024-07-25] MEDS: PLAVIX 75 MG PO (08:59)
[2024-07-25] MEDS: FEOSOL 325 MG PO (08:59)
[2024-07-25] MEDS: NORVASC 5 MG PO (08:59)
[2024-07-25] MEDS: SENOKOT-S 1 TABLET PO ×2 (09:00→20:09)
[2024-07-25] MEDS: COREG 6.25 MG PO ×2 (09:00→20:09)
[2024-07-25] MEDS: ASPIR LOW (ENTERIC COATED) 81 MG PO (09:00)
[2024-07-25] MEDS: NOVOLOG FLEXPEN-LOW RESISTANCE 2 UNITS SC (09:45)
[2024-07-25] MEDS: NOVOLOG FLEXPEN 18 UNITS SC ×3 (09:47→17:28)
[2024-07-25 11:40] LABS: Glucose - Point of Care 290 mg/dl (70-99)
[2024-07-25 11:40] LABS: Glucose - Point of Care 303 mg/dl (70-99)
[2024-07-25] MEDS: NOVOLOG FLEXPEN-LOW RESISTANCE 3 UNITS SC (12:52)
[2024-07-25 15:00] VITALS: BP 143/74
[2024-07-25 16:15] LABS: Glucose - Point of Care 180 mg/dl (70-99)
--- NOTE | 2024-07-25 16:21 | CM ---
CM reviewed chart, tentatively planning more proximal amputation this coming week. Will continue to follow, will need new PT/OT orders when able.
Plan; will depend on progress in hospital, SNF likely versus home with [facility]
--- NOTE | 2024-07-25 16:30 | W.PN.HOSP.TC ---
Today's Communication/Plan
-
Assessment / Plan
Assessment / Plan
General: No acute distress, relatively comfortable status post left TMA
HEENT: NormoCephalic, Moist mucous membranes, Atraumatic
Respiratory: Clear and Non Labored Respirations
Cardiac: S1/S2 and Regular Rhythm; No Rub or Gallop
GI: Soft, Non Tender, Non Distended and Normal Bowel Sounds
Musculoskeletal: No Edema, left TMA, left foot wound dressing with mild strikethrough which is stable for the past 2 days
: NO Adams
Neuro: Awake, Alert, Nonfocal/grossly intact
Psych: Anxious due to pain, cooperative
#left foot cellulitis
#recent Hx osteo
#Hx PAD
- Status post OR 07/19 with podiatry for left foot I&D and left fourth toe amputation left open
- Returned to the OR 07/21 with vascular surgery for left AT intravascular lithotripsy and balloon angioplasty with perfusion
- Now status post left TMA 07/22, wound left open with dressing in place
- Resolving leukocytosis
- Blood culture with no growth to date, wound culture from left foot growing strep agalactiae
- Antibiotics switched to meropenem per ID recommendations
- Planning more proximal amputation sometime this coming week possibly tomorrow 07/26, n.p.o. after midnight on Friday in case they are able to bring him to the OR Friday
- Continue pain control as needed
- Continue tight blood glucose control, currently with long and short acting insulin in addition to glipizide
- Further recommendations per podiatry and vascular surgery
#Coronary artery disease
#[place]
s/p stent placement
- Continue DAPT and high intensity statin therapy
#Type 2 diabetes
- AccuCheck AC & HS
- continue Lantus 18 units at night
- continue Insulin Aspart 18 units with meals, additional short acting sliding scale as needed
- a1c 9.7%
- Glucose has been labile, appreciate diabetes nurse practitioner assistance
#hyponatremia
- Mild, clinically insignificant, will monitor
ASPVD
- Status post left lower extremity revascularization 07/21
#Hyperlipidemia
- continue aspirin and atorvastatin
#Iron deficiency anemia
- Hemoglobin stable, no evidence of active bleeding
- continue ferrous sulfate
#Hypertension
- continue amlodipine, Coreg
#Hx TIA
- continue clopidogrel
#GERD
- continue pantoprazole
#depression/anxiety
- continue paroxetine
#BPH
#Hx Prostate cancer
#Proctitis
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
- continue tamsulosin
Code status: Full code
DVT prophylaxis: Lovenox sq
Total time spent 45 minutes
Anticipated Discharge: > 48 hours
Subjective/Interval History
-
Date of Service: July 25, 2024
Patient was seen and examined at bedside this morning. He is prepared for possibility of OR tomorrow for amputation of his left foot. He has been made n.p.o. past midnight. He is generally in good spirits.
Objective Data
-
Labs:
Laboratory Results
07/25/24
07:26
WBC 10.1
Hgb 8.3 L
Hct 26.7 L
Plt Count 400
Sodium 134 L
Potassium 4.9
Chloride 99
Carbon Dioxide 32 H
BUN 21 H
Creatinine 1.0
Glucose 208 H
Calcium 7.9 L
Vital Signs:
Vital Signs
Temp Pulse Resp BP Pulse Ox
97.9 F 77 18 125/58 96
07/25/24 07:00 07/24/24 23:04 07/25/24 07:00 07/25/24 07:00 07/25/24 07:00
I&O
07/24/24 07/25/24 07/26/24
06:59 06:59 06:59
Intake Total 240 / 240
Output Total 2400 / 2400 3350 / 3350
Balance -2400 / -2400 -3110 / -3110
Review of Systems
-
History Source: Patient
All other systems: Reviewed and negative
Musculoskeletal: Reports Joint Pain (Left foot pain)
Physical Exam
-
General: No Apparent Distress
[2024-07-25] MEDS: NOVOLOG FLEXPEN-LOW RESISTANCE 1 UNITS SC (17:27)
[2024-07-25] MEDS: LANTUS 0.18 UNITS SC (17:29)
[2024-07-25] MEDS: LOVENOX 40 MG SC (17:30)
[2024-07-25] MEDS: TYLENOL 650 MG PO (20:09)
[2024-07-25] MEDS: LIPITOR 80 MG PO ×2 (20:09)
[2024-07-25 21:44] LABS: Glucose - Point of Care 169 mg/dl (70-99)
[2024-07-25 23:29] VITALS: BP 131/62
[2024-07-26] MEDS: STERILE WATER FOR INJECTION 10 ML IV ×3 (01:09→17:25)
[2024-07-26] MEDS: MERREM 500 MG IV ×3 (01:09→17:25)
--- NOTE | 2024-07-26 06:02 | PTCARENOTE ---
pt npo since midnight - chg bath with linen change completed
[2024-07-26 06:17] LABS: Glucose - Point of Care 156 mg/dl (70-99)
[2024-07-26] MEDS: NOVOLOG FLEXPEN-LOW RESISTANCE 1 UNITS SC ×2 (06:20→11:12)
[2024-07-26 07:35] VITALS: BP 136/57
[2024-07-26] MEDS: QUESTRAN 4 GRAM PO ×3 (07:37→21:08)
[2024-07-26] MEDS: PROTONIX 20 MG PO (07:37)
[2024-07-26] MEDS: ASPIR LOW (ENTERIC COATED) 81 MG PO (07:37)
[2024-07-26] MEDS: NEURONTIN 200 MG PO (07:37)
[2024-07-26] MEDS: PLAVIX 75 MG PO (07:38)
[2024-07-26] MEDS: THERAGRAN 1 TABLET PO (07:38)
[2024-07-26] MEDS: FLOMAX 0.4 MG PO (07:38)
[2024-07-26] MEDS: COREG 6.25 MG PO ×2 (07:38→19:57)
[2024-07-26] MEDS: FEOSOL 325 MG PO (07:38)
[2024-07-26] MEDS: NORVASC 5 MG PO (07:39)
[2024-07-26] MEDS: SENOKOT-S 1 TABLET PO ×2 (07:40→19:57)
[2024-07-26] MEDS: PAXIL 40 MG PO (07:40)
--- NOTE | 2024-07-26 07:42 | W.PN.VS ---
Today's Communication / Plan
-
Seen and assessed with Dr. Clay
Assessment/Plan
-
89-year-old male here with nonhealing wound, no other revascularization options
Plan:
- BKA Friday with Dr. Clay
Subjective Data
-
Date of Service: July 26, 2024
Patient seen at bedside this a.m. with Dr. Clay. Patient awake and alert but seems a little bit confused. RN at bedside states patient has been confused overnight for multiple nights. No other events
Objective Data
-
Vital Signs
Temp Pulse Resp BP Pulse Ox
98.1 F 68 18 136/57 99
07/26/24 07:35 07/26/24 07:35 07/26/24 07:35 07/26/24 07:35 07/26/24 07:35
Intake and Output
07/25/24 07/26/24 07/27/24
06:59 06:59 06:59
Intake Total 240 / 240
Output Total 3350 / 3350 3450 / 3450
Balance -3110 / -3110 -3450 / -3450
Intake:
Oral fluids 240 / 240
Output:
Urine, Adams 2049 / 2049 3450 / 3450
Urine, Voided 1300 / 1300
Calcium 7.9 mg/dl (8.4-10.2) L 07/25/24 07:26
Physical Exam
-
No apparent distress, resting bed comfortably
No tachycardia
No dyspnea on room air
ABD flat, nontender, nondistended
Lower extremities unchanged
--- NOTE | 2024-07-26 08:13 | PN.DE.MGMTRT ---
Insulin Management
- -
07/26/2024: Diabetes Management Follow up
Patient admitted 07/14 with worsening L foot infection and pain. PMH HTN, HLD, diabetes, prostate CA, CAD, cardiomyopathy, PAD, [place] GERD, TIA, iron deficiency anemia. Prior to admission was taking glipizide 10 mg BID, NovoLog 20 units AC and Lantus
20 units @ hs. A1C on admission 9.7%. Glipizide STOPPED 07/21 (contraindicated in elderly).
Pt awake, alert, oriented, offers no complaints, very [place] but able to discuss diabetes care plan. and Dtr at bedside, very supportive.
POD # 7 s/p Left 4th toe partial amputation and debridement. POD # 5 s/p Angio with revascularization.
AC Insulin dose was adjusted yesterday to 18 units AC due to persistent hyperglycemia.
07/25 premeal 180 to 303, requiring 2 additional units of corrective insulin with meals. Will increase AC NovoLog to 20 units.
Pt received Lantus 18 units @ HS, Fasting glucose this AM 156 POC. Will make no change to Lantus dose. Cont low corrective insulin with meals
Discussed with nurse. Will cont to follow
Diabetes History
- -
Type of Diabetes: 2 requiring insulin
Pre-Admission Diabetes Regimen
07/25/24
07:26
Creatinine 1.0
Lab Results
Hemoglobin A1c 9.7 % (4.0-5.6) H 07/15/24 07:25
Insulin Pump Settings
IP Diabetes Regimen
07/25/24 07/25/24 07/25/24
07:26 11:37 11:38
Glucose 208 H
POC Glucose 303 H 290 H
07/25/24 07/25/24 07/26/24
16:13 21:42 06:15
Glucose
POC Glucose 180 H 169 H 156 H
Patient Education
[2024-07-26 08:21] LABS: % Basophils 0.5 % (0-2); % Eosinophils 2.3 % (0-6); % Immature Granulocytes 1.7 % (0-0.5); % Monocytes 6.4 % (1.7-9.3); % Neutrophils 73.1 % (42.2-75.2); Absolute Basophils 0.1 10^3/uL (0-0.2); Absolute Eosinophils 0.2 10^3/uL (0-0.7); Absolute Immature Granulocytes 0.2 10^3/uL (0-0.05); Absolute Lymphocytes 1.6 10^3/uL (1.2-3.4); Absolute Monocytes 0.6 10^3/uL (0.1-0.6); Absolute Neutrophils 7.2 10^3/uL (1.4-6.5); Hematocrit 26.7 % (39.0-52.0); Hemoglobin 8.5 g/dL (13.0-18.0); Mean Corp Hgb Conc. 31.8 g/dL (33.0-37.0); Mean Corpuscular Hgb 24.6 pg (27.0-31.0); Mean Corpuscular Volume 77.4 fL (80.0-94.0); Mean Platelet Volume 8.8 fL (7.4-10.4); Nucleated Red Blood Cells % 0 % (-); Platelet Count 408 10^3/uL (130-400); Red Blood Cell Count 3.45 10^6/uL (4.70-6.10); Red Cell Dist. Width 16.1 % (11.5-14.5); White Blood Cell Count 9.8 10^3/uL (4.8-10.8)
[2024-07-26 09:15] LABS: Blood Urea Nitrogen 24 mg/dl (9-20); Calcium 8.4 mg/dl (8.4-10.2); Carbon Dioxide 26 mmol/L (22-30); Chloride 104 mmol/L (98-107); Estimated Creatinine Clearance 64 ml/min; Glucose 146 mg/dl (70-99); Potassium 4.7 mmol/L (3.5-5.1); Sodium 138 mmol/L (135-145); eGFR > 60.00
--- NOTE | 2024-07-26 09:26 | W.PN.ID1 ---
Date of Service
Date of Service: July 26, 2024
Today's Communication
- continue meropenem pending course
- for possible amputation today
Assessment / Plan
Surgical Site Infection - progressive
Diabetic Foot Infection - progressive
Myositis and probable osteomyelitis
DM2 - with poor control
H/o smoking
Medication compliance has been a concern in the past, does have good social support
- s/p TMA however with significant OR findings of purulence involving the calcaneus and significant myonecrosis
- recommend amputation of the foot; I am willing to prescribe a course of meropenem however I feel concerned that it would likely fail; discussed with patient 07/23
- continue meropenem pending course
- for possible amputation today
Chief Complaint
-: Other (surgical site infection, diabetic foot infection, osteomyelitis, myositis)
Subjective / Review of Systems
afebrile
bp stable
no events overnight
NPO for possible amputation
Vital Signs / Physical Exam
Vital Signs
Vital Signs
Temp Pulse Resp BP Pulse Ox
98.1 F 68 18 136/57 99
07/26/24 07:35 07/26/24 07:35 07/26/24 07:35 07/26/24 07:35 07/26/24 07:35
Physical Exam
Constitutional: No Acute Distress
Cardiovascular: Regular Rate and S1/S2; Negative Murmur or Rub
Pulmonary: Clear and Symmetric; Negative Wheezes or Rales
Gastrointestinal: Soft, Non Tender, Non Distended and Normal Bowel Sounds
Skin: Warm and Dry; Negative Rash or Jaundice
Wound: Other (dressing intact with some strikethrough of blood, I see reinforcement of the dressing has been done)
Objective Data
Lab Data
Lab Results
07/26/24 08:13
07/26/24 08:13
ESR 106 mm/hour (0-20) H 07/17/24 06:42
PT 18.0 Sec (11.4-14.6) H 07/21/24 07:21
INR 1.44 07/21/24 07:21
APTT 37.3 Sec (23.4-35.0) H 07/21/24 07:21
Estimated Creat Clear 64 ml/min 07/26/24 08:13
Lactic Acid Cancelled 07/14/24 17:00
C-Reactive Protein > 270.00 mg/L (0.0-10.00) H 07/14/24 13:26
Most recent labs reviewed.
Micro Results:
07/19/24 16:02 Wound Culture - Final
Foot - Left Enterobacter cloacae
Streptococcus agalactiae
Gram Stain - Final
07/19/24 16:02 Anaerobic Culture - Final
Foot - Left NO ANAEROBES ISOLATED
07/19/24 16:02 Wound Culture - Final
Foot - Left Enterobacter cloacae
Streptococcus agalactiae
Gram Stain - Final
07/19/24 16:02 Anaerobic Culture - Final
Foot - Left NO ANAEROBES ISOLATED
07/14/24 13:26 Blood Culture - Final
Blood/Venous No Growth - Final Report
07/14/24 13:28 Blood Culture - Final
Blood/Venous No Growth - Final Report
--- NOTE | 2024-07-26 10:27 | W.PN.HOSP.TC ---
Today's Communication/Plan
-
Resume diet
Stop gabapentin, pt is lethargic and sleepy
Reduce dose of Dilaudid ( best to avoid), reduce tramadol dose
- stop Lovenox as pt is already on aspirin, Plavix, change to SQ heparin
f/w vascular
Assessment / Plan
Assessment / Plan
PE:
General: No acute distress, relatively comfortable status post left TMA
HEENT: NormoCephalic, Moist mucous membranes, Atraumatic
Respiratory: Clear and Non Labored Respirations
Cardiac: S1/S2 and Regular Rhythm; No Rub or Gallop
GI: Soft, Non Tender, Non Distended and Normal Bowel Sounds
Musculoskeletal: No Edema, left TMA, left foot wound dressing with mild strikethrough which is stable for the past 2 days
: NO Adams
Neuro: Awake, Alert, Nonfocal/grossly intact
Psych: Anxious due to pain, cooperative
#left foot cellulitis
#recent Hx osteo
#Hx PAD
- Status post OR 07/19 with podiatry for left foot I&D and left fourth toe amputation left open
- Returned to the OR 07/21 with vascular surgery for left AT intravascular lithotripsy and balloon angioplasty with perfusion
- Now status post left TMA 07/22, wound left open with dressing in place
- Resolving leukocytosis
- Blood culture with no growth to date, wound culture from left foot growing strep agalactiae
- Antibiotics switched to meropenem per ID recommendations
- Planning more proximal amputation sometime, per vascular this Friday
- Continue pain control as needed, reduce doses as above
- Continue tight blood glucose control, currently with long and short acting insulin in addition to glipizide
- Further recommendations per podiatry and vascular surgery
# TME due to medications/ polypharmacy
Stop gabapentin, dose is high for pt's age and renal function
reduce PRN Dilaudid and Tramadol dose
#Coronary artery disease
#[place]
s/p stent placement
- Continue DAPT and high intensity statin therapy
#Type 2 diabetes
- AccuCheck AC & HS
- continue Lantus 18 units at night
- continue Insulin Aspart 18 units with meals, additional short acting sliding scale as needed
- a1c 9.7%
- Glucose has been labile, appreciate diabetes nurse practitioner assistance
#hyponatremia
- Mild, clinically insignificant, will monitor
ASPVD
- Status post left lower extremity revascularization 07/21
#Hyperlipidemia
- continue aspirin and atorvastatin
#Iron deficiency anemia
- Hemoglobin stable, no evidence of active bleeding
- continue ferrous sulfate
#Hypertension
- continue amlodipine, Coreg
#Hx TIA
- continue clopidogrel
#GERD
- continue pantoprazole
#depression/anxiety
- continue paroxetine
#BPH
#Hx Prostate cancer
#Proctitis
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
- continue tamsulosin
Code status: Full code
DVT prophylaxis: stop Lovenox as pt is already on aspirin, Plavix, change to SQ heparin
Total time spent to see the patient, examine the patient, review data and lab result, discuss treatment plan with patient, nursing staff around 55 minutes
Anticipated Discharge: > 48 hours
Subjective/Interval History
-
Date of Service: July 26, 2024
No chest pain
No abdominal pain
Objective Data
-
Labs:
Laboratory Results
07/26/24
08:13
WBC 9.8
Hgb 8.5 L
Hct 26.7 L
Plt Count 408 H
Sodium 138
Potassium 4.7
Chloride 104
Carbon Dioxide 26
BUN 24 H
Creatinine 0.8
Glucose 146 H
Calcium 8.4
Vital Signs:
Vital Signs
Temp Pulse Resp BP Pulse Ox
98.1 F 68 18 136/57 99
07/26/24 07:35 07/26/24 07:35 07/26/24 07:35 07/26/24 07:35 07/26/24 07:35
I&O
07/25/24 07/26/24 07/27/24
06:59 06:59 06:59
Intake Total 240 / 240
Output Total 3350 / 3350 3450 / 3450
Balance -3110 / -3110 -3450 / -3450
[2024-07-26] MEDS: NOVOLOG FLEXPEN SC (10:54)
[2024-07-26 11:06] LABS: Glucose - Point of Care 157 mg/dl (70-99)
[2024-07-26] MEDS: NOVOLOG FLEXPEN 20 UNITS SC ×2 (11:12→17:19)
--- NOTE | 2024-07-26 12:47 | CM ---
Chart reviewed and patient is for possible OR today, plan was to home with spouse and [facility], will need to follow with patient progress after surgery.
Plan; Plan was to home with spouse and [facility].
[2024-07-26 15:14] VITALS: BP 106/74
[2024-07-26 17:08] LABS: Glucose - Point of Care 258 mg/dl (70-99)
[2024-07-26] MEDS: NOVOLOG FLEXPEN-LOW RESISTANCE 3 UNITS SC (17:20)
[2024-07-26] MEDS: LANTUS 0.18 UNITS SC (17:24)
[2024-07-26] MEDS: LIPITOR 80 MG PO (21:07)
[2024-07-26] MEDS: ULTRAM 25 MG PO (21:13)
[2024-07-26 21:43] LABS: Glucose - Point of Care 236 mg/dl (70-99)
[2024-07-26 23:11] VITALS: BP 130/58
[2024-07-27] MEDS: MERREM 500 MG IV ×3 (01:01→17:19)
[2024-07-27] MEDS: STERILE WATER FOR INJECTION 10 ML IV ×3 (01:01→17:18)
[2024-07-27] MEDS: ULTRAM 25 MG PO (05:52)
[2024-07-27 07:23] LABS: Glucose - Point of Care 237 mg/dl (70-99)
[2024-07-27 07:36] VITALS: BP 152/70
[2024-07-27] MEDS: NOVOLOG FLEXPEN 20 UNITS SC (07:52)
[2024-07-27] MEDS: PROTONIX 20 MG PO (07:53)
[2024-07-27] MEDS: THERAGRAN 1 TABLET PO (07:53)
[2024-07-27] MEDS: QUESTRAN 4 GRAM PO ×3 (07:53→21:59)
[2024-07-27] MEDS: NOVOLOG FLEXPEN-LOW RESISTANCE 2 UNITS SC (07:53)
[2024-07-27] MEDS: SENOKOT-S 1 TABLET PO ×2 (07:54→20:04)
[2024-07-27] MEDS: FLOMAX 0.4 MG PO (07:54)
[2024-07-27] MEDS: PAXIL 40 MG PO (07:54)
[2024-07-27] MEDS: ASPIR LOW (ENTERIC COATED) 81 MG PO (07:54)
[2024-07-27] MEDS: NORVASC 5 MG PO (07:54)
[2024-07-27] MEDS: PLAVIX 75 MG PO (07:54)
[2024-07-27] MEDS: HEPARIN 5000 UNITS SC ×2 (07:54→20:04)
[2024-07-27] MEDS: COREG 6.25 MG PO ×2 (07:54→20:03)
[2024-07-27] MEDS: FEOSOL 325 MG PO (07:54)
[2024-07-27 08:03] LABS: Hematocrit 28.4 % (39.0-52.0); Hemoglobin 8.7 g/dL (13.0-18.0); Mean Corp Hgb Conc. 30.6 g/dL (33.0-37.0); Mean Corpuscular Hgb 24.5 pg (27.0-31.0); Mean Platelet Volume 8.8 fL (7.4-10.4); Platelet Count 470 10^3/uL (130-400); Red Blood Cell Count 3.55 10^6/uL (4.70-6.10); Red Cell Dist. Width 16.4 % (11.5-14.5); White Blood Cell Count 11.7 10^3/uL (4.8-10.8)
[2024-07-27] MEDS: TYLENOL 650 MG PO (08:30)
--- NOTE | 2024-07-27 08:30 | PN.DE.MGMTRT ---
Insulin Management
- -
07/27/2024: Diabetes Management Follow up
Patient admitted 07/14 with worsening L foot infection and pain. PMH HTN, HLD, diabetes, prostate CA, CAD, cardiomyopathy, PAD, [place] GERD, TIA, iron deficiency anemia. Prior to admission was taking glipizide 10 mg BID, NovoLog 20 units AC and Lantus
20 units @ hs. A1C on admission 9.7%. Glipizide STOPPED 07/21 (contraindicated in elderly).
Pt awake, alert, oriented, sitting up in bed, offers no complaints, very [place] but able to discuss diabetes care plan. Family at bedside, very supportive.
POD # 8 s/p Left 4th toe partial amputation and debridement. POD # 6 s/p Angio with revascularization.
AC Insulin dose was adjusted yesterday to 20 units AC due to persistent hyperglycemia.
07/26 premeal glucose improved to a range of 156 to 258 303, still requiring 1-3 units of additional corrective insulin with meals.
Will increase AC NovoLog to 22 units. FBG was 200 V, 237 POC this AM. Will increase Lantus to 20 units @ HS. Cont low corrective insulin with meals
Discussed with nurse. Will cont to follow
Diabetes History
- -
Type of Diabetes: 2 requiring insulin
Pre-Admission Diabetes Regimen
07/26/24
08:13
Creatinine 0.8
Lab Results
Hemoglobin A1c 9.7 % (4.0-5.6) H 07/15/24 07:25
Insulin Pump Settings
IP Diabetes Regimen
07/26/24 07/26/24 07/26/24
08:13 11:05 17:07
Glucose 146 H
POC Glucose 157 H 258 H
07/26/24 07/27/24
21:41 07:22
Glucose
POC Glucose 236 H 237 H
Meal type: Lunch
Meal type: Breakfast
Meal type: Lunch
Amount consumed: 75%
Amount consumed: 100%
Patient Education
--- NOTE | 2024-07-27 08:37 | W.PN.HOSP.TC ---
Today's Communication/Plan
-
Surgery tomorrow
NPO past MN
Assessment / Plan
Assessment / Plan
PE:
General: No acute distress, relatively comfortable status post left TMA
HEENT: NormoCephalic, Moist mucous membranes, Atraumatic
Respiratory: Clear and Non Labored Respirations
Cardiac: S1/S2 and Regular Rhythm; No Rub or Gallop
GI: Soft, Non Tender, Non Distended and Normal Bowel Sounds
Musculoskeletal: No Edema, left TMA, left foot wound dressing with mild strikethrough which is stable for the past 2 days
: NO Adams
Neuro: Awake, Alert, Nonfocal/grossly intact
Psych: Anxious due to pain, cooperative
#left foot cellulitis
#recent Hx osteo
#Hx PAD
- Status post OR 07/19 with podiatry for left foot I&D and left fourth toe amputation left open
- Returned to the OR 07/21 with vascular surgery for left AT intravascular lithotripsy and balloon angioplasty with perfusion
- Now status post left TMA 07/22, wound left open with dressing in place
- Resolving leukocytosis
- Blood culture with no growth to date, wound culture from left foot growing strep agalactiae
- Antibiotics switched to meropenem per ID recommendations
- Planning more proximal amputation sometime, per vascular this Friday
- Continue pain control as needed, reduce doses as above
- Continue tight blood glucose control, currently with long and short acting insulin. AC NovoLog to 20 units
- Further recommendations per podiatry and vascular surgery
# TME due to medications/ polypharmacy
Stopped gabapentin, dose is high for pt's age and renal function
Reduced PRN Dilaudid and Tramadol dose
#Coronary artery disease
#[place]
s/p stent placement
- Continue DAPT and high intensity statin therapy
#Type 2 diabetes
- AccuCheck AC & HS
- continue Lantus 18 units at night
- continue Insulin Aspart 18 units with meals, additional short acting sliding scale as needed
- a1c 9.7%
- Glucose has been labile, appreciate diabetes nurse practitioner assistance
#hyponatremia
- Mild, clinically insignificant, will monitor
ASPVD
- Status post left lower extremity revascularization 07/21
#Hyperlipidemia
- continue aspirin and atorvastatin
#Iron deficiency anemia
- Hemoglobin stable, no evidence of active bleeding
- continue ferrous sulfate
#Hypertension
- continue amlodipine, Coreg
#Hx TIA
- continue clopidogrel
#GERD
- continue pantoprazole
#depression/anxiety
- continue paroxetine
#BPH
#Hx Prostate cancer
#Proctitis
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
- continue tamsulosin
Code status: Full code
DVT prophylaxis: stop Lovenox as pt is already on aspirin, Plavix, change to SQ heparin
Total time spent to see the patient, examine the patient, review data and lab result, discuss treatment plan with patient, nursing staff around 55 minutes
Anticipated Discharge: > 48 hours
Subjective/Interval History
-
Date of Service: July 27, 2024
No chest pain
No sob
No nausea
Objective Data
-
Labs:
Laboratory Results
07/27/24
07:47
WBC 11.7 H
Hgb 8.7 L
Hct 28.4 L
Plt Count 470 H
Sodium Pending
Potassium Pending
Chloride Pending
Carbon Dioxide Pending
BUN Pending
Creatinine Pending
Glucose Pending
Calcium Pending
Vital Signs:
Vital Signs
Temp Pulse Resp BP Pulse Ox
97.9 F 74 18 152/70 97
07/27/24 07:36 07/27/24 07:36 07/27/24 07:36 07/27/24 07:36 07/27/24 07:36
I&O
07/26/24 07/27/24 07/28/24
06:59 06:59 06:59
Intake Total 960 / 960
Output Total 3450 / 3450 3075 / 3075
Balance -3450 / -3450 -2114 / -2114
[2024-07-27 08:39] LABS: Blood Urea Nitrogen 30 mg/dl (9-20); Calcium 8.4 mg/dl (8.4-10.2); Carbon Dioxide 29 mmol/L (22-30); Chloride 104 mmol/L (98-107); Estimated Creatinine Clearance 57 ml/min; Glucose 200 mg/dl (70-99); Potassium 4.6 mmol/L (3.5-5.1); Sodium 135 mmol/L (135-145); eGFR > 60.00
[2024-07-27] MEDS: DILAUDID 0.5 MG IV ×2 (11:02→22:06)
[2024-07-27 11:19] LABS: Glucose - Point of Care 324 mg/dl (70-99)
[2024-07-27] MEDS: NOVOLOG FLEXPEN-LOW RESISTANCE 4 UNITS SC (12:42)
[2024-07-27] MEDS: NOVOLOG FLEXPEN 22 UNITS SC ×2 (12:42→17:18)
--- NOTE | 2024-07-27 13:06 | CM ---
CM reviewed chart, patient seen with , for OR tomorrow for BKA. Patient will require new PT orders when able. CM will continue to follow for all discharge planning needs.
Plan; OR tomorrow, home with w/ [facility], will depend on progress in therapy
[2024-07-27 15:15] VITALS: BP 112/58
[2024-07-27 16:05] LABS: Glucose - Point of Care 182 mg/dl (70-99)
[2024-07-27] MEDS: LANTUS 0.2 UNITS SC (17:15)
[2024-07-27] MEDS: NOVOLOG FLEXPEN-LOW RESISTANCE 1 UNITS SC (17:18)
--- NOTE | 2024-07-27 19:53 | W.PN.ID1 ---
Date of Service
Date of Service: July 27, 2024
Today's Communication
- continue meropenem x24 hours post amputation
- for possible amputation tomorrow
Assessment / Plan
Surgical Site Infection - progressive
Diabetic Foot Infection - progressive
Myositis and probable osteomyelitis
DM2 - with poor control
H/o smoking
Medication compliance has been a concern in the past, does have good social support
- s/p TMA however with significant OR findings of purulence involving the calcaneus and significant myonecrosis
- recommend amputation of the foot; I am willing to prescribe a course of meropenem however I feel concerned that it would likely fail; discussed with patient 5/9
- continue meropenem x24 hours post amputation
- for possible amputation tomorrow
Chief Complaint
-: Other (surgical site infection, diabetic foot infection, osteomyelitis, myositis)
Subjective / Review of Systems
afebrile
bp stable
tolerating current therapies
amputation moved to tomorrow
Vital Signs / Physical Exam
Vital Signs
Vital Signs
Temp Pulse Resp BP Pulse Ox
98.7 F 71 18 112/58 98
07/27/24 15:15 07/27/24 15:15 07/27/24 15:15 07/27/24 15:15 07/27/24 15:15
Physical Exam
Constitutional: No Acute Distress
Cardiovascular: Regular Rate and S1/S2; Negative Murmur or Rub
Pulmonary: Clear and Symmetric; Negative Wheezes or Rales
Gastrointestinal: Soft, Non Tender, Non Distended and Normal Bowel Sounds
Skin: Warm and Dry; Negative Rash or Jaundice
Wound: Other (dressing intact with some strikethrough of blood which is stable)
Objective Data
Lab Data
Lab Results
07/27/24 07:47
07/27/24 07:47
ESR 106 mm/hour (0-20) H 07/17/24 06:42
PT 18.0 Sec (11.4-14.6) H 07/21/24 07:21
INR 1.44 07/21/24 07:21
APTT 37.3 Sec (23.4-35.0) H 07/21/24 07:21
Estimated Creat Clear 57 ml/min 07/27/24 07:47
Lactic Acid Cancelled 07/14/24 17:00
C-Reactive Protein > 270.00 mg/L (0.0-10.00) H 07/14/24 13:26
Most recent labs reviewed.
Micro Results:
07/19/24 16:02 Wound Culture - Final
Foot - Left Enterobacter cloacae
Streptococcus agalactiae
Gram Stain - Final
07/19/24 16:02 Anaerobic Culture - Final
Foot - Left NO ANAEROBES ISOLATED
07/19/24 16:02 Wound Culture - Final
Foot - Left Enterobacter cloacae
Streptococcus agalactiae
Gram Stain - Final
07/19/24 16:02 Anaerobic Culture - Final
Foot - Left NO ANAEROBES ISOLATED
07/14/24 13:26 Blood Culture - Final
Blood/Venous No Growth - Final Report
07/14/24 13:28 Blood Culture - Final
Blood/Venous No Growth - Final Report
[2024-07-27 21:20] LABS: Glucose - Point of Care 155 mg/dl (70-99)
[2024-07-27] MEDS: LIPITOR 80 MG PO (21:59)
[2024-07-27 23:00] VITALS: BP 127/84
[2024-07-28] VITALS (15 sets, daily range): BP systolic 98–130; BP diastolic 54–84
[2024-07-28] MEDS: MERREM 500 MG IV ×3 (02:00→17:54)
[2024-07-28] MEDS: STERILE WATER FOR INJECTION 10 ML IV ×3 (02:01→17:54)
[2024-07-28] MEDS: NOVOLOG FLEXPEN SC ×2 (05:42→11:10)
[2024-07-28 05:47] LABS: Glucose - Point of Care 146 mg/dl (70-99)
[2024-07-28] MEDS: NOVOLOG FLEXPEN-LOW RESISTANCE SC ×2 (05:48→18:26)
[2024-07-28] MEDS: PLAVIX 75 MG PO (08:04)
[2024-07-28] MEDS: PROTONIX 20 MG PO (08:04)
[2024-07-28] MEDS: ASPIR LOW (ENTERIC COATED) 81 MG PO (08:05)
[2024-07-28] MEDS: PAXIL 40 MG PO (08:05)
[2024-07-28] MEDS: HEPARIN 5000 UNITS SC ×2 (08:05→19:22)
[2024-07-28] MEDS: FEOSOL 325 MG PO (08:05)
[2024-07-28] MEDS: COREG 6.25 MG PO ×2 (08:05→19:21)
[2024-07-28] MEDS: THERAGRAN 1 TABLET PO (08:05)
[2024-07-28] MEDS: SENOKOT-S 1 TABLET PO ×2 (08:05→19:21)
[2024-07-28] MEDS: NORVASC 5 MG PO (08:05)
[2024-07-28] MEDS: FLOMAX 0.4 MG PO (08:05)
[2024-07-28] MEDS: QUESTRAN PO (08:06)
[2024-07-28 08:19] LABS: Hematocrit 26.6 % (39.0-52.0); Hemoglobin 8.3 g/dL (13.0-18.0); Mean Corp Hgb Conc. 31.2 g/dL (33.0-37.0); Mean Corpuscular Hgb 24.6 pg (27.0-31.0); Mean Corpuscular Volume 78.9 fL (80.0-94.0); Mean Platelet Volume 8.9 fL (7.4-10.4); Platelet Count 399 10^3/uL (130-400); Red Blood Cell Count 3.37 10^6/uL (4.70-6.10); Red Cell Dist. Width 16.5 % (11.5-14.5); White Blood Cell Count 10.3 10^3/uL (4.8-10.8)
[2024-07-28 09:00] LABS: Blood Urea Nitrogen 31 mg/dl (9-20); Calcium 8.6 mg/dl (8.4-10.2); Carbon Dioxide 27 mmol/L (22-30); Chloride 105 mmol/L (98-107); Estimated Creatinine Clearance 57 ml/min; Glucose 139 mg/dl (70-99); Sodium 136 mmol/L (135-145); eGFR > 60.00
--- NOTE | 2024-07-28 10:29 | PN.DE.MGMTRT ---
Insulin Management
- -
07/28/2024: Diabetes Management Follow up
Patient admitted 07/14 with worsening L foot infection and pain. PMH HTN, HLD, diabetes, prostate CA, CAD, cardiomyopathy, PAD, [place] GERD, TIA, iron deficiency anemia. Prior to admission was taking glipizide 10 mg BID, NovoLog 20 units AC and Lantus
20 units @ hs. A1C on admission 9.7%. Glipizide STOPPED 07/21 (contraindicated in elderly).
Pt was off the floor to the OR for procedure at [facility] my visit. No family at bedside.
POD # 9 s/p Left 4th toe partial amputation and debridement. POD # 7 s/p Angio with revascularization.
Pt has been NPO since NH for procedure, glucose table FBG 139 V this AM. Will not make any changes for now.
Cont AC NovoLog 22 units, Lantus 20 units @ HS and low corrective insulin for now.
Will reassess after procedure and adjust insulin dose if necessary.
Discussed with nurse. Will cont to follow
Diabetes History
- -
Type of Diabetes: 2 requiring insulin
Pre-Admission Diabetes Regimen
07/28/24
07:19
Creatinine 0.9
Lab Results
Hemoglobin A1c 9.7 % (4.0-5.6) H 07/15/24 07:25
Insulin Pump Settings
IP Diabetes Regimen
07/27/24 07/27/24 07/27/24
11:18 16:04 21:18
Glucose
POC Glucose 324 H 182 H 155 H
07/28/24 07/28/24
05:45 07:19
Glucose 139 H
POC Glucose 146 H
Meal type: Breakfast
Amount consumed: 100%
Patient Education
--- NOTE | 2024-07-28 11:18 | W.PN.HOSP.TC ---
Today's Communication/Plan
-
Await vascular surgery
He is NPO, c/w insulin sliding scale
Might need IVF if delayed surgery
Assessment / Plan
Assessment / Plan
PE:
General: No acute distress, relatively comfortable status post left TMA
HEENT: NormoCephalic, Moist mucous membranes, Atraumatic
Respiratory: Clear and Non Labored Respirations
Cardiac: S1/S2 and Regular Rhythm; No Rub or Gallop
GI: Soft, Non Tender, Non Distended and Normal Bowel Sounds
Musculoskeletal: No Edema, left TMA, left foot wound dressing with mild strikethrough which is stable for the past 2 days
: NO Adams
Neuro: Awake, Alert, Nonfocal/grossly intact
Psych: Anxious due to pain, cooperative
#left foot cellulitis
#recent Hx osteo
#Hx PAD
- Status post OR 07/19 with podiatry for left foot I&D and left fourth toe amputation left open
- Returned to the OR 07/21 with vascular surgery for left AT intravascular lithotripsy and balloon angioplasty with perfusion
- Now status post left TMA 07/22, wound left open with dressing in place
- Resolving leukocytosis
- Blood culture with no growth to date, wound culture from left foot growing strep agalactiae
- Antibiotics switched to meropenem per ID recommendations
- Planning more proximal amputation sometime, per vascular this Friday
- Continue pain control as needed, reduce doses as above
- Continue tight blood glucose control, currently with long and short acting insulin. AC NovoLog to 20 units
- Further recommendations per podiatry and vascular surgery
# TME due to medications/ polypharmacy
Stopped gabapentin, dose is high for pt's age and renal function
Reduced PRN Dilaudid and Tramadol dose
#Coronary artery disease
#[place]
s/p stent placement
- Continue DAPT and high intensity statin therapy
#Type 2 diabetes
- AccuCheck AC & HS
- continue Lantus 18 units at night
- continue Insulin Aspart 18 units with meals, additional short acting sliding scale as needed
- a1c 9.7%
- Glucose has been labile, appreciate diabetes nurse practitioner assistance
#hyponatremia
- Mild, clinically insignificant, will monitor
ASPVD
- Status post left lower extremity revascularization 07/21
#Hyperlipidemia
- continue aspirin and atorvastatin
#Iron deficiency anemia
- Hemoglobin stable, no evidence of active bleeding
- continue ferrous sulfate
#Hypertension
- continue amlodipine, Coreg
#Hx TIA
- continue clopidogrel
#GERD
- continue pantoprazole
#depression/anxiety
- continue paroxetine
#BPH
#Hx Prostate cancer
#Proctitis
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
- continue tamsulosin
Code status: Full code
DVT prophylaxis: stop Lovenox as pt is already on aspirin, Plavix, change to SQ heparin
Total time spent to see the patient, examine the patient, review data and lab result, discuss treatment plan with patient, nursing staff around 55 minutes
Anticipated Discharge: > 48 hours
Subjective/Interval History
-
Date of Service: July 28, 2024
No complaints
He is NPO
Objective Data
-
Labs:
Laboratory Results
07/28/24
07:19
WBC 10.3
Hgb 8.3 L
Hct 26.6 L
Plt Count 399
Sodium 136
Potassium 5.0
Chloride 105
Carbon Dioxide 27
BUN 31 H
Creatinine 0.9
Glucose 139 H
Calcium 8.6
Vital Signs:
Vital Signs
Temp Pulse Resp BP Pulse Ox
98.7 F 69 18 123/84 96
07/28/24 07:27 07/28/24 07:27 07/28/24 07:27 07/28/24 07:27 07/28/24 08:00
I&O
07/27/24 07/28/24 07/29/24
06:59 06:59 06:59
Intake Total 960 / 960 1200 / 1200
Output Total 3075 / 3075 4000 / 4000
Balance -2115 / -2115 -2800 / -2800
[2024-07-28 11:41] LABS: Glucose - Point of Care 174 mg/dl (70-99)
[2024-07-28] MEDS: NOVOLOG FLEXPEN-LOW RESISTANCE 1 UNITS SC ×2 (12:24→18:58)
--- NOTE | 2024-07-28 12:41 | CM ---
CM reviewed chart, patient for OR for BKA. CM will follow for patient discharge needs, will require new PT/OT orders when able.
Plan; OR for BKA
[2024-07-28] MEDS: PERIDEX 0.12% ORAL RINSE 15 ML PO (13:13)
[2024-07-28] MEDS: BACTROBAN 2% OINTMENT 1 APPLIC NASAL (13:13)
--- NOTE | 2024-07-28 13:55 | W.PN.UPDATE ---
Update Note
Progress Note Update
I had seen and evaluated him earlier. I discussed with the patient, his at the bedside, his grandson at the bedside the plan. Discussed that he had extensive discussions with the play leader who felt that limb salvage was a real stretch and
would involve multiple procedures with no guarantee. Patient is amenable to amputation. Risk/benefits/alternatives also discussed. We discussed the level of amputation to be below the knee amputation of the left lower extremity. Discussed that
this does offer some benefit in terms of ability to walk with the prosthetic, though healing potential may be slightly decreased below the knee as compared to above the knee. I discussed risks of procedure including but not limited to bleeding,
infection, nonhealing, need for revision to [id number] amputation. He understands all wishes to proceed.
--- NOTE | 2024-07-28 13:58 | W.SUR.PREOP ---
Pre-Operative Surgical Note
-
I have examined this patient prior to the performance of the scheduled procedure.
The patient's condition is unchanged from the time of the current History and
Physical and the patient is able to undergo the scheduled procedure.
[2024-07-28 14:15] LABS: Glucose - Point of Care 131 mg/dl (70-99)
--- NOTE | 2024-07-28 15:12 | W.SUR.POST ---
Surgical Immediate Post Op
Note
Pre Op Diagnosis: Critical limb threatening ischemia, nonhealing wound
Post Op Diagnosis: Critical limb threatening ischemia, nonhealing wound
Procedure Performed: Left BKA
Primary Surgeon: Jorge Clay M.D.
physician's assistant: ALYSIA Easton
Anesthesia: GETA
Estimated Blood Loss: 250 ml, started hemoglobin 8.3 1 unit packed blood cells provided IntraOp for chronic anemia with superimposed blood loss expected intraoperatively
Fluids: See anesthesia flowsheet
Drains/Shunts: N/A
Specimens/Cultures: Left lower extremity:
Doppler/Duplex/Angio (Y/N): N
Complications: None
Operative Findings: Successful amputation of left below the knee
--- NOTE | 2024-07-28 15:21 | OR.RPT ---
Operative Report
Operative Report
PROCEDURE DATE: 07/28/2024
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
Postoperative diagnosis: Same
Procedure: Left below the knee amputation
Surgeon: Obed
Supervisor [employer]: DEVAN Butler, required for all aspects of procedure including assistance with traction/countertraction, assistance with closure.
Complications: None
Anesthesia: General
Indications for procedure:
Left lower extremity wounds. Despite attempted revascularization efforts and debridement/ TMA, he had significant burden of ischemic nonhealing tissue. After extensive discussions, patient was amenable to below the knee amputation.
Risk/benefits/alternatives also discussed. Patient understood all wished to proceed.
Description of procedure:
Patient was identified brought to the operating room placed on the table in supine position. After the adequate administration of anesthesia and perioperative antibiotics he was prepped and draped in the standard surgical fashion. A standard
preoperative timeout was undertaken and everybody was in agreement the plan. Standard posterior flap type incisions were made in the left lower extremity with a transverse incision anteriorly at approximately 12 cm distal to the tibial tuberosity.
Medial and lateral longitudinal incisions were carried down. And then posterior transverse incision was then again carried down. The incisions were carried through the skin subcutaneous tissue with the electrocautery and then through the fascial
layer. Hemostasis was achieved as we progressed. Next the muscles of the anterior and lateral compartments of the calf were divided with electrocautery. Once the anterior compartment muscles were divided, the anterior tibial neurovascular bundle
was ligated between silk ties and then divided. The muscles/attachments of the tibia medially were also divided with electrocautery. As such the tibia was then freed of all its attachments and a periosteal elevator was used to elevate the
periosteum circumferentially. The fibula was similarly freed of all its surrounding soft tissue and muscles. These were transected with electrocautery. The intermuscular septum was then divided with electrocautery. Circumferential dissection of
the fibula was undertaken carefully and a periosteal elevator was used to elevate the periosteum circumferentially around the fibula as well. At this point the tibia and fibula were transected with an oscillating saw. The posterior tissues were
then cut with a amputation knife in a direction parallel to the access of the leg. This was then teed off in a perpendicular access at the distal posterior transverse skin incision site. The leg specimen was then removed. The peroneal and
posterior tibial arteries were then controlled with hemostats. These were then ligated. (Ligated distally at the transection site). Next I removed any redundant muscle with the electrocautery. I then again ligated the peroneal and posterior
tibial arteries and veins with silk suture ligatures, but now proximally just distal to the bone transection site. Next hemostasis was achieved throughout the muscle bed with [id number] 2-0 silk suture and electrocautery. Next the oscillating
saw was used to bevel the anterior aspect of the tibia so as to avoid any pressure point. A rasp was used to smooth the edges. The fibula was then re- transected with the oscillating saw to a point approximately 1 cm proximal to the tibial
transection. A rasp was used to smooth the edges. Next we irrigated copiously. Hemostasis was confirmed. We then closed in layers after trimming the skin flap of any redundant/dog-ear type projections. 0 Vicryl interrupted suture was used to
reapproximate the fascial layer. Next running 3-0 Vicryl deep dermal suture layer was run. Finally skin clips were applied. Bulky dressings were applied. All sponge, needle, instrument counts were correct at the end of the case. The patient
tolerated procedure well. He was transported to the recovery room in stable condition.
[2024-07-28 15:30] LABS: Glucose - Point of Care 168 mg/dl (70-99)
[2024-07-28] MEDS: DILAUDID 0.5 MG IV (15:34)
[2024-07-28 16:12] LABS: Hematocrit 29.1 % (39.0-52.0); Hemoglobin 9.4 g/dL (13.0-18.0); Mean Corp Hgb Conc. 32.3 g/dL (33.0-37.0); Mean Corpuscular Hgb 26.1 pg (27.0-31.0); Mean Corpuscular Volume 80.8 fL (80.0-94.0); Mean Platelet Volume 8.8 fL (7.4-10.4); Platelet Count 336 10^3/uL (130-400); Red Cell Dist. Width 16.2 % (11.5-14.5); White Blood Cell Count 13.3 10^3/uL (4.8-10.8)
[2024-07-28] MEDS: DILAUDID PCA 30 IV (16:20)
[2024-07-28] MEDS: D5/0.45%NACL 1000 IV (16:26)
[2024-07-28 17:44] LABS: Glucose - Point of Care 197 mg/dl (70-99)
[2024-07-28] MEDS: LANTUS 0.2 UNITS SC (17:54)
[2024-07-28] MEDS: QUESTRAN 4 GRAM PO ×2 (17:55→21:07)
[2024-07-28] MEDS: NOVOLOG FLEXPEN 22 UNITS SC (18:58)
[2024-07-28] MEDS: LIPITOR 80 MG PO (21:07)
[2024-07-28 22:15] LABS: Glucose - Point of Care 174 mg/dl (70-99)
[2024-07-29] MEDS: MERREM 500 MG IV ×2 (01:12→11:11)
[2024-07-29] MEDS: STERILE WATER FOR INJECTION 10 ML IV ×2 (01:12→11:10)
[2024-07-29 03:54] VITALS: BP 141/70
[2024-07-29 07:00] VITALS: BP 113/82
[2024-07-29 07:24] LABS: Hematocrit 27.2 % (39.0-52.0); Hemoglobin 8.8 g/dL (13.0-18.0); Mean Corp Hgb Conc. 32.4 g/dL (33.0-37.0); Mean Corpuscular Hgb 25.7 pg (27.0-31.0); Mean Corpuscular Volume 79.3 fL (80.0-94.0); Mean Platelet Volume 9.2 fL (7.4-10.4); Platelet Count 357 10^3/uL (130-400); Red Blood Cell Count 3.43 10^6/uL (4.70-6.10); Red Cell Dist. Width 16.2 % (11.5-14.5); White Blood Cell Count 13.9 10^3/uL (4.8-10.8)
--- NOTE | 2024-07-29 07:39 | W.PN.VS ---
Addendum entered and electronically signed by Jorge Clay MD 07/29/24 09:07:
Seen and examined with DEVAN Kaur. Agree with findings as noted below. Patient without significant complaints, some pain at surgical site. However pain is reasonably controlled. Exam unremarkable. Left lower extremity BKA dressing is clean dry
and intact. No evidence of hematoma or blood staining. Plan/as discussed and noted below.
Original Note:
Today's Communication / Plan
-
Seen and assessed with Dr. Clay
Assessment/Plan
-
Postop day 1 BKA
Plan:
- Trapeze for bed
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
- Will start physical therapy tomorrow
- Pain control
- Hemoglobin stable
- Will consult rehab tomorrow
- Keep dressing intact today
Subjective Data
-
Date of Service: July 29, 2024
Patient seen at bedside this a.m. with Dr. Clay. Patient offers no complaints at this time. Patient resting comfortably.
Objective Data
-
Vital Signs
Temp Pulse Resp BP Pulse Ox
97.6 F 73 16 141/70 95
07/29/24 03:54 07/29/24 03:54 07/29/24 04:00 07/29/24 03:54 07/29/24 04:00
Intake and Output
07/28/24 07/29/24 07/30/24
06:59 06:59 06:59
Intake Total 1200 / 1200 680 / 680
Output Total 4000 / 4000 2325 / 2325
Balance -2800 / -2800 -1645 / -1645
Intake:
Oral fluids 1200 / 1200 480 / 480
IV fluids (Total) 200 / 200
normal saline 200 / 200
Output:
Urine, Adams 4000 / 4000 2325 / 2325
Lab Results
07/29/24 06:22
Calcium 8.6 mg/dl (8.4-10.2) 07/28/24 07:19
Physical Exam
-
AAO x 3
No tachypnea on room air
No tachycardia
Abdomen soft
Stump site dressing clean, dry, intact, no drainage noted
[2024-07-29 08:07] LABS: Blood Urea Nitrogen 26 mg/dl (9-20); Calcium 7.6 mg/dl (8.4-10.2); Carbon Dioxide 23 mmol/L (22-30); Chloride 106 mmol/L (98-107); Estimated Creatinine Clearance 57 ml/min; Glucose 295 mg/dl (70-99); Potassium 4.3 mmol/L (3.5-5.1); Sodium 133 mmol/L (135-145); eGFR > 60.00
--- NOTE | 2024-07-29 08:31 | PN.DE.MGMTRT ---
Insulin Management
- -
07/29/2024: Diabetes Management Follow up
Patient admitted 07/14 w/worsening Left foot infection and pain. PMH: HTN, HLD, T2DM, prostate CA, CAD, Cardiomyopathy, PAD, [place] GERD, TIA, YESSY.
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 A1C on admission 9.7%, Cr 0.9, eGFR >60. Glipizide STOPPED 07/21 (contraindicated in elderly).
Pt awake, alert, oriented, sitting up in bed, offers no complaints, very ZUNI but able to discuss diabetes care plan. Family at bedside, very supportive.
POD #1 s/p left BKA, doing well. POD # 9 s/p Left 4th toe partial amputation and debridement. POD # 7 s/p Angio with revascularization.
Pt was NPO most of the day and AC Insulin was held for OR yesterday. Pre-dinner glucose was 197, 174 @ HS, Received Lantus 20 units, FBG 295 V this AM
Will increase Lantus to 22 units @ HS, cont AC NovoLog 22 units and low corrective insulin with meals.
Will reassess after procedure and adjust insulin dose if necessary.
Discussed with pt's Dtr, and Nurse. Will cont to follow
Diabetes History
- -
Type of Diabetes: 2 requiring insulin
Pre-Admission Diabetes Regimen
07/28/24 07/29/24
07: 06:22
Creatinine 0.9 0.9
Lab Results
Hemoglobin A1c 9.7 % (4.0-5.6) H 07/15/24 07:25
Insulin Pump Settings
IP Diabetes Regimen
07/28/24 07/28/24 07/28/24
07:19 11:40 14:04
Glucose 139 H
POC Glucose 174 H 131 H
07/28/24 07/28/24 07/28/24
15:29 17:43 22:14
Glucose
POC Glucose 168 H 197 H 174 H
07/29/24
06:22
Glucose 295 H
POC Glucose
Patient Education
[2024-07-29 08:35] LABS: Glucose - Point of Care 166 mg/dl (70-99)
[2024-07-29] MEDS: PAXIL 40 MG PO (08:52)
[2024-07-29] MEDS: PROTONIX 20 MG PO (08:52)
[2024-07-29] MEDS: COREG 6.25 MG PO ×2 (08:52→19:38)
[2024-07-29] MEDS: PLAVIX 75 MG PO (08:52)
[2024-07-29] MEDS: ASPIR LOW (ENTERIC COATED) 81 MG PO (08:52)
[2024-07-29] MEDS: THERAGRAN 1 TABLET PO (08:52)
[2024-07-29] MEDS: FEOSOL 325 MG PO (08:52)
[2024-07-29] MEDS: QUESTRAN 4 GRAM PO ×3 (08:52→21:37)
[2024-07-29] MEDS: SENOKOT-S 1 TABLET PO ×2 (08:53→19:38)
[2024-07-29] MEDS: FLOMAX 0.4 MG PO (08:53)
[2024-07-29] MEDS: NORVASC 5 MG PO (08:53)
[2024-07-29] MEDS: HEPARIN 5000 UNITS SC ×2 (08:53→19:38)
[2024-07-29] MEDS: NOVOLOG FLEXPEN 22 UNITS SC ×3 (09:14→17:28)
[2024-07-29] MEDS: NOVOLOG FLEXPEN-LOW RESISTANCE 1 UNITS SC (09:15)
--- NOTE | 2024-07-29 09:36 | W.PN.HOSP.TC ---
Today's Communication/Plan
-
New onset metabolic involuntary twitching, likely from Dilaudid. Discussed with vascular and pharmacy, will avoid Dilaudid at present time, will rely on Tylenol and only use narcotic when patient wakes up and in significant discomfort patient is not
Patient is known to have intolerance to opioid
Family requested his pet dog to visit him
Discussed with rn case manager hospice, to provide SNF listing to family, anticipate discharge early next week
Assessment / Plan
Assessment / Plan
PE:
General: No acute distress, relatively comfortable status post left TMA
HEENT: NormoCephalic, Moist mucous membranes, Atraumatic
Respiratory: Clear and Non Labored Respirations
Cardiac: S1/S2 and Regular Rhythm; No Rub or Gallop
GI: Soft, Non Tender, Non Distended and Normal Bowel Sounds
Musculoskeletal: No Edema, left TMA, left foot wound dressing with mild strikethrough which is stable for the past 2 days
: NO Adams
Neuro: Awake, Alert, Nonfocal/grossly intact
Psych: Anxious due to pain, cooperative
#left foot cellulitis
#recent Hx osteo
#Hx PAD
- Status post OR 07/19 with podiatry for left foot I&D and left fourth toe amputation left open
- Returned to the OR 07/21 with vascular surgery for left AT intravascular lithotripsy and balloon angioplasty with perfusion
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
-Appreciate podiatry and vascular surgery help
# New onset metabolic involuntary twitching, likely from Dilaudid. Discussed with vascular and pharmacy, will avoid Dilaudid at present time, will rely on Tylenol and only use narcotic when patient wakes up and in significant discomfort.
# Postop leukocytosis, likely reactive
# Earlier on admission, patient had TME due to medications/ polypharmacy
Stopped gabapentin, dose is high for pt's age and renal function
Reduced PRN Dilaudid and Tramadol dose at the time
#Coronary artery disease
#NE
s/p stent placement
- Continue DAPT and high intensity statin therapy
#Type 2 diabetes
- AccuCheck AC & HS
- continue Lantus 18 units at night
- continue Insulin Aspart 18 units with meals, additional short acting sliding scale as needed
- a1c 9.7%
- Glucose has been labile, appreciate diabetes nurse practitioner assistance
#hyponatremia
- Mild, clinically insignificant, will monitor
ASPVD
- Status post left lower extremity revascularization 07/21
#Hyperlipidemia
- continue aspirin and atorvastatin
#Iron deficiency anemia
- Hemoglobin stable, no evidence of active bleeding
- continue ferrous sulfate
#Hypertension
- continue amlodipine, Coreg
#Hx TIA
- continue clopidogrel
#GERD
- continue pantoprazole
#depression/anxiety
- continue paroxetine
#BPH
#Hx Prostate cancer
#Proctitis
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
- continue tamsulosin
Code status: Full code
DVT prophylaxis: stop Lovenox as pt is already on aspirin, Plavix, change to SQ heparin
Total time spent to see the patient, examine the patient, review data and lab result, discuss treatment plan with patient, nursing staff around 55 minutes
Anticipated Discharge: > 48 hours
Subjective/Interval History
-
Date of Service: July 29, 2024
No significant pain in leg
Objective Data
-
Labs:
Laboratory Results
07/29/24
06:22
WBC 13.9 H
Hgb 8.8 L
Hct 27.2 L
Plt Count 357
Sodium 133 L
Potassium 4.3
Chloride 106
Carbon Dioxide 23
BUN 26 H
Creatinine 0.9
Glucose 295 H
Calcium 7.6 L
Vital Signs:
Vital Signs
Temp Pulse Resp BP Pulse Ox
97.6 F 73 16 141/70 95
07/29/24 03:54 07/29/24 03:54 07/29/24 04:00 07/29/24 03:54 07/29/24 04:00
I&O
07/28/24 07/29/24 07/30/24
06:59 06:59 06:59
Intake Total 1200 / 1200 680 / 680
Output Total 4000 / 4000 2325 / 2325
Balance -2800 / -2800 -1645 / -1645
[2024-07-29 12:18] LABS: Glucose - Point of Care 142 mg/dl (70-99)
[2024-07-29] MEDS: NOVOLOG FLEXPEN-LOW RESISTANCE SC ×2 (12:22→17:08)
[2024-07-29] MEDS: TYLENOL 1000 MG PO ×3 (12:24→21:37)
--- NOTE | 2024-07-29 13:00 | CM ---
CM reviewed chart, patient seen bedside with and daughter, provided list of local SNFs, [email or web address] to review facility rating. Family interested in referrals to [facility]. Patient will require PT/OT evals for SNF
insurance auth. Release for pet visitation signed and placed on chart. CM will continue to follow for all discharge planning needs.
Plan; SNF when stable, requesting [facility]
[2024-07-29] MEDS: NSS 1000 IV (13:22)
[2024-07-29] MEDS: ULTRAM 25 MG PO ×2 (14:01→22:23)
[2024-07-29 15:45] VITALS: BP 129/52
--- NOTE | 2024-07-29 16:45 | W.PN.ID1 ---
Date of Service
Date of Service: July 29, 2024
Today's Communication
- s/p L BKA
- stopped meropenem
ID service will no longer actively follow this patient please recall for further questions
Assessment / Plan
Surgical Site Infection - progressive
Diabetic Foot Infection - progressive
Myositis and probable osteomyelitis
DM2 - with poor control
H/o smoking
Medication compliance has been a concern in the past, does have good social support
- s/p L BKA
- stopped meropenem
ID service will no longer actively follow this patient please recall for further questions
Chief Complaint
-: Other (surgical site infection, diabetic foot infection, osteomyelitis, myositis)
Subjective / Review of Systems
afebrile
bp stable
tolerating current therapies
s/p BKA 07/28
Vital Signs / Physical Exam
Vital Signs
Vital Signs
Temp Pulse Resp BP Pulse Ox
97.7 F 70 16 129/52 98
07/29/24 15:45 07/29/24 15:45 07/29/24 15:45 07/29/24 15:45 07/29/24 15:45
Physical Exam
Constitutional: No Acute Distress
Cardiovascular: Regular Rate
Pulmonary: Symmetric and Non Labored
Gastrointestinal: Non Distended
Musculoskeletal: Other (s/p BKA)
Neurological: Negative Awake
Objective Data
Lab Data
Lab Results
07/29/24 06:22
07/29/24 06:22
ESR 106 mm/hour (0-20) H 07/17/24 06:42
PT 18.0 Sec (11.4-14.6) H 07/21/24 07:21
INR 1.44 07/21/24 07:21
APTT 37.3 Sec (23.4-35.0) H 07/21/24 07:21
Estimated Creat Clear 57 ml/min 07/29/24 06:22
Lactic Acid Cancelled 07/14/24 17:00
C-Reactive Protein > 270.00 mg/L (0.0-10.00) H 07/14/24 13:26
Most recent labs reviewed.
Micro Results:
07/19/24 16:02 Wound Culture - Final
Foot - Left Enterobacter cloacae
Streptococcus agalactiae
Gram Stain - Final
07/19/24 16:02 Anaerobic Culture - Final
Foot - Left NO ANAEROBES ISOLATED
07/19/24 16:02 Wound Culture - Final
Foot - Left Enterobacter cloacae
Streptococcus agalactiae
Gram Stain - Final
07/19/24 16:02 Anaerobic Culture - Final
Foot - Left NO ANAEROBES ISOLATED
07/14/24 13:26 Blood Culture - Final
Blood/Venous No Growth - Final Report
07/14/24 13:28 Blood Culture - Final
Blood/Venous No Growth - Final Report
[2024-07-29 17:08] LABS: Glucose - Point of Care 129 mg/dl (70-99)
--- NOTE | 2024-07-29 19:34 | W.PN.UPDATE ---
Update Note
Progress Note Update
1924 pt having 10/10 pain AT BKA. Dilaudid stopped today for concerns of TME. But given extreme pain currently will give one small dose Dilaudid.
[2024-07-29] MEDS: DILAUDID 0.25 MG IV (19:39)
[2024-07-29] MEDS: NSS IV (19:41)
[2024-07-29 21:30] LABS: Glucose - Point of Care 161 mg/dl (70-99)
[2024-07-29] MEDS: LANTUS 0.22 UNITS SC (21:37)
[2024-07-29] MEDS: LIPITOR 80 MG PO (21:37)
[2024-07-29 23:00] VITALS: BP 137/61
[2024-07-30] MEDS: NSS IV (01:20)
[2024-07-30] MEDS: ULTRAM 25 MG PO (04:26)
[2024-07-30 07:20] VITALS: BP 117/59
--- NOTE | 2024-07-30 07:59 | PN.DE.MGMTRT ---
Insulin Management
- -
07/30/2024: Diabetes Management Follow up
Patient admitted 07/14 w/worsening Left foot infection and pain. PMH: HTN, HLD, T2DM, prostate CA, CAD, Cardiomyopathy, PAD, [place] GERD, TIA, YESSY.
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 A1C on admission 9.7%, Cr 0.9, eGFR >60. Glipizide STOPPED 07/21 (contraindicated in elderly).
Pt awake, alert, oriented, sitting up in bed, pleasant, offers no complaints, very ALUTIIQ but able to discuss diabetes care plan. No Family at bedside.
POD # 2 s/p left BKA, doing well. POD # 10 s/p Left 4th toe partial amputation and debridement. POD # 8 s/p Angio with revascularization.
Glucose stable and in range, 129 to 166, requiring no additional corrective with meals. Received Lantus 22 units@ HS, FBG 145 this AM
Will make no changes to current regimen: Lantus 22 units @ HS, NovoLog 22 units AC and low corrective insulin with meals.
Discussed with Nurse. Will cont to follow and adjust insulin dose if necessary.
Diabetes History
- -
Type of Diabetes: 2 requiring insulin
Pre-Admission Diabetes Regimen
07/29/24
06:22
Creatinine 0.9
Lab Results
Hemoglobin A1c 9.7 % (4.0-5.6) H 07/15/24 07:25
Insulin Pump Settings
IP Diabetes Regimen
07/29/24 07/29/24 07/29/24
06:22 08:33 12:12
Glucose 295 H
POC Glucose 166 H 142 H
07/29/24 07/29/24
17:07 21:28
Glucose
POC Glucose 129 H 161 H
Patient Education
[2024-07-30 08:03] LABS: Glucose - Point of Care 145 mg/dl (70-99)
--- NOTE | 2024-07-30 08:09 | W.PN.VS ---
Addendum entered and electronically signed by Jorge Clay MD 07/30/24 09:12:
Seen and examined with DEVAN Butler. Agree with findings as noted below. Dressing removed by us. Left BKA site looks great. Staple line is clean dry and intact. No hematoma. Rewrapped by us. Plan/as discussed and noted below. PT/OT/placement.
Okay for rehab placement at this point from our standpoint. No further vascular recommendations.
Original Note:
Today's Communication / Plan
-
Seen and assessed with Dr. Clay
Assessment/Plan
-
Postop day 2 BKA
Plan:
- Physical therapy/Occupational Therapy
- Pain control
- Physiatry consult
Subjective Data
-
Date of Service: July 30, 2024
Patient seen at bedside this a.m. with Dr. Clay. Patient offers no complaints at this time. No events overnight
Objective Data
-
Vital Signs
Temp Pulse Resp BP Pulse Ox
98.1 F 71 16 117/59 95
07/30/24 07:20 07/30/24 07:20 07/30/24 07:20 07/30/24 07:20 07/30/24 07:20
Intake and Output
07/29/24 07/30/24 07/31/24
06:59 06:59 06:59
Intake Total 680 / 680 480 / 480
Output Total 2325 / 2325 2650 / 2650
Balance -1645 / -1645 -2170 / -2170
Intake:
Oral fluids 480 / 480 480 / 480
IV fluids (Total) 200 / 200
normal saline 200 / 200
Output:
Urine, Adams 2325 / 2325 2650 / 2650
Lab Results
07/29/24 06:22
07/29/24 06:22
Calcium 7.6 mg/dl (8.4-10.2) L 07/29/24 06:22
Physical Exam
-
AAO x 3
No tachypnea on room air
No tachycardia
Abdomen soft
Stump site dressing removed at bedside. Staple line well-approximated, no drainage. Surrounding skin intact. Rewrapped.
[2024-07-30] MEDS: NOVOLOG FLEXPEN-LOW RESISTANCE SC ×2 (08:21→16:50)
[2024-07-30] MEDS: NOVOLOG FLEXPEN 22 UNITS SC ×3 (08:21→17:44)
[2024-07-30] MEDS: ASPIR LOW (ENTERIC COATED) 81 MG PO (08:21)
[2024-07-30] MEDS: SENOKOT-S 1 TABLET PO ×2 (08:22→20:16)
[2024-07-30] MEDS: FLOMAX 0.4 MG PO (08:22)
[2024-07-30] MEDS: QUESTRAN 4 GRAM PO ×3 (08:22→22:02)
[2024-07-30] MEDS: THERAGRAN 1 TABLET PO (08:22)
[2024-07-30] MEDS: TYLENOL 1000 MG PO ×4 (08:22→22:01)
[2024-07-30] MEDS: PROTONIX 20 MG PO (08:22)
[2024-07-30] MEDS: FEOSOL 325 MG PO (08:22)
[2024-07-30] MEDS: PAXIL 40 MG PO (08:22)
[2024-07-30] MEDS: PLAVIX 75 MG PO (08:22)
[2024-07-30] MEDS: HEPARIN 5000 UNITS SC ×2 (08:23→20:17)
[2024-07-30] MEDS: NORVASC 5 MG PO (08:23)
[2024-07-30] MEDS: COREG 6.25 MG PO ×2 (08:23→20:16)
[2024-07-30] MEDS: DILAUDID 0.5 MG IV ×2 (08:43→15:33)
--- NOTE | 2024-07-30 08:54 | W.PN.HOSP.TC ---
Today's Communication/Plan
-
Pain control
Assessment / Plan
Assessment / Plan
PE:
General: No acute distress, relatively comfortable status post left TMA
HEENT: NormoCephalic, Moist mucous membranes, Atraumatic
Respiratory: Clear and Non Labored Respirations
Cardiac: S1/S2 and Regular Rhythm; No Rub or Gallop
GI: Soft, Non Tender, Non Distended and Normal Bowel Sounds
Musculoskeletal: No Edema, left TMA, left foot wound dressing with mild strikethrough which is stable for the past 2 days
: NO Adams
Neuro: Awake, Alert, Nonfocal/grossly intact
Psych: Anxious due to pain, cooperative
#left foot cellulitis
#recent Hx osteo
#Hx PAD
- Status post OR 07/19 with podiatry for left foot I&D and left fourth toe amputation left open
- Returned to the OR 07/21 with vascular surgery for left AT intravascular lithotripsy and balloon angioplasty with perfusion
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
-Appreciate podiatry and vascular surgery help
# TME improved
Will be conservative in giving him pain killers due to encephalopathy
# Postop leukocytosis, likely reactive
#Coronary artery disease
#OK
s/p stent placement
- Continue DAPT and high intensity statin therapy
#Type 2 diabetes
- AccuCheck AC & HS
- continue Lantus 18 units at night
- continue Insulin Aspart 18 units with meals, additional short acting sliding scale as needed
- a1c 9.7%
- Glucose has been labile, appreciate diabetes nurse practitioner assistance
#hyponatremia
- Mild, clinically insignificant, will monitor
ASPVD
- Status post left lower extremity revascularization 07/21
#Hyperlipidemia
- continue aspirin and atorvastatin
#Iron deficiency anemia
- Hemoglobin stable, no evidence of active bleeding
- continue ferrous sulfate
#Hypertension
- continue amlodipine, Coreg
#Hx TIA
- continue clopidogrel
#GERD
- continue pantoprazole
#depression/anxiety
- continue paroxetine
#BPH
#Hx Prostate cancer
#Proctitis
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
- continue tamsulosin
Code status: Full code
DVT prophylaxis: stop Lovenox as pt is already on aspirin, Plavix, change to SQ heparin
Total time spent to see the patient, examine the patient, review data and lab result, discuss treatment plan with patient, family at bed side, nursing staff around 55 minutes
Anticipated Discharge: > 48 hours
Subjective/Interval History
-
Date of Service: July 30, 2024
Reports pain in left lower extremity is less
No fevers
Objective Data
-
Vital Signs:
Vital Signs
Temp Pulse Resp BP Pulse Ox
98.1 F 71 16 117/59 95
07/30/24 07:20 07/30/24 08:23 07/30/24 07:20 07/30/24 08:23 07/30/24 07:20
I&O
07/29/24 07/30/24 07/31/24
06:59 06:59 06:59
Intake Total 680 / 680 480 / 480
Output Total 2325 / 2325 2650 / 2650
Balance -1645 / -1645 -2170 / -2170
[2024-07-30 11:34] LABS: Glucose - Point of Care 246 mg/dl (70-99)
[2024-07-30] MEDS: NOVOLOG FLEXPEN-LOW RESISTANCE 2 UNITS SC (12:19)
[2024-07-30 13:00] VITALS: BP 134/63; PULSE 77; O2SAT 99
[2024-07-30 13:41] VITALS: BP 134/63; PULSE 77; O2SAT 99
[2024-07-30 15:25] VITALS: BP 124/56
--- NOTE | 2024-07-30 16:10 | CM ---
CM reviewed chart, PT evaluations recommending SNF, [facility] will require auth when facility found/medically stable for discharge. CM will continue to follow for all discharge planning needs.
Plan; SNF referrals placed, will need auth.
--- NOTE | 2024-07-30 16:35 | PTCARENOTE ---
Bed appears to be broken/not maintaining air. Switched patient to accumax with static overlay. While switching, observed Stage II on R Buttock not previously reported. Placed barrier ointment and non-adhesive foam.
[2024-07-30 16:49] LABS: Glucose - Point of Care 94 mg/dl (70-99)
[2024-07-30 21:56] LABS: Glucose - Point of Care 114 mg/dl (70-99)
[2024-07-30] MEDS: LIPITOR 80 MG PO (22:01)
[2024-07-30] MEDS: LANTUS 0.22 UNITS SC (22:02)
[2024-07-30 23:29] VITALS: BP 125/59
[2024-07-31 07:10] VITALS: BP 143/81
[2024-07-31 07:59] LABS: Glucose - Point of Care 113 mg/dl (70-99)
[2024-07-31] MEDS: NOVOLOG FLEXPEN-LOW RESISTANCE SC (08:38)
[2024-07-31] MEDS: PAXIL 40 MG PO (08:53)
[2024-07-31] MEDS: SENOKOT-S 1 TABLET PO ×2 (08:53→20:01)
[2024-07-31] MEDS: NORVASC 5 MG PO (08:53)
[2024-07-31] MEDS: THERAGRAN 1 TABLET PO (08:54)
[2024-07-31] MEDS: ASPIR LOW (ENTERIC COATED) 81 MG PO (08:54)
[2024-07-31] MEDS: FEOSOL 325 MG PO (08:54)
[2024-07-31] MEDS: PLAVIX 75 MG PO (08:54)
[2024-07-31] MEDS: QUESTRAN 4 GRAM PO ×3 (08:54→21:51)
[2024-07-31] MEDS: TYLENOL 1000 MG PO ×4 (08:54→21:52)
[2024-07-31] MEDS: COREG 6.25 MG PO ×2 (08:54→20:01)
[2024-07-31] MEDS: HEPARIN 5000 UNITS SC ×2 (08:54→20:01)
[2024-07-31] MEDS: PROTONIX 20 MG PO (08:54)
[2024-07-31] MEDS: FLOMAX 0.4 MG PO (08:54)
[2024-07-31] MEDS: NOVOLOG FLEXPEN 22 UNITS SC ×3 (08:55→17:34)
--- NOTE | 2024-07-31 09:12 | W.PN.HOSP.TC ---
Today's Communication/Plan
-
dc planning
Assessment / Plan
Assessment / Plan
PE:
General: No acute distress, relatively comfortable status post left TMA
HEENT: NormoCephalic, Moist mucous membranes, Atraumatic
Respiratory: Clear and Non Labored Respirations
Cardiac: S1/S2 and Regular Rhythm; No Rub or Gallop
GI: Soft, Non Tender, Non Distended and Normal Bowel Sounds
Musculoskeletal: No Edema, left TMA, left foot wound dressing with mild strikethrough which is stable for the past 2 days
: NO Adams
Neuro: Awake, Alert, Nonfocal/grossly intact
Psych: Anxious due to pain, cooperative
#left foot cellulitis
#recent Hx osteo
#Hx PAD
- Status post OR 07/19 with podiatry for left foot I&D and left fourth toe amputation left open
- Returned to the OR 07/21 with vascular surgery for left AT intravascular lithotripsy and balloon angioplasty with perfusion
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
-Appreciate podiatry and vascular surgery help
# TME improved
Will be conservative in giving him pain killers due to encephalopathy
# Postop leukocytosis, likely reactive
#Coronary artery disease
#KS
s/p stent placement
- Continue DAPT and high intensity statin therapy
#Type 2 diabetes
- AccuCheck AC & HS
- continue Lantus 18 units at night
- continue Insulin Aspart 18 units with meals, additional short acting sliding scale as needed
- a1c 9.7%
- Glucose has been labile, appreciate diabetes nurse practitioner assistance
#hyponatremia
- Mild, clinically insignificant, will monitor
ASPVD
- Status post left lower extremity revascularization 07/21
#Hyperlipidemia
- continue aspirin and atorvastatin
#Iron deficiency anemia
- Hemoglobin stable, no evidence of active bleeding
- continue ferrous sulfate
#Hypertension
- continue amlodipine, Coreg
#Hx TIA
- continue clopidogrel
#GERD
- continue pantoprazole
#depression/anxiety
- continue paroxetine
#BPH
#Hx Prostate cancer
#Proctitis
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
- continue tamsulosin
Code status: Full code
DVT prophylaxis: stop Lovenox as pt is already on aspirin, Plavix, change to SQ heparin
Total time spent to see the patient, examine the patient, review data and lab result, discuss treatment plan with patient, family at bed side, nursing staff around 55 minutes
Anticipated Discharge: Within 24 hours
Subjective/Interval History
-
Date of Service: July 31, 2024
Less pain in leg
Objective Data
-
Vital Signs:
Vital Signs
Temp Pulse Resp BP Pulse Ox
98.3 F 84 20 143/81 96
07/31/24 07:10 07/31/24 07:10 07/31/24 07:10 07/31/24 07:10 07/31/24 07:10
I&O
07/30/24 07/31/24 08/01/24
06:59 06:59 06:59
Intake Total 480 / 480 1560 / 1560
Output Total 2650 / 2650 4100 / 4100
Balance -2170 / -2170 -2540 / -2540
[2024-07-31 12:43] LABS: Glucose - Point of Care 188 mg/dl (70-99)
[2024-07-31] MEDS: NOVOLOG FLEXPEN-LOW RESISTANCE 1 UNITS SC ×2 (12:47→17:34)
[2024-07-31 15:50] VITALS: BP 128/59
[2024-07-31 17:09] LABS: Glucose - Point of Care 192 mg/dl (70-99)
[2024-07-31] MEDS: ULTRAM 25 MG PO (17:12)
[2024-07-31] MEDS: LIPITOR 80 MG PO (21:51)
[2024-07-31 21:58] LABS: Glucose - Point of Care 80 mg/dl (70-99)
[2024-07-31] MEDS: LANTUS 0.22 UNITS SC (21:58)
[2024-07-31 23:00] VITALS: BP 126/56
[2024-08-01 06:11] VITALS: BMI 26.2
[2024-08-01 07:32] LABS: Glucose - Point of Care 100 mg/dl (70-99)
[2024-08-01] MEDS: NOVOLOG FLEXPEN-LOW RESISTANCE SC ×2 (07:34→16:48)
[2024-08-01 07:35] VITALS: BP 129/66
[2024-08-01 08:13] LABS: Hematocrit 25.4 % (39.0-52.0); Hemoglobin 8.3 g/dL (13.0-18.0); Mean Corp Hgb Conc. 32.7 g/dL (33.0-37.0); Mean Corpuscular Hgb 25.9 pg (27.0-31.0); Mean Corpuscular Volume 79.1 fL (80.0-94.0); Mean Platelet Volume 9.5 fL (7.4-10.4); Platelet Count 328 10^3/uL (130-400); Red Blood Cell Count 3.21 10^6/uL (4.70-6.10); Red Cell Dist. Width 16.8 % (11.5-14.5); White Blood Cell Count 8.2 10^3/uL (4.8-10.8)
[2024-08-01 08:15] LABS: Blood Urea Nitrogen 23 mg/dl (9-20); Calcium 8.8 mg/dl (8.4-10.2); Carbon Dioxide 25 mmol/L (22-30); Chloride 110 mmol/L (98-107); Estimated Creatinine Clearance 57 ml/min; Glucose 99 mg/dl (70-99); Potassium 4.6 mmol/L (3.5-5.1); Sodium 139 mmol/L (135-145); eGFR > 60.00
[2024-08-01] MEDS: FEOSOL 325 MG PO (08:42)
[2024-08-01] MEDS: TYLENOL 1000 MG PO ×4 (08:42→21:42)
[2024-08-01] MEDS: SENOKOT-S 1 TABLET PO ×2 (08:42→19:29)
[2024-08-01] MEDS: PAXIL 40 MG PO (08:42)
[2024-08-01] MEDS: NORVASC 5 MG PO (08:42)
[2024-08-01] MEDS: ASPIR LOW (ENTERIC COATED) 81 MG PO (08:42)
[2024-08-01] MEDS: QUESTRAN 4 GRAM PO ×3 (08:42→21:41)
[2024-08-01] MEDS: HEPARIN 5000 UNITS SC ×2 (08:43→19:30)
[2024-08-01] MEDS: THERAGRAN 1 TABLET PO (08:43)
[2024-08-01] MEDS: PLAVIX 75 MG PO (08:43)
[2024-08-01] MEDS: COREG 6.25 MG PO ×2 (08:43→19:30)
[2024-08-01] MEDS: FLOMAX 0.4 MG PO (08:43)
[2024-08-01] MEDS: PROTONIX 20 MG PO (08:43)
[2024-08-01] MEDS: NOVOLOG FLEXPEN 22 UNITS SC ×3 (09:00→16:55)
--- NOTE | 2024-08-01 10:03 | W.PN.HOSP.TC ---
Today's Communication/Plan
-
dc planning
Will need to do PT
Assessment / Plan
Assessment / Plan
PE:
General: No acute distress, relatively comfortable status post left TMA
HEENT: NormoCephalic, Moist mucous membranes, Atraumatic
Respiratory: Clear and Non Labored Respirations
Cardiac: S1/S2 and Regular Rhythm; No Rub or Gallop
GI: Soft, Non Tender, Non Distended and Normal Bowel Sounds
Musculoskeletal: No Edema, left TMA, left foot wound dressing with mild strikethrough which is stable for the past 2 days
: NO Adams
Neuro: Awake, Alert, Nonfocal/grossly intact
Psych: Anxious due to pain, cooperative
#left foot cellulitis
#recent Hx osteo
#Hx PAD
- Status post OR 07/19 with podiatry for left foot I&D and left fourth toe amputation left open
- Returned to the OR 07/21 with vascular surgery for left AT intravascular lithotripsy and balloon angioplasty with perfusion
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
-Appreciate podiatry and vascular surgery help
Patient refused to do PT in hospital. Will try again today
# TME improved
Will be conservative in giving him pain killers due to tendency to develop toxic metabolic encephalopathy
# Postop leukocytosis, likely reactive
#Coronary artery disease
#ID
s/p stent placement
- Continue DAPT and high intensity statin therapy
#Type 2 diabetes
- AccuCheck AC & HS
- continue Lantus 18 units at night
- continue Insulin Aspart 18 units with meals, additional short acting sliding scale as needed
- a1c 9.7%
- Glucose has been labile, appreciate diabetes nurse practitioner assistance
#hyponatremia
- Mild, clinically insignificant, will monitor
ASPVD
- Status post left lower extremity revascularization 07/21
#Hyperlipidemia
- continue aspirin and atorvastatin
#Iron deficiency anemia
- Hemoglobin stable, no evidence of active bleeding
- continue ferrous sulfate
#Hypertension
- continue amlodipine, Coreg
#Hx TIA
- continue clopidogrel
#GERD
- continue pantoprazole
#depression/anxiety
Sometimes mood is argumentative
- continue paroxetine
#BPH
#Hx Prostate cancer
#Proctitis
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
- continue tamsulosin
Code status: Full code
DVT prophylaxis: stop Lovenox as pt is already on aspirin, Plavix, change to SQ heparin
Total time spent to see the patient, examine the patient, review data and lab result, discuss treatment plan with patient, family at bed side, nursing staff around 55 minutes
Anticipated Discharge: Today
Subjective/Interval History
-
Date of Service: August 01, 2024
Objective Data
-
Labs:
Laboratory Results
08/01/24
07:10
WBC 8.2
Hgb 8.3 L
Hct 25.4 L
Plt Count 328
Sodium 139
Potassium 4.6
Chloride 110 H
Carbon Dioxide 25
BUN 23 H
Creatinine 0.9
Glucose 99
Calcium 8.8
Vital Signs:
Vital Signs
Temp Pulse Resp BP Pulse Ox
97.8 F 67 16 129/66 99
08/01/24 07:35 08/01/24 07:35 08/01/24 07:35 08/01/24 07:35 08/01/24 07:35
I&O
07/31/24 08/01/24 08/02/24
06:59 06:59 06:59
Intake Total 1560 / 1560 1560 / 1560
Output Total 4100 / 4100 4150 / 4150
Balance -2540 / -2540 -2590 / -2590
[2024-08-01] MEDS: ULTRAM 25 MG PO ×2 (11:45→19:29)
[2024-08-01] MEDS: NOVOLOG FLEXPEN-LOW RESISTANCE 2 UNITS SC (11:57)
[2024-08-01 11:59] LABS: Glucose - Point of Care 228 mg/dl (70-99)
--- NOTE | 2024-08-01 13:50 | PTCARENOTE ---
Patient reporting pressure and pain, feeling like catheter is clogged. Catheter flushed with 50cc NSS, patient reports relief. Adams draining clear yellow urine with some sediment.
[2024-08-01 15:15] VITALS: BP 130/79
[2024-08-01 16:09] VITALS: BP 130/79; PULSE 75
[2024-08-01 16:11] VITALS: BP 130/79; PULSE 72
[2024-08-01 16:46] LABS: Glucose - Point of Care 140 mg/dl (70-99)
[2024-08-01 21:40] LABS: Glucose - Point of Care 77 mg/dl (70-99)
[2024-08-01] MEDS: LIPITOR 80 MG PO (21:43)
[2024-08-01] MEDS: LANTUS 0.22 UNITS SC (21:43)
[2024-08-01 23:00] VITALS: BP 120/58
[2024-08-02 05:51] VITALS: BMI 25.4
[2024-08-02] MEDS: ULTRAM 25 MG PO ×2 (05:55→19:48)
[2024-08-02 07:00] VITALS: BP 96/65
[2024-08-02] MEDS: PLAVIX 75 MG PO (07:41)
[2024-08-02] MEDS: HEPARIN 5000 UNITS SC ×2 (07:41→19:49)
[2024-08-02] MEDS: TYLENOL PO (07:42)
[2024-08-02] MEDS: PAXIL 40 MG PO (07:42)
[2024-08-02] MEDS: FEOSOL 325 MG PO (07:42)
[2024-08-02] MEDS: FLOMAX 0.4 MG PO (07:42)
[2024-08-02] MEDS: ASPIR LOW (ENTERIC COATED) 81 MG PO (07:42)
[2024-08-02] MEDS: PROTONIX 20 MG PO (07:42)
[2024-08-02] MEDS: QUESTRAN 4 GRAM PO ×3 (07:42→21:32)
[2024-08-02] MEDS: THERAGRAN 1 TABLET PO (07:42)
[2024-08-02] MEDS: SENOKOT-S 1 TABLET PO ×2 (07:42→19:49)
[2024-08-02 07:50] LABS: Glucose - Point of Care 108 mg/dl (70-99)
[2024-08-02] MEDS: COREG PO (07:50)
[2024-08-02] MEDS: NORVASC PO (07:50)
[2024-08-02] MEDS: NOVOLOG FLEXPEN-LOW RESISTANCE SC ×2 (07:51→11:40)
[2024-08-02] MEDS: NOVOLOG FLEXPEN 22 UNITS SC ×3 (07:51→17:31)
--- NOTE | 2024-08-02 08:21 | PN.DE.MGMTRT ---
Insulin Management
- -
08/02/2024: Diabetes Management Follow up
Patient admitted 07/14 w/worsening Left foot infection and pain. PMH: HTN, HLD, T2DM, prostate CA, CAD, Cardiomyopathy, PAD, [place] GERD, TIA, YESSY.
Was taking glipizide 10 mg BID, NovoLog 20 units AC and Lantus 20 units @ HS [employer]DER. A1C on admission 9.7%, Cr 0.9, eGFR >60. Glipizide STOPPED 07/21 (contraindicated in elderly).
Pt awake, alert, oriented, sitting up in bed, pleasant, offers no complaints, very [place] but able to discuss diabetes care plan. Family at bedside.
POD # 5 s/p left BKA, doing well. POD # 13 s/p Left 4th toe partial amputation and debridement. POD # 11 s/p Angio with revascularization.
Glucose stable without hypoglycemia. Had one elevated blood sugar before lunch yesterday, otherwise, premeal range has been 100-140 on current regimen.
Received Lantus 22 units@ HS, FBG 99 V, 108 POC this AM.
Will make no changes to current regimen: Lantus 22 units @ HS, NovoLog 22 units AC and low corrective insulin with meals.
Discussed with Nurse. Will cont to follow and adjust insulin dose if necessary.
Diabetes History
- -
Type of Diabetes: 2 requiring insulin
Pre-Admission Diabetes Regimen
Lab Results
Hemoglobin A1c 9.7 % (4.0-5.6) H 07/15/24 07:25
Insulin Pump Settings
IP Diabetes Regimen
08/01/24 08/01/24 08/01/24
11:57 16:44 21:39
POC Glucose 228 H 140 H 77
08/02/24
07:49
POC Glucose 108 H
Meal type: Dinner
Meal type: Lunch
Meal type: Breakfast
Amount consumed: 100%
Amount consumed: 100%
Amount consumed: 100%
Patient Education
[2024-08-02 11:00] VITALS: BP 128/68
[2024-08-02 11:40] LABS: Glucose - Point of Care 146 mg/dl (70-99)
[2024-08-02] MEDS: TYLENOL 1000 MG PO ×3 (12:04→21:32)
--- NOTE | 2024-08-02 12:31 | WOUNDNOTE ---
WON RN NOTE: Nursing documented a stage 2 PI on R buttock. Patient turned self in bed, on air overlay with adequate inflation. R buttock with chronic stage 2 PI silicone foam in use. Has air chair cushion at bedside. Patient and confirmed that
he had this PI before admission, not new. Teaching done with patient and regarding pressure ulcer prevention measures and offloading, states they understand.
[2024-08-02 15:00] VITALS: BP 130/71
--- NOTE | 2024-08-02 15:16 | CM ---
Patient seen bedside with family, discussed referrals placed for rehab, [facility], discussed [facility], has private room. Reviewed with Hospitalist, plan for discharge tomorrow. Auth submitted
through [facility] for [facility], approved 08/03-08/09, Auth #[id number], provided to [facility] in admissions. Patient will require ambulance transport, forms on chart. CM will continue to follow for all discharge planning needs.
Plan; [facility] tomorrow, auth approved, ambulance transport required
--- NOTE | 2024-08-02 15:32 | W.PN.HOSP.TC ---
Today's Communication/Plan
-
Assessment / Plan
Assessment / Plan
PE:
General: No acute distress, relatively comfortable status post left BKA
HEENT: NormoCephalic, Moist mucous membranes, Atraumatic
Respiratory: Clear and Non Labored Respirations
Cardiac: S1/S2 and Regular Rhythm; No Rub or Gallop
GI: Soft, Non Tender, Non Distended and Normal Bowel Sounds
Musculoskeletal: No Edema, left BKA
: Adams in place draining clear yellow urine
Neuro: Awake, Alert, Nonfocal/grossly intact
Psych: Calm, cooperative
#left foot cellulitis
#recent Hx osteo
#Hx PAD
- Status post OR 07/19 with podiatry for left foot I&D and left fourth toe amputation left open
- Returned to the OR 07/21 with vascular surgery for left AT intravascular lithotripsy and balloon angioplasty with perfusion
- status post left TMA 07/22
- Now s/p BKA on 07/28
- Appreciate podiatry and vascular surgery help
- Planning discharge to SNF
# TME
- Resolved
Will be conservative in giving him pain killers due to tendency to develop toxic metabolic encephalopathy
# Postop leukocytosis, likely reactive
#Coronary artery disease
#CA
s/p stent placement
- Continue DAPT and high intensity statin therapy
#Type 2 diabetes
- AccuCheck AC & HS
- continue Lantus 22 units at night
- continue Insulin Aspart 22 units with meals, additional short acting sliding scale as needed
- a1c 9.7%
- Glucose has been labile, appreciate diabetes nurse practitioner assistance
#hyponatremia
- Mild, clinically insignificant, will monitor
ASPVD
- Status post left lower extremity revascularization 07/21, continue DAPT
#Hyperlipidemia
- continue aspirin and atorvastatin
#Iron deficiency anemia
- Hemoglobin stable, no evidence of active bleeding
- continue ferrous sulfate
#Hypertension
- continue amlodipine, Coreg
#Hx TIA
- continue clopidogrel
#GERD
- continue pantoprazole
#depression/anxiety
Sometimes mood is argumentative
- continue paroxetine
#BPH
#Hx Prostate cancer
#Proctitis
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
- continue tamsulosin
Code status: Full code
DVT prophylaxis: SQ heparin
Total time spent to see the patient, examine the patient, review data and lab result, discuss treatment plan with patient, family at bed side, nursing staff around 45 minutes
Anticipated Discharge: Within 24 hours
Subjective/Interval History
-
Date of Service: August 02, 2024
Patient was seen and examined at bedside this morning. He is status post left BKA 07/28. He tolerated the procedure well. Has some ongoing pain at stump this morning. Planning discharge to SNF tomorrow.
Objective Data
-
Vital Signs:
Vital Signs
Temp Pulse Resp BP Pulse Ox
97.9 F 86 20 128/68 98
08/02/24 07:00 08/02/24 11:00 08/02/24 07:00 08/02/24 11:00 08/02/24 07:00
I&O
08/01/24 08/02/24 08/03/24
06:59 06:59 06:59
Intake Total 1560 / 1560 900 / 900 240 / 240
Output Total 4150 / 4150 4225 / 4225
Balance -2590 / -2590 -3325 / -3325 240 / 240
Review of Systems
-
History Source: Patient
Musculoskeletal: Reports Joint Pain (Left BKA stump pain)
Physical Exam
-
General: No Apparent Distress
[2024-08-02 17:19] LABS: Glucose - Point of Care 176 mg/dl (70-99)
[2024-08-02] MEDS: NOVOLOG FLEXPEN-LOW RESISTANCE 1 UNITS SC (17:31)
[2024-08-02] MEDS: COREG 6.25 MG PO (19:49)
[2024-08-02 21:32] LABS: Glucose - Point of Care 110 mg/dl (70-99)
[2024-08-02] MEDS: LANTUS 0.22 UNITS SC (21:32)
[2024-08-02] MEDS: LIPITOR 80 MG PO (21:32)
[2024-08-02 23:00] VITALS: BP 128/58
[2024-08-02] MEDS: MELATONIN 5 MG PO (23:17)
[2024-08-03 05:40] VITALS: BMI 25.3
[2024-08-03 07:05] VITALS: BP 142/67
[2024-08-03 07:40] VITALS: BMI 25.3
--- NOTE | 2024-08-03 07:53 | PN.DE.MGMTRT ---
Insulin Management
- -
08/03/2024: Diabetes Management Follow up
Patient admitted 07/14 w/worsening Left foot infection and pain. PMH: HTN, HLD, T2DM, prostate CA, CAD, Cardiomyopathy, PAD, [place] GERD, TIA, YESSY.
Was taking glipizide 10 mg BID, NovoLog 20 units AC and Lantus 20 units @ HS [employer]RAW[employer]. A1C on admission 9.7%, Cr 0.9, eGFR >60. Glipizide STOPPED 07/21 (contraindicated in elderly).
Pt awake, alert, oriented, out of bed in chair, pleasant, offers no complaints, very [place] but able to discuss diabetes care plan. Family at bedside.
POD # 6 s/p left BKA, doing well. POD # 14 s/p Left 4th toe partial amputation and debridement. POD # 12 s/p Angio with revascularization.
Glucose stable without hypoglycemia. Premeal range has been 108-176 on current regimen.
Received Lantus 22 units@ HS, fasting this AM 103.
Will make no changes to current regimen: Lantus 22 units @ HS, NovoLog 22 units AC and low corrective insulin with meals.
Discussed with Nurse. Will cont to follow and adjust insulin dose if necessary.
Diabetes History
- -
Type of Diabetes: 2 requiring insulin
Pre-Admission Diabetes Regimen
Lab Results
Hemoglobin A1c 9.7 % (4.0-5.6) H 07/15/24 07:25
Insulin Pump Settings
IP Diabetes Regimen
08/02/24 08/02/24 08/02/24
11:39 17:18 21:31
POC Glucose 146 H 176 H 110 H
Meal type: Breakfast
Amount consumed: 100%
Patient Education
[2024-08-03 08:02] LABS: Glucose - Point of Care 103 mg/dl (70-99)
[2024-08-03] MEDS: NOVOLOG FLEXPEN-LOW RESISTANCE SC ×2 (08:02→11:53)
[2024-08-03] MEDS: NOVOLOG FLEXPEN 22 UNITS SC (08:04)
[2024-08-03] MEDS: PLAVIX 75 MG PO (08:04)
[2024-08-03] MEDS: ASPIR LOW (ENTERIC COATED) 81 MG PO (08:04)
[2024-08-03] MEDS: HEPARIN 5000 UNITS SC (08:04)
[2024-08-03] MEDS: FLOMAX 0.4 MG PO (08:04)
[2024-08-03] MEDS: FEOSOL 325 MG PO (08:04)
[2024-08-03] MEDS: PROTONIX 20 MG PO (08:04)
[2024-08-03] MEDS: THERAGRAN 1 TABLET PO (08:04)
[2024-08-03] MEDS: SENOKOT-S 1 TABLET PO (08:05)
[2024-08-03] MEDS: PAXIL 40 MG PO (08:05)
[2024-08-03] MEDS: TYLENOL 1000 MG PO ×2 (08:05→12:57)
[2024-08-03] MEDS: QUESTRAN 4 GRAM PO ×2 (08:06→15:29)
[2024-08-03] MEDS: NORVASC 5 MG PO (08:06)
[2024-08-03] MEDS: COREG 6.25 MG PO (08:06)
[2024-08-03] MEDS: ULTRAM 25 MG PO (09:50)
--- NOTE | 2024-08-03 10:59 | W.DCSUMMARY ---
Discharge Summary
Discharge Data
Date of Admission: 07/15/24
Date of Discharge: 08/03/24
-
Pending Results: No
Hospital Course
Mr. Leahy is a 89-year-old male with past medical history significant for osteomyelitis (fifth metatarsal amputation 06/07/2024), type 2 diabetes, prostate cancer, coronary artery disease, [place], iron deficiency anemia, hypertension, GERD, TIA,
cardiomyopathy and peripheral artery disease who presented to [facility] ED for evaluation of worsening left foot infection. He recently underwent left fifth metatarsal amputation on 06/03/2024 due to osteomyelitis. Visiting nurse saw patient who
recommended he come to ED for evaluation as he was found to have a low-grade fever and was unable to bear any weight on left foot for 3 days related to pain. He was admitted on 07/14/2024 for further evaluation and management.
He was started on broad-spectrum antibiotics. He was brought back to the OR on 07/19 with podiatry for left foot I&D and left fourth toe amputation which was left open. He was brought to the OR on 07/21 with vascular surgery for left AT intravascular
lithotripsy and balloon angioplasty. He then went back to the OR on 07/22 for left TMA. Considering the progression of his disease, the patient preferred definitive treatment and so he was brought back to the OR on 07/28 for left below the knee
amputation. He tolerated the procedure well. Antibiotics were discontinued as surgical cure was achieved. He was continued on dual antiplatelet therapy for his coronary artery disease with stent and peripheral vascular disease. His blood glucose
required tighter control considering his hemoglobin A1c at the time of presentation was 9.7%.
He is being discharged to a skilled facility for ongoing physical therapy. He will need to follow-up with vascular surgery and with his primary care physician.
PE:
General: No acute distress, relatively comfortable status post left BKA
HEENT: NormoCephalic, Moist mucous membranes, Atraumatic
Respiratory: Clear and Non Labored Respirations
Cardiac: S1/S2 and Regular Rhythm; No Rub or Gallop
GI: Soft, Non Tender, Non Distended and Normal Bowel Sounds
Musculoskeletal: No Edema, left BKA
: Adams in place draining clear yellow urine
Neuro: Awake, Alert, Nonfocal/grossly intact
Psych: Calm, cooperative
More than 30 minutes spent in discharge including
Final examination of the patient
Summarizing hospital stay
Instructions for continuing care to all relevant caregivers
Preparation of discharge records, prescriptions, and referral forms
Total time spent (in minutes): 50
Discharge Plan
-
Patient Disposition: Skilled Nursing/SNF
Discharge Diagnosis/Procedures: Left foot osteomyelitis requiring BKA
Diet: Diabetic, Carb Controlled
Activity: No strenuous activity
Activity Restrictions/Additional Instructions:
Mr. Leahy is a 89-year-old male with past medical history significant for osteomyelitis (fifth metatarsal amputation 06/07/2024), type 2 diabetes, prostate cancer, coronary artery disease, [place], iron deficiency anemia, hypertension, GERD, TIA,
cardiomyopathy and peripheral artery disease who presented to [facility] ED for evaluation of worsening left foot infection. He recently underwent left fifth metatarsal amputation on 06/03/2024 due to osteomyelitis. Visiting nurse saw patient who
recommended he come to ED for evaluation as he was found to have a low-grade fever and was unable to bear any weight on left foot for 3 days related to pain. He was admitted on 07/14/2024 for further evaluation and management.
He was started on broad-spectrum antibiotics. He was brought back to the OR on 07/19 with podiatry for left foot I&D and left fourth toe amputation which was left open. He was brought to the OR on 07/21 with vascular surgery for left AT intravascular
lithotripsy and balloon angioplasty. He then went back to the OR on 07/22 for left TMA. Considering the progression of his disease, the patient preferred definitive treatment and so he was brought back to the OR on 07/28 for left below the knee
amputation. He tolerated the procedure well. Antibiotics were discontinued as surgical cure was achieved. He was continued on dual antiplatelet therapy for his coronary artery disease with stent and peripheral vascular disease. His blood glucose
required tighter control considering his hemoglobin A1c at the time of presentation was 9.7%.
He is being discharged to a skilled facility for ongoing physical therapy. He will need to follow-up with vascular surgery and with his primary care physician.
Stand Alone Forms: Vascular Surg Discharge Instr
Referrals:
Cesar Arana DO [Family Provider] -
Ashley Garibay CRNP [Specified Professional Personl] - 08/13/24 1:30 pm (Vascular surgery office follow up)
Prescriptions:
New
sennosides-docusate sodium 8.6-50 mg Tablet
1 tab PO BID 14 Days Qty: 28 0RF
tramadol 50 mg Tablet
25 mg PO Q6HPRN PRN (Reason: moderate to severe pain) Qty: 20 0RF
acetaminophen [Tylenol Extra Strength] 500 mg Tablet
1,000 mg PO QID 14 Days Qty: 112 0RF
Continued
amlodipine 5 MG tablet
5 mg PO DAILY Qty: 30 3RF
pantoprazole [Protonix] 20 MG tablet,delayed release (DR/EC)
20 mg PO DAILY
aspirin 81 MG tablet,delayed release (DR/EC)
81 mg PO DAILY
atorvastatin 80 mg Tablet
80 mg PO HS
tamsulosin [Flomax] 0.4 mg Capsule
0.4 mg PO DAILY
paroxetine HCl [Paxil] 40 mg Tablet
40 mg PO DAILY
carvedilol [Coreg] 6.25 mg Tablet
6.25 mg PO BID
therapeutic multivitamin Tablet
1 tab PO DAILY
clopidogrel [Plavix] 75 mg Tablet
75 mg PO DAILY
ferrous sulfate 325 mg (65 mg iron) Tablet
325 mg PO DAILY
cholestyramine (with sugar) 4 gram Powder In Packet
4 g PO TID
Patient Comments:
pt mention this med was increase to TID
omega 6-hcr-dmo-fish oil [Fish Oil] 1,200 (144-216) mg Capsule
1 cap PO DAILY
glipizide 10 mg Tablet
10 mg PO BID
Patient Comments:
re started due to higher blood sugar levels
Changed
insulin aspart U-100 100 unit/mL (3 mL) Insulin Pen
22 unit SC AC Qty: 15 0RF
insulin glargine [Lantus Solostar U-100 Insulin] 100 unit/mL (3 mL) insulin pen
22 unit SC QPM Qty: 15 0RF
Discontinued
acetaminophen [Tylenol Extra Strength] 500 mg Tablet
500 mg PO TIDPRN PRN (Reason: mild pain)
Discharge Orders:
Discharge Patient (As Directed); Ordered 08/03/24
Ordered By: Isaiah Eubanks
Discharge Date and Time
Print Language: TAJIK
[2024-08-03 11:40] LABS: Glucose - Point of Care 81 mg/dl (70-99)
--- NOTE | 2024-08-03 11:59 | CM ---
CM reviewed chart, patient and seen bedside, discussed plan to discharge to [facility] today. IMM verbally reviewed, provided with copy, placed in chart. Patient scheduled for 4:30 p.m. ambulance transport. Update to [facility] at [facility]. CM will
continue to follow for all discharge planning needs.
Plan; [facility], auth approved 08/03-08/09, 4:30 p.m. ambulance transport
[facility]
Report: [phone]
[2024-08-03] MEDS: NOVOLOG FLEXPEN SC (12:43)
[2024-08-03] MEDS: NOVOLOG FLEXPEN 15 UNITS SC (12:58)
[2024-08-03 15:05] VITALS: BP 137/72
== END 2024-08-03 18:03 | DRG 463 ==
LOC: 4 WEST ACU 12:43
PROVIDERS: Internal Medicine; Nurse Practitioner; Nurse Practitioner Family; Physician Assistant Medical; Student in an Organized Health Care Education/Training Program; ADMITTING PHYSICIAN Student in an Organized Health Care Education/Training Program; ATTENDING PHYSICIAN Internal Medicine; CONSULT PHYSICIAN Student in an Organized Health Care Education/Training Program; EMERGENCY PHYSICIAN Emergency Medicine; FAMILY PHYSICIAN Family Medicine; OTHER PHYSICIAN Student in an Organized Health Care Education/Training Program; OTHER PHYSICIAN Surgery Vascular Surgery
PROC: 0JBR0ZZ Excision of Left Foot Subcutaneous Tissue and Fascia, Open Approach (ICD-10-PCS; 2024-07-19)
PROC: 0Y6N0ZD Detachment at Left Foot, Partial 4th Ray, Open Approach (ICD-10-PCS; 2024-07-19)
PROC: B41D0ZZ Fluoroscopy of Aorta and Bilateral Lower Extremity Arteries using High Osmolar Contrast (ICD-10-PCS; 2024-07-21)
PROC: B41 Imaging, Lower Arteries, Fluoroscopy (ICD-10-PCS; 2024-07-21)
PROC: 047Q3ZZ Dilation of Left Anterior Tibial Artery, Percutaneous Approach (ICD-10-PCS; 2024-07-21)
PROC: 04FQ3ZZ Fragmentation of Left Anterior Tibial Artery, Percutaneous Approach (ICD-10-PCS; 2024-07-21)
PROC: 0Y6N0ZF Detachment at Left Foot, Partial 5th Ray, Open Approach (ICD-10-PCS; 2024-07-22)
PROC: 0Y6N0Z9 Detachment at Left Foot, Partial 1st Ray, Open Approach (ICD-10-PCS; 2024-07-22)
PROC: 0Y6N0ZB Detachment at Left Foot, Partial 2nd Ray, Open Approach (ICD-10-PCS; 2024-07-22)
PROC: 0Y6N0ZC Detachment at Left Foot, Partial 3rd Ray, Open Approach (ICD-10-PCS; 2024-07-22)
PROC: 30233N1 Transfusion of Nonautologous Red Blood Cells into Peripheral Vein, Percutaneous Approach (ICD-10-PCS; 2024-07-28)
PROC: 0Y6J0Z2 Detachment at Left Lower Leg, Mid, Open Approach (ICD-10-PCS; 2024-07-28)
DX: T87.44 Infection of amputation stump, left lower extremity (principal); A48.0 Gas gangrene; G92.8 Other toxic encephalopathy; E87.1 Hypo-osmolality and hyponatremia; I47.10 Supraventricular tachycardia, unspecified; L03.116 Cellulitis of left lower limb; L02.612 Cutaneous abscess of left foot; M86.172 Other acute osteomyelitis, left ankle and foot; E11.52 Type 2 diabetes mellitus with diabetic peripheral angiopathy with gangrene; I70.262 Atherosclerosis of native arteries of extremities with gangrene, left leg; E11.69 Type 2 diabetes mellitus with other specified complication; E78.00 Pure hypercholesterolemia, unspecified; E11.40 Type 2 diabetes mellitus with diabetic neuropathy, unspecified; E11.65 Type 2 diabetes mellitus with hyperglycemia; T87.81 Dehiscence of amputation stump; I25.10 Atherosclerotic heart disease of native coronary artery without angina pectoris; N40.1 Benign prostatic hyperplasia with lower urinary tract symptoms; R33.8 Other retention of urine; E11.628 Type 2 diabetes mellitus with other skin complications; D50.9 Iron deficiency anemia, unspecified; I10 Essential (primary) hypertension; I25.5 Ischemic cardiomyopathy; Y83.5 Amputation of limb(s) as the cause of abnormal reaction of the patient, or of later complication, without mention of misadventure at the time of the procedure; T50.995A Adverse effect of other drugs, medicaments and biological substances, initial encounter; F32.A Depression, unspecified; F41.9 Anxiety disorder, unspecified; K52.9 Noninfective gastroenteritis and colitis, unspecified; K62.7 Radiation proctitis; Y84.2 Radiological procedure and radiotherapy as the cause of abnormal reaction of the patient, or of later complication, without mention of misadventure at the time of the procedure; K21.9 Gastro-esophageal reflux disease without esophagitis; M48.00 Spinal stenosis, site unspecified; M19.90 Unspecified osteoarthritis, unspecified site; M54.16 Radiculopathy, lumbar region; Z89.422 Acquired absence of other left toe(s); Z86.73 Personal history of transient ischemic attack (TIA), and cerebral infarction without residual deficits; Z95.5 Presence of coronary angioplasty implant and graft; I25.2 Old myocardial infarction; Z85.46 Personal history of malignant neoplasm of prostate; Z85.038 Personal history of other malignant neoplasm of large intestine; Z87.891 Personal history of nicotine dependence; Z79.82 Long term (current) use of aspirin; Z79.4 Long term (current) use of insulin; Z79.02 Long term (current) use of antithrombotics/antiplatelets; Z95.820 Peripheral vascular angioplasty status with implants and grafts
CPT/HCPCS: 88305; 88307; 88311; 27880; 73630; 73700; 75625; 75716; 80048; 82947; 82962; 83036; 83605; 85025; 85027; 85610; 85652; 85730; 86140; 86850; 86900; 86901; 86920; 87040; 87070; 87075; 87077; 87147; 87186; 87205; 93005; 93922; 93925; 96365; 97163; 97167; 97530; 99285; C1725; C1769; C1887; C1894; C9772; P9016; Q9967

== ENCOUNTER → 2024-08-06 09:40 | Outpatient (REF) | payer OTHER, MEDICARE, SELFPAY ==
[2024-08-06 11:22] LABS: % Basophils 0.8 % (0-2); % Eosinophils 5.2 % (0-6); % Immature Granulocytes 0.5 % (0-0.5); % Lymphocytes 17.3 % (20.5-51.1); % Monocytes 8.2 % (1.7-9.3); Absolute Basophils 0.1 10^3/uL (0-0.2); Absolute Eosinophils 0.4 10^3/uL (0-0.7); Absolute Lymphocytes 1.4 10^3/uL (1.2-3.4); Absolute Monocytes 0.7 10^3/uL (0.1-0.6); Absolute Neutrophils 5.4 10^3/uL (1.4-6.5); Hematocrit 28.1 % (39.0-52.0); Hemoglobin 8.7 g/dL (13.0-18.0); Mean Corpuscular Hgb 25.6 pg (27.0-31.0); Mean Corpuscular Volume 82.6 fL (80.0-94.0); Mean Platelet Volume 9.4 fL (7.4-10.4); Nucleated Red Blood Cells % 0 % (-); Platelet Count 356 10^3/uL (130-400); Red Cell Dist. Width 16.9 % (11.5-14.5); White Blood Cell Count 7.9 10^3/uL (4.8-10.8)
[2024-08-06 11:42] LABS: Blood Urea Nitrogen 20 mg/dl (9-20); Calcium 8.3 mg/dl (8.4-10.2); Carbon Dioxide 23 mmol/L (22-30); Chloride 111 mmol/L (98-107); Glucose 147 mg/dl (70-99); Potassium 4.7 mmol/L (3.5-5.1); Sodium 141 mmol/L (135-145); eGFR > 60.00
== END ==
LOC: OLABP 09:40
PROVIDERS: ATTENDING PHYSICIAN Family Medicine
DX: R26.2 Difficulty in walking, not elsewhere classified (principal); I10 Essential (primary) hypertension; I73.9 Peripheral vascular disease, unspecified; E78.5 Hyperlipidemia, unspecified; I25.10 Atherosclerotic heart disease of native coronary artery without angina pectoris; E11.9 Type 2 diabetes mellitus without complications
CPT/HCPCS: 36415; 80048; 85025

== ENCOUNTER 2024-08-07 18:43 | Emergency (ER) | payer OTHER, SELFPAY ==
[2024-08-07] VITALS (10 sets, daily range): BP systolic 118–193; BP diastolic 68–104; BMI 24.7
--- NOTE | 2024-08-07 18:58 | ED.GENMED ---
History of Present Illness
General
Chief Complaint: Change in Mental Status
Source: patient
Exam Limitations: none
Time Seen by Provider: 08/07/24 18:57
History of Present Illness
History of Present Illness:
See MDM
Past History
Past History
ED Past Medical History: CAD, Cancer, GERD, HTN, Hypercholesterolemia, IDDM, [place], Renal failure and Other (GI bleeding, Prostate CA, cardiomyopathy, hiatal hernia, colon cancer, prostate cancer, arthritis, lumbar disc disease)
ED Past Surgical History: Bowel resection, Cardiac (Stents X7), Orthopedic and Other (L arm surgery)
Social History
Tobacco: Former smoker
Alcohol: None
Drug: None
Personal:
Living: with family
Employment: Retired
Family History
Family History: Other (Noncontributory)
Phy Exam
Physical Exam
Physical Exam:
See MDM
Sepsis
Sepsis Screening
Sepsis Assessment: Sepsis Ruled Out
Sepsis Screen
Sepsis Screen: Sepsis Ruled Out
Date: 08/07/24
Time: 20:03
Course
Orders/Labs/Results
Orders:
Orders
08/07/24 18:57
CT Head W/o Iv Contrast Urgent
Comment:
Reason For Exam: fall, confused
08/07/24 19:04
Ondansetron Injectable [Zofran] 4 mg IV NOW STA
08/07/24 19:06
Complete Blood Count/With Diff Urgent
Comprehensive Metabolic Panel Urgent
08/07/24 19:21
Labetalol HCl [Trandate] 10 mg IV NOW STA
08/07/24 19:31
PTT Urgent
Prothrombin Time Urgent
08/07/24 19:33
Propofol 1,000,000 Mcg/100 ml [Diprivan] 1,000,000 mcg in 100 ml .ROUTE .STK-MED
08/07/24 19:38
Portable Chest Xray [CR Chest Portable - 1 View] Stat
Comment:
Reason For Exam: post intubation
Reason Study Needs to be Portable: Patient Unstable
08/07/24 19:43
Nicardipine 40 mg/200 ml [Cardene] 40 mg in 200 ml IV NOW
Initial dose in mg/hr, then titrate:: 5
Titrate to keep:: SBP 120 - 140 mmHg
Titrate by mg/hr:: 2.5 mg/hr
Frequency of titrations (minutes):: 5-15 minutes
Maximum dose in mg/hr:: 15
Begin to taper infusion when:: Remained at goal for 2hrs
Taper by mg/hr:: 2.5 mg/hr
Frequency of taper (minutes) if patient maintains goal:: every 15-30 minutes
Taper to off?: Yes
If infusion off & no longer maintaining goal:: Contact Provider
08/08/24 Breakfast
NPO
Allow oral meds: No
Allow clear liquids: No
Abnormal Lab Results
08/07/24
19:06
WBC 14.3 H 10^3/uL
(4.8-10.8)
RBC 3.71 L 10^6/uL
(4.70-6.10)
Hgb 9.6 L g/dL
(13.0-18.0)
Hct 29.8 L %
(39.0-52.0)
MCH 25.9 L pg
(27.0-31.0)
MCHC 32.2 L g/dL
(33.0-37.0)
RDW 16.6 H %
(11.5-14.5)
Plt Count 427 H 10^3/uL
(130-400)
Abs Immat Gran (auto) 0.1 H 10^3/uL
(0-0.05)
Absolute Neuts (auto) 9.7 H 10^3/uL
(1.4-6.5)
Absolute Monos (auto) 1.2 H 10^3/uL
(0.1-0.6)
Immature Gran % 0.6 H %
(0-0.5)
Lymphocytes % 19.5 L %
(20.5-51.1)
Chloride 111 H mmol/L
(98-107)
Carbon Dioxide 20 L mmol/L
(22-30)
BUN 24 H mg/dl
(9-20)
Glucose 305 H mg/dl
(70-99)
Alkaline Phosphatase 164 H U/L
(38-126)
08/07/24 19:06
08/07/24 19:06
Vital Signs
Initial and Last Documented VS:
Initial Vital Signs
Pulse Resp Pulse Ox
113 20 98
08/07/24 18:47 08/07/24 18:47 08/07/24 18:47
Last Documented Vital Signs
Pulse Resp BP Pulse Ox
84 15 192/96 100
08/07/24 19:40 08/07/24 19:40 08/07/24 19:40 08/07/24 19:40
Procedures
Intubations
Procedure completed by: Jenamarie Sal DO
Method of Intubation: glidescope
Tube size (cm): 7.5
Placement confirmed by: auscutation, CXR, capnography and direct visualization
Breath sounds after intubation: equal
Intubation complications: no complications
MDM/Problems Addressed
Differential Diagnosis Includes:
HPI and MDM Narrative:
89-year-old male presenting for evaluation of altered mental status. 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 He slipped out of bed earlier today. does not think that he hit his head but they came to the emergency
department for evaluation. As she was driving, patient became extremely altered and confused and somewhat combative. Patient is complaining of a headache. Patient was brought back immediately. Given the fall, age and confusion, will send over
for stat CT head. Will obtain basic blood work.
Physical exam
General: Confused, disoriented, agitated
HEENT: protecting airway
Neck: appears supple
CV: No evidence of cyanosis
Resp: No accessory muscle use
Abd: Non-distended
Extremities: Left BKA
Neuro: alert. Moving all 4 extremities
Psych: Agitated
Skin: Intact
Problems Addressed including Acute and Chronic Conditions affecting care:
1. Altered mental status
Acuity: acute
Prognosis: stable
Details: Given the recent fall with progression of altered mental status, will obtain CT head
2. Subdural hematoma
Acuity: acute
Prognosis: unstable
Details: Patient loaded with Keppra and will start desmopressin given Plavix use
Updates
7:[address] called immediately to have a stat CT head. Patient vomiting at this moment. Will give Zofran and bring him over to CT
7:[address] confirms large head bleed. At this point, patient vomiting and having trouble protecting his airway. He is becoming obtunded. gave verbal consent for intubation
735 radiology called indicating likely subdural bleed. He did indicate there may be a component of epidural but indicated that it appeared to be subacute and acute. Family indicating that there was only 1 fall at 3:45 PM today
Patient intubated immediately without difficulty
Case discussed with [facility] trauma Dr. Maria Esther Mauricio at 7:50 PM. Patient accepted. Will set up flight. Will attempt reversal of Plavix with desmopressin. Will load with Keppra. Will place in cervical collar..
Differential Diagnosis (but not limited to): Intracranial hemorrhage, hyponatremia
Testing considered: Urinalysis but he has indwelling Adams catheter
Drug therapy (if applicable): OTC meds, please see d/c instruction regarding Rx drugs
Amount and/or Complexity of Data Reviewed
Clinical info obtained from: Patient
External data reviewed: Recent admission for worsening left foot cellulitis where he underwent definitive treatment and left BKA
Labs I independently reviewed (but not limited to): Baseline anemia
Radiology: The CT scan was personally and independently reviewed. In addition, official CT report reviewed.
Pulse Ox: not hypoxic
EKG independently reviewed: N/A
Ring Maker: Sinus tachycardia
Critical Care: The high probability of a clinically significant, sudden or life threatening deterioration of the neurovascular system(s) required my full and direct attention, intervention and personal management. The aggregate critical care time
was 55 minutes. This time is in addition to time spent performing reported procedures but includes the following:
[x] Data Review and interpretation
[x] Patient assessment and monitoring of vital signs
[x] Documentation
[x] Medication orders and management
Risk of Complication:
Social Determinants of health: Good social support
Discussed with other providers: N/A
Escalation of Care includes Admit/Obs: After being observed in the Emergency Department, pt stable for discharge.
Occasional wrong word or 'sound a like' substitutions may have occurred due to the inherent limitations of voice recognition software. Read the chart carefully and recognize, using context, where substitutions have occurred.
*Critical Care Note
Total Time (30-74mins, 75-104mins- exclusive of procedures): 55 min
ED Attending Note
-
Portions of this chart may have been created with voice recognition software.� Occasional wrong word or��sound alike� substitutions may have occurred due to the inherent limitations of voice recognition software.
Discharge Plan
Departure
Patient Disposition: Acute Care Hospital
Date of Disposition: 08/07/24
Time of Disposition: 20:01
Discharge Problem:
Acute subdural hematoma, Acute respiratory failure
Prescriptions:
No Action
amlodipine 5 MG tablet
5 mg PO DAILY Qty: 30 3RF
pantoprazole [Protonix] 20 MG tablet,delayed release (DR/EC)
20 mg PO DAILY
aspirin 81 MG tablet,delayed release (DR/EC)
81 mg PO DAILY
atorvastatin 80 mg Tablet
80 mg PO HS
tamsulosin [Flomax] 0.4 mg Capsule
0.4 mg PO DAILY
paroxetine HCl [Paxil] 40 mg Tablet
40 mg PO DAILY
carvedilol [Coreg] 6.25 mg Tablet
6.25 mg PO BID
therapeutic multivitamin Tablet
1 tab PO DAILY
clopidogrel [Plavix] 75 mg Tablet
75 mg PO DAILY
ferrous sulfate 325 mg (65 mg iron) Tablet
325 mg PO DAILY
cholestyramine (with sugar) 4 gram Powder In Packet
4 g PO TID
Patient Comments:
pt mention this med was increase to TID
omega 1-ghg-stu-fish oil [Fish Oil] 1,200 (144-216) mg Capsule
1 cap PO DAILY
glipizide 10 mg Tablet
10 mg PO BID
Patient Comments:
re started due to higher blood sugar levels
sennosides-docusate sodium 8.6-50 mg Tablet
1 tab PO BID 14 Days Qty: 28 0RF
tramadol 50 mg Tablet
25 mg PO Q6HPRN PRN (Reason: moderate to severe pain) Qty: 20 0RF
acetaminophen [Tylenol Extra Strength] 500 mg Tablet
1,000 mg PO QID 14 Days Qty: 112 0RF
insulin aspart U-100 100 unit/mL (3 mL) Insulin Pen
22 unit SC AC Qty: 15 0RF
insulin glargine [Lantus Solostar U-100 Insulin] 100 unit/mL (3 mL) insulin pen
22 unit SC QPM Qty: 15 0RF
Referrals:
UNKNOWN - PT NOT,INTERVIEWE [Family Provider] -
Hospital Transfer
Other hospital: [facility]
I certify that the patient requires transfer: Yes
Discussed case with accepting physician: Dr. Krishnan
Reason for transfer: higher level of care
Interventions
Interventions:
*Risk Screen - Suicide Last Done: 08/07/24 18:47
*General Assessment Last Done: 08/07/24 19:27
*Neglect/Abuse Screening Last Done: 08/07/24 19:27
*ED- Fall Risk Assessment Last Done: 08/07/24 19:27
*ED COVID-19 Vaccine History Last Done: 08/07/24 19:27
ED- Neurological Assessment Last Done: 08/07/24 19:10
ED Swallowing Screen Last Done: 08/07/24 19:31
Discharge Date and Time
Print Language: WALLISIAN
[2024-08-07 19:12] LABS: % Basophils 0.7 % (0-2); % Eosinophils 3.6 % (0-6); % Immature Granulocytes 0.6 % (0-0.5); % Lymphocytes 19.5 % (20.5-51.1); % Neutrophils 67.6 % (42.2-75.2); Absolute Basophils 0.1 10^3/uL (0-0.2); Absolute Eosinophils 0.5 10^3/uL (0-0.7); Absolute Immature Granulocytes 0.1 10^3/uL (0-0.05); Absolute Lymphocytes 2.8 10^3/uL (1.2-3.4); Absolute Monocytes 1.2 10^3/uL (0.1-0.6); Absolute Neutrophils 9.7 10^3/uL (1.4-6.5); Hematocrit 29.8 % (39.0-52.0); Hemoglobin 9.6 g/dL (13.0-18.0); Mean Corp Hgb Conc. 32.2 g/dL (33.0-37.0); Mean Corpuscular Hgb 25.9 pg (27.0-31.0); Mean Corpuscular Volume 80.3 fL (80.0-94.0); Mean Platelet Volume 9.1 fL (7.4-10.4); Nucleated Red Blood Cells % 0 % (-); Platelet Count 427 10^3/uL (130-400); Red Blood Cell Count 3.71 10^6/uL (4.70-6.10); Red Cell Dist. Width 16.6 % (11.5-14.5); White Blood Cell Count 14.3 10^3/uL (4.8-10.8)
[2024-08-07 19:25] LABS: ALT (SGPT) 19 U/L (0-50); AST (SGOT) 24 U/L (17-59); Albumin 3.6 g/dl (3.5-5.0); Alkaline Phosphatase 164 U/L (38-126); Blood Urea Nitrogen 24 mg/dl (9-20); Calcium 8.8 mg/dl (8.4-10.2); Carbon Dioxide 20 mmol/L (22-30); Chloride 111 mmol/L (98-107); Glucose 305 mg/dl (70-99); Sodium 139 mmol/L (135-145); Total Bilirubin 0.5 mg/dl (0.2-1.3); Total Protein 6.8 g/dl (6.3-8.2); eGFR > 60.00
[2024-08-07] MEDS: TRANDATE 10 MG IV (19:25)
[2024-08-07] MEDS: ZOFRAN 4 MG IV (19:25)
--- NOTE | 2024-08-07 19:33 | EDRN ---
Dr. Sal at bedside along with Shaun PAYNE. The patient received 20mg Etomidate and 10 mg of vercuronium given by Nila Hoyt RN in right forearm INT. The patient was intubated with a 7.5 ETT at 26 at the [facility].
[2024-08-07] MEDS: DIPRIVAN 100 IV (19:45)
[2024-08-07] MEDS: CARDENE 200 IV (19:49)
[2024-08-07 19:54] LABS: APTT 29.7 Sec (23.4-35.0); INR 1.08; PT 14.3 Sec (11.4-14.6)
[2024-08-07] MEDS: KEPPRA 2000 MG IV (20:12)
[2024-08-07] MEDS: DDAVP 60 MCG IV (20:22)
== END 2024-08-07 20:45 | disposition short-term general hospital (02) ==
LOC: EMR 18:43
PROVIDERS: EMERGENCY PHYSICIAN Student in an Organized Health Care Education/Training Program
DX: S06.5XAA Traumatic subdural hemorrhage with loss of consciousness status unknown, initial encounter (principal); J96.00 Acute respiratory failure, unspecified whether with hypoxia or hypercapnia; W19.XXXA Unspecified fall, initial encounter; I25.10 Atherosclerotic heart disease of native coronary artery without angina pectoris; K21.9 Gastro-esophageal reflux disease without esophagitis; E78.00 Pure hypercholesterolemia, unspecified; E11.9 Type 2 diabetes mellitus without complications; I11.9 Hypertensive heart disease without heart failure; I42.9 Cardiomyopathy, unspecified; I25.2 Old myocardial infarction; Z46.82 Encounter for fitting and adjustment of non-vascular catheter; Z85.038 Personal history of other malignant neoplasm of large intestine; Z87.891 Personal history of nicotine dependence; Z95.5 Presence of coronary angioplasty implant and graft
CPT/HCPCS: 99284; 96365; 96375; 70450; 71045; 80053; 85025; 85610; 85730; 94002; J2597